=== PATIENT | female | born 2000 | race Caucasian/White ===

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

== ENCOUNTER 2020-04-06 13:59 | Emergency (ER) | payer OTHER ==
[~2020-04-06] VITALS: Ht 152.4 cm; Wt 69.4 kg
--- OUTSIDE RECORDS SUMMARY | ~2020-04-06 | XMS | Encounter Summary ---
Demographics + + + | Address | [address] | | | [place] [address] | + + + | Home Phone | | + + + | Preferred Language | Unknown | + + + | Marital Status | Single | + + + | Baptist Affiliation | Unknown | + + + | Race | Unknown | + + + | Ethnic Group | Unknown | + + + Author + + + | Author | [facility] | | | and [place] | + + + | Organization | [facility] | | | and [place] | + + + | Address | Unknown | + + + | Phone | Unavailable | + + + Support + + +---------+ + | Name | Relationship | Address | Phone | + + +---------+ + | Giles Gross | ECON | Unknown | | + + +---------+ + Care Team Providers + +------+ + | Care Hyperion Analyst Name | Role | Phone | + +------+ + PCP | Unavailable | + +------+ + Encounter Details +--------+ + + + + | Date | Type | Department | Care Team | Description | +--------+ + + + + | 03/21/ | Hospital | [place] [facility] | [facility] | | | 2013 | Encounter | [facility] [address] | | | | | [facility] [place] | [address] | | | | | [place], [place] | [place], [place] | | | | | [address] | [address] | | | | | [phone] | [phone] | | | | | | | | +--------+ + + + + Social History + +-------+ +--------+------+ | Tobacco Use | Types | Packs/Day | Years | Date | | | | | Used | | + +-------+ +--------+------+ | Never Assessed | | | | | + +-------+ +--------+------+ + + + | Sex Assigned at | Date Recorded | | | | + + + | Not on file | | + + + documented as of this encounter Plan of Treatment Not on filedocumented as of this encounter Visit Diagnoses Not on filedocumented in this encounter"
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
--- OUTSIDE RECORDS SUMMARY | ~2020-04-06 | XMS | Encounter Summary ---
Demographics + + + | Address | [address] | | | [place] [address] | + + + | Home Phone | | + + + | Preferred Language | Unknown | + + + | Marital Status | Single | + + + | Confucianism Affiliation | Unknown | + + + | Race | Unknown | + + + | Ethnic Group | Unknown | + + + Author + + + | Author | [facility] | | | and [place] | + + + | Organization | [facility] | | | and [place] [...] Team Providers + +------+ + | Care Drupal Programmer Name | Role | Phone | + +------+ + PCP | Unavailable | + +------+ + Encounter Details +--------+ + + + + | Date | Type | Department | Care Team | Description | +--------+ + + + + | 08/10/ | Hospital | [place] | Yair Gastelum | | | 2013 | Encounter | HOSPITAL EMERGENCY | [address] | | | | | CENTER [address] [place], [place] | | | | | [place] | [address] | | | | | [address] | | | | | | [phone] | | | +--------+ + + + [...]
--- OUTSIDE RECORDS SUMMARY | ~2020-04-06 | XMS | Encounter Summary ---
Demographics + + + | Address | [address] | | | [place] [address] | + + + | Home Phone | | + + + | Preferred Language | Unknown | + + + | Marital Status | Single | + + + | Jainism Affiliation | Unknown | + + + | Race | Unknown | + + + | Ethnic Group | Unknown | + + + Author + + + | Author | [facility] | | | and [place] | + + + | Organization | [facility] | | | and [place] | [...] Team Providers + +------+ + | Care Farmworker Chicken [employer] Name | Role | Phone | + +------+ + PCP | Unavailable | + +------+ + Encounter Details +--------+ + + + + | Date | Type | Department | Care Team | Description | +--------+ + + + + | 11/03/ | Hospital | [facility] | de Ernie Kelley | | | 2010 | Encounter | CONVERSION | MD [address] | | | | | DEPARTMENT [address] | [address] | | [address] | [place], [place] | | | | | [place], [place] | [address] | | | | | [address] | [phone] | | | | | [phone] | | | +--------+ + + + [...]
--- OUTSIDE RECORDS SUMMARY | ~2020-04-06 | XMS | Encounter Summary ---
Demographics + + + | Address | [address] | | | [place] [address] | + + + | Home Phone | | + + + | Preferred Language | Unknown | + + + | Marital Status | Single | + + + | Bahai Affiliation | Unknown | + + + | Race | Unknown | + + + | Ethnic Group | Unknown | + + + Author + + + | Author | [facility] | | | and [place] | + + + | Organization | [facility] | | | and [place] [...] Team Providers + +------+ + | Care Hazardous Material Specialist Name | Role | Phone | + +------+ + PCP | Unavailable | + +------+ + Encounter Details +--------+ + + + + | Date | Type | Department | Care Team | Description | +--------+ + + + + | 11/24/ | Hospital | [facility] | Lexi Jeffers, | | | 2009 | Encounter | HOSPITAL EMERGENCY | [address] | | | | | [address] | [place], [place] | | | | | [address] [place], [place] | [address] | | | | | [address] | [phone] | | | | | [phone] | | | +--------+ + + + [...]
--- OUTSIDE RECORDS SUMMARY | ~2020-04-06 | XMS | Encounter Summary ---
Demographics + + + | Address | [address] | | | [place] [address] | + + + | Home Phone | | + + + | Preferred Language | Unknown | + + + | Marital Status | Single | + + + | Jain Affiliation | Unknown | + + + | Race | Unknown | + + + | Ethnic Group | Unknown | + + + Author + + + | Author | [facility] | | | and [place] | + + + | Organization | [facility] | | | and [...] Team Providers + +------+ + | Care Mail Weigher Name | Role | Phone | + +------+ + PCP | Unavailable | + +------+ + Encounter Details +--------+ + + + + | Date | Type | Department | Care Team | Description | +--------+ + + + + | 01/04/ | Hospital | [facility] | Dieudonne Montemayor | | | 2016 | Encounter | HOSPITAL EMERGENCY | [address] | | | | | [address] | [facility] | | | | | [address] [place], [place] | [facility] [address] | | | | | [address] | [phone] | | | | | [phone] | | | +--------+ + + + [...] | + +--------+ + + + | DRUGS OF ABUSE, | STAT | 01/05/2016 | | Results for this | | SCREEN, URINE | | 9:16 AM | | procedure are in the | | | | PDT | | results section. | + +--------+ + + + | CBC W/AUTO | STAT | 01/05/2016 | | Results for this | | DIFFERENTIAL | | 8:52 AM | | procedure are in the | | | | PDT | | results section. | + +--------+ + + + | , SERUM, | STAT | 01/05/2016 | | Results for this | | QUAL | | 8:52 AM | | procedure are in the | | | | PDT | | results section. | + +--------+ + + + | TSH | STAT | 01/05/2016 | | Results for this | | | | 8:52 AM | | procedure are in the | | | | PDT | | results section. | + +--------+ + + + | ALCOHOL | STAT | 01/05/2016 | | Results for this | | | | 8:52 AM | | procedure are in the | | | | PDT | | results section. | + +--------+ + + + | ACETAMINOPHEN LEVEL | STAT | 01/05/2016 | | Results for this | | | | 8:52 AM | | procedure are in the | | | | PDT | | results section. | + +--------+ + + + | SALICYLATE LEVEL | STAT | 01/05/2016 | | Results for this | | | | 8:52 AM | | procedure are in the | | | | PDT | | results section. | + +--------+ + + + | COMPREHENSIVE | STAT | 01/05/2016 | | Results for this | | METABOLIC PANEL | | 8:52 AM | | procedure are in the | | | | PDT | | results section. | + +--------+ + + + | URINALYSIS WITH | STAT | 01/05/2016 | | Results for this | | MICROSCOPIC WITH | | 8:51 AM | | procedure are in the | | CULTURE IF INDICATED | | PDT | | results section. | + +--------+ + + + documented in this encounter Results Drugs of Abuse, Screen, Urine (01/05/2016 9:16 AM PDT) + +-------+ + + + | Component | Value | Ref Range | Performed | Pathologist | | | | | At | Signature | + +-------+ + + + | THC RESULT | NEG | NEG ng/mL | EXTERNAL | | | | | | LAB | | + +-------+ + + + | Phencyclidi | NEG | NEG ng/mL | EXTERNAL | | | ne | | | LAB | | + +-------+ + + + | Cocaine | NEG | NEG ng/mL | EXTERNAL | | | | | | LAB | | + +-------+ + + + | Methampheta | NEG | NEG ng/mL | EXTERNAL | | | mine | | | LAB | | + +-------+ + + + | Opiates | NEG | NEG ng/mL | EXTERNAL | | | | | | LAB | | + +-------+ + + + | Amphetamine | NEG | NEG ng/mL | EXTERNAL | | | s | | | LAB | | + +-------+ + + + | Benzodiazep | NEG | NEG ng/mL | EXTERNAL | | | osiel | | | LAB | | | Screen, | | | | | | Urine | | | | | + +-------+ + + + | TCA Scrn | NEG | NEG ng/mL | EXTERNAL | | | | | | LAB | | + +-------+ + + + | Methadone | NEG | NEG ng/mL | EXTERNAL | | | Screen, | | | LAB | | | Urine | | | | | + +-------+ + + + | Barbiturate | NEG | NEG ng/mL | EXTERNAL | | | s | | | LAB | | + +-------+ + + + | Oxycodone | NEG | NEG ng/mL | EXTERNAL | | | | | | LAB | | + +-------+ + + + | Propoxyphen | NEG | NEG ng/mL | EXTERNAL | | | e | | | LAB | | + +-------+ + + + | Buprenorphi | NEG | NEG ng/mL | EXTERNAL | | | ne | | | LAB | | + +-------+ + + + + + | Specimen | + + | | + + + +---------+ + + | Performing | Address | City/State/Zipcode | Phone Number | | Organization | | | | + +---------+ + + | EXTERNAL LAB | | | | + +---------+ + + CBC w/ Auto Differential (01/05/2016 8:52 AM PDT) + +-------+ + + + | Component | Value | Ref Range | Performed | Pathologist | | | | | At | Signature | + +-------+ + + + | WBC | 6.2 | 4.5 - 13.5 | EXTERNAL | | | | | 1000/mm3 | LAB | | + +-------+ + + + | RBC | 4.78 | 3.90 - 5.10 | EXTERNAL | | | | | mil/mm3 | LAB | | + +-------+ + + + | HGB, | 13.9 | 11.7 - 15.3 | EXTERNAL | | | External | | g/dL | LAB | | + +-------+ + + + | HCT, | 41 | 37.7 - 47.0 % | EXTERNAL | | | External | | | LAB | | + +-------+ + + + | MCV | 86 | 78 - 98 fl | EXTERNAL | | | | | | LAB | | + +-------+ + + + | MCH | 29.1 | 26.0 - 34.0 pg | EXTERNAL | | | | | | LAB | | + +-------+ + + + | MCHC | 33.9 | 32.0 - 36.0 | EXTERNAL | | | | | g/dL | LAB | | + +-------+ + + + | RDW-CV | 13.3 | <=17.0 % | EXTERNAL | | | | | | LAB | | + +-------+ + + + | RDW-SD | 40.9 | 34.0 - 57.0 fL | EXTERNAL | | | | | | LAB | | + +-------+ + + + | Platelet | 296 | 150 - 450 | EXTERNAL | | | Count | | 1000/mm3 | LAB | | | Plasma | | | | | + +-------+ + + + | MPV | 9.8 | 9.4 - 12.3 FL | EXTERNAL | | | | | | LAB | | + +-------+ + + + | % Segmented | 65.8 | 39.0 - 73.0 % | EXTERNAL | | | | | | LAB | | | Neutrophils | | | | | + +-------+ + + + | % | 22.7 | 23.0 - 53.0 % | EXTERNAL | | | Lymphocytes | | | LAB | | + +-------+ + + + | % Monocytes | 8.9 | 3.0 - 13.0 % | EXTERNAL | | | | | | LAB | | + +-------+ + + + | % | 2.1 | 0.0 - 7.0 % | EXTERNAL | | | Eosinophils | | | LAB | | + +-------+ + + + | % Basophils | 0.5 | 0.0 - 2.0 % | EXTERNAL | | | | | | LAB | | + +-------+ + + + | Absolute | 4.05 | 2.50 - 8.50 | EXTERNAL | | | Neutrophils | | 1000/mm3 | LAB | | + +-------+ + + + | Absolute | 1.4 | 1.50 - 6.50 | EXTERNAL | | | Lymphocytes | | 1000/mm3 | LAB | | + +-------+ + + + | Absolute | 0.55 | 0.00 - 0.80 | EXTERNAL | | | Monocytes | | 1000/mm3 | LAB | | + +-------+ + + + | Absolute | 0.13 | 0.00 - 0.70 | EXTERNAL | | | Eosinophils | | 1000/mm3 | LAB | | + +-------+ + + + | Absolute | 0.03 | 0.00 - 0.20 | EXTERNAL | | | Basophils | | 1000/mm3 | LAB | | + +-------+ + + + | SLIDE | NO | | EXTERNAL | | | REVIEWED | | | LAB | | + +-------+ + + + + + | Specimen | + + | | + + + +---------+ + + | Performing | Address | City/State/Zipcode | Phone Number | | Organization | | | | + +---------+ + + | EXTERNAL LAB | | | | + +---------+ + + , Serum, Qual (01/05/2016 8:52 AM PDT) + + + + + + | Component | Value | Ref Range | Performed | Pathologist | | | | | At | Signature | + + + + + + | HCG | NEGATIVE | NEGATIVE | EXTERNAL | | | QUALITATIVE | | | LAB | | + + + + + + | Internal QC | POSITIVE | POSITIVE | EXTERNAL | | | | | | LAB | | + + + + + + + + | Specimen | + + | | + + + +---------+ + + | Performing | Address | City/State/Zipcode | Phone Number | | Organization | | | | + +---------+ + + | EXTERNAL LAB | | | | + +---------+ + + TSH (01/05/2016 8:52 AM PDT) + +-------+ + + + | Component | Value | Ref Range | Performed | Pathologist | | | | | At | Signature | + +-------+ + + + | TSH | 1.86 | 0.40 - 4.68 | EXTERNAL | | | | | mIU/L | LAB | | + +-------+ + + + + + | Specimen | + + | | + + + +---------+ + + | Performing | Address | City/State/Zipcode | Phone Number | | Organization | | | | + +---------+ + + | EXTERNAL LAB | | | | + +---------+ + + Salicylate Level (01/05/2016 8:52 AM PDT) + +-------+ + + + | Component | Value | Ref Range | Performed | Pathologist | | | | | At | Signature | + +-------+ + + + | Salicylate | 3 | 3 - 20 mg/dL | EXTERNAL | | | Level | | | LAB | | + +-------+ + + + + + | Specimen | + + | | + + + +---------+ + + | Performing | Address | City/State/Zipcode | Phone Number | | Organization | | | | + +---------+ + + | EXTERNAL LAB | | | | + +---------+ + + Acetaminophen Level (01/05/2016 8:52 AM PDT) + +-------+ + + + | Component | Value | Ref Range | Performed | Pathologist | | | | | At | Signature | + +-------+ + + + | Acetaminoph | 2 | 10.0 - 20.0 | EXTERNAL | | | en, S | | ug/mL | LAB | | + +-------+ + + + + + | Specimen | + + | | + + + +---------+ + + | Performing | Address | City/State/Zipcode | Phone Number | | Organization | | | | + +---------+ + + | EXTERNAL LAB | | | | + +---------+ + + Comprehensive Metabolic Panel (01/05/2016 8:52 AM PDT) + +-------+ + + + | Component | Value | Ref Range | Performed | Pathologist | | | | | At | Signature | + +-------+ + + + | Sodium | 139 | 132 - 143 | EXTERNAL | | | | | mmol/L | LAB | | + +-------+ + + + | Potassium | 4.1 | 3.3 - 4.9 | EXTERNAL | | | | | mmol/L | LAB | | + +-------+ + + + | Cl | 105 | 95 - 108 mmol/L | EXTERNAL | | | | | | LAB | | + +-------+ + + + | CO2 | 27 | 23 - 34 mmol/L | EXTERNAL | | | | | | LAB | | + +-------+ + + + | Anion Gap | 7 | 7 - 16 | EXTERNAL | | | | | | LAB | | + +-------+ + + + | Calcium | 9.1 | 8.3 - 10.0 | EXTERNAL | | | | | mg/dL | LAB | | + +-------+ + + + | Glucose | 93 | 70 - 110 mg/dL | EXTERNAL | | | | | | LAB | | + +-------+ + + + | BUN, Bld | 11 | 5 - 26 mg/dL | EXTERNAL | | | | | | LAB | | + +-------+ + + + | Creatinine | 0.7 | 0.60 - 1.30 | EXTERNAL | | | | | mg/dL | LAB | | + +-------+ + + + | BUN/Creatin | 15.7 | 7.0 - 24.0 | EXTERNAL | | | ine Ratio | | RATIO | LAB | | + +-------+ + + + | Bilirubin, | 0.4 | <=1.2 mg/dL | EXTERNAL | | | Total | | | LAB | | + +-------+ + + + | Protein, | 7 | 6.6 - 8.5 g/dL | EXTERNAL | | | Total | | | LAB | | + +-------+ + + + | Albumin | 3.3 | 3.0 - 4.5 g/dL | EXTERNAL | | | | | | LAB | | + +-------+ + + + | Alkaline | 105 | 60 - 270 U/L | EXTERNAL | | | Phosphatase | | | LAB | | + +-------+ + + + | ALT, | 35 | 14 - 59 U/L | EXTERNAL | | | External | | | LAB | | + +-------+ + + + | AST, | 29 | <=38 U/L | EXTERNAL | | | External | | | LAB | | + +-------+ + + + + + | Specimen | + + | | + + + +---------+ + + | Performing | Address | City/State/Zipcode | Phone Number | | Organization | | | | + +---------+ + + | EXTERNAL LAB | | | | + +---------+ + + Ethanol (01/05/2016 8:52 AM PDT) + +-------+ + + + | Component | Value | Ref Range | Performed | Pathologist | | | | | At | Signature | + +-------+ + + + | Alcohol, | 10 | <=10 mg/dL | EXTERNAL | | | Ethyl (B) | | | LAB | | + +-------+ + + + + + | Specimen | + + | | + + + +---------+ + + | Performing | Address | City/State/Zipcode | Phone Number | | Organization | | | | + +---------+ + + | EXTERNAL LAB | | | | + +---------+ + + Urinalysis with Microscopic with Culture if Indicated (01/05/2016 8:51 AM PDT) + + + + + + | Component | Value | Ref Range | Performed | Pathologist | | | | | At | Signature | + + + + + + | Source | Clean Catch / VOID | | EXTERNAL | | | | | | LAB | | + + + + + + | Clarity, | CLEAR | CLEAR | EXTERNAL | | | Urine | | | LAB | | + + + + + + | Color, | YELLOW | YELLOW | EXTERNAL | | | Urine | | | LAB | | + + + + + + | Specific | 1.015 | 1.005 - 1.030 | EXTERNAL | | | [place], | | | LAB | | | Urine | | | | | + + + + + + | pH, Urine | 7 | 5.0 - 7.0 pH | EXTERNAL | | | | | | LAB | | + + + + + + | Leukocyte | NEGATIVE | NEGATIVE /uL | EXTERNAL | | | Esterase, | | | LAB | | | Urine | | | | | + + + + + + | Nitrite, | NEGATIVE | NEGATIVE | EXTERNAL | | | Urine | | | LAB | | + + + + + + | Protein, | NEGATIVE | NEGATIVE mg/dL | EXTERNAL | | | Urine | | | LAB | | + + + + + + | Glucose, | NORMAL | NORMAL mg/dL | EXTERNAL | | | Urine | | | LAB | | + + + + + + | Reducing | NOT REQUIRED | NEGATIVE | EXTERNAL | | | Substance, | | | LAB | | | UA, POC | | | | | + + + + + + | Ketones, | NEGATIVE | NEGATIVE mg/dL | EXTERNAL | | | Urine | | | LAB | | + + + + + + | Urobilinoge | NORMAL | NORMAL mg/dL | EXTERNAL | | | n, Urine | | | LAB | | + + + + + + | Bilirubin, | NEGATIVE | NEGATIVE mg/dL | EXTERNAL | | | Urine | | | LAB | | + + + + + + | Blood, | NEGATIVE | NEGATIVE /uL | EXTERNAL | | | Urine | | | LAB | | + + + + + + | White Blood | NONE SEEN | </= 5 /HPF | EXTERNAL | | | Cells, | | | LAB | | | Urine | | | | | + + + + + + | RBC | NONE SEEN | </= 5 PER HPF | EXTERNAL | | | | | | LAB | | + + + + + + | Bacteria, | RARE | NONE SEEN /HPF | EXTERNAL | | | UA | | | LAB | | + + + + + + | Culture | NO | | EXTERNAL | | | Indicated | | | LAB | | + + + + + + | Squamous | FEW | FEW /LPF | EXTERNAL | | | Epithelial | | | LAB | | | Cells, | | | | | | Urine | | | | | + + + + + + + + | Specimen | + + | | + + + +---------+ + + | Performing | Address | City/State/Zipcode | Phone Number | | Organization | | | | + +---------+ + + | EXTERNAL LAB | | | | + +---------+ + + documented in this encounter Visit Diagnoses Not on filedocumented in this encounter"
--- OUTSIDE RECORDS SUMMARY | ~2020-04-06 | XMS | Encounter Summary ---
Demographics + + + | Address | [address] | | | [place] [address] | + + + | Home Phone | | + + + | Preferred Language | Unknown | + + + | Marital Status | Single | + + + | Alevism Affiliation | Unknown | + + + | Race | Unknown | + + + | Ethnic Group | Unknown | + + + Author + + + | Author | [facility] | | | and [place] | + + + | Organization | [facility] | | | and [place] [...] Team Providers + +------+ + | Care Laser Set Up Operator Name | Role | Phone | + +------+ + PCP | Unavailable | + +------+ + Encounter Details +--------+ + + + + | Date | Type | Department | Care Team | Description | +--------+ + + + + | 03/19/ | Hospital | [place] [facility] | Shelley Clifton | | | 2013 | Encounter | HOSPITAL OBSTETRICS | DO [address] | | | | | [address] [place] | [address] | | | | | [place], [place] | [place], [place] | | | | | [address] | [address] | | | | | [phone] | [phone] | | | | | | | [...]
--- OUTSIDE RECORDS SUMMARY | ~2020-04-06 | XMS | Encounter Summary ---
Demographics + + + | Address | [address] | | | [place] [address] | + + + | Home Phone [...] + | Author | [facility] | | | and [place] | + + + | Organization | [facility] | | | and [place] [...] Team Providers + +------+ + | Care Radiotelephone Operator Name | Role | Phone | + +------+ + PCP | Unavailable | + +------+ + Encounter Details +--------+ + + + + | Date | Type | Department | Care Team | Description | +--------+ + + + + | 03/08/ | Hospital | [facility] | Lauro Fajardo | | | 2014 | Encounter | HOSPITAL EMERGENCY | DO [address] | | | | | CENTER [address] | [address] [place] | | | | | DR [place], [place] | [place] [address] | | | | | [address] | [phone] | | | | | [phone] | | | +--------+ + + + [...] + +--------+ + + + | XR CHEST 2 VIEWS | Routin | 03/08/2015 | | Results for this | | | e | 9:33 AM | | procedure are in the | | | | PDT | | results section. | + +--------+ + + + documented in this encounter Results XR Chest 2 VW (03/08/2015 9:33 AM PDT) + + | Specimen | + + | | + + + + + | Narrative | Performed At | + + + | ORIGINAL PA AND LATERAL CHEST: HISTORY: | | | Cough, shortness of breath. FINDINGS: The lungs are clear. No | | | pleural effusion. No pneumothorax. The cardiomediastinal | | | silhouette is within normal limits. IMPRESSION: No evidence of an | | | acute cardiopulmonary process. JOB #: [id number] | | | Read By: BEBETO KLEIN MD Released By: BEBETO KLEIN | | | Date: 03/13/2015 12:02 | | + + + + + | Procedure Note | + + | Tunde, Rad Results In - 08/02/2017 7:34 PM PST ORIGINAL PA AND LATERAL CHEST: | | HISTORY:Cough, shortness of breath. FINDINGS:The lungs are clear. No pleural effusion. | | No pneumothorax. The cardiomediastinal silhouette is within normal limits. | | IMPRESSION:No evidence of an acute cardiopulmonary process. JOB #: | | [id number] Read By: BEBETO KLEIN MD Released By: YFN ZAVALAate: | | 03/13/2015 12:02 | | | |HISTORY: | |Cough, shortness of breath. | | | |FINDINGS: | |The lungs are clear. No pleural effusion. No pneumothorax. The cardiomediastinal silhoue tte is within normal limits. | | | |IMPRESSION: | |No evidence of an acute cardiopulmonary process. | | | | | |JOB #: [id number] | | | |Read By: BEBETO KLEIN MD | | | |Released By: BEBETO KLEIN MD | |Date: 03/13/2015 12:02 | | | | | + + documented in this encounter Visit Diagnoses Not on filedocumented in this encounter"
--- OUTSIDE RECORDS SUMMARY | ~2020-04-06 | XMS | Clinical Summary ---
Demographics + + + | Address | [address] | | | [place] [address] | + + + | Home Phone | | + + + | Preferred Language | Unknown | + + + | Marital Status | Single | + + + | Episcopal Affiliation | Unknown | + + + [...] Team Providers + +------+ + | Care Pot Maker Name | Role | Phone | + +------+ + PCP | Unavailable | + +------+ + Source Comments EDUARDO is fully live on both [facility] Ambulatory and [facility] InPatient.[facility] Allergies Not on File Medications Not on file Active Problems Not [...] recent travel history available. | + + Last Filed Vital Signs Not on file Plan of Treatment + + + + + | Health Maintenance | Due Date | Last Done | Comments | + + + + + | Influenza (Flu) | | | | | vaccination (#1) | 9 | | | + + + + + | Pneumococcal | Aged Out | | No longer eligible | | vaccination | | | based on patient's | | | | | age to complete this | | | | | topic | + + + + + Results Not on filefrom Last 3 Months"
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
--- OUTSIDE RECORDS SUMMARY | ~2020-04-06 | XMS | Encounter Summary ---
Demographics + + + | Address | [address] | | | [place] [address] | + + + | Home Phone | | + + + | Preferred Language | Unknown | + + + | Marital Status | Single | + + + | Anabaptist Affiliation | Unknown | + + + | Race | Unknown | + + + | Ethnic Group | Unknown | + + + Author + + + | Author | [facility] | | | and [place] | + + + | Organization | [facility] | | | and [place] [...] Team Providers + +------+ + | Care Database Operator Name | Role | Phone | [...] | | | | [place], [place] | [address] | | | | | [address] | [phone] | | | | | [phone] | | | +--------+ + + + [...]
--- OUTSIDE RECORDS SUMMARY | ~2020-04-06 | XMS | Encounter Summary ---
Demographics + + + | Address | [address] | | | [place] [address] | + + + | Home Phone | | + + + | Preferred Language | Unknown | + + + | Marital Status | Single | + + + | Hoahaoism Affiliation | Unknown | + + + | Race | Unknown | + + + | Ethnic Group | Unknown | + + + Author + + + | Author | [facility] | | | and [place] | + + + | Organization | [facility] | | | and [...] Team Providers + +------+ + | Care Monitoring Analyst Name | Role | Phone | + +------+ + PCP | Unavailable | + +------+ + Encounter Details +--------+ + + + + | Date | Type | Department | Care Team | Description | +--------+ + + + + | 11/23/ | Hospital | [facility] | [facility] | | | 2016 | Encounter | [facility] | [address] | | | | | [address] | [address] [place] | | | | | DR [place], [place] | [place], [place] [address] | | | | | [address] | [phone] | | | | | [phone] | | | +--------+ + + + [...] | + +--------+ + + + | MAGNESIUM | Routin | 11/24/2015 | | Results for this | | | e | 9:35 PM | | procedure are in the | | | | PST | | results section. | + +--------+ + + + | HCG, SERUM, QUAL | FARZANA | 11/24/2015 | | Results for this | | (NON-ORD) | | 9:34 PM | | procedure are in the | | | | PST | | results section. | + +--------+ + + + | DRUGS OF ABUSE, | STAT | 11/24/2015 | | Results for this | | SCREEN, URINE | | 7:57 PM | | procedure are in the | | | | PST | | results section. | + +--------+ + + + | URINALYSIS WITH | STAT | 11/24/2015 | | Results for this | | MICROSCOPIC WITH | | 7:22 PM | | procedure are in the | | CULTURE IF INDICATED | | PST | | results section. | + +--------+ + + + | CBC W/AUTO | STAT | 11/24/2015 | | Results for this | | DIFFERENTIAL | | 7:22 PM | | procedure are in the | | | | PST | | results section. | + +--------+ + + + | TSH | STAT | 11/24/2015 | | Results for this | | | | 7:22 PM | | procedure are in the | | | | PST | | results section. | + +--------+ + + + | ALCOHOL | STAT | 11/24/2015 | | Results for this | | | | 7:22 PM | | procedure are in the | | | | PST | | results section. | + +--------+ + + + | ACETAMINOPHEN LEVEL | STAT | 11/24/2015 | | Results for this | | | | 7:22 PM | | procedure are in the | | | | PST | | results section. | + +--------+ + + + | SALICYLATE LEVEL | STAT | 11/24/2015 | | Results for this | | | | 7:22 PM | | procedure are in the | | | | PST | | results section. | + +--------+ + + + | COMPREHENSIVE | STAT | 11/24/2015 | | Results for this | | METABOLIC PANEL | | 7:22 PM | | procedure are in the | | | | PST | | results section. | + +--------+ + + + documented in this encounter Results Magnesium (11/24/2015 9:35 PM PST) + +-------+ + + + | Component | Value | Ref Range | Performed | Pathologist | | | | | At | Signature | + +-------+ + + + | Magnesium | 2 | 1.8 - 2.4 mg/dL | EXTERNAL | | | | [...] + +---------+ + + Hcg, Serum, Qual (11/24/2015 9:34 PM PST) + + + + + + [...] + + Drugs of Abuse, Screen, Urine (11/24/2015 7:57 PM PST) + +-------+ + + + | [...] Urinalysis with Microscopic with Culture if Indicated (11/24/2015 7:22 PM PST) + + + + + + [...] + + + + | Specific | 1.025 | 1.005 - 1.030 | EXTERNAL | | | [place], | | | LAB | | | Urine | | | | | + + + + + + | pH, Urine | 6 | 5.0 - 7.0 pH | EXTERNAL [...] + + + + | Protein, | 30 | NEGATIVE mg/dL | EXTERNAL | | [...] + + + + | Blood, | 10 | NEGATIVE /uL | EXTERNAL | | | Urine | | | LAB | | + + + + + + | White Blood | 0-2 | </= 5 /HPF | EXTERNAL | | | Cells, | | | LAB | | | Urine | | | | | + + + + + + | RBC | 0-2 | </= 5 PER HPF | EXTERNAL | | | | | | LAB | | + + + + + + | Bacteria, | FEW | NONE SEEN /HPF | EXTERNAL | | | UA | | | LAB | | + + + + + + | Culture | NO | | EXTERNAL | | | Indicated | | | LAB | | + + + + + + | Squamous | MANY | FEW /LPF | EXTERNAL | | | Epithelial | | | LAB | | | Cells, | | | | | | Urine | | | | | + + + + + + | Calcium | FEW | NONE SEEN /HPF | EXTERNAL | | | Oxalate | | | LAB | | | Crystals, | | | | | | Urine [...] +---------+ + + CBC w/ Auto Differential (11/24/2015 7:22 PM PST) + +-------+ + + + | Component | Value | Ref Range | Performed | Pathologist | | | | | At | Signature | + +-------+ + + + | WBC | 8.6 | 4.5 - 13.5 | EXTERNAL | | | | | 1000/mm3 | LAB | | + +-------+ + + + | RBC | 4.71 | 3.90 - 5.10 | EXTERNAL | | | | | mil/mm3 | LAB | | + +-------+ + + + | HGB, | 13.6 | 11.7 - 15.3 | EXTERNAL | | | External | | g/dL | LAB | | + +-------+ + + + | HCT, | 39.3 | 37.7 - 47.0 % | EXTERNAL | | | External | | | LAB | | + +-------+ + + + | MCV | 83 | 78 - 98 fl | EXTERNAL | | | | | | LAB | | + +-------+ + + + | MCH | 28.9 | 26.0 - 34.0 pg | EXTERNAL | | | | | | LAB | | + +-------+ + + + | MCHC | 34.6 | 32.0 - 36.0 | EXTERNAL | | | | | g/dL | LAB | | + +-------+ + + + | RDW-CV | 13.7 | <=17.0 % | EXTERNAL | | | | | | LAB | | + +-------+ + + + | RDW-SD | 40.8 | 34.0 - 57.0 fL | EXTERNAL | | | | | | LAB | | + +-------+ + + + | Platelet | 328 | 150 - 450 | EXTERNAL | | | Count | | 1000/mm3 | LAB | | | Plasma | | | | | + +-------+ + + + | MPV | 10 | 9.4 - 12.3 FL | EXTERNAL | | | | | | LAB | | + +-------+ + + + | % Segmented | 68.2 | 39.0 - 73.0 % | EXTERNAL | | | | | | LAB | | | Neutrophils | | | | | + +-------+ + + + | % | 22.2 | 23.0 - 53.0 % | EXTERNAL | | | Lymphocytes | | | LAB | | + +-------+ + + + | % Monocytes | 5.6 | 3.0 - 13.0 % | EXTERNAL | | | | | | LAB | | + +-------+ + + + | % | 3.7 | 0.0 - 7.0 % | EXTERNAL | | | Eosinophils | | | LAB | | + +-------+ + + + | % Basophils | 0.3 | 0.0 - 2.0 % | EXTERNAL | | | | | | LAB | | + +-------+ + + + | Absolute | 5.86 | 2.50 - 8.50 | EXTERNAL | | | Neutrophils | | 1000/mm3 | LAB | | + +-------+ + + + | Absolute | 1.91 | 1.50 - 6.50 | EXTERNAL | | | Lymphocytes | | 1000/mm3 | LAB | | + +-------+ + + + | Absolute | 0.48 | 0.00 - 0.80 | EXTERNAL | | | Monocytes | | 1000/mm3 | LAB | | + +-------+ + + + | Absolute | 0.32 | 0.00 - 0.70 | EXTERNAL | [...] | | + +---------+ + + TSH (11/24/2015 7:22 PM PST) + +-------+ + + + | Component | Value | Ref Range | Performed | Pathologist | | | | | At | Signature | + +-------+ + + + | TSH | 1.29 | 0.40 - 4.68 | EXTERNAL | [...] | + +---------+ + + Salicylate Level (11/24/2015 7:22 PM PST) + +-------+ + + + | [...] | + +---------+ + + Acetaminophen Level (11/24/2015 7:22 PM PST) + +-------+ + + + | [...] + +---------+ + + Comprehensive Metabolic Panel (11/24/2015 7:22 PM PST) + +-------+ + + + | Component | Value | Ref Range | Performed | Pathologist | | | | | At | Signature | + +-------+ + + + | Sodium | 139 | 132 - 143 | EXTERNAL | | | | | mmol/L | LAB | | + +-------+ + + + | Potassium | 3.5 | 3.3 - 4.9 | EXTERNAL | | | | | mmol/L | LAB | | + +-------+ + + + | Cl | 105 | 95 - 108 mmol/L | EXTERNAL | | | | | | LAB | | + +-------+ + + + | CO2 | 23 | 23 - 34 mmol/L | EXTERNAL | | | | | | LAB | | + +-------+ + + + | Anion Gap | 11 | 7 - 16 | EXTERNAL | | | | | | LAB | | + +-------+ + + + | Calcium | 8.5 | 8.3 - 10.0 | EXTERNAL | | | | | mg/dL | LAB | | + +-------+ + + + | Glucose | 100 | 70 - 110 mg/dL | EXTERNAL | | | | | | LAB | | + +-------+ + + + | BUN, Bld | 10 | 5 - 26 mg/dL | EXTERNAL | | | | | | LAB | | + +-------+ + + + | Creatinine | 0.65 | 0.60 - 1.30 | EXTERNAL | | | | | mg/dL | LAB | | + +-------+ + + + | BUN/Creatin | 15.4 | 7.0 - 24.0 | EXTERNAL | | | ine Ratio | | RATIO | LAB | | + +-------+ + + + | Bilirubin, | 0.3 | <=1.2 mg/dL | EXTERNAL | | | Total | | | LAB | | + +-------+ + + + | Protein, | 7.1 | 6.6 - 8.5 g/dL | EXTERNAL | | | Total | | | LAB | | + +-------+ + + + | Albumin | 3.3 | 3.0 - 4.5 g/dL | EXTERNAL | | | | | | LAB | | + +-------+ + + + | Alkaline | 93 | 60 - 270 U/L | EXTERNAL | | | Phosphatase | | | LAB | | + +-------+ + + + | ALT, | 28 | 14 - 59 U/L | EXTERNAL | | | External | | | LAB | | + +-------+ + + + | AST, | 21 | <=38 U/L | EXTERNAL | | [...] | | + +---------+ + + Ethanol (11/24/2015 7:22 PM PST) + +-------+ + + + | [...]
--- OUTSIDE RECORDS SUMMARY | ~2020-04-06 | XMS | Encounter Summary ---
Demographics + + + | Address | [address] | | | [place] [address] | + + + | Home Phone | | + + + | Preferred Language | Unknown | + + + | Marital Status | Single | + + + | Protestant Affiliation [...] Team Providers + +------+ + | Care Cma Name | Role | Phone | + [...] | Transcriptions | + + | Interface, Botany Laboratory Assistant In - 07/01/2006 3:01 AM PDT | | [facility]o | | [place], [place] [address] | | [facility] | | [id number] Date: 06/28/2001Name: Sumeet Caty SURGEON: | | Danica Batista M.D.MEDICAL NURSE(S): Edgard Camilo | | KarinaPREOPERATIVE DIAGNOSIS(ES):Esotropia.POSTOPERATIVE | [...] | | muscle hook followed by a Mobile hook. Conjunctivawas reflected over the tip of [...] office. Danica Batista M.D.AUS:x70D: 06/29/2001T: | | 06/30/[id number]: | |None. | | | |INDICATIONS FOR [...] a small muscle hook followed by a Mobile hook. Conjunctiva | |was reflected over the [...] | | | | | | | |[id number] | | | |CC: | + + documented in this encounter Visit Diagnoses Not on filedocumented in this encounter"
--- OUTSIDE RECORDS SUMMARY | ~2020-04-06 | XMS | Encounter Summary ---
Demographics + + + | Address | [address] | | | [place] [address] | + + + | Home Phone | | + + + | Preferred Language | Unknown | + + + | Marital Status | Single | + + + | Confucianist Affiliation | Unknown | + + + | Race | Unknown | + + + | Ethnic Group | Unknown | + + + Author + + + | Author | [facility] | | | and [place] | + + + | Organization | [facility] | | | and [place] | [...] Team Providers + +------+ + | Care Burlapper Name | Role | Phone | + +------+ + PCP | Unavailable | + +------+ + Encounter Details +--------+ + + + + | Date | Type | Department | Care Team | Description | +--------+ + + + + | 01/10/ | Hospital | [facility] | Jeanette Monzon, | | | 2016 | Encounter | HOSPITAL EMERGENCY | SERVICE TECHNICIAN [facility] [address] | | | | | CENTER [address] | [place] | | | | | [place] | [address] | | | | | [address] | | | | | | [phone] | | | +--------+ + + + [...]
--- OUTSIDE RECORDS SUMMARY | ~2020-04-06 | XMS | Clinical Summary ---
Demographics + + + | Address | [address] | | | [place] [address] | + + + | Home Phone | | + + + | Preferred Language | Unknown | + + + | Marital Status | Single | + + + | Adventism Affiliation | Unknown | + + + [...] Team Providers + +------+ + | Care Steel Manager Name | Role | Phone | + +------+ + PCP | Unavailable | + +------+ + Source Comments EDUARDO is fully live on both [facility] Ambulatory and [facility] InPatient.[facility] Allergies Not on File Medications Not [...]
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
--- OUTSIDE RECORDS SUMMARY | ~2020-04-06 | XMS | Encounter Summary ---
Demographics + + + | Address | [address] | | | [place] [address] | + + + | Home Phone | | + + + | Preferred Language | Unknown | + + + | Marital Status | Single | + + + | Samaritan Affiliation | Unknown | + + + [...] Team Providers + +------+ + | Care Director Perioperative Name | Role | Phone | + [...] | Transcriptions | + + | Interface, Outbound Sales Consultant In - 07/01/2006 3:01 AM PDT | | [facility] John Pelayo | | [place], [place] [address] | | [facility]Med Rec No.: | | [id number] Date: 06/28/2001Name: Sumeet Caty SURGEON: | | Danica Batista M.D.MOTORCYCLE SUBASSEMBLY REPAIRER(S): Edgard Camilo | | KarinaPREOPERATIVE DIAGNOSIS(ES):Esotropia.POSTOPERATIVE | [...] | | muscle hook followed by a [place] hook. Conjunctivawas reflected over the tip of [...] office. Danica Batista M.D.AUS:x70D: 06/29/2001T: | | 06/30/[id number]: | |None. | | | |INDICATIONS FOR [...] a small muscle hook followed by a [place] hook. Conjunctiva | |was reflected over the [...] | | | | | | | |[id number] | | | |CC: | + + documented in this encounter Visit Diagnoses Not on filedocumented in this encounter"
--- OUTSIDE RECORDS SUMMARY | ~2020-04-06 | XMS | Encounter Summary ---
Demographics + + + | Address | [address] | | | [place] [address] | + + + | Home Phone | | + + + | Preferred Language | Unknown | + + + | Marital Status | Single | + + + | Rastafari Affiliation | Unknown | + + + | Race | Unknown | + + + | Ethnic Group | Unknown | + + + Author + + + | Author | [facility] | | | and [place] | + + + | Organization | [facility] | | | and [place] [...] Team Providers + +------+ + | Care Block Setter Gypsum Name | Role | Phone | + [...] | | | [place], [place] | [place] [address] | | | | | [address] | [phone] | | | | | [phone] | | | +--------+ + + + [...] - 1.030 | EXTERNAL | | | [place], | | | LAB | | | [...]
--- OUTSIDE RECORDS SUMMARY | 2020-04-06 14:02 | XMS ---
PreManage Notification: SEAN KHALIL Security Credit Control Officer Events No recent Security Events currently on file CRITERIA MET - [facility] - 2 Visits in 30 Days CARE PROVIDERS CARE, URGENT Sandstone Splitter/Discotheque Dancer Current PHONE: [phone] EVERARDO SINHA Physician 12/17/2018-Current PHONE: [phone] Ludivina has no Care Guidelines for this patient. E.Leandra [facility] MO[facility] TOTAL 4 NOTE: Visits indicate total known visits. ED/UCC VISIT TRACKING (12 MO.) 04/06/2020 14:00 [facility] [place] TYPE: Emergency COMPLAINT: - BODY ACHES, HEADACHE, SOB, COUGH 03/26/2020 17:05 [facility] Mike JANI TYPE: Emergency DIAGNOSES: - Arm Pain - Unspecified sprain of right wrist, initial encounter - Right hand Injury 03/08/2020 21:34 [facility] Bobbi [place] TYPE: Emergency DIAGNOSES: - Unspecified injury of head, initial encounter - Head Injury - poss concussion - Strain of muscle, fascia and tendon at neck level, initial en 12/22/2019 08:36 [facility] [place] TYPE: Emergency DIAGNOSES: - Unspecified sprain of right wrist, initial encounter - Wrist pain INPATIENT VISIT TRACKING (12 MO.) No inpatient visits to display in this time frame [email or web address]
== END 2020-04-06 14:26 | disposition home or self-care (01) ==
LOC: ED 13:59
DX: R11.0 Nausea (principal); R68.83 Chills (without fever)

== ENCOUNTER 2020-04-06 22:11 | Emergency (ER) | payer OTHER ==
[~2020-04-06] VITALS: Ht 152.4 cm; Wt 68.0 kg
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
--- OUTSIDE RECORDS SUMMARY | ~2020-04-06 | XMS | Encounter Summary ---
Demographics + + + | Address | [address] | | | [place] [address] | + + + | Home Phone | | + + + | Preferred Language | Unknown | + + + | Marital Status | Single | + + + | Pentecostalism Affiliation | Unknown | + + + | Race | Unknown | + + + | Ethnic Group | Unknown | + + + Author + + + | Author | [facility] | | | and [place] | + + + | Organization | [facility] | | | and [...] Team Providers + +------+ + | Care Income Tax Preparer Name | Role | Phone | + +------+ + PCP | Unavailable | + +------+ + Encounter Details +--------+ + + + + | Date | Type | Department | Care Team | Description | +--------+ + + + + | 10/01/ | Hospital | [place] [facility] | Gordon Carballo | | | 2015 | Encounter | HOSPITAL NURSERY | MD Marisa [address] | | | | | [address] [place] | [place] | | | | | [place], [place] | [address] | | | | | [address] | [phone] | | | | | [phone] | | | +--------+ + + + [...]
--- OUTSIDE RECORDS SUMMARY | ~2020-04-06 | XMS | Encounter Summary ---
Demographics + + + | Address | [address] | | | [place] [address] | + + + | Home Phone | | + + + | Preferred Language | Unknown | + + + | Marital Status | Single | + + + | Advent Affiliation | Unknown | + + + | Race | White | + + + | Ethnic Group | Not or | + + + Author + + + | Organization | Unknown | + + + | Address | Unknown | + + + | Phone | Unavailable | + + + Support + + +---------+ + | Name | Relationship | Address | Phone | + + +---------+ + | Renetta Gross | ECON | Unknown | | + + +---------+ + Care Team Providers + +------+ + | Care Gas Distribution Plant Operator Name | Role | Phone | + +------+ + PCP | Unavailable | + +------+ + Encounter Details +--------+ + + + + | Date | Type | Department | Care Team | Description | +--------+ + + + + | 06/28/ | Procedure - | | Record, Operation | Operative Report | | 2000 | | | | | | | Transcribed | | | | +--------+ + + [...] on file | | + + + + + + + | Job Start Date | Occupation | Industry | + + + + | Not on file | Not on file | Not on file | + + + + + + + + | Travel History | Travel Start | Travel End | + + + + + + | No recent travel history available. | + + documented as of this encounter Plan of Treatment Not on filedocumented as of this encounter Procedures + +--------+ + + + | Procedure Name | Priori | Date/Time | Associated Diagnosis | Comments | | | ty | | | | + +--------+ + + + | OPERATION RECORD | | 06/28/2001 | | Results for this | | | | | | procedure are in the | | | | | | results section. | + +--------+ + + + documented in this encounter Results OPERATION RECORD (06/28/2001) + + | Transcriptions | + + | Interface, Core Drill Operator Helper In - 07/01/2006 3:01 AM PDT | | [facility] John Pelayo | | [place], [place] [address] | | [facility]ORDMed Rec No.: | | [id number] Date: 06/28/2001Name: Sumeet Caty SURGEON: | | Danica Batista M.D.BRUSH WORKER(S): Edgard Camilo | | KarinaPREOPERATIVE DIAGNOSIS(ES):Esotropia.POSTOPERATIVE | | DIAGNOSIS(ES):Esotropia.PROCEDURE(S) PERFORMED:1. Right medial rectus recession 6.5 | | mm.2. Left medial rectus recession 6.5 | | mm.ANESTHESIA:General.COMPLICATIONS:None.INDICATIONS FOR SURGERY:Patient with | | large-angle esotropia that requires surgical repair to aligneyes and establish | | fusion.PROCEDURE:After information informed consent, the patient was taken to the | | OperatingRoom and placed under laryngeal mask anesthesia. She was prepped and drapedin a | | routine fashion for strabismus surgery. The eyes were dilated withCyclogyl 1% prior | | to dilation and refraction was carried out which measured+1 sphere in each eye.A lid | | speculum was placed in the right eye, and an inferior nasal fornicealconjunctival | | incision was fashioned down to bare sclera. The medial rectuswas isolated on a small | | muscle hook followed by a [employer] hook. Conjunctivawas reflected over the tip of the | | hook, and sharp dissection was used toclean the muscle insertion and cleaned | | posteriorly for approximately 6mm. Adouble-arm 6-0 Vicryl suture on an S-29 needle was | | then placed through themuscle belly 1-mm posterior to the insertion with locking | | bites at eachedge. The muscle was dissected free of sclera, and locking forceps | | wereused to susan the insertion. Calipers were used to measure a distance 6.5-mmposterior | | to the original insertion, and the muscle was sutured withsuperficial scleral | | passes. It was tied securely in this position, and thesutures were cut. Conjunctiva | | was closed with interrupted 6-0 plainsutures.After this, attention was directed to | | the left eye where the identicalprocedure was performed. At the end of the | | procedure, Dexacidin drops wereplaced in both eyes. The patient was awakened from | | anesthesia and taken toRecovery in good condition. She will be seen tomorrow in the | | office. Danica Batista M.D.AUS:x70D: 06/29/2001T: | | 06/30/[id number]: | |None. | | | |INDICATIONS FOR SURGERY: | |Patient with large-angle esotropia that requires surgical repair to align | |eyes and establish fusion. | | | |PROCEDURE: | |After information informed consent, the patient was taken to the Operating | |Room and placed under laryngeal mask anesthesia. She was prepped and draped | |in a routine fashion for strabismus surgery. The eyes were dilated with | |Cyclogyl 1% prior to dilation and refraction was carried out which measured | |+1 sphere in each eye. | | | |A lid speculum was placed in the right eye, and an inferior nasal forniceal | |conjunctival incision was fashioned down to bare sclera. The medial rectus | |was isolated on a small muscle hook followed by a [employer] hook. Conjunctiva | |was reflected over the tip of the hook, and sharp dissection was used to | |clean the muscle insertion and cleaned posteriorly for approximately 6mm. A | |double-arm 6-0 Vicryl suture on an S-29 needle was then placed through the | |muscle belly 1-mm posterior to the insertion with locking bites at each | |edge. The muscle was dissected free of sclera, and locking forceps were | |used to susan the insertion. Calipers were used to measure a distance 6.5-mm | |posterior to the original insertion, and the muscle was sutured with | |superficial scleral passes. It was tied securely in this position, and the | |sutures were cut. Conjunctiva was closed with interrupted 6-0 plain | |sutures. | | | | | |After this, attention was directed to the left eye where the identical | |procedure was performed. At the end of the procedure, Dexacidin drops were | |placed in both eyes. The patient was awakened from anesthesia and taken to | |Recovery in good condition. She will be seen tomorrow in the office. | | | | | | | | Danica Batista M.D. | | | |AUS:[id number] | | | | | | | |[id number] | | | |CC: | + + documented in this encounter Visit Diagnoses Not on filedocumented in this encounter"
--- OUTSIDE RECORDS SUMMARY | ~2020-04-06 | XMS | Encounter Summary ---
Demographics + + + | Address | [address] | | | [place] [address] | + + + | Home Phone | | + + + | Preferred Language | Unknown | + + + | Marital Status | Single | + + + | Mu-Ism Affiliation | Unknown | + + + | Race | Unknown | + + + | Ethnic Group | Unknown | + + + Author + + + | Author | [facility] | | | and [place] | + + + | Organization | [facility] | | | and [place] | [...] Team Providers + +------+ + | Care Manager Staffing Name | Role | Phone | + +------+ + PCP | Unavailable | + +------+ + Encounter Details +--------+ + + + + | Date | Type | Department | Care Team | Description | +--------+ + + + + | 11/24/ | Hospital | [facility] | Lexi Jeffers, | | | 2009 | Encounter | HOSPITAL EMERGENCY | [address] | | | | | [address] | [place], [place] | | | | | [address] [place], [place] | [address] | | | | | [address] | [phone] | | | | | [phone] | | | +--------+ + + + [...]
--- OUTSIDE RECORDS SUMMARY | ~2020-04-06 | XMS | Encounter Summary ---
Demographics + + + | Address | [address] | | | [place] [address] | + + + | Home Phone | | + + + | Preferred Language | Unknown | + + + | Marital Status | Single | + + + | Mormon Affiliation | Unknown | + + + | Race | Unknown | + + + | Ethnic Group | Unknown | + + + Author + + + | Author | [facility] | | | and [place] | + + + | Organization | [facility] | | | and [place] [...] Team Providers + +------+ + | Care Sales Enablement Specialist Name | Role | Phone | [...] | CENTER [address] [place], [place] | | | | | [place] | [address] | | | | | [address] | | | | | | [phone] | | | +--------+ + + + [...]
--- OUTSIDE RECORDS SUMMARY | ~2020-04-06 | XMS | Clinical Summary ---
Demographics + + + | Address | [address] | | | [place] [address] | + + + | Home Phone | | + + + | Preferred Language | Unknown | + + + | Marital Status | Single | + + + | Zoroastrianism Affiliation | Unknown | + + + | Race | Unknown | + + + | Ethnic Group | Unknown | + + + Author + + + | Author | [facility] | | | and [place] | + + + | Organization | [facility] | | | and [place] [...] Team Providers + +------+ + | Care Reheater Helper Name | Role | Phone | [...] Procedure Note | + + | Tun[place], [id number] - 03/27/2020 12:30 PM PDT XR FOREARM [...] | [employer] | [employer] | [id number] | 03/26/20 | [phone] | | Medica | | MEDICAID HMO | HEALTH | | 20-Pre | 1 | | id | | | MDCD | | sent | | | | | | [place] | | | | | | + +--------+ +--------+ +---------+--------+ | WORKERS COMPENSATION | WORKME | [id number] | | | | Indemn | | [...] | 2000 | [phone] | [place] [address] | | | castillo | | | 3 (Home) | | + +--------+ +--------+ + + | Marlene Fay | Worker | Self | 04/20/ | | [address] | | | s Comp | | 1999 | [id number] | [place] [address] | | | | | | 3 (Home) | | + +--------+ +--------+ + + | Marlene Fay | Worker | Self | 04/20/ | | [address] | | | s Comp | | 1999 | [phone] | [place] [address] | | | | | | 3 (Home) | | + +--------+ +--------+ + + Advance Directives + + + + + | Type | Date Recorded | Patient | Explanation | | | | Application Integration Engineer | | + + + + + | Power of | | | | | Natural Resources Extension Educator | | | | + + + + + | Advance | 03/08/2020 9:50 | | | | Directive | PM | | | + + + + +"
--- OUTSIDE RECORDS SUMMARY | ~2020-04-06 | XMS | Encounter Summary ---
Demographics + + + | Address | [address] | | | [place] [address] | + + + | Home Phone | | + + + | Preferred Language | Unknown | + + + | Marital Status | Single | + + + | Jain Affiliation | Unknown | + + + | Race | Unknown | + + + | Ethnic Group | Unknown | + + + Author + + + | Author | [facility] | | | and [place] | + + + | Organization | [facility] | | | and [place] [...] Team Providers + +------+ + | Care Digital Forensic Analyst Name | Role | Phone | [...] [place], [place] | | | | | [address] | [address] | | | | | [phone] | [phone] | | | | | | | [...]
--- OUTSIDE RECORDS SUMMARY | ~2020-04-06 | XMS | Encounter Summary ---
Demographics + + + | Address | [address] | | | [place] [address] | + + + | Home Phone | | + + + | Preferred Language | Unknown | + + + | Marital Status | Single | + + + | Cheondoism Affiliation | Unknown | + + + | Race | Unknown | + + + | Ethnic Group | Unknown | + + + Author + + + | Author | [facility] | | | and [place] | + + + | Organization | [facility] | | | and [place] [...] Team Providers + +------+ + | Care Senior Underwriting Assistant Name | Role | Phone | + +------+ + PCP | Unavailable | + +------+ + Encounter Details +--------+ + + + + | Date | Type | Department | Care Team | Description | +--------+ + + + + | 01/10/ | Hospital | [place] [facility] | Jeanette Monzon, | | | 2016 | Encounter | HOSPITAL EMERGENCY | 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
--- OUTSIDE RECORDS SUMMARY | ~2020-04-06 | XMS | Clinical Summary ---
Demographics + + + | Address | [address] | | | [place] [address] | + + + | Home Phone | | + + + | Preferred Language | Unknown | + + + | Marital Status | Single | + + + | Church Affiliation | Unknown | + + + [...] Team Providers + +------+ + | Care Produce Manager Name | Role | Phone | + +------+ + PCP | Unavailable | + +------+ + Source Comments EDUARDO is fully live on both [facility] Ambulatory and [facility] InPatient.[facility] Allergies Not on File Medications Not on [...]
--- OUTSIDE RECORDS SUMMARY | ~2020-04-06 | XMS | Encounter Summary ---
Demographics + + + | Address | [address] | | | [place] [address] | + + + | Home Phone | | + + + | Preferred Language | Unknown | + + + | Marital Status | Single | + + + | Mandaen Affiliation | Unknown | + + + | Race | Unknown | + + + | Ethnic Group | Unknown | + + + Author + + + | Author | [facility] | | | and [place] | + + + | Organization | [facility] | | [...] Team Providers + +------+ + | Care Licensed Electrician Name | Role | Phone | + +------+ + PCP | Unavailable | + +------+ + Encounter Details +--------+ + + + + | Date | Type | Department | Care Team | Description | +--------+ + + + + | 11/23/ | Hospital | [place] | Justin Cotter, | | | 2015 | Encounter | HOSPITAL ICU [address] | MD [address] | | | | | [address] [place] | [place], | | | | | [place], [place] | [place] [address] | | | | | [address] | [phone] | | | | | [phone] | | | +--------+ + + + [...] | + +--------+ + + + | URINALYSIS, DIPSTICK | Routin | 11/28/2015 | | Results for this | | ONLY | e | 10:44 AM | | procedure are in the | | | | PST | | results section. | + +--------+ + + + | DRUGS OF ABUSE, | [facility] | 11/28/2015 | | Results for this | | SCREEN, URINE | | 10:43 AM | | procedure are in the | | | | PST | | results section. | + +--------+ + + + | HCG, SERUM, QUAL | [facility] | 11/28/2015 | | Results for this | | (NON-ORD) | | 10:42 AM | | procedure are in the | | | | PST | | results section. | + +--------+ + + + | ALCOHOL | [facility] | 11/28/2015 | | Results for this | | | | 10:42 AM | | procedure are in the | | | | PST | | results section. | + +--------+ + + + | ACETAMINOPHEN LEVEL | [facility] | 11/28/2015 | | Results for this | | | | 10:41 AM | | procedure are in the | | | | PST | | results section. | + +--------+ + + + | SALICYLATE LEVEL | [facility] | 11/28/2015 | | Results for this | | | | 10:41 AM | | procedure are in the | | | | PST | | results section. | + +--------+ + + + | TSH | [facility] | 11/28/2015 | | Results for this | | | | 10:38 AM | | procedure are in the | | | | PST | | results section. | + +--------+ + + + | CBC W/AUTO | [facility] | 11/28/2015 | | Results for this | | DIFFERENTIAL | | 10:37 AM | | procedure are in the | | | | PST | | results section. | + +--------+ + + + | COMPREHENSIVE | [facility] | 11/28/2015 | | Results for this | | METABOLIC PANEL | | 10:37 AM | | procedure are in the | | | | PST | | results section. | + +--------+ + + + documented in this encounter Results Urinalysis, Dipstick Only (11/28/2015 10:44 AM PST) + + + + + + | [...] - 1.030 | EXTERNAL | | | [place], | | | LAB | | | Urine | | | | | + + + + + + | pH, Urine | 7 | 5.0 - 7.0 pH | EXTERNAL | | | | | | LAB | | + + + + + + | Leukocyte | 25 | NEGATIVE /uL | EXTERNAL | | [...] + + + + | Blood, | 250 | NEGATIVE /uL | EXTERNAL | | [...] | | | + +---------+ + + Drugs of Abuse, Screen, Urine (11/28/2015 10:43 AM PST) + +-------+ + + + | Component [...] +-------+ + + + | Benzodiazep | POS | NEG ng/mL | EXTERNAL | | [...] | | | + +---------+ + + Hcg, Serum, Qual (11/28/2015 10:42 AM PST) + + + + + + | Component | Value | Ref Range | Performed | Pathologist | | | | | At | Signature | + + + + + + | HCG | NEGATIVE | NEGATIVE | EXTERNAL | | | Qualitative | | | LAB | | | , Urine | | | | | + [...] | | + +---------+ + + Ethanol (11/28/2015 10:42 AM PST) + +-------+ + + + | Component [...] | + +---------+ + + Salicylate Level (11/28/2015 10:41 AM PST) + +-------+ + + + | Component [...] | + +---------+ + + Acetaminophen Level (11/28/2015 10:41 AM PST) + +-------+ + + + | Component [...] | | + +---------+ + + TSH (11/28/2015 10:38 AM PST) + +-------+ + + + | Component | Value | Ref Range | Performed | Pathologist | | | | | At | Signature | + +-------+ + + + | TSH | 0.64 | 0.40 - 4.68 | EXTERNAL | [...] +---------+ + + CBC w/ Auto Differential (11/28/2015 10:37 AM PST) + +-------+ + + + | Component | Value | Ref Range | Performed | Pathologist | | | | | At | Signature | + +-------+ + + + | WBC | 7.3 | 4.5 - 13.5 | EXTERNAL | | | | | 1000/mm3 | LAB | | + +-------+ + + + | RBC | 5.08 | 3.90 - 5.10 | EXTERNAL | | | | | mil/mm3 | LAB | | + +-------+ + + + | HGB, | 14.6 | 11.7 - 15.3 | EXTERNAL | | | External | | g/dL | LAB | | + +-------+ + + + | HCT, | 42.6 | 37.7 - 47.0 % | EXTERNAL | | | External | | | LAB | | + +-------+ + + + | MCV | 84 | 78 - 98 fl | EXTERNAL | | | | | | LAB | | + +-------+ + + + | MCH | 28.7 | 26.0 - 34.0 pg | EXTERNAL | | | | | | LAB | | + +-------+ + + + | MCHC | 34.3 | 32.0 - 36.0 | EXTERNAL | | | | | g/dL | LAB | | + +-------+ + + + | RDW-CV | 14.3 | <=17.0 % | EXTERNAL | | | | | | LAB | | + +-------+ + + + | RDW-SD | 42.7 | 34.0 - 57.0 fL | EXTERNAL | | | | | | LAB | | + +-------+ + + + | Platelet | 340 | 150 - 450 | EXTERNAL | | | Count | | 1000/mm3 | LAB | | | Plasma | | | | | + +-------+ + + + | MPV | 10.1 | 9.4 - 12.3 FL | EXTERNAL | | | | | | LAB | | + +-------+ + + + | % Segmented | 63.1 | 39.0 - 73.0 % | EXTERNAL | | | | | | LAB | | | Neutrophils | | | | | + +-------+ + + + | % | 25.8 | 23.0 - 53.0 % | EXTERNAL | | | Lymphocytes | | | LAB | | + +-------+ + + + | % Monocytes | 7.3 | 3.0 - 13.0 % | EXTERNAL | | | | | | LAB | | + +-------+ + + + | % | 3 | 0.0 - 7.0 % | EXTERNAL | | | Eosinophils | | | LAB | | + +-------+ + + + | % Basophils | 0.8 | 0.0 - 2.0 % | EXTERNAL | | | | | | LAB | | + +-------+ + + + | Absolute | 4.58 | 2.50 - 8.50 | EXTERNAL | | | Neutrophils | | 1000/mm3 | LAB | | + +-------+ + + + | Absolute | 1.87 | 1.50 - 6.50 | EXTERNAL | | | Lymphocytes | | 1000/mm3 | LAB | | + +-------+ + + + | Absolute | 0.53 | 0.00 - 0.80 | EXTERNAL | | | Monocytes | | 1000/mm3 | LAB | | + +-------+ + + + | Absolute | 0.22 | 0.00 - 0.70 | EXTERNAL | | | Eosinophils | | 1000/mm3 | LAB | | + +-------+ + + + | Absolute | 0.06 | 0.00 - 0.20 | EXTERNAL | [...] + +---------+ + + Comprehensive Metabolic Panel (11/28/2015 10:37 AM PST) + +-------+ + + + | Component | Value | Ref Range | Performed | Pathologist | | | | | At | Signature | + +-------+ + + + | Sodium | 135 | 132 - 143 | EXTERNAL | | | | | mmol/L | LAB | | + +-------+ + + + | Potassium | 4.3 | 3.3 - 4.9 | EXTERNAL | | | | | mmol/L | LAB | | + +-------+ + + + | Cl | 102 | 95 - 108 mmol/L | EXTERNAL | | | | | | LAB | | + +-------+ + + + | CO2 | 24 | 23 - 34 mmol/L | EXTERNAL | | | | | | LAB | | + +-------+ + + + | Anion Gap | 9 | 7 - 16 | EXTERNAL | | | | | | LAB | | + +-------+ + + + | Calcium | 8.5 | 8.3 - 10.0 | EXTERNAL | | | | | mg/dL | LAB | | + +-------+ + + + | Glucose | 85 | 70 - 110 mg/dL | EXTERNAL | | | | | | LAB | | + +-------+ + + + | BUN, Bld | 11 | 5 - 26 mg/dL | EXTERNAL | | | | | | LAB | | + +-------+ + + + | Creatinine | 0.75 | 0.60 - 1.30 | EXTERNAL | | | | | mg/dL | LAB | | + +-------+ + + + | BUN/Creatin | 14.7 | 7.0 - 24.0 | EXTERNAL | | | ine Ratio | | RATIO | LAB | | + +-------+ + + + | Bilirubin, | 0.4 | <=1.2 mg/dL | EXTERNAL | | | Total | | | LAB | | + +-------+ + + + | Protein, | 6.9 | 6.6 - 8.5 g/dL | EXTERNAL | | | Total | | | LAB | | + +-------+ + + + | Albumin | 3.3 | 3.0 - 4.5 g/dL | EXTERNAL | | | | | | LAB | | + +-------+ + + + | Alkaline | 96 | 60 - 270 U/L | EXTERNAL | | | Phosphatase | | | LAB | | + +-------+ + + + | ALT, | 24 | 14 - 59 U/L | EXTERNAL | | | External | | | LAB | | + +-------+ + + + | AST, | 19 | <=38 U/L | EXTERNAL | | [...]
--- OUTSIDE RECORDS SUMMARY | ~2020-04-06 | XMS | Encounter Summary ---
Demographics + + + | Address | [address] | | | [place] [address] | + + + | Home Phone | | + + + | Preferred Language | Unknown | + + + | Marital Status | Single | + + + | Yazidism Affiliation | Unknown | + + + | Race | Unknown | + + + | Ethnic Group | Unknown | + + + Author + + + | Author | [facility] | | | and [place] | + + + | Organization | [facility] | | | and [...] Team Providers + +------+ + | Care Employee Communications Coordinator Name | Role | Phone | + [...] [place] | | | | | DR [place], [place] | [place], [place] [address] | | | | | [address] | [phone] | | | | | [phone] | | | +--------+ + + + [...] - 1.030 | EXTERNAL | | | [place], | | | LAB | | | [...]
--- OUTSIDE RECORDS SUMMARY | ~2020-04-06 | XMS | Encounter Summary ---
Demographics + + + | Address | [address] | | | [place] [address] | + + + | Home Phone [...] Team Providers + +------+ + | Care Grain Weigher Name | Role | Phone | [...] | Transcriptions | + + | Interface, Journalism Intern In - 07/01/2006 3:01 AM PDT | | [facility] John [facility]o | | [place], [place] [address] | | [facility] Rec No[facility] | | [id number] Date: 06/28/2001Name: Sumeet Caty SURGEON: | | Danica Batista M.D.DIRECTOR SUPPLY CHAIN(S): Edgard Camilo | | KarinaPREOPERATIVE DIAGNOSIS(ES):Esotropia.POSTOPERATIVE | [...] | | muscle hook followed by a [place] hook. Conjunctivawas reflected over the tip of [...] office. Danica Batista M.D.AUS:x70D: 06/29/2001T: | | 06/30/[id number]: | |None. | | | |INDICATIONS FOR [...] a small muscle hook followed by a [place] hook. Conjunctiva | |was reflected over the [...] | | | | | | | |[id number] | | | |CC: | + + documented in this encounter Visit Diagnoses Not on filedocumented in this encounter"
--- OUTSIDE RECORDS SUMMARY | ~2020-04-06 | XMS | Encounter Summary ---
Demographics + + + | Address | [address] | | | [place] [address] | + + + | Home Phone | | + + + | Preferred Language | Unknown | + + + | Marital Status | Single | + + + | Moravian Affiliation | Unknown | + + + | Race | Unknown | + + + | Ethnic Group | Unknown | + + + Author + + + | Author | [facility] | | | and [place] | + + + | Organization | [facility] | | | and [...] Team Providers + +------+ + | Care Oil Rigger Name | Role | Phone | + [...] [place], [place] | | | | | [address] | [address] | | | | | [phone] | [phone] | | | | | | | [...]
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
--- OUTSIDE RECORDS SUMMARY | ~2020-04-06 | XMS | Encounter Summary ---
Demographics + + + | Address | [address] | | | [place] [address] | + + + | Home Phone [...] | Author | [facility] | | | and Stanleyana | + + + | Organization | [facility] | | | and [...] Team Providers + +------+ + | Care Sociology Faculty Member Name | Role | Phone | + [...] | | | CENTER [address] | [facility] | | | | | [address] [place], [place] | [place] [address] | | | | | [address] | [phone] | | | | | [phone] | | | +--------+ + + + [...] - 1.030 | EXTERNAL | | | [place], | | | LAB | | | [...]
--- OUTSIDE RECORDS SUMMARY | ~2020-04-06 | XMS | Clinical Summary ---
Demographics + + + | Address | [address] | | | [place] [address] | + + + | Home Phone | | + + + | Preferred Language | Unknown | + + + | Marital Status | Single | + + + | Adventist Affiliation | Unknown | + + + [...] Team Providers + +------+ + | Care Manufacturing Plant Manager Name | Role | Phone | + +------+ + PCP | Unavailable | + +------+ + Source Comments EDUARDO is fully live on both [facility] and [facility] In[facility] Allergies Not on File Medications Not [...]
--- OUTSIDE RECORDS SUMMARY | ~2020-04-06 | XMS | Encounter Summary ---
Demographics + + + | Address | [address] | | | [place] [address] | + + + | Home Phone | | + + + | Preferred Language | Unknown | + + + | Marital Status | Single | + + + | Denominational Affiliation | Unknown | + + + | Race | Unknown | + + + | Ethnic Group | Unknown | + + + Author + + + | Author | [facility] | | | and [place] | + + + | Organization | [facility] | | | and [place] [...] Team Providers + +------+ + | Care Bar Helper Name | Role | Phone | [...] | | | [address] | [place], [place] | | | | | [place], [place] | [address] | | | | | [address] | [phone] | | | | | [phone] | | | +--------+ + + + [...]
--- OUTSIDE RECORDS SUMMARY | ~2020-04-06 | XMS | Encounter Summary ---
Demographics + + + | Address | [address] | | | [place] [address] | + + + | Home Phone | | + + + | Preferred Language | Unknown | + + + | Marital Status | Single | + + + | Episcopal Affiliation | Unknown | + + + | Race | Unknown | + + + | Ethnic Group | Unknown | + + + Author + + + | Author | [facility] | | | and [place] | + + + | Organization | [facility] | | | and [...] Team Providers + +------+ + | Care Spray Ii Painter Name | Role | Phone | + [...] | [address] [place], [place] | [place] [address] | | | | | [address] | [phone] | | | | | [phone] | | | +--------+ + + + [...] | | acute cardiopulmonary process. JOB #: [id number] | | | Read By: BEBETO KLEIN [...] acute cardiopulmonary process. JOB #: | | [id number] Read By: BEBETO KLEIN MD Released By: YFN ZAVALAate: | | 03/13/2015 12:02 | | | |HISTORY: | |Cough, shortness of breath. | | | |FINDINGS: | |The lungs are clear. No pleural effusion. No pneumothorax. The cardiomediastinal silhoue tte is within normal limits. | | | |IMPRESSION: | |No evidence of an acute cardiopulmonary process. | | | | | |JOB #: [id number] | | | |Read By: BEBETO KLEIN MD | | | |Released By: BEBETO KLEIN MD | |Date: 03/13/2015 12:02 | | | | | + + documented in this encounter Visit Diagnoses Not on filedocumented in this encounter"
--- OUTSIDE RECORDS SUMMARY | 2020-04-06 22:14 | XMS ---
PreManage Notification: SEAN KHALIL Security Quality Lab Technician Events No recent Security Events currently on file CRITERIA MET - [facility] - 2 Visits in 30 Days CARE PROVIDERS CARE, URGENT Surgical Services Manager/Saw Offbearer Current PHONE: [phone] EVERARDO SINHA Physician 12/17/2018-Current PHONE: [phone] Ludivina has no Care Guidelines for this patient. ETee VISIT COUNT (12 MO.) 2 [facility] Bobbi Wells[address] TOTAL 5 NOTE: Visits indicate total known visits. ED/UCC VISIT TRACKING (12 MO.) 04/06/2020 22:[address] [facility] [address] [place] TYPE: Emergency COMPLAINT: - HEADACHE/NAUSEA/BLOOD IN STOOL 04/06/2020 14:[address] [facility] [address] [facility] [place] TYPE: Emergency COMPLAINT: - BODY ACHES, HEADACHE, SOB, COUGH 03/26/2020 17:05 [facility] [place] TYPE: Emergency DIAGNOSES: - Arm Pain - Unspecified sprain of right wrist, initial encounter - Right hand Injury 03/08/2020 21:34 [facility] [place] TYPE: Emergency DIAGNOSES: - Unspecified injury of head, initial encounter - Head Injury - poss concussion - Strain of muscle, fascia and tendon at neck level, initial en 12/22/2019 08:36 [facility] [place] TYPE: Emergency DIAGNOSES: - Unspecified sprain of right wrist, initial encounter - Wrist pain INPATIENT VISIT TRACKING (12 MO.) No inpatient visits to display in this time frame [id number]
--- NOTE | 2020-04-09 12:11 | PATH ---
[facility] [address] [facility] [place], [place] [address] Signed ORDERING PHYSICIAN: Felicitas Busch MD PATIENT NAME: SEAN KHALIL GENDER: F : 2000 SPECIMEN(S): No Source Given MOLECULAR PATHOLOGY RESULTS: SARS-CoV-2 Not Detected ADDITIONAL NOTES.: The [place] Fusion SARS-CoV-2 Assay is a multiplex real-time PCR (RT-PCR) in vitro diagnostic test intended for the qualitative detection of RNA from SARS-CoV-2 from individuals who meet COVID-19 clinical and/or epidemiological criteria. In general, SARS-CoV-2 RNA can be detected during the acute phase of infection. Positive results indicate the presence of SARS-CoV-2 RNA. Clinical correlation with patient history and other diagnostic information is necessary to determine patient infection status. Positive results do not rule out bacterial infection or co-infection with other viruses. Negative results do not preclude SARS-CoV-2 infection and should not be used as the sole basis for patient management decisions. Negative results must be combined with other clinical observations, patient history, and epidemiological information. The [place] Fusion SARS-CoV-2 Assay is not yet approved or cleared by the [place] FDA. When there are no FDA-approved or cleared tests available, and other criteria are met, FDA can make tests available under an emergency access mechanism called an Emergency Use Authorization (EUA). The EUA for this test is supported by the [place] of Health and Human Service's (HHS's) declaration that circumstances exist to justify the emergency use of in vitro diagnostics for the detection and/or diagnosis of the virus that causes COVID-19. This EUA will remain in effect for the duration of the COVID-19 declaration justifying emergency of IVDs, unless it is terminated or revoked by FDA, after which the test may no longer be used. The [place] Fusion SARS-CoV-2 Assay is for use only under EUA in US laboratories certified under the Clinical Laboratory Improvement Amendments of 1988 (CLIA) to perform high complexity tests. [facility] is certified under CLIA to perform high complexity PATIENT NAME: SEAN KHALIL PATHOLOGY DATE OF : [birth year] REPORT #: [id number] PHYSICIAN: LUZ ELENA BALDERAS PCP: JUN GLOVER REPORT IS CONFIDENTIAL AND NOT TO BE RELEASED WITHOUT AUTHORIZATION [address] [address] Signed clinical laboratory testing. PERFORMING LABORATORY.: Molecular testing was performed by [facility] [address] [place], [place] [address] [address] (Formula Weigher: Aden Herman D.O.; CLIA#: [id number]) Diagnostician: System Interface Pathologist Electronically Signed 04/09/2020 Copies: ~ PATIENT NAME: SEAN KHALIL PATHOLOGY DATE OF : 00 REPORT #: [id number] PHYSICIAN: LUZ ELENA BALDERAS PCP: JUN GLOVER REPORT IS CONFIDENTIAL AND NOT TO BE RELEASED WITHOUT AUTHORIZATION
== END 2020-04-06 23:40 | disposition home or self-care (01) ==
LOC: ED 22:11
DX: B34.9 Viral infection, unspecified (principal); Z20.828 Contact with and (suspected) exposure to other viral communicable diseases; F41.9 Anxiety disorder, unspecified; F32.9 Major depressive disorder, single episode, unspecified; F17.200 Nicotine dependence, unspecified, uncomplicated; Z88.0 Allergy status to penicillin; Z88.1 Allergy status to other antibiotic agents
CPT/HCPCS: 99283; C9803

== ENCOUNTER 2020-11-04 20:49 | Emergency (ER) | payer OTHER ==
[~2020-11-04] VITALS: Ht 152.4 cm; Wt 70.8 kg
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
[2020-11-04] MEDS ORDERED: PROMETHAZINE12.5 M1 PO (21:07)
[2020-11-05] MEDS ORDERED: REGLAN10 MG PO (00:33)
== END 2020-11-05 01:05 | disposition home or self-care (01) ==
LOC: ED 20:49
DX: O21.0 Mild hyperemesis gravidarum (principal); Z3A.01 Less than 8 weeks gestation of pregnancy; Z88.7 Allergy status to serum and vaccine; Z88.0 Allergy status to penicillin; Z88.8 Allergy status to other drugs, medicaments and biological substances; Z79.899 Other long term (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
CPT/HCPCS: 80053; 81001; 83735; 85025; 96374; 96375; 96376; 99284-25; J2405; J2550; J2765; J7030

== ENCOUNTER 2020-11-21 02:20 | Emergency (ER) | payer OTHER ==
[~2020-11-21] VITALS: Ht 152.4 cm; Wt 70.8 kg
[~2020-11-21 02:20] MED LIST changes: +OMEPRAZOLE20 MG PO; +ONDANSETRON ODT4 MG PO; +ONDANSETRON ODT4 MG SL; +PRENATAL MULTI1 EAC3 PO; +PROMETHAZINE12.5 M1 PO; +REGLAN10 MG PO
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
== END 2020-11-21 06:07 | disposition home or self-care (01) ==
LOC: ED 02:20
DX: O21.0 Mild hyperemesis gravidarum (principal); Z3A.09 9 weeks gestation of pregnancy; Z87.891 Personal history of nicotine dependence; Z88.8 Allergy status to other drugs, medicaments and biological substances; Z88.0 Allergy status to penicillin; Z88.7 Allergy status to serum and vaccine; Z79.899 Other long term (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
CPT/HCPCS: 80053; 81001; 83735; 84100; 85025; 96374; 96375; 96376; 99284-25; C9113; J2405; J2550; J7030

== ENCOUNTER 2020-11-24 10:50 | Inpatient (IN) | payer OTHER ==
[~2020-11-24] VITALS: Ht 152.4 cm; Wt 66.1 kg
--- NOTE | ~2020-11-24 | DS ---
[facility] [address] [place], [place] [address] Draft ADMISSION DATE: 11/26/2020 DISCHARGE DATE: DIAGNOSES: 1. Hyperemesis gravidarum with hypovolemia. 2. Acute cholecystitis. PROCEDURES: Laparoscopic cholecystectomy, IV hydration and medical treatment of hyperemesis. HOSPITAL COURSE: The patient is a 20-year-old approximately 11+ weeks with history of hyperemesis with outpatient IV hydration, but on 11/24/2020, even after outpatient IV hydration, was still having nausea, vomiting, and so she was admitted for evaluation and treatment of hyperemesis with hypovolemia. Lab showed a low potassium, this was corrected and the patient was besides fluids given, IV Zofran, Reglan and Phenergan. The Reglan seemed to give her headaches, so this was discontinued, but the nausea and vomiting continued and ultrasound was done which showed probable acute cholecystitis, so a surgical consult was obtained on 11/26/2020, and Dr. Ibarra proceeded with a laparoscopic cholecystectomy. The patient did quite well postoperatively, but the nausea and vomiting seemed to continue. The oral pain med seemed to be exacerbating the nausea and the pain was minimal, so these were stopped and patient did quite well with only Tylenol for pain control. By the 3rd postoperative day, patient was still having some nausea and rare vomiting and was able to keep fluids down and occasionally some solid food down and so on 11/29/2020, it was decided that she could continue recovery at home. Patient was satisfied with this plan, was anxious to leave the hospital, so on 11/29/2020, patient was discharged. DISCHARGE INSTRUCTIONS: Continue liquid diet, add solids as tolerated. The patient takes Tylenol as needed for pain. Prescription was given for Phenergan 12.5 mg p.o. q.6 hours p.r.n. nausea and vomiting #30 and Zofran ODT 4 mg dissolve under the tongue every 6 hours as needed for nausea and vomiting #30 given. The patient to call if her symptoms increase, otherwise follow up in 3-4 days in the office. We discussed that the hyperemesis may not be completely resolved and some nausea and vomiting could be expected for at least the next several weeks, but if she can keep fluids down, does not need to be hospitalized. The patient understood this and was ready to go home. PATIENT NAME: SEAN KHALIL DISCHARGE SUMMARY DATE OF : 00 REPORT #: [id number] PHYSICIAN: VINNY HIDALGO MD PCP: VINNY HIDALGO MD REPORT IS CONFIDENTIAL AND NOT TO BE RELEASED WITHOUT AUTHORIZATION [facility] [address] [place], [place] [address] Draft Vniny Hidalgo MD MJB/MODL /[id number] cc: Marilee Ibarra MD Copies: MARILEE IBARRA MD ~ PATIENT NAME: SEAN KHALIL DISCHARGE SUMMARY DATE OF : 00 REPORT #: [id number] PHYSICIAN: VINNY HIDALGO MD PCP: VINNY HIDALGO MD REPORT IS CONFIDENTIAL AND NOT TO BE RELEASED WITHOUT AUTHORIZATION
--- NOTE | 2020-11-24 13:56 | NUR ---
PATIENT IS UP TO THE BATHROOM, PUSHING HER IV POLE. PATIENT REQUESTS A BED. SHE IS MOVED TO ROOM 12. WARM BLANKETS AND PILLOWS PLACED PER PATIENT'S REQUEST. CALL LIGHT IS WITHIN REACH.
--- NOTE | 2020-11-24 14:27 | NUR ---
PATIENT MOVES TO HER LEFT LATERAL SIDE. JOSIAS HUGGER IS BACK ON WARM. ADDITIONAL PILLOW IS GIVEN. NEW HOT PACK MADE FOR HER STOMACH. CALL LIGHT IS WITHIN REACH.
--- NOTE | 2020-11-24 15:23 | NUR ---
PATIENT IS UP TO THE BATHROOM, PUSHING HER IV POLE. SHE TOLERATES THAT FAIR. SHE REPORTS "I FELL LIKE I'M GOING TO ." PATIENT HAS 50 ML BRIGHT YELLOW EMESIS IN BAG. NEW EMESIS BAG IS GIVEN. PATIENT IS BACK IN BED, LAYING ON HER RIGHT SIDE. PILLOWS PLACED WHERE PATIENT REQUESTS. WARM BLANKETS AND JOSIAS HUGGER ON WARM. MORE WATER AND ICE CHIPS GIVEN.
--- NOTE | 2020-11-24 16:04 | NUR ---
PATIENT ASSISTED OOB AND TO BATHROOM. GAIT STEADY TO BATHROOM. VOID WITHOUT DIFFICULTY. PATIENT BECAME WEAK AND LIGHTHEADED ON WAY BACK FROM BATHROOM. WHEELCHAIR OBTAINED BY SECOND NURSE. PATIENT TRANSPORTED BACK TO ROOM VIA WHEELCHAIR. PATIENT ASSISTED TO CHANGE IN TO GOWN. INFUSIONS ONGOING. CALL LIGHT WITHIN REACH.
[2020-11-24] MEDS ORDERED: METOCLOPRAMIDE H5 MG PO (16:31)
--- NOTE | 2020-11-24 16:35 | NUR ---
PT IS ASSISTED UP OOB TO WHEELCHAIR TO USE THE BATHROOM. SHE IS ASSISTED WITH TRANSFERRING FROM BED TO , THEN WC TO [facility]. SHE IS FLOPPY WITH HER MOVEMENTS. SHE IS ABLE TO VOID WITHOUT ISSUE AND HELPED BACK TO BED. SHE IS GIVEN NEW WARM BLANKETS AND RESETTLES. IS AT THE BEDSIDE.
--- NOTE | 2020-11-24 16:46 | NUR ---
INFUSION IS COMPLETE. PATIENT TOLERATES THE INFUSION WELL. SHE IS STILL REPORTING "I WANT TO !" PATIENT'S BOYFRIEND IS AT THE BEDSIDE. PATIENT AND HER PERSONAL BELONGINGS ARE TAKEN TO ROOM 125 VIA WHEELCHAIR.
--- NOTE | 2020-11-24 17:35 | NUR ---
pt IN SHOWER FOR COMFORT. pt's BOYFRIEND IN BATHROOM WITH pt. pt REPORTS NAUSEA ALTHOUGH FEELS THAT THE SHOWER WILL HELP.
--- NOTE | 2020-11-24 18:51 | NUR ---
pt BACK IN BED. pt's BOYFRIEND AT BEDSIDE. IVF INFUSING. pt TOLERATING NAUSEA AT THIS POINT WITH WARM BLANKETS AND A WARM BLANKET TO ABDOMEN. VSS. NO FURTHER NEEDS AT THIS TIME. CALL LIGHT WITHIN REACH.
--- NOTE | 2020-11-24 18:53 | NUR ---
PATIENT IN BED RESTING. VISITOR IN ROOM. FRESH ICE CHIPS GIVEN. CALL LIGHT IN REACH. NO FURTHER NEEDS AT THIS TIME.
--- NOTE | 2020-11-24 19:59 | NUR ---
PATIENT IS BEING ASSISTED INTO THE SHOWER BY DIRECTOR LEARNING AND DEVELOPMENT. RECEIVED REPORT FROM DAY SHIFT RN. PATIENT DENIES ANY NAUSEA AT THIS TIME. NO FURTHER NEEDS NOTED. CALL LIGHT IN REACH.
--- NOTE | 2020-11-24 21:30 | NUR ---
PATIENT IS NO W OUT OF SHOWER AND RESTING IN BED. PATIENT DENIES ANY NAUSEA. PATIENTS VITALS TAKEN AND RECORDED. INTAKE AND OUPUT RECORDED. ASSESMENT COMPLETED. IV INFUSING PER ORDER. WARM BLANKETS AND WARM PACK PROVIDED. BOYFRIEND IS AT THE BEDSIDE. BOYFRIEND PROVIDED WITH PILLOWS AND BLANKETS. NO FURTHER NEEDS NOTED. CALL LIGHT IN REACH.
--- NOTE | 2020-11-24 23:44 | NUR ---
PATIENT IS RESTING IN BED WITH EYES CLOSED, RR 16. CALL LIGHT IN REACH. BOYFRIEND ASLEEP IN CHAIR NEXT TO BED.
--- NOTE | 2020-11-25 01:30 | NUR ---
LAB IN ROOM. PATIENT PROVIDED WITH WARM BLANKETS. PATIENT BEGAN TO HAVE EMESIS. PATIENT PROVIDED WITH PRN NAUSEA MEDICATION PER ORDER. PATIENTS VITALS TAKEN AND RECORDED. INTAKE AND OUPUT RECORDED. PATIENT ASSISTED INTO THE SHOWER. PATIENT DENIES ANY FURTHER NEEDS. BOYFRIEND CONTINUES TO BE AT PATIENTS SIDE.
--- NOTE | 2020-11-25 02:20 | NUR ---
PATIENT IS NOW BACK IN BED RESTING. PATIENT PROVIDED WITH WARM BLANKETS, WARM PACK AND ICE CHIPS. PATIENTS BOYFRIEND REMAINS IN THE ROOM. PATIENT DENIES ANY FURTHER NEEDS. CALL LIGHT IN REACH.
--- NOTE | 2020-11-25 04:46 | NUR ---
PATIENT IS RESTING IN BED WITH EYES CLOSED, RR 18. CALL LIGHT IN REACH. BOYFRIEND ASLEEP IN RECLINER.
--- NOTE | 2020-11-25 05:06 | NUR ---
WHEN ROOM WAS ENTERED PATIENT WAS RESTING IN BED WITH EYS CLSOED. VITALS TAKEN AND RECORDED. PATIENT ASSISTED TO THE RESTROOM. PATIENT WAS MAGGIE TO VOID. PATIENT IS BACK IN BED RESTING. PATIENTS INTAKE AND OUPUT RECORDED. NO FURTHER NEEDS NOTED CALL LIGHT IN REACH.
--- NOTE | 2020-11-25 05:24 | NUR ---
CHECKED ON pt SUSAN BATRES STATED SHE WAS VOMITTING. LYING IN BED ON RIGHT SIDE WITH EYES CLOSED. LYING NEXT TO pt, DENIES ANY NEEDS.
--- NOTE | 2020-11-25 05:33 | NUR ---
PATIENT RESTED ON AND OFF THROUGHOUT THE SHIFT. PATIENT IS NPO EXCEPT ICE SHIPS FOR COMFORT. PATIENT RECEIVED PRN NAUSEA MEDICATION X1. PATIENT HAD 2 BOUTS OF EMESIS. PATIENT WAS ABLE TO SHOWER MULTIPLE TIMES TO HELP WITH THE NAUSEA. PATIENT IS INDEPENDENT IN THE ROOM. BOYFRIEND REMAINS IN THE ROOM. IV INFUSING PER ORDER. URINE OUPUT QS.
--- NOTE | 2020-11-25 06:45 | NUR ---
PATIENT IS RESTING IN BED WITH EYES CLOSED, RR 16. BOYFRIEND ASLEEP IN RECLINER. CALL LIGHT IN REACH.
--- NOTE | 2020-11-25 07:21 | NUR ---
Report from Vicente Dukes RN. Patient sitting up in bed. Emesis of 100 in emesis bag. New emesis bag provided. New bag of fluids initiated. States she would like to take a shower this AM. Ice chips provided. Denies other needs at this time. Call light in reach, significant other at bedside.
--- NOTE | 2020-11-25 08:20 | NUR ---
IN SHOWER AT THIS TIME. SIGNIFICANT OTHER AT BEDSIDE.
--- NOTE | 2020-11-25 08:57 | NUR ---
REMAINS IN SHOWER AT THIS TIME.
--- NOTE | 2020-11-25 09:28 | NUR ---
PATIENT REMAINS IN SHOWER AT THIS TIME. IV ALARMING. TUBING STRAIGHTENED OUT TO PREVENT FURTHER ALARMS. PATIENT STATES SHE HAS A HEADACHE AT THIS TIME. NOTIFIED NOTHING PRESCRIBED FOR HEADACHE, WILL NOTIFY DR. NERI WHEN AVAILABLE. DENIES OTHER NEEDS.
--- NOTE | 2020-11-25 11:23 | NUR ---
JUST NOW OUT OF SHOWER WITH STAFF ASSIST. STATES HER NAUSEA AND HEADACHE HAVE IMPROVED WITH PHENERGAN GIVEN. STILL NAUSEATED, BUT IMPROVED. IV FLUIDS CONTINUE INFUSING. ASSIST TO REMOVE ADHESIVE FROM TAPE ON ARMS. DENIES OTHER NEEDS. ASSESSMENT COMPLETED.
--- NOTE | 2020-11-25 11:30 | NUR ---
In visiting with patient today, she states that she will be able to return to her home where she lives with her boyfriend. Patient states that her boyfriend and his mother help her with the shopping, etc. as she has been too sick this to do that. Patient states that they do have the financial resources to buy food, medications, pay for heat, etc.
--- NOTE | 2020-11-25 11:40 | NUR ---
PATIENT TOOK A SHOWER AND IS CURRENTLY LAYING IN BED. CALL LIGHT IS IN REACH. NO FURTHER NEEDS AT THIS TIME.
--- NOTE | 2020-11-25 13:42 | NUR ---
Resting in bed on left side, eyes closed, respirations even and unlabored. Allowed to rest.
--- NOTE | 2020-11-25 14:41 | NUR ---
PATIENT CALLS, IV PUMP ALARMING COMPLETE. NEW BAG OF FLUIDS INITIATED. WARM BLANKETS PROVIDED PER REQUEST. DENIES OTHER NEEDS AT THIS TIME. CALL LIGHT IN REACH. BED RAILS UP X2.
--- NOTE | 2020-11-25 16:16 | NUR ---
UP TO BATHROOM, RETURNS TO BED. REQUESTING WARM BLANKETS, ICE CHIPS AND SOMETHING FOR NAUSEA. SEE EMAR. DENIES OTHER NEEDS. CALL LIGHT IN REACH, SIGNIFICANT OTHER AT BEDSIDE.
--- NOTE | 2020-11-25 17:26 | NUR ---
LYING ON RIGHT SIDE, EYES CLOSED. RESPIRATIONS EVEN AND UNLABORED. ALLOWED TO REST AT THIS TIME. SIGNIFICANT OTHER AT BEDSIDE.
--- NOTE | 2020-11-25 17:30 | NUR ---
Emesis of 200 mL of bile at this time. Patient requests to shower. Educated on importance of not having hot water for baby and to protect her skin. Patient and boyfriend listen, but do not say much after educated. Unsure if they understand. States only showers help her emesis.
--- NOTE | 2020-11-25 18:15 | NUR ---
Patient in shower agreed to 30 minute shower. BF in room
--- NOTE | 2020-11-25 18:47 | NUR ---
PATIENT TOOK 3 HOUR CONTINUOUS SHOWER THIS AM FOR NAUSEA AFTER EMESIS X1. PHENERGAN INITIATED BY DR. NERI AND ADMINISTERED. DID MAKE PATIENT SLEEPY, BUT ALSO HELPED TO CONTROL EMESIS. 2ND EMESIS THIS EVENING WITH 200 ML OUT OF BILE. PATIENT THEN SHOWERED FOR APPROXIMATELY 30 MINUTES. CONTINUE TO OBTAIN SERIAL POTASSIUM LEVELS. DR. NERI ORDERS CMP EVERY 12 HOURS WITH REPEAT MAG LEVEL IN AM. CONTINUES ON IV FLUIDS PER DR. NERI, DO NOT DC CURRENT IV FLUIDS.
--- NOTE | 2020-11-25 20:45 | NUR ---
IN PATIENT ROOM FOR VITALS AND I&O. PATIENT REQUESTED MORE WARM BLANKETS AND TWO HOT PACKS. BOYFRIENT IN ROOM AND ASSISTED PATEINT TO AND FROM BATHROOM. PATEINT BACK TO BED. SUSAN BENZ IN ROOM.
--- NOTE | 2020-11-25 20:49 | NUR ---
PT LAYING ON LEFT SIDE, C/O DRYHEAVING, NO EMESIS AT THIS TIME. MEDICTED WITH PHENERGAN 12.5MG IV. IVF INFUSING. PT ON ROOM AIR, ALERT AND ORIENTED, TALKING, WARM BLANKETS AND WARM PAD TO ABD GIVEN. MALE SIGNIFICANT OTHER IN ROOM. CALL LIGHT AT BEDSIDE, PT NPO
--- NOTE | 2020-11-26 00:21 | NUR ---
resting, eyes closed, ivf infusing, no emesis, sifnificant other in room
--- NOTE | 2020-11-26 02:36 | NUR ---
Turns self in bed, IVF infusing, no further c/o pain or n/v. call light at bedside, family at bedside
--- NOTE | 2020-11-26 03:55 | NUR ---
REPOSITIONS SELF IN BED, NO C/O N/V, IVF INFUSING.
--- NOTE | 2020-11-26 04:23 | NUR ---
PT HAD 65CC OF THIN YELLOW EMESIS, MEDICATED WITH PHENERGan 12.5mg iv, warm pads to abd and back. oral swabs given. up to br, voiding qs urine. NPO, IVF infusingfamily in room.
--- NOTE | 2020-11-26 05:08 | NUR ---
Pt has been medicated with phenergan 12.5mg IV x2 per c/o emesis, had 65cc emesis thin yellow liquids. effective, NPO x ice chips. SL patent, IVF infusing w/o problems. Voiding QS. Independent in room w family in room.
--- NOTE | 2020-11-26 06:27 | NUR ---
Pt had 200cc more emesis, green colored and thick. does own mouth care. ivf infusing. coop with lab draws. repositons self, NPO ,
--- NOTE | 2020-11-26 07:12 | NUR ---
Report from Familia Montano RN.
--- NOTE | 2020-11-26 08:28 | NUR ---
RESTING IN BED ON RIGHT SIDE WITH EYES CLOSED. RESPIRATIONS EVEN AND UNLABORED. SIGNIFICANT OTHER AT BEDSIDE. AM MEDICATION ADMINISTERED PRESCRIBED. DOES NOT WAKE WHILE THIS NURSE AT BEDSIDE. ALLOWED TO REST. CALL LIGHT IN REACH. BED RAILS UP X2.
--- NOTE | 2020-11-26 09:14 | NUR ---
Dr. Hidalgo in to assess patient. States he is going to order a gallbladder and OB ultrasound this AM.
--- NOTE | 2020-11-26 11:05 | NUR ---
Emesis X2 this AM. Once prior to Phenergan administration and once at this time. States she would like to shower. IV sites covered by this nurse and allowed to shower. Significant other assisting her in shower. Fresh towels and gown given to patient.
--- NOTE | 2020-11-26 13:45 | NUR ---
TAKEN TO SURGERY IN BED
--- NOTE | 2020-11-26 14:06 | NUR ---
STOPPED TO CHECK ON PT-IMAGING IN RM. WILL CHECK BACK
--- NOTE | 2020-11-26 15:37 | NUR ---
11/26/20 1537 Charlotte Barreto 1524 PATIENT ARRIVES TO PACU UNRESPONSIVE TO PAIN. ORAL AIRWAY IN PLACE. RESP EVEN AND UNLABORED, MASK AT 6 LITERS. 1528 PATIENT COUGHING, ORAL AIRWAY REMOVED. PATIENT DOES NOT FOLLOW COMMANDS. RESP EVEN AND UNLABORED, MASK CONTINUED AT 6 LITERS. 1530 PATIENT SHAKING, ASKED IF SHE IS COLD, NODS HEAD, BUT DOES NOT OPEN EYES OR VERBALIZE. RESP EVEN AND UNLABORED, MASK CONTINUED AT 6 LITERS. WARM BLANKETS GIVEN. 1535 PATIENT RESTING WITH EYES CLOSED. NO LONGER SHAKING. RESP EVEN AN UNLABORED, MASK OFF.
--- NOTE | 2020-11-26 16:21 | NUR ---
Patient arrives from OR in bed. Assessment completed. Vitals obtained. States she is starting to have pain and starting to get nauseated. Significant Other at bedside.
--- NOTE | 2020-11-26 17:13 | NUR ---
TO BATHROOM, CONTINENT OF URINE. VITAL SIGNS OBTAINED. DRESSINGS REMAIN INTACT.
--- NOTE | 2020-11-26 18:09 | NUR ---
Continued with emesis X2 this AM. Ultrasound completed to assess gallbladder. This afternoon had a lap cholecystectomy. Returned from surgery with orders for regular diet, started with sips of clear liquids and crackers. [place] given for pain and phenergan given twice today.
--- NOTE | 2020-11-26 18:25 | NUR ---
Pain is now 5/10. Assisted to bathroom by significant other, continent of urine. No complaints of nausea at this time. IV fluids continue infusing. shadowing to 3 superior lap sites minimal. Small amount of serosanguinous drainage to umbilical lap site noted. steri-strips remain intact. Call light in reach.
--- NOTE | 2020-11-26 19:43 | NUR ---
AWAKES EASILY, DENIES C/O PAIN, TOLERATING FLUIDS WELL, NO N/V. IVF INFUSING SL BELINDA PATENT. ABD LAP SITES INTACT/OLD DRAINAGE. SCDS IN PLACE. SIGNIFICANT OTHER IN ROOM
--- NOTE | 2020-11-26 19:50 | NUR ---
IN TO PROVIDE PT WITH CIDER, ICE WATER, AND ICE CHIPS, THEN LATER REQUESTED WARM BLANKETS, NO FURTHER NEEDS AT THE TIME, BOYFRIEND AT BEDSIDE
--- NOTE | 2020-11-26 20:20 | NUR ---
CALL LIGHT ANSWERED, pt REPORTS 04/03 PAIN R/T INCISION. DISCUSSED PAIN OPTIONS WITH pt, PRN TYLENOL GIVEN PER pt REQUEST AT THIS TIME. WARM BLANKETS ALSO PROVIDED BY CLINICAL TRAINING SPECIALIST, NO FURTHER NEEDS. CALL LIGHT IN REACH. PRIMARY RN DEMAR AWARE.
--- NOTE | 2020-11-26 22:40 | NUR ---
IN TO GET VITALS WITH RN, PT UP TO VOID, WARM BLANKETS, ICE WATER, AND WARM CIDER PROVIDED AT THIS TIME, BOYFRIEND IN RM TO ASST PT NEEDED
--- NOTE | 2020-11-26 22:53 | NUR ---
Pt up to br, voided large amounts of yellow urine, back to bed, c/o 8/10 abd pain, medicated with 1 norco, c/o feeling nauseated, medicated with Phenergan IV. coop with assessment, on room air, denies passing gas, 4 lap sites with old drainage, abd soft, harini, hypoactive bowel tones. scds in place. tolerating fluids well. no emesis at this time.. warm blankets given on request and 17 other blankets removed. pt still has 5 warm blankets and regular blanket. c/o being cold
--- NOTE | 2020-11-27 02:59 | NUR ---
2AM VITALS DONE
--- NOTE | 2020-11-27 03:04 | NUR ---
awakes easily, no further c/.o pain or n/v, ivf infusing, warm pads to abd and back
--- NOTE | 2020-11-27 05:56 | NUR ---
Pt has tolerated fluids and regular diet. was medicated x1 per c/o dry heaving X1, with phenergan, effective. Abd with scope sites with old drainage. abd tender, GHADA, denies passing gas. has been medicated with Tylenol and Queen per abd pain, effective. IVF infusing w/o problems. Up to br several times, voiding large amouns of yellow urine. male fiend in room
--- NOTE | 2020-11-27 07:30 | NUR ---
Pt up to br, voided, back to bed, c/o feeling nauseated, medicated with Phenergan 12.5mg IV
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
--- NOTE | 2020-11-27 10:45 | NUR ---
VITALS AND I&OS CHARTED. PATIENT UP TO BR AND BF HELPING WITH SPONGE BATH. LINENS CHANGED. FRESH ICE WATER PROVIDED. WILL CALL IF ASSISTANCE IS NEEDED.
--- NOTE | 2020-11-27 11:40 | NUR ---
PT. USED CALL LIGHT APPROPRIATELY TO REPORT NAUSEA AND PAIN. PT. VOMITED SMALL AMOUNT OF CLEAR FLUID. ADMIN. PHENERGAN AND NORCO. PT. ENCOURAGED TO AMBULATE AND SIT UP. LUNGS CLEAR. DRESSING AT ABD LAP SITE X4 HAVE DRIED BLOOD BUT ARE INTACT AND DRY. IV SITES WNL AND FLUSH WELL. PT. BOYFRIEND AT BEDSIDE. PT. HAS NOT WANTED TO AMBULATE SIT UP OR EAT. LEFT RESTING IN BED WITH CALL LIGHT IN REACH.
--- NOTE | 2020-11-27 11:45 | NUR ---
PT. REPORTS 6/10 ABD PAIN THAT IS ACHING AND AN HEADACHE AT THE BACK OF THE HEAD. PT REPORTS HX MIGRAINES. SHE ALSO STATES THAT SHE IS GETTING NAUSEOUS AGAIN. ADMIN. PRN PHENERGAN AND NORCO. IV SITES WNL. BOWEL TONES HYPOACTIVE. ABD LAP SITES X4 HAVE DRIED SERISANGUINOUS DRAINAGE BUT STERI-STRIPS ARE INTACT. PT. ENCOURAGED TO AMBULATE WHEN NAUSEA SUBSIDES. BOYFRIEND AT BEDSIDE. BROUGHT 2 WARM COMPRESSES.
--- NOTE | 2020-11-27 13:24 | NUR ---
PATIENT UP TO BR, BF IN ROOM. VITALS NAD I&OS CHARTED. HOT APPLE CIDER ORDERED FROM KITCHEN.
--- NOTE | 2020-11-27 13:30 | NUR ---
Pt sleeping, not awakened.
--- NOTE | 2020-11-27 14:45 | NUR ---
IN TO ASSIST PATIENT UP TO AMBULATED SOLIMAN. BF IN ROOM, PATIENT RESTING WITH EYES CLOSED, WON'T OPEN EYES. THIS ASSEMBLY DEPARTMENT SUPERVISOR WILL RETURN AND ATTEMPT TO GET PATIENT OUT OF BED. CALL LIGHT IN REACH
--- NOTE | 2020-11-27 15:50 | NUR ---
SBA- patient ambulated to end of mills and back. Patient back to bed, warm blanket and heat packs provided. Plan to ambulate at least one more time with this spanisher before end of shift. call light in reach, fresh ice water provided.
--- NOTE | 2020-11-27 16:33 | NUR ---
PATIENT'S BOYFRIEND REPORTS PT HAS NAUSEA AND VOMITED 500ML OF APPLE CIDER. ADMIN PHENERGAN. PT. ENCOURAGED TO SIT UP AND AMBULATE WHEN LESS NAUSEA. PT. IS NOT ENTHUSIASTIC ABOUT IT.
--- NOTE | 2020-11-27 17:56 | NUR ---
PATIENT AWAKE IN BED, BF IN ROOM. VITALS AND I&OS CHARTED. THIS PROJECT SCIENTIST HAS EDUCATED PATIENT SEVERAL TIMES TODAY ON THE IMPORTANCE OF AMBULATING AFTER SURGERY. PATIENT NOT INTERESTED IN MOVING AT ALL. LAB IN WITH PATIENT NOW, CALL LIGHT IN REACH
--- NOTE | 2020-11-27 19:45 | NUR ---
SHIFT REPORT RECEIVED FROM DAYSHIFT RN MARKUS AT BEDSIDE. pt RESTING QUIETLY IN BED, EYES CLOSED. RR EVEN AND UNLABORED. NO DISTRESS NOTED, BOYFRIEND IN ROOM. CALL LIGHT IN REACH.
--- NOTE | 2020-11-27 21:30 | NUR ---
ASSESSMENT COMPLETE, NO SCHEDULED MEDS. pt RECENTLY MEDICATED WITH PRN ZOFRAN. IV SITES X2 WNL, FLUSHES EASILY. FLUIDS INFUSING PER MD ORDERS. pt DROWSY, BUT AWAKENS TO VOICE. FLAT AFFECT. REPORTS TOLERABLE PAIN, BUT DID NOT RATE PAIN ON PAIN SCALE. NO ADDITIONAL NEEDS AT THIS TIME. CALL LIGHT IN REACH.
--- NOTE | 2020-11-27 21:33 | NUR ---
ADMINISTERED ZOFRAN PT HAD 400MLS EMESIS. PROVIDED MORE WARM PACKS FOR HER BACK PER HER REQUEST AND MORE WARM BLANKETS. FRESH ICEWATER AND CIDER AT BEDSIDE. VS TAKEN AND I&O;S ENTERED. PRIMARY RN SURAJ IS NOW IS THE ROOM WITH PT.
--- NOTE | 2020-11-28 00:20 | NUR ---
IN TO ASST PT UP TO THE TOILET, PT STATES SHE IS PAINFUL, RN INFORMED, GOT PT A NEW HEAT PACK, IV PUMP NOW ALARMING, IV IS COMPLETE AT THIS TIME, RN AWARE, NO FURTHER NEEDS
--- NOTE | 2020-11-28 00:56 | NUR ---
IN ROM TO ANSWER CALL LIGHT, pt AWAKE AND DRY HEAVING. 350MLS EMESIS, LIGHT YELLOW TO GREEN IN COLOR. BEFORE STARTING IV PHENERGEN, SITE FLUSHED, IV SITE TO LEFT AC AND RIGHT FOREARM BOTH LEAKING. NEW IV, 20G PLACED BY NURSING MANAGER. pt TOLERATED WELL. PREVIOUS IV SITES X2 DISCONTINUED, CATHETER INTACT. BRISK BLOOD RETURN NOTED, NO FURTHER NEEDS, CALL LIGHT IN REACH. IV NAUSEA MEDICATION INFUSING.
--- NOTE | 2020-11-28 01:08 | NUR ---
IV PHENERGEN COMPLETE, IV SITE WNL. pt DENIES PAIN OR BURNING AT IV SITE. NO FURTHER NEEDS, BOYFRIEND IN ROOM. NEW EMESIS BAG PROVIDED. CALL LIGHT IN REACH.
--- NOTE | 2020-11-28 01:48 | NUR ---
call light answered, PT requesting pain pill. pt very quiet, flat affect and difficult to hear when talking. pt's boyfriend often speaks for pt, states, "she told me it was a 7 right before you walked in". prn kemal given, see emar. no further needs, call light in reach.
--- NOTE | 2020-11-28 03:05 | NUR ---
IN TO PROVIDE PT ICE WATER AND JUICE, PROVIDED WARM PAD AND BLANKET
--- NOTE | 2020-11-28 04:54 | NUR ---
pt RESTING QUIETLY IN BED, EYES CLOSED. RR EVEN AND UNLABORED. BOYFRIEND ALSO IN ROOM, SLEEPING. IV FLUIDS REMAIN INFUSING PER MD ORDERS, SITE WNL. NO DISTRESS NOTED. pt APPEARS COMFORTABLE AT THIS TIME. CALL LIGHT IN REACH.
--- NOTE | 2020-11-28 07:30 | NUR ---
assessment complete, pt dry heaving. prn zofran given, see emar. vss, i&o's complete. lap sites x4 wnl, unchanged. call light in reach.
--- NOTE | 2020-11-28 07:43 | NUR ---
PT IN THE BATHROOM. BOYFRIEND ASSISTING HER. SHIFT REPORT RECIEVED BY RN. SANDERS BEING ADMINISTERED BY NIGHT NURSE. NO NEEDS AT THIS TIME.
--- NOTE | 2020-11-28 08:00 | NUR ---
PT LYING IN BED. ASSESSMENT COMPLETE. IV CONTINUOUS LR INFUSING 125ML/HR. PT TOLERATING APPLE JUICE AT THIS TIME. REFUSED TO EAT MORNING MEAL.
--- NOTE | 2020-11-28 08:18 | NUR ---
PT C/O PAIN 03/04. 1 NORCO GIVEN PER REQUEST. ENCOURAGED PT TO AMBULATE TODAY ONCE PAIN IS IN CONTROL. PT VERBALZIED UNDERSTANDING. IV PATENT. SCHEDULED MEDS GIVEN. BOYFRIEND IN ROOM. DENIES SOB. CALL LIGHT IN REACH.
--- NOTE | 2020-11-28 09:36 | NUR ---
PATIETN RESTING IN BED,EYES CLOSED. BOYFRIEND IN ROOM. VITALS AND I&OS CHARTED. SUGGESTED TAKING A WALK IN SOLIMAN, PATIENT REFUSED "WEAK AND DIZZY" CALL LIGHT IN REACH, NO OTHER NEEDS AT THIS TIME
--- NOTE | 2020-11-28 10:01 | NUR ---
PT LYING IN BED. EYES CLOSED. RR WNL WITH UNLABORED BREATHING. BOYFRIEND IN ROOM. CALL LIGHT IN REACH.
--- NOTE | 2020-11-28 10:47 | NUR ---
PT STATES HAVING NAUSEA. PHENERGAN 12.5MG ADMINISTERED. PT ENCOURAGED TO SIT UP IN CHAIR. PT VERBALIZED UNDERSTANDING. PT ASSISTED TO THE BATHROOM WITH BOYFRIEND. CALL LIGHT IN REACH.
--- NOTE | 2020-11-28 12:44 | NUR ---
IV SALINE LOCKED. PT WENT ON A SHORT WALK TOLERATED WELL. CALL LIGHT IN REACH
--- NOTE | 2020-11-28 13:26 | NUR ---
NEW ORDERS CONTINUOUS FLUIDS D5% 1/2 NS + 20KCL INFUSING 125ML/HR. IV PATENT AND INTACT. PT EYES CLOSED IN BED. RR WNL WITH UNLABORED BREATHING. CALL LIGHT IN REACH.
--- NOTE | 2020-11-28 15:28 | NUR ---
PT AMBULATED TO THE BATHROOM FOR SHOWER. BOYFRIEND IN ROOM TO ASSIST HER. PT C/O PAIN 03/04. TYLENOL ADMINISTERED PER REQUEST. PT STATES HAVING NAUSEA. PRN ZOFRAN ADMINISTERED. ASSESSMENT COMPLETE. PT HAD 200ML OF EMESIS MOSTLY APPLE JUICE. HAS BEEN EATING POORLY. SCHEDULED MED MAGNESIUM GIVEN. CALL LIGHT IN REACH.
--- NOTE | 2020-11-28 17:01 | NUR ---
PT WAS IN SHOWER, ENCOURAGED PT ON A WALK. PT VERBALIZED UNDERSTANDING. WENT ON WALK WITH BOYFRIEND. TOLERATED WELL. PT PAIN 6/10. TOLERABLE. HEAT PACK GIVEN WELL WARM BLANKETS. STERI STRIPS INTACT ON ALL 4 LAP SITES. NO DRAINAGE NOTED. PT STATES THAT SHE WILL TRY EATING CHICKEN NOODLE SOUP. PT NAUSEA 4/10 BUT TOLERABLE. SCHEDULED MED GIVEN. DENIES SOB. CALL LIGHT IN REACH.
--- NOTE | 2020-11-28 17:50 | NUR ---
PT STATED NOT HAVING NAUSEA BUT ASKED WHEN SHE CAN HAVE PHENERGAN AGAIN. EDUCATION GIVEN ON NOT ADMINISTERING DUE TO NOT HAVING NAUSEA AND ZOFRAN WAS GIVEN A COUPLE HOURS AGO. PT VERBALIZED UNDERSTANDING. ENCOURAGED PT TO EAT SOME CHICKEN SOUP. BOYFRIEND IN ROOM. CALL LIGHT IN REACH. PAIN IS TOLERABLE AT THIS TIME.
--- NOTE | 2020-11-28 17:59 | NUR ---
Patient c/o burning sensation with the kcl rider running. Flushed IV with ns, patent at this time. KCL rider rate decreased to 100ml/hr at this time. Education provided to patient regarding kcl infusion. Call light within reach.
--- NOTE | 2020-11-28 18:08 | NUR ---
PT STANDBY ASSIST TO THE BATHROOM. TYLENOL FOR PAIN MEDS. ZOFRAN GIVEN FOR NAUSEA. PT NOT TOLERATING FOODS. POOR DIET AT THIS TIME. CONTINUOUS IV FLUIDS INFUSING. IV PATENT. HYDRATION ENCOURAGED.
--- NOTE | 2020-11-28 19:10 | NUR ---
Phenergan 12.5mg IVP admin for reports of nausea.
--- NOTE | 2020-11-28 19:30 | NUR ---
SHIFT REPORT RECEIVED FROM DAYSCTFT SUSAN HERNANDEZ AND MASON AT BEDSIDE. pt RESTING IN BED, EYES CLOSED. IV FLUIDS INFUSING AT 100MLS/HR, POTASSIUM RIDER INFUSING AT 100MLS/HR, SITE WNL. RR EVEN AND UNLABORED, NO DISTRESS NOTED. CALL LIGHT IN REACH.
--- NOTE | 2020-11-28 22:00 | NUR ---
ASSESSMENT COMPLETE, 2 OF 2 20MEQ POTASSIUM RIDER INFUSING AT THSI TIEM, pt GRIMACING AND REPORTS DISCOMFORT AT IV SITE R/T POTASSIUM INFUSION. pt STATES, "IT'S BEEN SORE SINCE THIS AFTERNOON, CAN YOU TURN IT DOWN". MAINTANANCE FLUIDS REMAIN AT 100MLS/HR, POTASSIUM RIDER DECREASED TO 75MLS/HR, SITE WNL. WILL CONTINUE TO MONITOR. LAP SITES X4 WNL, DRY SCANT BLOOD NOTED WITH STERI STRIPS. PRN ZOFRAN ALSO GIVEN D/T NAUSEA. pt REPORTS SOME PAIN, BUT DOES NOT RATE ON PAIN SCALE. PER CLINICAL JUDGEMENT, WILL HOLD PAIN MEDS UNTIL NAUSEA RESOLVES. NO FURTHER NEEDS, CALL LIGHT IN REACH. BOYFRIEND IN ROOM.
--- NOTE | 2020-11-28 22:20 | NUR ---
IN TO GET PT VITALS, PT UP TO VOID WITH ASST FROM PARTNER, RN IN RM FOR MED, PT ASSISTED BACK TO BED, WARM BLANKETS PROVIDED, WATER REFRESHED, NO FURTHER NEEDS,
--- NOTE | 2020-11-28 23:17 | NUR ---
pt CONTINUES TO REST IN BED WITH EYES CLOSED, RR EVEN AND UNLABORED. POTASSIUM RIDER AND MAINTENANCE FLUIDS REMAISN INFUSING AT 100MLS/HR, SITE WNL. WILL ALLOW pt TO CONTINUE TO REST, CONTINUE TO MONITOR PAIN. CALL LIGHT IN REACH.
--- NOTE | 2020-11-28 23:31 | NUR ---
pt RECEIVED APPROX 40MEQ POTASSIUM, POTASSIUM RECHECK ORDER PLACED PER POLCIY. LAB AWARE.
--- NOTE | 2020-11-29 01:30 | NUR ---
ROUNDING ON pt, pt AWAKE REPORTS DISCOMFORT AT IV SITE. IV SITE WNL, NO SIGNS OF REDDNESS OR INFILTRATION NOTED. pt REPROTS SITE FELT BETTER WHEN ELEVATED, ENCOURAGED TO KEEP ELEVATED, HEAT PACK ALSO PROVIDED. BOYFRIEND REMAINS IN THE ROOM. IV POTASSIUM RIDER ATE AGAIN DECREASED TO 50MLS/HR FOR COMFORT. CALL LIGHT IN REACH.
--- NOTE | 2020-11-29 01:48 | NUR ---
PATIENT BACK IN BED AFTER GOING TO THE BATHROOM AND BOYFRIEND WALKED HER TO THE BATHROOM AND BACK. PATIENT IS NAUSEATED AND HAD 5/10 ABD PAIN. TWO 500MG TYLENOL GIVEN PO AND 12.5MG IV PHENERGAN GIVEN ON THE IV PUMP. IV SITE LOOKS NORMAL AND FLUSHES WELL BEFORE AND AFTER ADMINISTRATION. NEW ICE WATER GIVEN AND A CUP OF APPLE JUICE. PATIENT HAS NO OTHER NEEDS AT THIS TIME, CALL LIGHT IN REACH AND BOYFRIEND AT BEDSIDE.
--- NOTE | 2020-11-29 02:12 | NUR ---
ROUNDED ON pt, pt RESTING IN BED, OPENED EYES WHEN STAFF ENTERED. NO NEEDS OR CONCERNS VERBALIZED AT THIS TIME. BOYFRIEND REMAINS IN ROOM. CALL LIGHT IN REACH.
--- NOTE | 2020-11-29 06:50 | NUR ---
pt REQUESTING SOMETHING FOR NAUSEA, PRN ZOFRAN SL GIVEN, SEE EMAR. X1 EMESIS NOTED. pt REQUESTING TO SHOWER, IV SITE WRAPPED, PUMP ON STANDBY. BOYFRIEND IN ROOM, ASSESSMENT ALSO COMPLETE. LAP SITES UNCHANGED. NO FURTHER NEEDS, VSS.
--- NOTE | 2020-11-29 08:00 | NUR ---
TOLERATED SHOWER WELL, INDEP IN ROOM, DENIES WANTING TO EAT BREAKFAST, STATES SHE USUALLY EATS LATER IN THE DAY. CONT. TO C/O NAUSEA WITH ACTIVITY, DRINKING APPLE JUICE. BOYFRIEND IN ROOM AND SUPPORTIVE, SCOPE SITES INTACT WITH STERI STRIPS.
[2020-11-29] MEDS ORDERED: PROMETHAZINE12.5 M1 PO (10:02)
[2020-11-29] MEDS ORDERED: ONDANSETRON ODT4 MG PO (10:03)
--- NOTE | 2020-11-29 10:52 | NUR ---
PATIENT IN BED RESTING WITH EYES CLOSED. BOYFRIEND AT BEDSIDE. VITALS AND I&O'S CHARTED. CALL LIGHT IN REACH. NO FURTHER NEEDS AT THIS TIME.
--- NOTE | 2020-11-29 11:00 | NUR ---
DR IBARRA IN TO SEE PATIENT, DISCHARGE ORDERS NOTED.
--- NOTE | 2020-11-29 11:11 | NUR ---
IV TAKEN OUT UPON RN REQUEST. CATH INTACT AND LOOKED GOOD, RN NOTIFIED.
--- NOTE | 2020-11-29 13:00 | OR ---
[facility] [address], [place] [address] Signed DATE OF OPERATION: 11/26/2020 SURGEON: Marilee Ibarra MD PREOPERATIVE DIAGNOSES: 1. Persistent nausea and vomiting. Intrauterine gestation 11 weeks four days. 2. Acute acalculous cholecystitis. POSTOPERATIVE DIAGNOSES: 1. Persistent nausea and vomiting. Intrauterine gestation 11 weeks four days. 2. Acute acalculous cholecystitis. PROCEDURE: 1. Laparoscopic cholecystectomy with intraoperative cholangiogram. 2. Surgeon-directed fluoroscopy. ANESTHESIA: General endotracheal, Marilee Montalvo CRNA and local 20 mL of 0.25% Marcaine with epinephrine. INDICATION: This 20-year-old woman is noted to be 11 weeks and four days based on ultrasound criteria and was admitted to the hospital by Dr. Hidalgo, her digital field service technician on November 24, 2020 for persistent nausea and vomiting considered hyperemesis gravidarum. The patient is not currently using marijuana or any other substances that might account for her persistent nausea and vomiting and has been attributed to her of course. Notably, she has had variable symptoms since four weeks of gestation. She during hospitalization thus far has not had improvement of her symptoms and does have some abdominal pain including right upper abdominal pain. A gallbladder ultrasound was ordered by Dr. Hidalgo earlier today, which confirms a fair amount of debris within the gallbladder and with was considered sonographic Toledo sign on ultrasonographic evaluation. Her lab studies were reasonably normal though she does have elevated isolated liver enzyme, ALT. Bilirubin and alkaline phosphatase were normal. From the possibility and indeed probability that her current persistent nausea, vomiting, abdominal pain is related to acalculous cholecystitis, I have offered laparoscopic cholecystectomy, possible open procedure. The risks of bleeding, infection, bile duct injury, need for open procedure, and of course failure to cure her problems despite our intention to do so was reviewed and well understood by the patient Electronically Signed By: MARILEE IBARRA MD 11/29/20 1300 PATIENT NAME: SEAN KHALIL OPERATIVE REPORT DATE OF : 00 REPORT #: [id number] PHYSICIAN: MARILEE IBARRA MD PCP: VINNY HIDALGO MD REPORT IS CONFIDENTIAL AND NOT TO BE RELEASED WITHOUT AUTHORIZATION [facility] [address], [place] [address] Signed and her significant other boyfriend. They understand this and they wished to proceed. FINDINGS: The patient was not obese. A strip for laparoscopy was able to be performed. The uterus was well out of the way of the infraumbilical incision. The gallbladder itself did not appear severely inflamed. There was mild fatty infiltration of the liver. The gallbladder did have a relatively long and narrow cystic duct, which may have contributed to her problem. The common bile duct was easily visualized and avoided. Cholangiogram showed free flow of contrast in biliary tree with prompt emptying into the duodenum. There was no sign of filling defect or biliary anomaly. I did not see any right-sided hepatic lesion despite evidence of prior hemangioma noted on other imaging studies previously. The gallbladder once excised was opened and found to have thick tar like sludge as well as multiple crystals. No well-formed stones proper. There was chronic inflammation of mucosa. DESCRIPTION OF PROCEDURE: The patient was brought to the operating room, given a general endotracheal anesthetic. Preoperative antibiotic Ancef was given. Sequential compression device stockings were used. After satisfactory general endotracheal anesthesia, the abdomen was prepared with non Hibiclens type solution, which was iodine based, based on her sensitivity to Hibiclens and draped sterilely. An infraumbilical incision was made and using an open Althea type cannula technique, pneumoperitoneum was achieved to a level of 14 mmHg of carbon dioxide gas. The pneumoperitoneum was taken down to 10 mm as that was found to be adequate and would provide less intraabdominal pressure. Three additional trocars were placed in usual configuration in the subxiphoid, right mid-clavicular, and right anterior axillary line. The gallbladder was obscured from view initially. The liver had mild fatty infiltration, but not much and once the liver edge was lifted, the gallbladder was held. The elevated cephalad, which showed a slightly edematous gallbladder, but no sign of profound infection or inflammation or bile staining initially of that sort. The infundibulum was grasped and retracted laterally. The common bile duct could easily be identified and initially was rather an adjacent to the infundibulum of the gallbladder itself. With retraction laterally, the triangle of Calot was dissected free with meticulous care, identifying well a very narrow and long cystic duct. The common hepatic duct and common bile duct were all normal and left unharmed. A clip was applied across gallbladder cystic duct junction and a small transverse choledochotomy made in the cystic duct. Using an Fleming type cholangiocatheter intraoperative cholangiography was undertaken showing free flow of contrast in biliary tree with prompt emptying into the duodenum. No sign of filling defect or other problem. The catheter was removed. The cystic duct was triply clipped and divided and the gallbladder dissected free in a retrograde fashion. Near the end of the dissection, a Electronically Signed By: MARILEE IBARRA MD 11/29/20 1300 PATIENT NAME: SEAN KHALIL OPERATIVE REPORT DATE OF : 00 REPORT #: [id number] PHYSICIAN: MARILEE IBARRA MD PCP: VINNY HIDALGO MD REPORT IS CONFIDENTIAL AND NOT TO BE RELEASED WITHOUT AUTHORIZATION [facility] [address], [place] [address] Signed small rent was made in the gallbladder, draining thick green dark bile and some micro-crystals. This site was secured with clips and the gallbladder fully excised and placed in endobag and extracted through the infraumbilical port site without problem, opened on the back table and found to have chronic inflammatory changes of mucosa micro-crystals and sludge. Irrigation was undertaken in subhepatic space. Hemostasis was assured with electrocautery. There was no sign of bile leak, bleeding or other problems. Excess irrigation fluid was suctioned free and trocars removed under direct visualization showing no sign of bleeding. The infraumbilical fascial incision was reapproximated with interrupted 0 Vicryl suture and a running 0 PDS suture. Then 20 mL of 0.25% Marcaine with epinephrine injected locally. The skin closed with interrupted 3-0 Vicryl. Steri-Strips were applied. The patient was ultimately extubated and transferred to the recovery room in good condition having suffered no complications. Sponge, needle, and instrument counts reported as correct x3. MD JOI Varela/JUVENTINO /[id number] cc: Vinny Hidalgo MD Copies: VINNY HIDALGO MD ~ Electronically Signed By: MARILEE IBARRA MD 11/29/20 1300 PATIENT NAME: SEAN KHALIL OPERATIVE REPORT DATE OF : 00 REPORT #: [id number] PHYSICIAN: MARILEE IBARRA MD PCP: VINNY HIDALGO MD REPORT IS CONFIDENTIAL AND NOT TO BE RELEASED WITHOUT AUTHORIZATION
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
--- NOTE | 2020-11-30 12:59 | PATH ---
[facility] [address] [place], [place] [address] Signed SPECIMEN(S): A GALLBLADDER SPECIMEN SOURCE: A. GALLBLADDER CLINICAL HISTORY: Cholecystitis, hyperemesis, dehydration. FINAL PATHOLOGIC DIAGNOSIS: Gallbladder, cholecystectomy: - Gallbladder with minimal chronic inflammation and focal cholesterolosis. NAL:cml:C2NR MICROSCOPIC EXAMINATION: Histologic sections of all submitted blocks are examined by light microscopy. These findings, together with the gross examination, support the pathologic diagnosis. GROSS DESCRIPTION: The specimen, labeled "TH, A.," and designated on the requisition "gallbladder," is received in formalin and consists of Specimen: Previously opened gallbladder. Dimensions: 4.7 x 2.3 cm. Serosa: Green and smooth. Cystic Duct: Unobstructed. Calculi: Not grossly identified. Mucosa: Green and velvety. Wall thickness: Up to 0.3 cm. Lymph node: No pericystic lymph nodes are grossly identified. Additional: None. Buffer Chrome sections are submitted in cassette (A1). AT (under the direct supervision of a pathologist) The Gross Description was prepared using a voice recognition system. The report was reviewed for accuracy; however, sound-alike word errors, addition and/or deletions may occur. If there is any question about this report, please contact Client Services. PERFORMING LABORATORY: The technical component was performed by [employer], [address] [place] [id number] (Drawstring Knotter: Thi Nunez MD; CLIA# [id number]). Professional interpretation was performed by PATIENT NAME: SEAN KHALIL PATHOLOGY DATE OF : 00 REPORT #: [id number] PHYSICIAN: [facility] PCP: JOSÉ ANTONIO NERI MD REPORT IS CONFIDENTIAL AND NOT TO BE RELEASED WITHOUT AUTHORIZATION [facility] [address] [place], [place] [address] Signed [facility], [facility], [address] [facility], [facility] [address], [place] [address] (CLIA# [id number]). Diagnostician: Sanjuana Berry MD Pathologist Electronically Signed 11/30/2020 Copies: ~ PATIENT NAME: SEAN KHALIL PATHOLOGY DATE OF : 00 REPORT #: [id number] PHYSICIAN: [facility] PCP: JOSÉ ANTONIO NERI MD REPORT IS CONFIDENTIAL AND NOT TO BE RELEASED WITHOUT AUTHORIZATION
== END 2020-11-29 11:25 | disposition home or self-care (01) | DRG 818 ==
LOC: IVT-DS 10:50 → MS 10:51
PROVIDERS: Surgery; ADMIT General Practice; ATTEND General Practice
PROC: BF101ZZ Fluoroscopy of Bile Ducts using Low Osmolar Contrast (ICD-10-PCS; 2020-11-26)
PROC: 0FT44ZZ Resection of Gallbladder, Percutaneous Endoscopic Approach (ICD-10-PCS; principal; 2020-11-26 14:00)
DX: O21.1 Hyperemesis gravidarum with metabolic disturbance (principal); K81.0 Acute cholecystitis; E86.1 Hypovolemia; O99.611 Diseases of the digestive system complicating pregnancy, first trimester; Z3A.11 11 weeks gestation of pregnancy; K76.0 Fatty (change of) liver, not elsewhere classified; Z88.0 Allergy status to penicillin; Z88.8 Allergy status to other drugs, medicaments and biological substances; Z88.7 Allergy status to serum and vaccine
CPT/HCPCS: 00790; 36415; 74300; 76705; 76801; 80053; 81001; 83735; 84132; 85025; 96375; 96376; G0378; J0330; J0690; J1100; J1885; J2250; J2405; J2550; J2704; J2765; J3010; J3411; J3475; J3480; J7060; J7120; J7121; Q9967

== ENCOUNTER → 2020-12-02 | Emergency (ER) | payer OTHER ==
[~2020-12-02] VITALS: Ht 152.4 cm; Wt 65.8 kg
[~2020-12-02] MED LIST changes: +METOCLOPRAMIDE H5 MG PO
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
== END ==
LOC: ED 11:37
DX: O21.0 Mild hyperemesis gravidarum (principal); Z3A.11 11 weeks gestation of pregnancy; Z87.891 Personal history of nicotine dependence; Z88.8 Allergy status to other drugs, medicaments and biological substances; Z88.0 Allergy status to penicillin; Z88.7 Allergy status to serum and vaccine; Z79.899 Other long term (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
CPT/HCPCS: 80053; 81001; 83690; 85025; 96374; 99284-25; J2765; J7030; J7042

== ENCOUNTER 2020-12-10 10:49 | Inpatient (IN) | payer OTHER ==
[~2020-12-10] VITALS: Ht 152.4 cm; Wt 62.0 kg
--- NOTE | 2020-12-10 11:26 | NUR ---
DONALDID TEST IN COMPUTER, CALL TO Temo, CALL TO DR. NERI TO LET HIM KNOW THE PATIENT WAS HERE.
[2020-12-10] MEDS ORDERED: MEDROL4 M1 PO (11:27)
--- NOTE | 2020-12-10 11:32 | NUR ---
PT ARRIVED. PT DRESSES SELF WITH MINIMAL ASSISTANCE. ASSESSMENT DONE: PT REPORTS OCCATIONAL NUMBNESS AND TINGLING IN FEET "WHEN I'M SITTING LIKE THIS" LEGS NOTED TO BE CROSSED. PT REPORTS TINGLING GOES AWAY ONCE SHE GETS UP OR GETS INTO THE SHOWER. PT REPORTS 6/10 FLANK PAIN THAT RADIATES TO HER LEFT HIP. PT REPORTS PAIN IS TOLERABLE. ABDOMEN TENDER TO TOUCH. BOWEL TONES ACTIVE. PT REPORTS DIFFICULTY URINATING "LATELY." PT ABLE TO VOID 30ML YELLOW URINE. SAMPLE COLLECTED PER MD ORDER. PT REPORTS SHE HAS BEEN LOSING WEIGHT. MD AWARE, OTC CLERK CONSULTATION PLACED. CLEAR LIQUID DIET ORDER PLACED BY DR. KOHLI, ICE CHIPS PROVIDED. ABDOMINAL LAPAROSCOPIC SITES X4 NOTED FROM PREVIOUS HOSPITAL STAY EACH MEASURING 2CM. LATERAL SITE NOTED TO HAVE SMALL AMOUNT OF YELLOW DRAINAGE. REMAINING 3 INCISIONS SHOW EDGES WELL APRXIMATED WITH NO DRAINAGE. INCISIONS REDDENED AROUND EDGES. IV STARTED PER PROTOCOL. BRISK BLOOD RETURN NOTED. LABS DRAWN AND SENT. IV FLUIDS INFUSING PER MD ORDER. PT RESTING IN BED. NO ADDITIONAL REQUESTS OR COMPLAINTS. CALL LIGHT WITHIN REACH. BED RAILS UP.
--- NOTE | 2020-12-10 11:39 | NUR ---
RAPID SWAB COLLECTED
--- NOTE | 2020-12-10 12:10 | NUR ---
PT STATES "I WILL NEED TYLENOL LATER." DR. NERI CONSULTED BEFORE HE LEAVES THE FLOOR AND STATES TO ORDER 500MG PO TYLENOL Q6 PRN. ORDER ENTERED.
--- NOTE | 2020-12-10 13:22 | NUR ---
MEDICATION DUE. PT FOUND UP IN ROOM. PT REPORTS SHE WOULD LIKE TO TAKE A HOT SHOWER. MEDICATIONS STARTED/GIVEN (SEE MAR). PT REPORTS 7/10 PAIN IN BACK AND REQUESTS PAIN MEDICATION, SEE MAR FOR MEDICATION GIVEN. PTS IV COVERED. PT UP TO SHOWER, INDEPENDANT IN SHOWER AT THIS TIME. PT DEMONSTRATES USE OF CALL LIGHT. CALL LIGHT WITHIN REACH.
--- NOTE | 2020-12-10 14:13 | NUR ---
PT CALL LIGHT ON. PUMP ALARMING. "DISTAL OCCLUSION." IV INFUSION RESUMED. PT REMAINS UP TO SHOWER. PT STATES SHE WANTS TO REMAIN IN THE SHOWER UNDER THE HOT WATER. NO ADDITIONAL REQUESTS OR COMPLAINTS. CALL LIGHT WITHIN REACH.
--- NOTE | 2020-12-10 14:46 | NUR ---
THIS RN TO ROOM TO CHECK ON PT. PT REMAINS UP IN SHOWER. PT REPORTS THE HOT WATER IS HELPING HER NAUSEA AND PAIN. PT NOW REPORTS PAIN AT 5/10 AND DENIES NEED FOR ADDITIONAL MEDICATION. PT DEMONSTRATES USE OF CALL LIGHT. PT DENIES ADDITIONAL REQUESTS OR COMPLAINTS. CALL LIGHT WITHIN REACH.
--- NOTE | 2020-12-10 15:18 | NUR ---
AFTERNOON ASSESSMENT DUE. PT FINISHED WITH SHOWER. STAND BY ASSIST BACK TO BED. PT REPORTS 7/10 ABDOMINAL AND LEFT FLANK PAIN. PT ALSO REPORTS 5/10 NAUSEA. SEE MAR FOR MEDIACTION GIVEN. ASSESSMENT DONE: LUNG SOUNDS CLEAR. HEART TONES REGULAR. ABDOMEN SOFT TO TOUCH, BOWEL TONES HYPOACTIVE. PT NOTED TO HAVE BORDERLINE QUANITITY SUFFICIENT URINE OUTPUT. WILL CONTINUE TO MONITOR. IV FLUIDS INFUSING. LAPAROSCOPIC SITES UNCHANGED. ALL WOUNDS BUT FOR RIGTH LATERAL SITE SHOW EDGES WELL APROXIMATED. RIGHT LATERAL SITE OPEN BY 0.25CM. SMALL AMOUNT OF YELLOW/WHITE CAN BE SEEN ON WOUND BED. EDUCATION DONE WITH PT REGARDING HYPEREMESIS, MEDICATIONS, AND PLAN OF CARE. PT VERBALIZES UNDERSTANDING. PT DENIES ADDITIONAL REQUESTS OR COMPLAINTS. PT RESTING WITH EYES CLOSED. BED RAILS UP. CALL LIGHT WITHIN REACH.
--- NOTE | 2020-12-10 16:08 | NUR ---
PUMP ALARMING, IV BOLUS INFUSION COMPLETE. PT RESTING IN RIGHT SIDE TALKING ON PHONE. PT REPORTS NAUSEA MEDICATION HELPED "A LITTLE" AND STATES HER MAIN COMPLAINT NOW IS PAIN IN HER LEFT UPPER QUADRANT AND LEFT FLANK. PT REPORTS 6/10 PAIN IN THESE AREAS. IV MAINTANCE FLUIDS STARTED (SEE MAR). PTS MOTHER ARRIVES TO VISIT WITH PT. NO ADDITIONAL REQUESTS OR COMPLAINTS AT THIS TIME. CALL [facility] WITHIN REACH. BED RAILS UP.
--- NOTE | 2020-12-10 16:38 | NUR ---
DR. NERI CALLED WITH UPDATE ON PTS STATUS, LABS, AND HEALTH DATA ANALYST RECCOMENDATION. NO ANSWER AT THIS TIME. MESSAGE LEFT FOR CALL BACK.
--- NOTE | 2020-12-10 16:48 | NUR ---
PT DIRECTLY ADMITTED FROM DR. NERI'S OFFICE FOR HYPEREMESIS. PT UP IN ROOM THIS SHIFT AND FOR MULTIPLE LONG SHOWERS WITH STAND BY ASSIST. PT ON CLEAR LIQUID DIET, NAUSEA CONTINUES. PRN NAUSEA MEDIATIONS GIVEN. FLUID BOLUS AND BANANA BAG GIVEN. PRESS CUTTER CONSULTATION THIS SHIFT WITH FEEDING TUBE PLACEMENT RECCOMENDATIONS. FAMILY AT BEDSIDE. PT VOIDING QUANTITY SUFFICIENT. PT USES CALL LIGHT APPROPRIATLY.
--- NOTE | 2020-12-10 17:07 | HP ---
[facility] [address] [place], [place] [address] Signed ADMISSION DATE: 12/10/2020 CHIEF COMPLAINT: Hyperemesis gravidarum with hypovolemia and dehydration. HISTORY OF PRESENT ILLNESS: The patient is a 20-year-old, G1, P0, DANILO 06/20/2021 at 12+ weeks with approximately one month history of nausea and vomiting. She has had several visits to the emergency room for IV hydration and has been on several medications to attempt to relieve hyperemesis, but continues to have mostly nausea and dry heaving, also emesis usually whenever trying to eat solid foods, she has been mostly able to keep liquids down, but this has been getting worse recently. She was admitted to [facility] 11/24 to 11/29 for hyperemesis, IV fluids and electrolyte replacement, also underwent cholecystectomy during the stay for what appeared to be acute cholecystitis, but this did not seem to help the nausea and vomiting. Last week she was again seen in the ER and given IVfluid which helped only temporarily. Two days ago, she was started on oral Medrol in an attempt relief of nausea and vomiting, but was unable to keep the medication down because of emesis within 30 minutes of taking the medication. In the last couple days, seemed to be having more nausea, vomiting, and feeling very dehydrated, so patient is back to hospital for admission and IV hydration and evaluation of hypovolemia and electrolyte balance. PAST MEDICAL HISTORY: History of stress ulcers in the past and also history of depression, but no medication at present. PAST SURGICAL HISTORY: 2000, eye muscle surgery; 2019, excision of lipoma on her back. CURRENT MEDICATIONS: Zofran, Phenergan and vitamins. ALLERGIES: Amoxicillin and chlorhexidine. SOCIAL HISTORY: Nonsmoker. Denies any recreational drugs and quit alcohol for the . PHYSICAL EXAMINATION: Electronically Signed By: JOSÉ ANTONIO NERI MD 12/10/20 0508 PATIENT NAME: SEAN KHALIL HISTORY AND PHYSICAL DATE OF : 00 REPORT #: [id number] PHYSICIAN: JOSÉ ANTONIO NERI MD PCP: JOSÉ ANTONIO NERI MD REPORT IS CONFIDENTIAL AND NOT TO BE RELEASED WITHOUT AUTHORIZATION [facility] [address] [place] [id number] Signed GENERAL: Patient is in no acute distress, but mucous membranes are dry. ABDOMEN: Nondistended, soft, nontender. EXTREMITIES: Normal. No calf tenderness. IMPRESSION: Hyperemesis with dehydration and hypovolemia. PLAN: Should receive IV fluids with potassium replacement, also IV thiamine and multivitamins, Phenergan and Zofran as needed for nausea and will start methylprednisolone IV to attempt resolution of the nausea and vomiting, also obtain a nutrition consult to consider NG tube feedings if unable to keep any food down. I discussed the plan with the patient. She understands and all questions were answered. MD DENEEN Weiss/RAMONL /[id number] Copies: ~ Electronically Signed By: JOSÉ ANTONIO NERI MD 12/10/20 1707 PATIENT NAME: SEAN KHALIL HISTORY AND PHYSICAL DATE OF : 00 REPORT #: [id number] PHYSICIAN: JOSÉ ANTONIO NERI MD PCP: JOSÉ ANTONIO NERI MD REPORT IS CONFIDENTIAL AND NOT TO BE RELEASED WITHOUT AUTHORIZATION
--- NOTE | 2020-12-10 17:22 | NUR ---
DR NERI ARRIVED TO FLOOR. UPDATED ON PTS LABS, MEDICATION REQUESTS, AND MANUFACTURING TECH CONSULTATION. NEW ORDERS PLACED BY DR. NERI. PT UPDATED ON PLAN OF CARE. PT DENIES ADDITIONAL REQUESTS OR COMPLAINTS AT THIS TIME. PT TALKING WITH MOM WHILE SHE RUBS HER BACK. CALL LIGHT WITHIN REACH. BED RAILS UP.
--- NOTE | 2020-12-10 17:30 | NUR ---
Pt states she lives in a 1 story home with her boyfriend. States she has not been able to work since she became due to pain and nausea. She states money is tight, but there is a enough to pay the bill and buy food. Pt cont. to complain of severe pain, but laughs throughout visit. Boyfriend is working and able to support them. Pt states she has good support from mom and boyfriend. Dc to home when cleared by
--- NOTE | 2020-12-10 17:31 | NUR ---
NEW FLUIDS ORDERED. THIS RN TO ROOM. PT RESTING IN BED. PT REPORTS NAUSEA IS IMPROVING. STAND BY ASSIST UP TO RESTROOM. PT VOIDS ML CLEAR YELLOW URINE. STAND BY ASSIST BACK TO BED. NEW IV FLUIDS STARTED. PT UPDATED ON PLAN OF CARE. PT VERBLAIZES UNDERSTANDING. PT DENIES ADDITIONAL REQUESTS OR COMPLAINTS. CALL LIGHT WITHIN REACH.
--- NOTE | 2020-12-10 17:43 | NUR ---
DR. NERI REQUESTS ORDER FOR CONSULTATION WITH DR. IBARRA BE PLACED FOR EVALUATION FOR FEEDING TUBE PLACEMENT PER MANAGER OF FINANCE RECCOMENDATIONS. ORDER PLACED. DR. IBARRA AWARE.
--- NOTE | 2020-12-10 18:49 | NUR ---
NEW ORDERS PLACED BY DR. IBARRA. FEEDING TUBE AQUIRED AND PLACED AT NURSES STATION. MAGNESIUM STARTED. PT UP TO RESTROOM AND THEN TO SHOWER AGAIN. IV COVERED BY ASHLEY CARRENO. PTS MOTHER AT BEDSIDE. CALL LIGHT WITHIN REACH. NO ADDITIONAL REQUESTS OR COMPLAINTS.
--- NOTE | 2020-12-10 19:02 | NUR ---
TELE PHARMACY CALLED WITH QUESTIONS REGARDING PT FLUID AND POTASSIUM ORDERS. DR. IBARRA CALLED. DR. IBARRA STATES TO STOP D5 1/2 NS WITH 40 OF K INFUSION WHILE POTASSIUM RIDERS ARE GIVEN THIS EVENING. DURING POTASSIUM RIDER INFUSION LR AT A RATE OF 125ML/HR IS TO BE GIVEN. AFTER POTASSIUM RIDER INFUSIONS ARE COMPLETE, LR IS TO BE STOPPED AND D5 1/2 NS WITH 40 OF K CONTINIOUS INFUSION IS TO BE RESUMED AT A RATE OF 125ML/HR. ORDERS ENTERED. CHARGE NURSE UPDATED.
--- NOTE | 2020-12-10 19:20 | NUR ---
SHIFT REPORT RECEIVED FROM IDALIA DAVIS. PT IN SHOWER, MOTHER IN ROOM. NO NEEDS AT THIS TIME. CALL LIGHT IN REACH.
--- NOTE | 2020-12-10 20:40 | NUR ---
ASSESSMENT COMPLETED. PT GIVEN PRN NAUSEA AND PAIN MEDS, PAIN 5/10 IN BACK AND STOMACH. SCHEDULED MEDS PROVIDED. IV WNL, CDI, FLUSHED WELL. LUNGS CLEAR. ABD FIRM, TENDER, BOWEL TONES ACTIVE. FAMILY IN ROOM. NO OTHER NEEDS AT THIS TIME. CALL LIGHT IN REACH.
--- NOTE | 2020-12-10 20:51 | NUR ---
IN TO GET VITALS, MOM BACK IN RM WITH PT, RECLINER PROVIDED TO MOM, WARM BLANKETS PROVIEDED TO PT
--- NOTE | 2020-12-10 23:28 | NUR ---
IN TO GET PT UP TO VOID SBA WITH IV POLE, PT BACK IN BED, MOM AND SERVICE DOG IN ROOM
--- NOTE | 2020-12-11 01:22 | NUR ---
PT IV MED COMPLETED. PT PLACED BACK ON D5 1/2 NS. VS AND I&O COMPLETED. PT RESTING IN BED, MOM IN ROOM.
--- NOTE | 2020-12-11 01:38 | NUR ---
PT REPORTS NAUSEA, PRN NAUSEA MED PROVIDED. ICE WATER PROVIDED. NO OTHER NEEDS AT THIS TIME. CALL LIGHT IN REACH.
--- NOTE | 2020-12-11 04:21 | NUR ---
PT RESTING IN BED, EYES CLOSED. RR EVEN, UNLABORED. MOM IN ROOM. CALL LIGHT IN REACH.
--- NOTE | 2020-12-11 05:13 | NUR ---
IN TO GET VITALS, FRESH CIDER AND ICE WATER GIVEN, RN TO BE IN RM FOR PAIN MEDS, NO FURTHER NEEDS AT THIS TIME
--- NOTE | 2020-12-11 05:26 | NUR ---
PT STATES SHE HAS 5/10 BACK AND ABD PAIN, PRN PAIN MED PROVIDED. SCHEDULED MED PROVIDED. ASSESSMENT COMPLETED. IV WNL. NO OTHER NEEDS. CALL LIGHT IN REACH. MOM IN ROOM.
--- NOTE | 2020-12-11 06:45 | NUR ---
PT UP TO THE TOILET, VOID/BM, PT ASKED TO GET IN THE SHOWER, IV SITE WRAPPED, PT WILL GET IN THE SHOWER ONCE DONE WITH TOILET NEEDS, TOWELS AND ICE CHIPS/WATER PROVIDED TO PT WHILE IN SHOWER
--- NOTE | 2020-12-11 07:18 | NUR ---
REPORT RECEIVED FROM SUSAN ERICKSON. PT UP TO SHOWER. PT REPORTS MILD NAUSEA AND BACK PAIN AT 6/10. PT REPORTS THE HOT WATER FROM THE SHOWER IS HELPING BOTH. MEDIUM FORMED BOWEL MOVMENT AND 600ML CLEAR YELLOW URINE NOTED IN TOILET. PT DENIES NEED FOR PAIN OR NAUSEA MEDICATION AT THIS TIME. CALL LIGHT WITHIN REACH. ICE CHIPS REFILLED.
--- NOTE | 2020-12-11 08:40 | NUR ---
PATIENT FINISHED WITH SHOWER, NEW GOWN AND WARM BLANKETS PROVIDED. EXTRA EMESIS BAGS REQUESTED WELL. PATIENT VOMITING AFTER SIP OF CONRAD RN AWARE. MOM IN ROOM
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
--- NOTE | 2020-12-11 09:37 | NUR ---
THIS RN TO ROOM TO CHECK ON PT. PT RESTING IN BED ON LEFT SIDE WITH EYES CLOSED. RESPIRATIONS EVEN AND UNALBORED. MOTHER AT BEDSIDE. BED RAILS UP. CALL LIGHT WITHIN REACH. PT ALLOWED TO REST.
--- NOTE | 2020-12-11 10:07 | NUR ---
VITALS AND I&OS CHARTED. MOM AND SERVICE DOG IN ROOM. WARM BLANKETS PROVIDED.
--- NOTE | 2020-12-11 10:50 | NUR ---
THIS RN TO ROOM TO CHECK ON PT. PT CONTINUES RESTING ON RIGHT SIDE WITH EYES CLOSED. PTS MOTHER AT BEDSIDE, REPORTS PT APPEARS COMFORTABLE. BED RAILS UP. CALL LIGHT WITHIN REACH. PT ALLOWED TO CONTINUE RESTING.
--- NOTE | 2020-12-11 12:36 | NUR ---
PT ASSISTED UP TO RESTROOM AND THEN TO CHAIR, STAND BY ASSIST, FOR CONSULTAION WITH DR. IBARRA AND FEEDING TUBE PLACEMENT. THIS RN TO BEDSIDE WITH DR. IBARRA FOR FEEDING TUBE PLACEMENT. PT UNABLE TO TOLERATE TUBE PLACEMENT. TAKES SIPS OF WATER DURING THE PROCEEDURE TOTALLING 200ML. PT HAS EMESIS OF 200ML AFTER TUBE PLACEMENT ATTEMPT. OPTIONS DISCUSSED WITH PT AND PTS MOTHER BY DR. IBARRA. ZOFRAN GIVEN FOR NAUSEA. FLUIDS REMOVED FROM BEDSIDE PER DR. IBARRA. PT NPO AT THIS TIME AWAITING NEW ORDERS. PT UP TO CHAIR. CALL LIGHT WITHIN REACH. MOTHER AT BEDSIDE. NO ADDITIONAL REQUESTS OR COMPLAINTS AT THIS TIME.
--- NOTE | 2020-12-11 12:53 | NUR ---
PT UPDATED ON PLAN OF CARE AND PLAN FOR EGD WITH FEEDING TUBE PLACEMENT. PT VERBALIZES UNDERSTANDING, INFORMED CONSENT WITH DR. IBARRA OBTAINED. LR ON STRIGHT TUBING HUNG PER PROTOCOL FOR PROCEEDURE. PRE PROCEEDURE CHECK LIST COMPLETE. PT UP TO RESTROOM INDEPENDANTLY AND BACK TO BED. NO ADDITIONAL REQUESTS OR COMPLAINTS. CALL LIGHT WITHIN REACH.
--- NOTE | 2020-12-11 14:15 | NUR ---
AFTERNOON ASSESSMENT DUE. THIS RN TO ROOM. PT LEANING OVER EDGE OF BED. 100ML LIGHT YELLOW EMESIS NOTED. PT REPORTS ONGOING NAUSEA AND LOWER BACK, HEAD, AND RIB PAIN AT 5/10. PT DENIES NEED FOR PAIN MEDICATION AT THIS TIME. SEE MAR FOR NAUSEA MEDIACTION GIVEN. ASSESSMENT DONE: PT DENIES USE OF SCDS AT THIS TIME. ABDOMEN CONTINUES TO BE TENDER TO PALPITATION, BOWEL TONES NOTED. SKIN UNCHANGED FROM PREVIOUS ASSESSMENT. LAPAROSCOPIC ABDOMINAL INCISIONS UNCHANGED. PT RESTING IN BED. REPORTS MEDICATION IS "HELPING" HER NAUSEA. NO ADDITIONAL REQUESTS OR COMPLAINTS. CALL LIGHT WITHIN REACH. MOTHER AT BEDSIDE. BED RAILS UP.
--- NOTE | 2020-12-11 15:25 | NUR ---
PATIENT RESTING IN BED, EYES CLOSED. WOKE TO VOICE, VITALS AND I&OS CHARTED. MOM IN ROOM. CALL LIGHT IN REACH, NO OTHER NEEDS AT THIS TIME
--- NOTE | 2020-12-11 15:39 | NUR ---
No change in plan for dc to home when medically cleared by Dr. Hidalgo. Dr. Julien consulting for EGD today.
--- NOTE | 2020-12-11 15:40 | NUR ---
REPORT GIVEN TO SUSAN CARABALLO, WHO WILL BE ASSUMING CARE OF PT. SURGICAL TEAM ARRIVED TO TRANSFER PT TO [facility] FOR PROCEEDURE. PTS IV INFUSION SWITCHED TO LR PER OR PROTOCOL. PT TRANSFERES SELF TO STRETCHER. WARM BLANKETS PROVIDED. FEEDING TUBE SENT WITH PT. NO ADDITIONAL REQUESTS OR QUESTIONS. PT OFF THE MED/SURG FLOOR.
--- NOTE | 2020-12-11 16:15 | NUR ---
12/11/20 1615 [address] PT ARRIVED WITH OXYGEN MASK AND OPA, RESTING CALM WITH EYES CLOSED. BREATHS UNLABORED AND EVEN.
--- NOTE | 2020-12-11 16:40 | NUR ---
PATIENT BACK FROM PROCEDURE AT THIS TIME. pt alert and oriented x3 but groggy at this time. pt heaved/gagged twice without vomitting. pt VSS. pt denies pain and reports some nausea. pt able to transfer self onto bed from PACU bed without difficulty. pts IVF started as ordered. pts tube feeding started as ordered, pts mother educated on tube feedings. all questions answered. pt denies needs at this time. given warm blankets. table and call light within reach. mother at bedside.
--- NOTE | 2020-12-11 17:39 | NUR ---
ROUNDING pts mother leaving for a bit. taking service animal with her. pt resting in bed, eyes closed, breathing even and unlabored, table and call light within reach.
--- NOTE | 2020-12-11 18:30 | NUR ---
ROUNDING pts mother back in room at this time. pt resting in bed, eyes closed, breathing even and unlabored. table and call light within reach.
--- NOTE | 2020-12-11 19:20 | NUR ---
SHIFT REPORT FROM NURSE ILYA. PT ASLEEP AT THIS TIME. PT'S MOTHER IN ROOM. CALL LIGHT WITHIN REACH.
--- NOTE | 2020-12-11 19:22 | CONS ---
[facility] [address] [place], [place] [address] Signed DATE OF CONSULTATION: 12/10/2020 REQUESTING PHYSICIAN: Vinny Hidalgo MD PROBLEM: Electrolyte disturbance associated with hyperemesis gravidarum, recommendations for possible nasoenteric feeding tube. HISTORY: This 20-year-old white woman is nearly 13 weeks with her 1st . She has had nausea and persistent vomiting since the beginning of the . She was evaluated by me and found to have probable acalculous cholecystitis on November 26, 2020 and underwent a laparoscopic cholecystectomy on November 26, 2020. This did not durably improve her persistent nausea and vomiting. She was sought ultimately to have more typical hyperemesis gravidarum. As an outpatient, she has had difficulty maintaining oral intake very well. She notes that she has most of her nausea and vomiting problems at nighttime. Pathology report related to cholecystectomy. Specimen showed minimal chronic inflammation and focal cholesterolosis. Dr. Hidalgo requested additional consultation at this time for consideration of placement of nasoenteric feeding tube. She has had a Nutritional consult. Lab studies have been obtained at admission as well. She was noted to have a pre-albumin of 21.7, which is just barely normal (21-41 normal reference rate). Slightly elevated ALT of 92, AST of 67, bilirubin of 1.1. Her magnesium is low at 1.6 and potassium low at 2.7. No doubt related to her intractable nausea and vomiting. MEDICATIONS: Have been reviewed, which include multivitamin, potassium chloride infusion, Solu-Medrol intravenously administered. Tylenol as needed. Held Phenergan and Zofran. REVIEW OF SYSTEMS: The patient has had no blood per rectum, hematemesis. Does not have any focal abdominal pain. PHYSICAL EXAMINATION: General: She is sitting upright, which is a change for her from what I have seen in the past. She is interactive, but generally reserved as usual. HEENT: Mucous membranes are reasonably moist. Trachea is midline. CHEST: Shows normal respiratory excursion. She has no tachypnea. Electronically Signed By: MARILEE IBARRA MD 12/11/201921 PATIENT NAME: SEAN KHALIL CONSULTATION DATE OF : 00 REPORT #: [id number] PHYSICIAN: MARILEE IBARRA MD PCP: VINNY HIDALGO MD REPORT IS CONFIDENTIAL AND NOT TO BE RELEASED WITHOUT AUTHORIZATION [facility] [address] [place], [place] [address] Signed EXTREMITIES: Show no clubbing, cyanosis, or edema. LAB STUDIES: Showed a white count of 6.8, hematocrit 38.3, platelets 232,000. Chem profile, sodium 130, potassium 2.7, chloride 97, BUN 3, creatinine 0.41, magnesium 1.6. Prealbumin is 21.7. Serology test shows negative COVID. ASSESSMENT: This consultation is separate and distinct or anything related to cholecystectomy and mostly related to consideration of assistance in nasoenteric feeding tube placement. This may be a possibility for providing nutrition and electrolytes in the setting of hyperemesis gravidarum. It is noted that her mother states that she herself had hyperemesis of from the beginning to the end of the and the patient herself seems to be behaving in a similar way. A nasoenteric feeding tube can be placed; with a Flexiflo is generally well tolerated and can be helpful for infusion of nutritional supplements for electrolytes and so on if intolerance is otherwise noted with swallowing and so on. If a gastric position of the tube is not tolerated, the tube can be manipulated into the duodenum and past well beyond the duodenum itself, which may or may not be better tolerated as regards nausea and so on. Dr. Hidalgo requested that this not be passed this evening, but rather considered for tomorrow and we can certainly do that. In the meantime, I will review her potassium repletion schedule. Notably, the potassium is poorly able to be repleted unless magnesium levels have been brought to normal. We would recommend at this point magnesium sulfate 16 mEq (2 g) followed by potassium infusion. Note is made for infusion of IV fluids that has additional potassium, but her deficit is likely reasonably high. Marilee Ibarra MD /MODL /[id number] Electronically Signed By: MARILEE IBARRA MD 12/11/201921 PATIENT NAME: SEAN KHALIL CONSULTATION DATE OF : 00 REPORT #: [id number] PHYSICIAN: MARILEE IBARRA MD PCP: VINNY HIDALGO MD REPORT IS CONFIDENTIAL AND NOT TO BE RELEASED WITHOUT AUTHORIZATION [address] [address] Signed cc: Vinny Hidalgo MD Copies: VINNY HIDALGO MD ~ Electronically Signed By: MARILEE IBARRA MD 12/11/20 1922 PATIENT NAME: SEAN KHALIL CONSULTATION DATE OF : 00 REPORT #: [id number] PHYSICIAN: MARILEE IBARRA MD PCP: VINNY HIDALGO MD REPORT IS CONFIDENTIAL AND NOT TO BE RELEASED WITHOUT AUTHORIZATION
--- NOTE | 2020-12-11 22:20 | NUR ---
in to check vitals low bp reported to rn, pt pt to void earlier in shift, will be back in to check with rn
--- NOTE | 2020-12-11 22:30 | NUR ---
IN ROOM FOR ASSESSMENT AND EVENING MEDS. PREVIOUS LOW BP LIKELY D/T PT LAYING ON LEFT LATERAL AND BP TAKEN ON RIGHT ARM WHICH WAS ELEVATED. CURRENT BP WITHIN PT'S NORMAL LIMIT AT 97 SYSTOLICALLY. PT TOLERATING FEEDING TUBE WELL. FLUSHED PER ORDERS WITH 25CC WATER; FLUSHES EASILY. INCREASED FEEDING RATE FROM 20CC/HR TO 30CC/HR. PT REPORTS NO NAUSEA AT THIS TIME. IVF INFUSING PER ORDER. PT'S MOTHER IN CHAIR ASLEEP. CALL LIGHT WITHIN REACH. NO FURTHER NEEDS AT THIS TIME.
--- NOTE | 2020-12-11 22:55 | NUR ---
in to get vitals, emptied urine hat in toilet, rn in , no further needs at this time
--- NOTE | 2020-12-11 23:42 | NUR ---
in with rn to get pt ready for a shower, rn capped feeding tube, ths molded goods inspector trimmer wrapped iv site, started shower, mom is rm
--- NOTE | 2020-12-12 00:12 | NUR ---
CALL LIGHT ANSWERED. PT FINISHED WITH SHOWER. PT RETURNS TO BED WITH IVF INFUSING AND KANG[place]OO PUMP REATTACHED. FRESH WARM BLANKET PROVIDED. PT'S MOTHER IN BED WITH PT AT THIS TIME. CALL LIGHT WITHIN REACH.
--- NOTE | 2020-12-12 02:10 | NUR ---
CALL LIGHT ANSWERED. IV PUMP ALARMING. NEW BAG IV FLUIDS HUNG; FEEDING TUBE INFUSING AT 30CC/HR; PT TOLERATING WELL. PT'S MOTHER IN BED WITH PT. NO FURTHER NEEDS AT THIS TIME.
--- NOTE | 2020-12-12 06:37 | NUR ---
IN ROOM FOR MORNING ASSESSMENT AND CHEMICAL WEIGHER. PT VERY DROWSY BUT DOES UTTER SOME INAUDIBLE RESPONSES. PT'S MOTHER STILL IN BED WITH PT. BIOMEDICAL EQUIPMENT SPECIALIST ALSO IN ROOM TO DRAW LABS. PT TOLERATING 30CC/HR OF TUBE FEEDING; INCREASED AT THIS TIME TO 40CC/HR. PT REQUESTING REPEATEDLY ICE CHIPS; PT REMINDED OF NPO STATUS. PT HAS NOT COMPLAINED OF NAUSEA THIS ENTIRE SHIFT. NO FURTHER NEEDS AT THIS TIME. CALL LIGHT WITHIN REACH
--- NOTE | 2020-12-12 07:41 | NUR ---
SHIFT REPORT FROM SHWETA DAVIS INCLUDED: pt has not had any episodes of nausea or wretching/vomitting/gagging throughout the lieutenant shift supervisor. pt whas been able to sleep through most of the night, her mother and service dog present in the room as well. pt denies needs at this time. table and call light within reach.
--- NOTE | 2020-12-12 09:00 | NUR ---
ASSESSMENT + MED PASS pt assessment complete, VSS. pt reports 5/10 pain in her head. denies nausea and vomiting at this time. pt has not had emesis since last night around 1800. pt lungs dim in the bases, pt encouraged to deep breathe. pt getting Jevity 1.2 at 40mls/hr at this time. pt tolerating feeding well at this point. pt denies further needs at this time. table and call light and mother at bedisde.
--- NOTE | 2020-12-12 10:30 | NUR ---
ROUNDING + IVF CHANGE + SPOKE TO MD Hidalgo pt labs not showing potassium levels, call to lab and Angela from lab sent us a copy center operator of her bloodwork report via tube system. MD Hidalgo shown copy of labs, MD Hidalgo ordered to change pts fluids from D5W 1/2 NS +40k to D5W 1/2 NS +20k, due to a potassium of 4.4. IVF changed and started as ordered. MD Cortes shown labs, no changes currently. Linens changed. pt up to bathroom. pt able to void. pt abck to bed. table and call light within reach.
--- NOTE | 2020-12-12 11:09 | NUR ---
PATIENT AWAKE IN BED, MOTHER IN BED WITH PATIENT GIVING BACK RUB. VITALS AND I&OS CHARTED. APPLE JUICE AND CIDER PROVIDED PER PATIENT REQUEST. PATIENT IS IN GOOD SPIRITS THIS MORNING.. CONVERSING/LAUGHING, MUCH UNLIKE THE PREVIOUS DAYS. CALL LIGHT IN REACH, NOOTHER NEEDS AT THIS TIME
--- NOTE | 2020-12-12 12:00 | NUR ---
PATIENT SHOWER pt requested a shower. pt up to bathroom and settled in the shower. pt encouraged to use the call light if needed. pt in shower, mother and service dog in the room.
--- NOTE | 2020-12-12 12:12 | NUR ---
PATIENT IN SHOWER, THIS TECHNICAL SERVICES COORDINATOR ASSISTED WITH HAIR WASHING. MOM IN CHAIR.
--- NOTE | 2020-12-12 13:00 | NUR ---
FEEDING BAG & TUBING CHANGED + SETTLED AFTER SHOWER pt in bed, scrolling on her phone. pt reports some mild nausea, without wretching or vomiting. pt reports her headache is back and at about 5/10. PRN tylenol is unavailible now, lights dimmed and fresh water given. pt positioned in bed to comfort. pts IFV started. New bag of Jevity 1.2 primed and started at this time. pt requested some apple-juice and apple cider at this time, but I told her we need to wait a bit for her stomach to settle. Dr Cortes had said she may have whatever she wants to drink, unless she starts having the nausea again, then we need to pull back again. pt getting water and ice chips at this time. pt in bed, table and call light within reach.
--- NOTE | 2020-12-12 13:45 | NUR ---
ROUNDING pt denies nausea at this time, pt reports 5/10 pain in her head still, not resolved with tylenol. pt given cool cloth and lights dimmed for comfort. pt feeding still infusing at 60mls/hr , IVF still infusing. pt denies further needs at this time. table and call light within reach, mother at bedside.
--- NOTE | 2020-12-12 14:48 | NUR ---
VITALS AND I&OS CHARTED. PATIENT VERY NAUSEOUS/RETCHING AT THIS TIME, SUSAN CARABALLO AND AT BEDSIDE. MOM IN ROOM WELL
--- NOTE | 2020-12-12 14:51 | NUR ---
PATIENT HAS VOMITING AND FEEDING TUBE LINE WAS DC ACCIDENTALLY. pt reported nausea, no vomiting at this time. pt given 8mg of PRN zafran as ordered. pts feeding tube was visible from the mouth, about 6+cms exposed from her mouth at this time. pt began gagging on the tubing in her throat, and the emesis began increasing at this time. Kasey RN to assist at bedside. with the increased severity of the gagging and vomiting, along with the exposed feeding tube, the pts feeding tube was becoming more exposed with each wretch , the feeding tube was pulled at this time. the tube feedings are stopped at this time, MD Cortes will be called ronald. pt vomited about 500mls total. pt given mouth wash to clean her mouth and tissues to blow her nose. pt sitting up in bed, no longer wretching at this time. pt given PRN phenergan at this time. pt given warm blankets, table and call light within reach. mother at bedside.
--- NOTE | 2020-12-12 15:00 | NUR ---
CALLS TO UPDATE DR NERI AND DR STACEY Neri called at updated about pts vomiting and the decision to pull the feeding tube. all questions answered, no new orders at this time. Dr Cortes also called and updated about pts vomiting and the decision to pull the feeding tube. all questions answered. no new orders at this time.
--- NOTE | 2020-12-12 15:30 | NUR ---
ROUNDING + PATIENT FAMILY CONCERNS pt is still having nausea at this time. pt not wretching while I am present, but has a few moments of "feeling like it wants to puke". pt given warm blankets per request and given a cool cloth for her forehead at this time. pt repositioned to comfort, only slightly effective. pts mother expresses concerns about pts care. when asked to clarify, pts mother reports that she is "not sure why this is not over yet" and that she had the same issues during her own >20 years ago and they "had better medical cares back then than they do now apparently". pt and mother reassured and encouraged using therapeutic communication. it was explained to them that finding safe meds to treat women with can be tricky. she was assured that her medical team cares for her and wants to help her resolve these issues. pt denies further needs at this time. table and call light within reach.
--- NOTE | 2020-12-12 16:30 | NUR ---
PATIENTS MOTHER UPSET + MD NERI CALLED AT THIS TIME pts mother concerned about her daughters care and "not being resolved after this many weeks". pts mother told that the medical team here are all very invested in her care and have been working hard to help resolve the issues pts been having. therapeutic communication used. pt still having nausea with some gagging at this time. pts mother is requesting to transfer to another hospital at this time due to needing a solution to her daughters constant issue. MD Neri called at this time to update. Gwen reports he is already on his way to the hospital and will meet with the pt and family at this time.
--- NOTE | 2020-12-12 18:13 | NUR ---
PATIENT SITTING UP IN BED, LEANING OVER WITH HEAD AGAINST BED RAILING. MOTHER OF PATIENT LEFT TO TEND TO ANIMALS, REQUESTED "SOMEONE" SIT WITH PATIENT. PATIENT VERY NAUSEOUS, OB DR AND RN AWARE. VITALS AND I&OS CHARTED.
--- NOTE | 2020-12-12 18:15 | NUR ---
DISCUSSING CARE OPTIONS WITH DR NERI AND PATIENT this RN to bedside with Dr Neri at this time. pt sitting up in bed, leaning head over onto the side rail, face down. MD addresses pt and informs pt that we cannot transfer laterally to another hospital at this time, but she is always free to make any decisions for care that she needs to. MD made it clear, using simple terms and therapeutic communication, that the pt would be unsafe to leave the hospital AMA, and any decision to not address her dehydration and malnutrition would be a danger to herself and her . pt encouraged to allow us to continue to treat her and that if she feels she cannot stay, then she can leave, but that he feels she should not go without medical cares from some facility to address her needs. pts mother called on the phone at this time as well, there in the room on speaker phone, and all explanations were repeated for the mother and pt. pt reports that her decision at this time now is to stay here to continue treatments. mother verbalized understanding over the phone. MD leaves to set orders. pt up to shower at this time. pt in shower, INDUSTRIAL ANALYST present at this time. call light within reach.
--- NOTE | 2020-12-12 18:35 | NUR ---
WHILE GETING INTO SHOWER, PATIENT WAS ON PHONE WITH BF, PATIENT REPORTED TO , SHE DIDN'T UNDERSTAND THE"MEDICAL TERMS" AND "OTHER INFO" GIVEN TO HER BY DR POP- SUGGESTED HE TALK TO HER MOTHER. ( PATIENT HAD AGREED JUST MINUTES EARLIER TO - UNDERSTANDING WHAT HE DISCUSSED WITH HER REGARDING HER HEALTH AT THIS POINT AND WANTING TO TRANSFER TO TO ANOTHER HOSPITAL)
--- NOTE | 2020-12-12 18:50 | NUR ---
patient in shower.
--- NOTE | 2020-12-12 19:26 | NUR ---
VERBAL ORDER RECEIVED TO ORDER EXCEDRINE EXTRA STRENGTH FOR HEADACHE Q6P/ ORDER PLACED.
--- NOTE | 2020-12-12 19:38 | NUR ---
SHIFT REPORT RECEIVED FROM ILYA DAVIS. PT IN SHOWER.
--- NOTE | 2020-12-12 19:40 | NUR ---
OELWEIN BOARD, ICE WATER, AND ICE CHIPS PROVIDED TO PT AT THIS TIME, PT ASKED ABOUT GETTING MEDS, RN INFORMED
--- NOTE | 2020-12-12 20:10 | NUR ---
IN TO PROVIDE WARM BLANKETS, RUBBED LOTION ON PTs UPPER/LOWER BACK
--- NOTE | 2020-12-12 20:26 | NUR ---
SCHEDULED MEDS PROVIDED. PT REPORTS 04/03 [place], BACK AND ABD PAIN, PRN PAIN MED PROVIDED. ASSESSMENT COMPLETED. ABD SOFT, TENDER, BOWEL TONES ACTIVE. GCS 15, A&O X4. LUNGS CLEAR, HEART TONES REGULAR. CMS INTACT. IV WNL, CDI, FLUSHED WELL. IV FLUIDS INFUSING PER ORDER. NO OTHER NEEDS. CALL LIGHT IN REACH.
--- NOTE | 2020-12-12 20:30 | NUR ---
GOT VITALS AT THIS TIME
--- NOTE | 2020-12-12 20:30 | NUR ---
1958-SPOKE WITH DR NERI ABOUT MEDICATIONS ORDERED FOR PT. TORBC FOR NORCO 5/325 FOR 24 UNTIL WE ARE ABLE TO GET EXCEDRIN FROM PHARMACY. ALSO PLACED ORDERS FOR UA. 2007-SPOKE WITH LORENZO IN TELE PHARMACY ABOUT DOSAGE DURING . 25-50MG IV INFUSION Q4-6HR DILUTED 1MG/1ML OR MORE INFUSED OVER 25 MIN OR MORE. MAX 300MG/DAY. 2019-NOTIFIED CAR RETARDER OPERATOR THAT WE NEED DWAINEZIBROOKS MIXED, PHARMACIST IS COMING IN AND WILL MIX IT.
--- NOTE | 2020-12-12 21:46 | NUR ---
SCHEDULED MEDS PROVIDED. IV WNL, FLUSHED WELL. MOM IN ROOM. CALL LIGHT IN REACH.
--- NOTE | 2020-12-12 23:17 | NUR ---
IN ROOM TO RESTART MAINTENANCE IV FLUIDS. PT IS UP TO RESTROOM WITH HELP OF JUAN RAMIREZ.
--- NOTE | 2020-12-13 02:15 | NUR ---
PT UP TO VOID AT THIS TIME, BOYFRIEND ALSO PROVIDING ASSISTANCE TO PT, ICE CHIPS PROVIDED TO PT AT THIS TIME, NO FURTHER NEEDS
--- NOTE | 2020-12-13 03:18 | NUR ---
IV PUMP ALARMING, NEW BAG IV FLUIDS PROVIDED. PT DENIES NAUSEA, STATES PAIN IS 3/10 "TOLERABLE". IV WNL, FLUIDS INFUSING PER ORDER. ABD SOFT, TENDER, BOWEL TONES ACTIVE. FAMILY IN ROOM. NO OTHER NEEDS AT THIS TIME. CALL LIGHT IN REACH.
--- NOTE | 2020-12-13 06:17 | NUR ---
SCHEDULED MED PROVIDED. VS AND I&O COMPLETED. CALL LIGHT IN REACH.
--- NOTE | 2020-12-13 07:33 | NUR ---
PT LEFT UNDISTURBED DURING SHIFT EXCHANGE APPEARS TO BE COMFORTABLE AND RESTING EYES CLOSED, BOYFRIEND PRESENT IN ROOM
--- NOTE | 2020-12-13 09:11 | NUR ---
PATIENT RESTING IN BED, BF IN BED WELL. RN IN ROOM. FRESH ICE WATER PROVIDED.
--- NOTE | 2020-12-13 09:14 | NUR ---
PT RESTING IN BED WITH BOYFRIEND AWAKENS TO VOICE. PT C/O NAUSEA AND A HEADACHE MEDICATED PER HER REQUEST. WARM BLANKETS PROVIDED. BANANA BAG INFUSING PER ORDERS
--- NOTE | 2020-12-13 09:49 | NUR ---
PATIENT SITTING UP IN BED, BF AT BEDSIDE. VITALS AND I&OS CHARTED. SBA TO SHOWER. LINENS CHANGED, GARBAGE EMPTIED AND ROOM TIDIED
--- NOTE | 2020-12-13 10:30 | NUR ---
PATIENT FINISHED WITH SHOWER, PATIENT REPORTS SHE ACCIDENTLY BROKE SHOWER CHAIR(THE POSITION SHE SITS, PUTS PRESSURE ON THE BACK OF THE CHAIR) CHAIR REMOVED AND REPLACED WITH PA[facility]. PATIENT AGREES. THIS HEATSET WINDER OPERATOR BRAIDED PATIENT HAIR, PER PATIENT REQUEST. DR IBARRA IN TO SEE PATIENT AND DISCUSS PLAN FOR NUTRITION MOVING FORWARD, PATIENT AND BF RECEPTIVE AND UNDERSTANDS AND NPO AFTER MIDNIGHT. FRESH ICE WATER PROVIDED
--- NOTE | 2020-12-13 11:19 | NUR ---
IV SITE INFILTRATED NEW LINE ESTABLISHED. DR IBARRA IN TO SEE PT AND BOYFRIEND IS PRESENT. DISCUSSED OPTIONS AND PLAN GONG FORWARD, POSSIBLE TF PLACEMENT TOMORROW. PT DENIES QUESTIONS
--- NOTE | 2020-12-13 12:04 | OR ---
[facility] [address], [place] [address] Signed DATE OF OPERATION: 12/11/2020 SURGEON: Marilee Ibarra MD PREOPERATIVE DIAGNOSES: 1. Hyperemesis gravidarum. 2. Thirteen week intrauterine gestation. POSTOPERATIVE DIAGNOSES: 1. Hyperemesis gravidarum. 2. Thirteen week intrauterine gestation. 3. Proximal gastritis. PROCEDURE: 1. Esophagogastroduodenoscopy with placement of nasoenteric feeding tube (Flexiflo catheter into distal duodenum). 2. Gastric biopsy. ANESTHESIA: Intravenous sedation, propofol infusion, Marilee Montalvo CRNA INDICATIONS: This 20-year-old white woman is a patient of Dr. Hidalgo. He has admitted her yesterday with persistent hyperemesis gravidarum with hypovolemia and dehydration as well as electrolyte disturbance. I saw her yesterday for recommendations regarding possible feeding tube. Additionally, electrolyte correction was undertaken. The patient has persistent vomiting and nausea with any oral intake essentially at all. Various antiemetics have been used with no success. A plan of steroid administration is undertaken by Dr. Hidalgo currently for this purpose. Her electrolyte disturbance has been corrected with electrolyte administration today. Upon conferring with Dr. Hidalgo, the plan for placement of Flexiflo feeding tube has been outlined. It would likely be more beneficial to have this beyond the pylorus. An attempt earlier in the day for placement of the tube at the bedside was completely unacceptable and on that basis, I have recommended upper endoscopy and endoscopy assisted placement of the tube well beyond the pylorus. The risk of bleeding, Electronically Signed By: MARILEE IBARRA MD 12/13/20 1204 PATIENT NAME: SEAN KHALIL OPERATIVE REPORT DATE OF : 00 REPORT #: [id number] PHYSICIAN: MARILEE IBARRA MD PCP: VINNY HIDALGO MD REPORT IS CONFIDENTIAL AND NOT TO BE RELEASED WITHOUT AUTHORIZATION [facility] [address], [place] [address] Signed infection, and perforation were reviewed with the patient and her mother. They understand and wished to proceed. FINDINGS: Proximal gastritis was noted. There was no sign of ulceration. No gastric outlet obstruction or any other impediment to enteric flow. Placement of the Flexiflo catheter was undertaken and placed distally in the duodenum as far as possible. The procedure went without complication. DESCRIPTION OF PROCEDURE: The patient was brought to the endoscopy suite and placed in the semi-erect position. She was given intravenous sedation with propofol infusional technique by the supervisor green end department with full cardiopulmonary monitoring. heart tones had been monitored and remain audible pre and postoperatively. A Flexiflo catheter was manipulated and a 0 silk suture was placed through the tip and also a few cm above the tip and tied in a small loop to allow for grasping with a biopsy forcep as necessary. Once sedation was initiated in the semi-erect position, the Flexiflo catheter was passed down the right naris and went without impediment. Olympus video upper endoscope was passed in the hypopharynx and down the esophagus, but the catheter appeared to be doubled back on itself. The catheter and esophagoscope were removed and re-application of the tube was then undertaken and passed without impediment. The scope was once again reintroduced and the catheter appeared to be down the esophagus into the stomach and positioned just proximal to the duodenum via the pylorus. The wire was allowed to remain in place at this point. A biopsy forcep was used to grab the suture at the proximal site of the catheter and gently guided into the duodenum. The scope was then advanced as far as possible down the duodenum guiding the nasoenteric feeding tube the whole way. The suture was released and the scope was carefully withdrawn. Remained in good position. The catheter was then secured at the nares and the wire gently withdrawn under direct visualization of the catheter showing it to have remained in the duodenum. Additional inspection with the esophagoscope showed proximal gastric inflammation. There is no actual ulceration. Biopsies were obtained to assess for infection and to affirm gastritis, which would be reasonably expected based on her perpetual vomiting over the past few weeks. The catheter was secured to the nose with a specialized device and secured with tape. The postprocedure abdominal x-ray is anticipated. She tolerated the procedure well and Electronically Signed By: MARILEE IBARRA MD 12/13/20 1204 PATIENT NAME: SEAN KHALIL OPERATIVE REPORT DATE OF : 00 REPORT #: [id number] PHYSICIAN: MARILEE IBARRA MD PCP: VINNY HIDALGO MD REPORT IS CONFIDENTIAL AND NOT TO BE RELEASED WITHOUT AUTHORIZATION [address] [address] Signed was taken to recovery room in good condition. Marilee Ibarra MD JM/MODL /[id number] cc: Vinny Hidalgo MD Copies: VINNY HIDALGO MD ~ Electronically Signed By: MARILEE IBARRA MD 12/13/20 1204 PATIENT NAME: SEAN KHALIL OPERATIVE REPORT DATE OF : 00 REPORT #: [id number] PHYSICIAN: MARILEE IBARRA MD PCP: VINNY HIDALGO MD REPORT IS CONFIDENTIAL AND NOT TO BE RELEASED WITHOUT AUTHORIZATION
--- NOTE | 2020-12-13 12:19 | NUR ---
HOLLI SZYMANSKI AND SCDS PLACED ON PATIENTS LEGS PER DR KOHLI.
--- NOTE | 2020-12-13 12:28 | NUR ---
DR NERI IN TO SEE PT AND DISCUSS PLANS GOING FORWARD. ALL QUESTIONS ANSWERED MET WITH DR NERI TO COORDINATE CARE HE AGREES DO NOT USE THORAZINE UNLESS NAUSEA AND WRETCHING "GET BAD"
--- NOTE | 2020-12-13 12:50 | NUR ---
PT BOYFRIEND LEAVES FOR A TIME AND COMES BACK WITH TO GO FOOD. ASKED IF HE PLANS TO EAT IN FRONT OF PT HE CHUCKLES AND SAYS "YEA, I'M JUST LIKE THAT" OFFERED PT CLEAR LIQUIDS PER DOCTOR NEW ORDER SHE AGREES TO SOME CIDER.
--- NOTE | 2020-12-13 15:25 | NUR ---
ANSWERED CALL LIGHT, PATIENT C/O OF NAUSEA AND HEADACHE. RN NOTIFIED
--- NOTE | 2020-12-13 15:26 | NUR ---
pt c/o nausea and headache again, takes exedrine per her choice. pt easily distracted visits and talks laughs easily. speaking on the phone at this time. no emesis no wretching
--- NOTE | 2020-12-13 16:18 | NUR ---
PATIENT SITTING UP IN BED, WATCHING VIDEOS ON PHONE, BF IN BED WELL. HOT APPLE CIDER PROVIDED. CALL LIGHT IN REACH
--- NOTE | 2020-12-13 17:52 | NUR ---
PATIENT OUT OF SHOWER, BF AT BEDSIDE. HAIR BRAIDED PER PATIENT REQUEST. CALL LIGHT IN REACH, NO OTHER NEEDS AT THIS TIME
--- NOTE | 2020-12-13 19:02 | NUR ---
PT REQUESTING FOOD. DR NERI CALLED. OKAY TO GIVE CHICKEN NOODLE SOUP THEN NPO AT MIDNIGHT.
--- NOTE | 2020-12-13 19:24 | NUR ---
SHIFT REPORT FROM NURSE DEV. PT SITTING UP IN BED WITH BOYFRIEND IN BED WITH HER. PT REPORTS HER "HEAD IS STARTING TO HURT AGAIN". PT ENCOURAGED TO TRY ALTERNATE METHODS OF RELIEF PRN MEDS ARE NOT AVAILABLE YET. PT AGREES.
--- NOTE | 2020-12-13 21:20 | NUR ---
IN ROOM FOR EVENING MEDS AND ASSESSMENT. PRN TYLENOL ADMINISTERED FOR HEADACHE. VSS. IVF INFUSING PER ORDER. PT REPORTS SOME NAUSEA. WILL MIX NAUSEA MEDICATION PER ORDER. PT UP TO TOILET TO VOID WITH SBA FROM PT'S BOYFRIEND. PT AND HER BOYRFRIEND SEEM IN GOOD SPIRITS AND EXCITED TO TALK ABOUT THE BABY. WILL RETURN WITH NAUSEA MEDS.
--- NOTE | 2020-12-13 21:35 | NUR ---
IN ROOM TO HANG IV PRN THORAZINE. INFUSING WNL. PT TOLERATING WELL.
--- NOTE | 2020-12-13 22:59 | NUR ---
IN ROOM FOR BUILDING SUPPLIES SALESPERSON RETAIL. PT ASLEEP LAYING RIGHT LATERAL. PT'S BOYFRIEND IN BED WITH PT. IV MED ADMINISTERED THEN PT WAS UP TO TOILET TO VOID, NO NAUSEA AT THIS TIME.
--- NOTE | 2020-12-14 00:16 | NUR ---
CHECKED ON PT. PT ASLEEP; BOYRFRIEND ALSO IN BED WITH PT. URINE HAT EMPTIED; >1000ML CLEAR YELLOW URINE EMPTIED. CALL LIGHT WITHIN REACH. NO FURTHER NEEDS AT THIS TIME.
--- NOTE | 2020-12-14 02:46 | NUR ---
IV ALARMING. NEW BAG IVF HUNG. PT ASLEEP WITH BOYFRIEND IN BED. CHECKED URINE HAT, NO URINE AT THIS TIME. CALL LIGHT WITHIN REACH.
--- NOTE | 2020-12-14 05:40 | NUR ---
IN ROOM FOR MORNING VITALS AND OUTREACH SPECIALIST, ASSESSMENT. ASSESSMENT WNL. PT HAS HAD NO NAUSEA THIS ENTIRE SHIFT. URINE OUTPUT EXCELLENT. PT HAS BEEN NPO SINCE MIDNIGHT. PT WAS SLEEPING THIS NURSE ENTERED THE ROOM. PT'S BOYFRIEND IN BED WITH HER. CALL LIGHT WITHIN REACH
--- NOTE | 2020-12-14 07:20 | NUR ---
PT SLEEPING SOUNDLY AT TIME OF SHIFT EXCHANGE LEFT UNDISTURBED
--- NOTE | 2020-12-14 08:04 | NUR ---
MOTHER CALLED FOR UPDATE ON SURGERY TIME, NO SURGERY TIME SCHEDULED. DISCUSSED THAT PER REPORT NAUSEA WAS BETTER OVER NIGHT AFTER THORAZINE. MOTHER THEN STATES SHE WANTS PT TO BE TESTED FOR CELIACS AND ULCERATIVE COLITIS, AND THERE IS A FAMILY HX OF DIVERTICULITIS. MOTHER ALSO STATES SHE WILL BE CONTACTING PATIENT ADVOCATE ABOUT PTS CARE, THAT MOTHER HAS POA AND WILL BE REQUESTING TRANSFER TO DIFFERENT DOCTOR AND WILL BE FILLING A FORMAL COMPLAINT.
--- NOTE | 2020-12-14 10:06 | NUR ---
PT AWAKENS TO VOICE UP TO TOILET, RETURNS TO BED. BOYFRIEND IS PRESENT. PT C/O THIRST REVIEWED REASONS FOR NPO AND DANGERS OF INGESTING ANYTHING PRIOR TO SURGERY. PT VERBALIZES UNDERSTANDING. NO NEEDS IDENTIFIED AT THIS TIME
--- NOTE | 2020-12-14 10:19 | NUR ---
PATIENT IN BED. BOYFRIEND AT BEDSIDE. VITALS AND I&OS ARE DONE AND DOCUMENTED. CALL LIGHT IS IN REACH. NO FURTHER NEEDS AT THIS TIME.
--- NOTE | 2020-12-14 10:42 | NUR ---
PT C/O HEADACHE. UNABLE TO GIVE EXCEDRINE DUE TO NPO STATUS AND UNKNOWN TIME OF SURGERY TODAY. WARM PACK APPLIED TO BACK OF NECK FOR COMFORT. PT RESTING IN BED HEAD RESTING ON BOYFRIENDS CHEST.
--- NOTE | 2020-12-14 12:00 | NUR ---
DR NERI IN TO SEE PT DISCUSSED PT CARE AND EXPECTATIONS. MOTHER OF PT HAS BEEN CALLING AND THREATENING TO [facility] E[facility]. DR NERI TOLD THIS PT THAT IF SHE WANTED TO SEEK DIFFERENT CARE HE WOULD ASSIST HER. SHE APOLOGIZED ABOUT HER MOTHER AND TOLD HIM "NO, I WANT YOU TO BE MY DOCTOR" HE AGAIN ADVISED THAT IF SHE WANTED A DIFFERENT DOCTOR OR HOSPITAL ALL SHE NEEDS TO DO IS SAY SO, PT REITTERATED HER FEELINGS AND SAID " NO, PLEASE I WANT YOU TO BE MY DOCTOR" PLAN GOING FORWARD WAS AGAIN CLARIFIED AND PT AGREES THIS IS THE COURSE SHE PREFERS. PT TO THE SHOWER NOW, WITH BOYFRIEND. ADVISED HER TO REMOVE JEWELRY IN PREP FOR SURGERY.
--- NOTE | 2020-12-14 14:30 | NUR ---
ATTEMPTED TO SEE PT, SHE HAS GONE TO SURGERY.
--- NOTE | 2020-12-14 17:09 | NUR ---
PT RETURNS TO [facility] VIA BED ALERT AND ORIENTED BOYFRIEND WAITING. PT AMBULATES TO THE BATHROOM SBA ABLE TO VOID 500MLS. RETURNS TO BED C/O PAIN AND THIRST. FRESH H20 AT BEDSIDE, PULSE OX IN PLACE, SCD'S, MEDICATED WITH 2 MG MS.
--- NOTE | 2020-12-14 17:15 | NUR ---
12/14/20 1715 Tia Martinez 1545 PT ARRIVED IN PACU SLEEPY. FHT'S 120'S IN RLQ. 1559 C/O ABD PAIN 7/10. FENTANYL 25MCG GIVEN IVP. 1606 NO CHANGE IN PAIN LEVEL. FENTANYL 25MCG GIVEN IVP. DR AT BEDSIDE TALKING WITH PT ABOUT SURGERY. 1613 PAIN DOWN TO 5/10. FENTANYL 25MCG GIVEN IVP. NO C/O NAUSEA. 1619 PAIN DOWN TO 4/10. FENTANYL 25MCG GIVEN IVP. C/O URGE TO VOID. PT WANTING TO GO TO ROOM AND USE BATHROOM THEIR. 1630 TO ROOM 125. UP TO BATHROOM WITH 2 PERSON ASSIST. VOIDED 500ML CLEAR YELLOW URINE. JEJUNOSTOMY TUBE LEAKING. NEW PLUGGED PLACED IN END OF TUBING. BACK IN BED. BOYFRIEND AT BEDSIDE. REPORT GIVEN TO RN.
--- NOTE | 2020-12-14 17:29 | NUR ---
TF STARTED AT 15 ML/HR
--- NOTE | 2020-12-14 17:43 | NUR ---
PATIENT IS LAYING IN BED. BOYFRIEND AT BEDSIDE. VITALS AND I&OS ARE DONE AND DOCUMENTED.CALL LIGHT IS IN REACH. NO FURTHER NEEDS AT THIS TIME.
--- NOTE | 2020-12-14 18:13 | NUR ---
PT MEDICATED 2X FOR PAIN APPEARS COMFORTABLE AT THIS TIME. UP TO THE TOILET 2X WELL TOLERATED RETURNS TO RESTING IN BED, BOYFRIEND REMAINS STEADFAST
--- NOTE | 2020-12-14 19:15 | NUR ---
SHIFT REPORT FROM NURSE MÉNDEZ. PT CURRENTLY IN BATHROOM TO VOID WITH PT'S BOYFRIEND ASSISTING. WILL RETURN SOON FOR POST OP VITALS #3.
--- NOTE | 2020-12-14 19:30 | NUR ---
PER RN YAA PATIENT CALLED SAYING SHE IS READY TO GET BACK TO BED. THIS ASSOCIATE DENTIST WENT INTO THE ROOM. SEEN PATIENT SITTING BY THE BED WITH BOYFRIEND ATTENDING HER. ASSISTED HER BACK WHILE BOYFRIEND HELP HER LEGS UP TO BED. PATIENT STATED "LET MY NURSE KNOW I AM HURTING". NURSE NOTIFIED. 2 CUPS OF ICE WATER (ONE FOR PATIENT AND ONE FOR BOYFRIEND) PROVIDED REQUESTED.
--- NOTE | 2020-12-14 20:40 | NUR ---
CALL LIGHT ANSWERED. PT REPORTS PAIN 8/10 IN INCISION. 2MG IV MORPHINE ADMINISTERED AT THIS TIME. FOLLOWED BY SCHEDULED PEPCID. MIDLINE DRESSING IS CDI, CLEAR OPSITE OVER JEJUNAL SITE DOES HAVE MINIMAL SANGUINOUS DRAINAGE. NO FURTHER NEEDS AT THIS TIME.
--- NOTE | 2020-12-14 21:00 | NUR ---
IN pt ROOM TO DISCUSS IMPORTANCE OF FLUSHING J TUBE, EDUCATION PROVIDED WITH PATIENT AND BOYFRIEND. pt AGREEABLE TO FLUSH TUBE HERSELF WITH RN ASSISTANCE. THERAPEUTIC COMMUNICATION AND ENCOURAGEMENT PROVIDED REGARDING PROGRESS pt IS MAKING TOWARDS NUTRITION FOR BABY AND HERSELF WITH HAVING THE FEEDING TUBE. pt IS COOPERATIVE, SBA TO RESTROOM AT THIS TIME FOR VOID. PRIMARY RN SHWETA IN ROOM TO ASSIST pt WITH FLUSHING OF J TUBE.
--- NOTE | 2020-12-14 21:30 | NUR ---
IN ROOM TO HANG IV THORAZINE PER PT REQUEST FOR NAUSEA. ATTEMPTED TO FLUSH JEJUNAL TUBE AT THIS TIME AND ALTHOUGH THE FLUSH WAS BEING SLOWLY ADMINISTERED, PT REPORTS INTENSE "KNIFE LIKE" PAIN. PT REQUESTS THAT THIS NURSE "STOP IMMEDIATELY". PT EDUCATED THAT THIS IS IMPORTANT TO DO AND REASONS WHY. AFTER LONG DISCUSSION, PT AGREES TO ATTEMPT THE FLUSH HERSELF WITH THIS NURSE STANDING BY. PT DOES COMPLETE THE FULL 50CC FLUSH OVER APPROXIAMTELY 10MIN. THE FIRST FLUSH ATTEMPT THE THIS NURSE WAS WHEN PT WAS LAYING IN BED AND WHEN PT PERFORMED THE FLUSH, IT WAS WHEN SHE WAS SITTING UPRIGHT ON TOILET SO IT MAY BE VALUABLE TO PERFORM WHEN PT IS SITTING UP IN THE FUTURE. PT REMAINS ON TOILET WITH PT'S BOYFRIEND ATTENDING.
--- NOTE | 2020-12-14 21:45 | NUR ---
CALL LIGHT ANSWERED. SBA BACK TO BED FROM RESTROOM. SCDS ON. CPOX IN PLACE. TUBE FEEDING INFUSING. WARM BLANKETS PROVIDED REQUESTED. pt REQUESTING WARM PACK, EDUCATION PROVIDED TO pt NOT TO PLACE WARM PACK ON ABD AT INCISION OR FOR BABY. pt STATES "I WILL JUST PUT IT ON MY BACK". pt HAS NO ADDITIONAL REQUESTS AT THIS TIME. CALL LIGHT IN REACH.
--- NOTE | 2020-12-14 22:29 | NUR ---
CALL LIGHT ANSWERED. FEEDING PUMP ALARMING. RATE INCREASED TO 30ML/HR. WILL MONITOR FOR TOLERATION.
--- NOTE | 2020-12-15 00:40 | NUR ---
CALL LIGHT ANSWERED. PT REPORTS SHE HAS URINATED IN THE BED. WITH ASSISSTANCE FROM PT'S BOYFRIEND, PT TO TOILET TO VOID. THIS NURSE CHANGED LINENS ON THE BED. PT RETURNED TO BED REPORTING HEADACHE AND INCISIONAL PAIN. PER REQUEST FROM PT, 1 PRN PO EXCEDRIN PROVIDED AND 2MG IV MORPHINE. PT PROVIDED WITH 2 WARM BLANKETS. PT DENIES ANY FURTHER NEEDS AT THIS TIME. CALL LIGHT WITHIN REACH
--- NOTE | 2020-12-15 02:00 | NUR ---
THIS NURSE HAD REQUESTED THAT PT CALL NEXT TIME SHE WAS UP TO THE TOILET SO THAT THE NEW JEJUNAL TUBE COULD BE FLUSHED AGAIN. PT CALLED; PT AMBULATED TO TOILET, VOIDED AND THEN ATTEMPTED TO FLUSH THE TUBE. THIS NURSE PREPARED THE TAP WATER IN THE FLUSH SYRINGE AND EDUCATED PT AGAIN ON HOW TO PERFORM THE FLUSH. PT BEGAN FLUSHING BUT THE "FLUSH" SHE WAS PERFORMING WAS EXTREMELY SLOW AND THIS NURSE EDUCATED PT THAT THE FLUSH HAD TO HAVE MORE FORCE TO BE EFFECTIVE. PT STATED THAT SHE "CANT DO IT FASTER BECAUSE IT HURTS". PT THEN HICCUPS AND STARTS TO GET EMOTIONAL THAT SHE NEEDS TO STOP THE FLUSH BECAUSE IS CAUSING HICCUPS, REQUESTS A PILLOW TO THE ABDOMEN AND LETS GO OF THE FLUSH SYRINGE. PT HAS BEEN TOLERATING THE 30ML/HR FEEDING. THIS NURSE REMOVED THE FLUSH SYRINGE AND REATTACHED THE TUBE FEEDING AND RESTARTED THE FEEDING. THE FLUSH HAD APPROXIAMETLY 30ML OUT OF THE 50ML ORDERED.
--- NOTE | 2020-12-15 02:30 | NUR ---
V/S AND I&O'S TAKEN AND CHARTED. 2 CUPS ICE WATER REFILLED.
--- NOTE | 2020-12-15 05:45 | NUR ---
CALL LIGHT ANSWERED. PT REQUESTS "PAIN MEDS AND NAUSEA MEDICATION". PT REPORTS 8/10 PAIN IN HER "KIDNEY AREA" AND INCISION. PT IS SITTING ON TOILET WITH EMESIS BAG IN FRONT OF HER. 2MG IV MORPHINE ADMINISTERED FOLLOWED BY PRN THORAZINE. DISCUSSION WITH PT RE:NEED TO FLUSH THE FEEDING TUBE PROPERLY. PT BECOMES ANXIOUS AND BEGINS TO DRY HEAVE AND EVENTUALLY DOES WORK UP ABOUT A TABLESPOON OF YELLOW FLUID. PT REPORTS THAT THE FLUSH IS TOO PAINFUL HOWEVER APPEARS TO BE OPEN TO IT "LATER". PT WISHES TO REMAIN SITTING ON TOILET AT THIS TIME THIS POSITION "FEELS BEST". WILL CONTINUE TO MONITOR. PT'S BOYFRIEND IN BATHROOM WITH PT.
--- NOTE | 2020-12-15 07:44 | NUR ---
REPORT RECEIVED. CALL LIGHT IN REACH. BOYFRIEND AT BEDSIDE.
--- NOTE | 2020-12-15 09:43 | NUR ---
IN FOR ASSESSMENT. PT LAYING IN BED WITH BOYFRIEND, EYES CLOSED. VITAMIN BAG HUNG, PT REPORTING 6/10 PAIN. 2MG MORPHINE ADMINSTERED. PEPCID GIVEN. ATTEMPTED TO FLUSH J-TUBE WITH 50CC TAP WATER. PT REPORTS STINGING PAIN WITH FLUSH. FLUSH WATER OBSERVED COMING OUT OF THE INSERTION SITE OF J-TUBE THROUGH ABDOMEN. FLUSH STOPPED AND FEEDINGS HELD. DR IBARRA NOTIFIED. NO ORDERS. REPORTS HE WILL BE COMING TO FLOOR.
--- NOTE | 2020-12-15 09:51 | NUR ---
PATIENT IS LAYIN IN BE. BOYFRIEND IN ROOM.VITALS AND I&OS ARE DONE AND DOCUMENTED. FRESH WATER GIVEN. CALL LIGHT IN REACH. NO FURTHER NEEDS AT THIS TIME.
--- NOTE | 2020-12-15 10:09 | NUR ---
DR IBARRA TO FLOOR. ORDERS TO CONTINUE FEEDING LONG FEEDING IS NOT "WELLING OUT" OF INCISION SITE.FEEDING SET AT 60CC/HR.
--- NOTE | 2020-12-15 10:40 | NUR ---
PATIENT RECEIVING J-TUBE FEEDINGS OF VITAL 1.5 FORMULA. RATE IS NOW UP TO 60 ML/HR OF THIS MORNING. THIS IS PROVIDING 2,160 PARIS, 97 GM PROTEIN, AND 1,100 ML WATER PER 24 HRS. THIS IS PROVIDING 35 PARIS/KG CBW OF 61.8 KG AND 1.56 GM PROTEIN/KG CBW WHICH IS APPROPRIATE. PREALBUMIN ON 12/10 WAS 21.7 (SLIGHTLY LOW). NA+, K+, PHOS, AND MG+ ALL WNL TODAY. CLEAR LIQUID DIET IS ALSO ORDERED. WILL CONTINUE TO MONITOR.
--- NOTE | 2020-12-15 11:47 | NUR ---
PT SITTING UP IN BATHROOM FOR COMFORT. J-TUBE FEEDINGS INFUSING WNL. NO LEAKING FROM INSERTION SITE. PT REQUESTING SHOWER. REPORTS IT IS BECAUSE SHE FEELS DIRTY NOT FROM NAUSEA. PT DRANK 450ML WATER AND 300ML ORANGE JUICE TODAY WITHOUT EMESIS OR NAUSEA. COVER PLACED OVER IV AND J-TUBE SITE AND PT ASSISTED TO SHOWER.
--- NOTE | 2020-12-15 13:10 | NUR ---
PT REPORTING NAUSEA AFTER SHOWER. REQUESTING NAUSEA MEDICATION. THROAZINE STARTED.
--- NOTE | 2020-12-15 15:51 | NUR ---
PT WITH 300CC GREEN EMESIS. THIS NURSE VISUALIZED PT VOMIT. ABDOMEN APPEARS MORE DISTENDED THEN THIS MORNINGS ASSESSMENT. FEEDING STOPPED AND DR IBARRA CALLED AND NOTIFIED. ORDER FOR SINGLE VIEW ABDOMEN WITH GASTROGRAFIN ORDERED. IMAGING CALLED.
--- NOTE | 2020-12-15 16:33 | NUR ---
No change in plan for dc.
--- NOTE | 2020-12-15 18:00 | PATH ---
[facility] [address] [place], [place] [address] Signed SPECIMEN(S): A PROXIMAL STOMACH BIOPSY SPECIMEN SOURCE: A. PROXIMAL STOMACH BIOPSY CLINICAL HISTORY: Hyperemesis gravidarum, dehydration, hypovolemia. Post-op: Nausea gravidarum, gastritis. MICROSCOPIC DESCRIPTION: Histologic sections of all submitted blocks are examined by light microscopy. These findings, together with the gross examination, support the pathologic diagnosis. FINAL PATHOLOGIC DIAGNOSIS: Stomach, proximal, biopsy: - Oxyntic mucosa with mild mucosal capillary congestion and minimal focal chronic, inactive gastritis. - Negative for Helicobacter organisms on HE stain. - Negative for dysplasia or malignancy. NAL:cml:C2NR GROSS DESCRIPTION: The specimen, labeled "TH, 1," and designated on the requisition "proximal stomach," is received in formalin and consists of two lazcano soft tissue fragments that measure 0.2-0.3 cm in greatest dimension. The specimen is entirely submitted in cassette (A1). AT (under the direct supervision of a pathologist) The Gross Description was prepared using a voice recognition system. The report was reviewed for accuracy; however, sound-alike word errors, addition and/or deletions may occur. If there is any question about this report, please contact Client Services. PERFORMING LABORATORY: The technical component was performed by [facility], [address] [place] [id number] (Floor Assembler: Thi Nunez MD; CLIA# [id number]). [facility], [address] [address] (CLIA# [id number]). Diagnostician: Sanjuana Berry MD Pathologist PATIENT NAME: SEAN KHALIL PATHOLOGY DATE OF : 00 REPORT #: [id number] PHYSICIAN: [facility] PCP: JOSÉ ANTONIO NERI MD REPORT IS CONFIDENTIAL AND NOT TO BE RELEASED WITHOUT AUTHORIZATION [address] [place], [place] [address] Signed Electronically Signed 12/15/2020 Copies: ~ PATIENT NAME: SEAN KHALIL PATHOLOGY DATE OF : 00 REPORT #: [id number] PHYSICIAN: CHERYYTE PATHOLOG[facility] PCP: JOSÉ ANTONIO NERI MD REPORT IS CONFIDENTIAL AND NOT TO BE RELEASED WITHOUT AUTHORIZATION
--- NOTE | 2020-12-15 18:15 | NUR ---
PATIENT IS LAYING IN BED. FRESH FLUIDS GIVEN. VITALS AND I&OS ARE DONE AND DOCUMENTED. BOYFRIEND IS IN ROOM. CALL LIGHT IS IN REACH. NO FURHTER NEEDS AT THIS TIME.
--- NOTE | 2020-12-15 18:52 | NUR ---
ROUNDED WITH DR IBARRA. PLAN OF CARE DISCUSSED. ORDERS TO INFUSE NORMAL SALINE THROUGH J-TUBE.
--- NOTE | 2020-12-15 19:03 | NUR ---
ORDER CHANGED TO INFUSE FEEDING AT 30ML/HR. PT SALINE LOCKED FOR SHOWER.
--- NOTE | 2020-12-15 19:25 | NUR ---
RECEIVED REPORT, PT IS IN SHOWER AT THIS TIME. BOYFRIEND IS IN THE ROOM AND SHE WILL CALL WHEN SHE IS DONE.
--- NOTE | 2020-12-15 19:35 | NUR ---
CALL LIGHT ANSWERED. PATIENT WAS INSIDE THE BATHROOM SITTING ON THE TOILET WET FROM SHOWER AND BOYFRIEND WAS HELPING HER. MORE TOWEL PROVIDED PER REQUEST.
--- NOTE | 2020-12-15 21:26 | NUR ---
PT COMPLAINED OF NAUSEA, MED WITH ZOFRAN. STATES SHE HAS A HEADACHE AND INCISIONAL PAIN, WILL GIVE PRN AFTER ZOFRAN SETTLES HER NAUSEA.
--- NOTE | 2020-12-15 22:28 | NUR ---
PT HAD 600MLS OF EMESIS, PT WAS ADMINISTERED ZOFRAN BUT STATES SHE STILL IS NAUSEOUS. ADMINISTERED TYLENOL FOR PAIN 6/10, BY END OF ASSESSMENT PT STATES PAIN IS 7/10. PT'S BP IS ON THE SOFTER SIDE. EXPLAINED THAT SHE COULD HAVE THE MORPHINE FOR PAIN OR THORAZINE FOR NAUSEA BUT DID NOT FEEL SHE COULD DO BOTH AT ONCE WITH HER BP. SHE STATED SHE WOULD RATHER HAVE THE MORPHNE, ADV PT SHE CAN CALL FOR THE THORAZINE A BIT LATER. J TUBE FLUSHES FINE AND IS RUNNING AT 3OMLS/HR. SHE HAS CLEARS AT BEDSIDE FOR COMFORT. ADMINISTERED PT'S EVENING MEDICATIONS AND PT DENIES FURTHER NEEDS. CALL LIGHT IS CLOSE AND BOYFRIEND IS IN THE ROOM.
--- NOTE | 2020-12-15 23:10 | NUR ---
PT IS RESTING WITH EYES CLOSED, RR IS EVEN AND NONLABORED. CALL LIGHT IS CLOSE, TUBE FEEDING INFUSING AND IV INFUSING. BOYFRIEND IS IN ROOM WITH PT.
--- NOTE | 2020-12-16 01:28 | NUR ---
PT CALLED ASKING FOR SOMETHING FOR HEADACHE. UPON ENTERING ROOM PT ASKED FOR NAUSEA MEDS. ADMINISTERED THORAZINE 25MG IN 500ML OVER 1 HOUR. FLUSHED J TUBE WITH 50CC WATER, NO LEAKING NOTED AND NO DISCOMFORT FOR PT. FEEDING CONTINUES TO INFUSE WELL VIA KANGAROO PUMP. EDGE OF DRESSING COMING UP SLIGHTLY, REINFORCED WITH OPSITE.PT DENIES FURTHER NEEDS. CALL LIGHT IS CLOSE.
--- NOTE | 2020-12-16 02:05 | NUR ---
PT CALLED, SHE HAD A BM AND SHE DENIES FURTHER NEEDS. CALL LIGHT IS CLOSE.
--- NOTE | 2020-12-16 04:10 | NUR ---
PT IS RESTING WITH EYES CLOSED, RR IS EVEN AND NONLABORED. CALL LIGHT IS CLOSE.
--- NOTE | 2020-12-16 04:35 | NUR ---
ADMINISTERED ZOFRAN FOR NAUSEA AND PROVIDED FRESH ICEWATER. PT DENIES FURTHER NEEDS. CALL LIGHT IS CLOSE.
--- NOTE | 2020-12-16 06:59 | NUR ---
ADMINISTERED SOLMEDROL PER ORDERS. PT IS RESTING WITH EYES CLOSED, CALL LIGHT IS CLOSE, TUBE FEEDING IS INFUSING AND IV IS INFUSING FINE.
--- NOTE | 2020-12-16 07:30 | NUR ---
SHIFT REPORT FROM ANEL DAVIS INCLUDED: pt still experiencing nausea and headaches at this time. pt needed some PRN pain and nausea med coverage throughout the evening shift. pt now has J-tube and is getting feedings at 30mls/hr at this time. pt currently in bed, breathing even and unlabored, table and call light within reach.
--- NOTE | 2020-12-16 08:30 | NUR ---
BOARD UPDATED, PATIENT BACK FROM BATHROOM, BF ASSISTING. PATIENT C/O HEADACHE AND PAIN UIN STOMACHE. RN NOTIFIED
--- NOTE | 2020-12-16 09:45 | NUR ---
ASSESSMENT + MED PASS + PRN MED PASS + BATHROOM + AMBULATION pt assessment completed, VSS, pt reports some mild pain in her midline incision site, as "soreness". pts midline dressing is dry and intact, slight pinpoint shadowing at this time. pt J-tube site appears CDI, site normal temp to the touch. pts J-tube flushed at this time with 50mls tap water as ordered, line patent. pt reports a 6/10 headache pain, given PRN excedrin at this time. pt reports some nausea as well, PRN ODT zofran given as well. pt denies further needs at this time. pt still staying naked, per her insistance and discomfort in the gown. pt refuses up to chair at this time. pt agrees verbally to walking with us later, "once the pain settles some since I know it's gonna hurt a lot". pt up to bathroom and decides to walk with me now. pt able to walk to the CCU wall and back to room at this time. white board updated and pt encouraged to walk with us again later. pt verbally agrees at this time. pt in bed, table and call light within reach. Alicia RAMIREZ changing linens.
--- NOTE | 2020-12-16 10:00 | NUR ---
PATIENT UP TO SHOWER pt up to shower at this time. call light within reach, boyfriend in room.
--- NOTE | 2020-12-16 10:45 | NUR ---
BACK TO BED pt back to her bed at this time. OFFICE MACHINE TECHNICIAN to bedside for warm blankets, warm packs, and brushing her hair. Call light within reach. boyfriend in room.
--- NOTE | 2020-12-16 11:30 | NUR ---
RESPONDING TO CALL LIGHT pt given more blankets per request. pt denies further needs at this time. table and call light within reach.
--- NOTE | 2020-12-16 13:43 | NUR ---
PATIENT CALLED, C/O HEADACHE. RN AWARE. BOYFRIEND IN BED WITH PATIENT. ROOM IS VERY HOT AND MUGGY, THIS MARKETING CO OP SUGGESTED TURNING THE HEAT DOWN, OR COOL CLOTH ON FOREHEAD, PATIENT REFUSED. VITALS AND I&OS CHARTED. RN IN ROOM WITH WARM PACKS AND BLANKETS. BF OFTEN ANSWERS FOR PATIENT, PATIENT ENCOURAGED TO SPEAK UP.
--- NOTE | 2020-12-16 14:40 | NUR ---
ROUNDING pt in bed, eyes closed, breathing even and unlabored. table and call light within reach. boyfriend at bedside.
--- NOTE | 2020-12-16 14:59 | NUR ---
PATIENT RECEIVING VITAL 1.5 FORMULA HERE IT IS A LOW-FIBER FORMULA THAT WE HAVE ON THE SHELF. IT IS A PEPTIDE-BASED FORMULA. SINCE THIS IS WHAT SHE STARTED ON HERE, I RECOMMEND VITAL 1.5 USE FOR HOME. IF THAT IS NOT AVAILABLE, OSMOLITE 1.5 IS THE NEXT BEST FORMULA THAT HAS NO FIBER. RECOMMENDATIONS FOR HOME: VITAL 1.5 FORMULA, CONTINUOUS FEED. GOAL RATE = 60 ML/HR. IF VITAL 1.5 IS NOT AVAILABLE, USE OSMOLITE 1.5. GOAL RATE WOULD ALSO BE 60 ML/HR. SHE WILL NEED ADDITIONAL WATER FLUSHES OF 125 ML EVERY 4 HOURS TO MEET HER FLUID NEEDS (750 ML ADDITIONAL WATER + 1100 FROM FORMULA = 1850 ML).
--- NOTE | 2020-12-16 15:15 | NUR ---
ROUNDING pt able to nap at this time. pt in bed, eyes closed, breathing even and unlabored, table and call light within reach.
--- NOTE | 2020-12-16 16:00 | NUR ---
ROUNDING pt able to nap at this time. pt in bed, eyes closed, breathing even and unlabored, table and call light within reach.
--- NOTE | 2020-12-16 16:03 | NUR ---
Printed chart notes, face sheet, and note from pipe roller stating needs for J tube to send to [facility] for Pump and feeding supplies. Awaiting rx from Dr. Hidalgo for pump.
--- NOTE | 2020-12-16 17:30 | NUR ---
MED PASS pt reports 8/10 intolerable pain and some nausea at this time. pt given PRN morphine and zofran as ordered. pt given warm blankets and hot packs per request. pt in bed, table and call light within reach. boyfriend in room.
--- NOTE | 2020-12-16 18:28 | NUR ---
HEART TONES + SHOWER pts fetus' heart tones heard by doppler at this time. FHT clear and regular, at 150bpm. pt and the baby's father able to listen to heart beat at this time. pt up to shower at this time. pts IVF stopped and IV wrapped. pts j-tube feeding stopped and tube flushed at this time, and clamped for shower. pts midline dressing reinforced with clear tape. pt up to shower, boyfriend in room, call light within reach.
--- NOTE | 2020-12-16 19:30 | NUR ---
SHIFT REPORT RECEIVED FROM DAYSHIFT SUSAN CARABALLO AT BEDSIDE. pt AWAKE AND RESTING IN BED, REPORTING GENERALIZED DISCOMFORT TO ABD. BOYFRIEND STATES, "WHEN THE PAIN GETS BAD THAT'S WHEN SHE GETS NAUSEOUS". UNABLE TO GIVE NAUSEA MEDS AAT THIS TIME, WILL REVIEW ORDERS AND DISCUSS WITH pt. pt VERBALIZES UNDERSTANDING, NO FURTHER NEEDS. IV FLUIDS RESUMED BY SUSAN CARABALLO AT 50MLS/HR. FEEDING TUBE CLAMPED D/T RECENT SHOWER. WILL REVIEW ORDERS THEN RESUME FEEDINGS.
--- NOTE | 2020-12-16 20:25 | NUR ---
PT REQUESTED WARM PACKS, WELL PAIN MEDICATION. PT LAYING ON HER STOMACH, OVER A PILLOW, SAID THAT THE BABY IS "KICKING" HER IN THE AREA OF THE JTUBE. EDUCATED PT THAT SHE WILL CONTINUE TO HAVE PAIN IN THAT AREA LAYING ON HER STOMACH AND THAT HER BABY PREFERS TO HAVE MOM LAY IN HER SIDES WELL, TO AVOID THE PRESSURE ON THE ABDOMINAL AREA. SUGGESTED PT CHANGE POSITIONS, TO AVOID PAIN MEDICATION IF POSSIBLE. ALSO SUGGESTED A SMALL WALK, WILL GO BACK AND ENCOURAGE ONCE PT PRIMARY RN ASSESSES AND PROVIDES SCHEDULED, AND PRN MEDICATONS.
--- NOTE | 2020-12-16 20:45 | NUR ---
ASSESSMENT COMPLETE, SCHEDULED PEPCID GIVEN, SEE EMAR. IV SITE WNL, FLUSHES EASILY. VSS AND I&O'S COMPLETE. pt REPORTS PREVIOUS INTERVENTIONS DONE WITH THIS RN AND MANAGER SPECIALTYSUSAN INIGUEZ HELPED IMPROVE PAIN, REPORTS TOLERABLE 3-4/10 PAIN. WILL MONITOR, EDUCATION GIVEN ON PAIN/NAUSEA CONTROL AND TO AVOID MEDICATION IF POSSIBLE D/T BABY. pt VERBALIZED UNDERSTANDING. NEW KANGAROO PUMP BAG IN PLACE AND PRIMED, INFUSING AT 40MLS/HR VITAL 1.5 PARIS PER NOTE FROM AFTER SCHOOL DRIVER. PER SHIFT REPORT, DAYSHIFT SUSAN CARABALLO ATTEMPTED TO TITRATE J-TUBE NUTRITION TO 60MLS/HR, BUT pt REPORTED INCREASED NAUSEA. WILL LEAVE AT 40MLS/HR FOR NOW AND MONITOR. pt REPORTS CONTINUAL NAUSEA, BUT STATES IT'S TOLERABLE WILL MONITOR. J-TUBE FLUSHED WITH 50MLS TAP WATER PER MD ORDERS, FLUSHES EASILY. ABD DRESSING INTACT, SCANT OLD SHADOWING NOTED. PER NURSE NOTIFY, OKAY TO TITRATE IV FLUIDS TO 40MLS/HR, TITRATION DONE AT THIS TIME. APPLE JUICE PROVIDED PER pt REQUEST, EDUCATED TO TAKE SMALL SIPS. pt VERBALIZED UNDERSTANDING. BOYFRIEND IN ROOM. NO FURTHER NEEDS, MANAGER SPECIALTYSUSAN INIGUEZ PREPARING TO HELP pt AMBULATE IN HALLWAY.
--- NOTE | 2020-12-16 21:11 | OR ---
[facility] [address] [place], [place] [address] Signed DATE OF OPERATION: 12/14/2020 SURGEON: Marilee Ibarra MD DATE OF PROCEDURE: 12/14/2020 PREOPERATIVE DIAGNOSES: 1. Hyperemesis gravidarum, progressive, unrelieved. 2. Recent nutritional and electrolyte deficiency. 3. Recurrent dehydration. POSTOPERATIVE DIAGNOSES: 1. Hyperemesis gravidarum, progressive, unrelieved. 2. Recent nutritional and electrolyte deficiency. 3. Recurrent dehydration. PROCEDURE: Open feeding jejunostomy (14-Mozambican red rubber catheter with multiple holes). ANESTHESIA: General endotracheal, Kaden Blandon CRNA and Lin Humphries CRNA, and local 20 mL of 0.25% Marcaine with epinephrine. INDICATION: This 20-year-old white woman is a patient of Dr. Hidalgo, who is now 14 weeks effectively. She was admitted on December 10, 2020 with persistent hyperemesis gravidarum. Notably, she underwent laparoscopic cholecystectomy by me a few weeks ago for acalculous cholecystitis, which was thought to be the underlying source for persistent nausea and vomiting. Cholecystectomy did show chronic cholecystitis, but there was certainly no real improvement of her hyperemesis syndrome. Multiple anti-emetics and other interventions have been undertaken. On 12/11/2020, after consultation with me, she did undergo upper endoscopy with placement of a nasoenteric feeding tube. She had good tolerance of the feeding tube, but when initiating liquids even for comfort, had severe retching and regurgitation of the tube and it failed essentially. I have discussed with her as well as Dr. Hidalgo options going forward at this point. I have recommended an operative feeding jejunostomy, which will not likely be dislodged Electronically Signed By: MARILEE IBARRA MD 12/16/202110 PATIENT NAME: SEAN KHALIL OPERATIVE REPORT DATE OF : 00 REPORT #: [id number] PHYSICIAN: MARILEE IBARRA MD PCP: VINNY HIDALGO MD REPORT IS CONFIDENTIAL AND NOT TO BE RELEASED WITHOUT AUTHORIZATION [facility] [address], [place] [address] Signed by any recurrent vomiting she has. It is of special note that her mother had a very similar problem 20 years ago with two separate pregnancies. Indeed, her mother required a feeding jejunostomy and an indwelling central venous catheter for essentially all of her in the past. The patient and her boyfriend and mother understand the risks of bleeding, infection, failure of the device, and other unforeseen complications related to its placement and wished to proceed. FINDINGS: heart tones were identified preoperatively and postoperatively. The patient tolerated the procedure well physiologically. The ligament of Treitz was easily identified and placement of a feeding jejunostomy via a Witzel tunnel technique was undertaken 30 cm distal to the ligament of Treitz. A broad-based application of the bowel to the left upper abdominal wall was undertaken and unlikely to have torsion or pedicle rotation with it. DESCRIPTION OF PROCEDURE: The patient was brought to the operating room, given a general endotracheal anesthetic. Preoperative antibiotic Ancef was given. Sequential compression device stockings used. The patient was maintained in a slightly right side elevation, though she has a uterus that is only about the level of the pubis symphysis. The abdomen was prepared with a chlorhexidine solution and draped sterilely. An epigastric linear incision was made in the midline and the abdomen entered without problem. Intraabdominal inspection showed no sign of ascites or carcinomatosis or other problem. The omentum was gently swept out of the way, identifying small bowel loop. This was gently grasped and elevated and examined more proximally, ultimately identifying the ligament of Treitz. Measurement from the ligament of Treitz distalward to approximately 30 cm was undertaken. A pursestring suture was performed with 3-0 silk suture. The serosa was gently electrocauterized, mucosa elevated and cauterized, allowing for entry into the small bowel. A 14-Mozambican red rubber catheter was cut to the appropriate configuration by excising the distal tip and providing multiple holes along its course and then passed into the small bowel loop oriented distally. The pursestring suture was secured. Interrupted 3-0 silk sutures were used to provide serosal approximation over the tube in a Craig tunnel technique for about 6 cm or so. Care was taken to ascertain orientation of the tube in the appropriate direction. A left upper quadrant incision was made and the tonsil clamp was used to penetrate the abdominal wall and grasped the tube and gently through the abdominal wall. The bowel loop was then secured to the abdominal wall with interrupted 3-0 silk suture providing a broad pedicle so as to avoid torsion and obstruction. The catheter was then flushed Electronically Signed By: MARILEE IBARRA MD 12/16/202110 PATIENT NAME: SEAN KHALIL OPERATIVE REPORT DATE OF : 00 REPORT #: [id number] PHYSICIAN: MARILEE IBARRA MD PCP: VINNY HIDALGO MD REPORT IS CONFIDENTIAL AND NOT TO BE RELEASED WITHOUT AUTHORIZATION [address] [address] Signed with a catheter tip syringe with saline showing no impediment to flow. The omentum was replaced to its natural anatomic configuration and the red rubber catheter secured to the skin with a 2-0 nylon suture. The midline fascia was reapproximated with running #1 PDS suture. 20 mL of 0.25% Marcaine with epinephrine injected locally. The Ruba's layer was reapproximated with interrupted 3-0 Vicryl and the skin was closed with a running subcuticular 3-0 Vicryl. Steri-Strips were applied as was an Acticoat dressing. The catheter itself was secured to the abdominal wall with an OpSite dressing. An area at the entry site of the catheter was cut free to allow for drainage as necessary. The patient was ultimately extubated and transferred to the recovery room in good condition, having suffered no complications. Sponge, needle, and instrument counts were reported as correct x3. MD JOI Varela/JUVENTINO /[id number] cc: Vinny Hidalgo MD Copies: VINNY HIDALGO MD ~ Electronically Signed By: MARILEE IBARRA MD 12/16/20 2111 PATIENT NAME: SEAN KHALIL OPERATIVE REPORT DATE OF : 00 REPORT #: [id number] PHYSICIAN: MARILEE IBARRA MD PCP: VINNY HIDALGO MD REPORT IS CONFIDENTIAL AND NOT TO BE RELEASED WITHOUT AUTHORIZATION
--- NOTE | 2020-12-16 21:25 | NUR ---
PT UP WITH ENCOURAGEMENT WITH RN, AND BOYFRIEND TO AMBULATE. SLOWLY, AND ENCOURAGING DEEP BREATHS, PT AMBULATED AROUND END OF SOLIMAN BY ROOM 125, AND BACK TO HER ROOM. ENCOURAGED GOAL SETTING TO AMBULTE 2X MONDAY FOR HER BABY. WHILE SHE HAD PAIN, SHE TOLERATED AMBULATING. FELT LIKE BODY REJECTING BABY, ENCOURAGED PT TO DO ALL SHE CAN FOR HER BABY. SHE WAS ACCEPTING, WITH HER BOYFRIEND SAYING SAME WORDS TO HER. PT REQUESTED WARM BLANKETS, AND FRESH HOT PADS.
--- NOTE | 2020-12-16 21:50 | NUR ---
IN TO PROVIDE PT WARM BLANKETS, WARM PACKS, AND REFRESHED ICE WATER, NO FURTHER NEEDS AT THIS TIME
--- NOTE | 2020-12-16 23:30 | NUR ---
IN ROOM TO ROUND ON pt, pt REPORTING INCREASED PAIN IN ABD AND INABILITY TO SLEEP. NO INSOMNIA MEDS NOTED ON EMAR, DISCUSSED WITH pt AND OFFERED NONPHARMACOLOGICAL INTERVENTIONS. pt STATES, "THE CHLORPROMAZINE HELPS ME SLEEP". LENGTHY VERBAL EDUCATION GIVEN TO BOTH pt AND BOYFRIEND REGARDING PROPER USE OF MEDICATIONS AND THAT THAT IS A NAUSEA MEDICAITON AND IS NOT GIVEN TO HELP SOMEONE SLEEP AND THAT IS IS TO BE SAVED AND USED IF HER NAUSEA BECOMES UNCONTROLABLE. BOTH pt AND BOYFRIEND VERBALIZED UNDERSTANDING. WILL MONITOR. PRN TYLENOL GIVEN FOR INCREASING ABD PAIN, 04/03, SEE EMAR. APPLE CIDER ALSO PROVIDED PER pt REQUEST, EDUCATED TO TAKE SMALL SIPS. NO FURTHER NEEDS. CALL LIGHT IN REACH.
--- NOTE | 2020-12-17 00:30 | NUR ---
IN ROOM TO FLUSH J-TUBE WITH 50MLS TAP WATER PER MD ORDERS, TUBE FLUSHES EASILY. VITAL 1.5 PARIS REMAIN INFUSING AT 40MLS/HR, NO REPORT OF NAUSEA AT THIS TIME. pt DROWSY, BUT AWAKENS TO VOICE BRIEFLY THEN RETURNS TO SLEEP. IV SITE WNL, FLUIDS CONTINUE TO INFUSE AT 40MLS/HR. NO ADDITIOANL NEEDS VERBALIZED, BOYFRIEND IN ROOM. CALL LIGHT IN REACH.
--- NOTE | 2020-12-17 03:16 | NUR ---
INFORMED BY ASHLEY MARTINEZ, pt REPORTING NAUSEA. IN ROOM TO ASSESS, pt FOUNDING BED WITH EYES CLOSED, RR EVEN AND UNLABORED. pt DID NOT WAKE WHILE THIS RN IN ROOM, BOYFRIEND ALSO IN ROOM. NO DISTRESS NOTED. PER CLINICAL JUDGEMENT, WILL ALLOW pt TO SLEEP AT THIS TIME AND CONTINUE TO MONITOR. CALL LIGHT IN EASY REACH.
--- NOTE | 2020-12-17 03:42 | NUR ---
IN ROOM TO ANSWER CALL LIGHT, FRESH WATER GIVEN PER pt REQUEST, pt STATES, "I GET THIRSTY REALLY QUICKLY". EDUCATION GIVEN ON TAKING SMALL SIPS FOR COMFORT, WHEN ASKED IF THERE WAS ANYTHING ELSE SHE NEEDS, pt STATES, "APPLE JUICE WOULD BE NICE". JUICE PROVIDED. J-TUBE INFUSING AT 40MLS/HR, SITE WNL. IV FLUIDS ALSO INFUSING AT 40MLS.HR, SITE WNL. NO FURTHER NEEDS, CALL LIGHT IN REACH. BOYFRIEND IN ROOM.
--- NOTE | 2020-12-17 06:00 | NUR ---
ASSESSMENT COMPLETE, NO NEW CHANGES OR CONCERNS. pt REPORTS TOLERABLE NAUSEA, INCREASING PAIN. PRN PAIN MEDICATION GIVEN, SEE EMAR. J-TUBE FLUSHED WITH 50MLS TAP WATER, FLUSHES EASILY. KANGAROO PUMP REPORTING CLOG DISTAL TO PUMP, VARIOUS TACTICS TO RESOLVE ISSUE UNSUCCESSFUL SUCH FLUSHING J-TUBE, REPRIMING TUBING, AND RESETTING MACHINE. BUTCHER HELPER GEETHA IN ROOM TO ASSESS. KANGAROO PUMP OFF AT THIS TIME, CALL MADE TO KITCHEN FOR NEW TUBING, AWITING TUBING ARRIVAL. IV FLUIDS INFUSING AT 40MLS/HR, SITE WNL AND FLUSHES EASILY. VS AND I&O'S COMPLETE. CALL LIGHT IN REACH.
--- NOTE | 2020-12-17 09:30 | NUR ---
REPORT RECEIVED FROM NIGHT RN AND PT. CARE RESUMED. PT. IN THE BED WITH BOYFRIEND. SHE AMBULATED IN THE HALLWAYS THIS MORNING AND TOLERATED WELL. KANGAROO PUMP TUBING AND BAG CHANGED. PUMP RUNNING VITAL NUTRITION AT A RATE OF 40ML/HR. PT. STATED HER IV SITE HURT WITH FLUSHING AND WAS SLIGHTLY LEAKY. 2 IV ATTEMPTS STARTED BY THIS NURSE AND THEN SUSAN CARABALLO WILL ATTEMPT. LUNGS CLEAR. PT. STATES SHE HAS A MIGRAINE AND HAS ALREADY RECEIVED PRN MEDS. ASSISTED WITH REPOSITIONING AND WILL CONTINUE TO MONITOR. TOLERATING CLEAR FLUIDS AND DENIES NAUSEA AT THIS TIME. ABD INCISION SITE IS CDI. J-TUBE FLUSHES WELL. PT. LEFT RESTING IN BED WITH CALL LIGHT IN REACH.
--- NOTE | 2020-12-17 10:00 | NUR ---
Spoke with both Dr. Julien and Dr. Hidalgo as they are leaving pt room. Received rx for feeding tube. Plan at this time is for pt to possibly dc to home tomorrow. Faxed RX, orders, face sheet, and notes for feeding pump and supplies.
--- NOTE | 2020-12-17 10:30 | NUR ---
REceived return fax from [facility] care stating they received my chart and are reviewing.
--- NOTE | 2020-12-17 13:53 | NUR ---
PT. REPORTS SEVERE MIGRAINE PAIN. ADMIN PRN EXCEDRIN. IV SITE BEING REDRESSED BY SUSAN CARABALLO. PT. ENCOURAGED TO DRINK CLEAR ENSURE, BUT REFUSES. PT. LEFT RESTING WITH BOYFRIEND AT BEDSIDE.
--- NOTE | 2020-12-17 14:30 | NUR ---
Received call from Deisy at [facility]. They have reviewed chart and are preparing pump supplies and feedings. Plan to [employer] pump and supplies to pts home to arrive tomorrow. She request lates labs, printed and faxed. She faxed instructions for use of Kangaroon pump and written orders with amounts and instructions on starting feeding and how to throughout process. These were gien to charge lpn and pts nurse will provide instructions. In and spoke with pt and her boyfriend, updated [employer] will be calling them shortly for instructions and to provide overview of their contract. Encouraged to not leave the hospital until the pump has arrived as this is Marlene's only source of nutrition. Also reminded per Dr. Li to pay close attention and flush the tube as ordered. He also requested no meds through the feeding tube, only feedings. Both state understanding. Plan for dc tomorrow.
--- NOTE | 2020-12-17 16:22 | NUR ---
PT. REPORTS TOLERABLE HEADACHE AND ABD CRAMPING. BOWEL TONES HYPOACTIVE. EDUCATED PT. AND BOYFRIEND ON J-TUBE FEEDING USING TEACH BACK. HEARTTONES CHECKED AND HEART SOUNDS REGULAR. HR WAS 144-160BPM. VITAL FORMULA TITRATED UP TO 60ML/HR. IV SITE WNL AND FLUSHES WELL. PT. LEFT RESTING WITH BOYFRIEND AT BEDSIDE.
--- NOTE | 2020-12-17 17:09 | NUR ---
PT. USED CALL LIGHT APPROPRIATELY AND STATED HER IV SITE WAS HURTING. IV SITE IS RAISED AND APPEARS TO BE INFILTRATING. DR. NERI CONTACTED ABOUT WHETHER TO START ANOTHER IV. HE DOES NOT WANT ANOTHER IV PLACED, SHE SHOULD DISCHARGE TOMORROW AND LAB RESULTS ARE WNL.
--- NOTE | 2020-12-17 17:56 | NUR ---
PATIENT IS HERE FOR HYPEREMESIS AND J-TUBE PLACEMENT. NO NAUSEA REPORTED THIS SHIFT. MIGRAINE PAIN AND ABD CRAMPING AT TIMES. IV SITE INFILTRATED AND M.D. ORDERED NOT TO REPLACE SINCE PT. WILL DISCHARGE TOMORROW. J-TUBE FEEDING EDUCATION DONE WITH PT. AND BOYFRIEND. FEEDING PUMP IS RUNNING AT 60ML/HR WITH VITAL 1.5 AND PT. TOLERATING WELL. TOLERATING CLEAR FLUIDS WELL. BOWEL TONES HYPOACTIVE AND PT. HAD A BM TODAY. WAITING ON FEEDING PUMP AND SUPPLIES TO BE DELIVERED PRIOR TO DISCHARGING
--- NOTE | 2020-12-17 19:34 | NUR ---
Pt star bed, room air, no iv site, c/o h/a. Medicated with Exedrin 1 tab. Kangaroom pump infusing patent, JT patent. significatn other in room. fresh water and juice given on requests
--- NOTE | 2020-12-17 20:16 | NUR ---
HAD 300CC EMESIS, MEDICATED WITH ZOFRAN 4MG SL, PT IN BR TAKING A HOT SHOWER.
--- NOTE | 2020-12-17 21:51 | NUR ---
in bed, no further c/o emesis. Room air, 3 steri strips applied to upper abd incision area at her requets. had taken a shower and they came off, replaced. abd slightly distended GHADA, soft. has a bm today. JT patent, hooked back to pump at this time at 40cc/hr will double check orders, was flushed with 50cc water at 2000. prior to getting into shower. Coop with assessment. No IV site. tolerating liquids again
--- NOTE | 2020-12-17 22:22 | NUR ---
WARM BLANKETS TO PT PER RN
--- NOTE | 2020-12-17 22:45 | NUR ---
tf stopped at her requests. staed "I feel really full, my stomach is distended", when aspirated, no solution came back. flushed with 50cc water. staed "the nurse turned my feeding down to 40 earlier int he day as I was not tolerateing the higher feedings". FHR auscultated with droppler at 165bpm.
--- NOTE | 2020-12-18 01:47 | NUR ---
c/o abd pain, medicatede with 1 tylenol 500mg po, pt taking a shower. declines to have TF pump reattached after shower. no emesis at this time.
--- NOTE | 2020-12-18 06:11 | NUR ---
pt has slept off and on this shift. has been medicate with exedrin x1 a and w tylenol X1 per pain, effective, was medicated with zofran sl x1 per emesis, effective. Has takes a couple hot ba ths. upper abd incision w eliazar. JT patent, flushed with 50cc water, tolerated TF poorly, c/o being full, TF was stopped after midnight at her request. slept afterwards. has been tolerating clear liquid diet and ice chips. no iv site. significant other in room.
--- NOTE | 2020-12-18 06:50 | NUR ---
Pt resting, eyes closed, no distress, no vitals done at this time, significant other states "she is been calm, let her sleep, will call when awake."
[2020-12-18] MEDS ORDERED: HYDROCODON-ACE1 EA10 PO (08:11)
--- NOTE | 2020-12-18 08:30 | NUR ---
PATIENT OUT OF SHOWER, DRESSED IN PERSONAL CLOTHES, BF ASSISTING. THIS HEAD TURNING MACHINE OPERATOR BRAIDED PATIENTS HAIR PER REQUEST, PATIENT REFUSED CLEAR BREAKFAST TRAY, KEPT APPLEJUICE AND WATER. PATIENT REFUSED AMBULATION IN SOLIMAN.LINENS CHANGED
--- NOTE | 2020-12-18 10:04 | NUR ---
PATIENT KNEELING ON BED, EMESIS BAG IN FRONT, SMALL AMOUNT OF LIQUID IN BEG. BF SITTING ON BED WELL. VITALS AND I&OS CHARTED. THIS KNOT SAW OPERATOR REMINDNG BF TO TAKE CARE OF HIS OWN PERSONAL NEEDS WELL,(EATING, SHOWERING, ETC.) PATIENT REQUESTED BF STOP TEXTING AND RUB HER BACK. HEAT PACKS AND FRESH ICE WATER PROVIDED. CALL LIGHT IN REACH
--- NOTE | 2020-12-18 10:05 | NUR ---
DR IBARRA WANTS HOME HEALTH TO BE ORDERED SO PATIENT HAS SOME SUPPORT WITH FEEDING TUBE. SPOKE WITH PATIENT REGARDING THIS. EXPLAINED WHAT HOME HEALTH IS AND SHE WANTS TO GO WITH [facility] FROM [facility]. CALLED [facility], THEY DO NOT TAKE PATIENTS INSURANCE. SPOKE WITH PATIENT AGAIN. SHE STATES TO CALL [facility]. PATIENTS BOYFRIEND IN ROOM NOW. ASKED IF HE HAS ANY QUESTIONS AFTER TEACHING FOR J-TUBE CARE. HE STATES "I WON'T HAVE ANY ISSUES, I COULD PROBABLY TAKE ONE OF THESE PUMPS APART AND PUT IT BACK TOGETHER". CALLED [facility]. SPOKE WITH LARRY. THEY WILL NOT BE ABLE TO SEE PATIENT UNTIL MONDAY DUE TO STAFFING. SPOKE WITH PATIENT AND BOYFRIEND AGAIN. HE WAS TAKING BELONGINGS OUT. DISCUSSED WITH HER AND HIM THAT [facility] WILL HAVE ORDERS AND THEY WILL CALL THEM. CONFIRMED HER ADDRESS AND PHONE NUMBER ON FACESHEET. DISCUSSED THEY WON'T SEE HER UNTIL MONDAY. DISCUSSED IF SHE HAS PROBLEMS TO CALL DR IBARRA, OR THE NURSES STATION HERE OR COME TO THE ED. REMINDED THE TUBE WILL NEED FLUSHED. BOYFRIEND STATES HE UNDERSTANDS AND AGAIN STATES HE FEELS HE CAN GET THE PUMP DELIVERED HOOKED UP AND LOADED. PATIENT STATES SHE "JUST WANTS TO GET HOME". FAXED CLINICALS, COPY OF RX THAT WAS SENT TO [facility], ORDER TO [facility] WITH FAX CONFIRMATION RECEIVED 12/18/20 355PM. FACE TO FACE IS FILLED OUT AND READY FOR DR IBARRA TO SIGN AND LEFT ON CHART AT DR COMPUTER STATION. HE IS IN SURGERY. TEXTED HIM TO REMIND HIM TO SIGN THIS. SPOKE WITH CHARGE NURSE AND MANUFACTURING LAB TECHNICIAN TWICE REGARDING THIS. FILLED OUT FAX COVER SHEET FOR THEM TO FAX THIS TO [facility] WHEN SIGNED.
--- NOTE | 2020-12-18 11:20 | NUR ---
ALL DISCHARGE INSTRUCTIONS REVIEWED WITH PT. AND ALL QUESTIONS ANSWERED. PT. AND BOYFRIEND VERBALIZED UNDERSTANDING OF PUMP FEEDING INSTRUCTIONS AND DEMONSTRATED. PT. LEFT VIA WHEELCHAIR WITH ALL BELONGINGS.
--- NOTE | 2020-12-21 14:28 | NUR ---
CALLED [facility] AND SPOKE WITH LEE. THEY DID GET ALL THEY NEEDED AND HER ADMIT IS PENDING.
== END 2020-12-18 11:25 | disposition home or self-care (01) | DRG 833 ==
LOC: MS 10:49
PROVIDERS: Surgery; ADMIT General Practice; ATTEND General Practice
PROC: 0DH98UZ Insertion of Feeding Device into Duodenum, Via Natural or Artificial Opening Endoscopic (ICD-10-PCS; principal; 2020-12-11 14:30)
PROC: 0DB68ZX Excision of Stomach, Via Natural or Artificial Opening Endoscopic, Diagnostic (ICD-10-PCS; 2020-12-11 14:30)
PROC: 0DHA0UZ Insertion of Feeding Device into Jejunum, Open Approach (ICD-10-PCS; 2020-12-14)
DX: O21.1 Hyperemesis gravidarum with metabolic disturbance (principal); Z3A.12 12 weeks gestation of pregnancy; Z20.822 Contact with and (suspected) exposure to COVID-19; O99.611 Diseases of the digestive system complicating pregnancy, first trimester; K29.70 Gastritis, unspecified, without bleeding; O25.11 Malnutrition in pregnancy, first trimester; Z88.8 Allergy status to other drugs, medicaments and biological substances; Z88.0 Allergy status to penicillin; Z88.7 Allergy status to serum and vaccine
CPT/HCPCS: 00790; 36415; 74018; 76801; 80053; 81001; 82247; 82465; 83615; 83735; 84100; 84134; 84478; 84550; 85025; 88305; 96365; 96366; 96375; 96376; C9803; G0378; G0379; J0690; J1100; J1650; J2001; J2270; J2405; J2550; J2704; J2920; J3010; J3230; J3411; J3475; J3480; J7040; J7120; J7121; U0003

== ENCOUNTER 2020-12-22 12:27 | Emergency (ER) | payer OTHER ==
[~2020-12-22] VITALS: Ht 152.4 cm; Wt 61.7 kg
[~2020-12-22 12:27] MED LIST changes: +HYDROCODON-ACE1 EA10 PO; +MEDROL4 M1 PO
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
--- NOTE | 2020-12-24 11:26 | CONS ---
[facility] [address], [place] [address] Signed DATE OF CONSULTATION: 12/22/2020 TIME: 1:30 p.m. CONSULTING PHYSICIAN: Marilee Ibarra MD REQUESTING PHYSICIAN: Dr. Gates. PROBLEM: Questions regarding recently placed red rubber jejunal feeding tube. This 20-year-old woman has hyperemesis gravidarum and is managed by Dr. Hidalgo for that. About a week ago, she underwent operative placement of a feeding jejunostomy. It has been functioning well. She has Home Health assisting with her tube feedings. She tells me her tube feedings have been as high as 100 mL/h, generally well-tolerated at 60 an hour. She presented to emergency room as she was concerned that there was some redness and possibly crusting around the tube itself. Dr. Gates evaluated this and requested consultation to further evaluate. On exam, she looks well. She is accompanied by her grandmother I believe. The site of entry of the jejunal feeding tube has minimal erythema and slight amount of crusting as it is completely and totally expected. I explained this to her (again). The tube was secured to the skin with a nylon suture, which remains in place. The OpSite that was used to secure the tube has been removed apparently by the Home Health nurse. I reapplied OpSite so as to secure the tube more fully. ASSESSMENT: There is no abnormality whatsoever with the entry site of the tube. There is no infection. No other problem at all. Care must be taken to secure the tube, so it does not get accidentally dislodged. It would be a big problem if it did. She understands that. She will continue to flush the tube as usual and is encouraged to shower and will allow water to cleanse the site of entry of the feeding tube the abdominal wall. MD JOI Varela/RAMONL /[id number] Electronically Signed By: MARILEE IBARRA MD 12/24/20 1126 PATIENT NAME: SEAN KHALIL CONSULTATION DATE OF : 00 REPORT #: [id number] PHYSICIAN: MARILEE IBARRA MD PCP: VINNY HIDALGO MD REPORT IS CONFIDENTIAL AND NOT TO BE RELEASED WITHOUT AUTHORIZATION [address] [address] Signed cc: MD Vinny MANUEL MD Copies: VINNY HIDALGO MD ~ Electronically Signed By: MARILEE IBARRA MD 12/24/20 1126 PATIENT NAME: SEAN KHALIL CONSULTATION DATE OF : 00 REPORT #: [id number] PHYSICIAN: MARILEE IBARRA MD PCP: VINNY HIDALGO MD REPORT IS CONFIDENTIAL AND NOT TO BE RELEASED WITHOUT AUTHORIZATION
== END 2020-12-22 13:50 | disposition home or self-care (01) ==
LOC: ED 12:27
DX: O99.891 Other specified diseases and conditions complicating pregnancy (principal); Z48.815 Encounter for surgical aftercare following surgery on the digestive system; Z88.7 Allergy status to serum and vaccine; Z88.0 Allergy status to penicillin; Z88.8 Allergy status to other drugs, medicaments and biological substances; Z79.899 Other long term (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; Z79.52 Long term (current) use of systemic steroids; Z3A.15 15 weeks gestation of pregnancy
CPT/HCPCS: 99283

== ENCOUNTER 2021-01-13 11:03 | Inpatient (IN) | payer OTHER ==
[~2021-01-13] VITALS: Ht 152.4 cm; Wt 61.6 kg
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
[2021-01-13] MEDS ORDERED: PROMETHAZINE HC25 M1 PO (11:21)
--- NOTE | 2021-01-14 08:34 | HP ---
[facility] [address], [place] [address] Signed ADMISSION DATE: 01/13/[address] Neri CHIEF COMPLAINT: Nausea and vomiting. HISTORY: The patient is a 20-year-old G1, P0, DANILO 06/20/2021 at 17 weeks with history of severe hyperemesis with malnutrition and dehydration throughout the entire . She has had several ER visits, outpatient IV fluid administrations and two previous hospital admissions for this. She has had cholecystectomy and feeding jejunostomy placed in prior admissions and was finally improving, doing well and able to take some foods and so was not using the feeding jejunostomy the past few days until yesterday when she began having increased nausea and vomiting. She tried opening the J-tube and had yellowish foul-smelling liquid come out, so came to the emergency room. There was no evidence of infection or problems with the tube, thought to be gastric fluid, but the patient was severely dehydrated and hypokalemic, so was admitted for IV hydration and potassium repletion. PAST MEDICAL HISTORY: Positive for depression, ADHD, and history of stress ulcers. She is currently 17 weeks . PAST SURGICAL HISTORY: Eye muscle surgery in 2000, excision of lipoma on her back in 2019 and cholecystectomy in 11/2020 and J tube placement again 11/2020. CURRENT MEDICATIONS: Zofran 4 mg, Phenergan 25 mg, and omeprazole 20 mg. ALLERGIES: Penicillin and chlorhexidine. SOCIAL HISTORY: Nonsmoker and nondrinker. PHYSICAL EXAMINATION: GENERAL: The patient is pale, somewhat lethargic, but easily arousable. VITAL SIGNS: Stable. ABDOMEN: Soft, nontender. Electronically Signed By: VINNY NERI MD 01/14/21 0834 PATIENT NAME: SEAN KHALIL HISTORY AND PHYSICAL DATE OF : 00 REPORT #: [id number] PHYSICIAN: VINNY NERI MD PCP: VINNY NERI MD REPORT IS CONFIDENTIAL AND NOT TO BE RELEASED WITHOUT AUTHORIZATION [facility] [address], [place] [address] Signed EXTREMITIES: Normal. IMPRESSION: Severe hyperemesis with dehydration and hypokalemia. PLAN: IV fluid hydration, IV potassium and medication for nausea and vomiting. We will monitor progress and hope to resolve symptoms in the next day or two. Vinny Neri MD MJB/MODL /[id number] Copies: ~ Electronically Signed By: VINNY NERI MD 01/14/21 0834 PATIENT NAME: SEAN KHALIL HISTORY AND PHYSICAL DATE OF : 00 REPORT #: [id number] PHYSICIAN: VINNY NERI MD PCP: VINNY NERI MD REPORT IS CONFIDENTIAL AND NOT TO BE RELEASED WITHOUT AUTHORIZATION
--- NOTE | 2021-01-14 14:23 | EKG ---
[facility] [address] [facility] [place], [place] [address] Signed Sinus tachycardia Nonspecific ST abnormality Abnormal ECG No previous ECGs available Confirmed by AVIS ART DO ([id number]) on 01/14/2021 2:22:56 PM Electronically Signed By: AVIS ART DO 01/14/21 1423 PATIENT NAME: SEAN KHALIL Electrocardiogram DATE OF : 00 PHYSICIAN: AVIS ART DO REPORT #: [id number] REPORT IS CONFIDENTIAL AND NOT TO BE RELEASED WITHOUT AUTHORIZATION
--- NOTE | 2021-01-16 15:13 | EKG ---
[facility] [address] [facility] [place], [place] [address] Signed Sinus tachycardia Otherwise normal ECG No previous ECGs available Confirmed by AVIS ART DO ([id number]) on 01/16/2021 3:12:58 PM Electronically Signed By: AVIS ART DO 01/16/21 1513 PATIENT NAME: SEAN KHALIL Electrocardiogram DATE OF : 00 PHYSICIAN: AVIS ART DO REPORT #: [id number] REPORT IS CONFIDENTIAL AND NOT TO BE RELEASED WITHOUT AUTHORIZATION
--- NOTE | 2021-01-17 12:21 | CONS ---
[facility] [address] [place], [place] [address] Signed DATE OF CONSULTATION: 01/14/2021 REQUESTING PHYSICIAN: Vinny Hidalgo MD. REASON FOR CONSULTATION: Questionable need for IV access for persistent hyperemesis gravidarum. HISTORY: This 20-year-old white woman is and well known to me from the past. She is diagnosed with hyperemesis gravidarum. She was thought to have acalculous cholecystitis and underwent cholecystectomy in early November of this year and underwent laparoscopic cholecystectomy for that purpose, which did not really settle down her persistent vomiting. Upper endoscopy with placement of a nasoenteric feeding tube was undertaken which she promptly regurgitated back up and she ultimately on December 14, 2020, underwent open feeding jejunostomy with a 14-Latvian red rubber catheter with multiple holes. This was beneficial to her for initiation of jejunal tube feeds. She was able to be discharged from the hospital. She was recently seen in the emergency room by Dr. Dominguez on January 13, 2021 and [address] by Dr[address] Hidalgo, having previously been tolerating oral intake to some degree, but ultimately needing resumption of jejunal tube feeding which she had discontinued. She opened the jejunostomy tube and it drained bilious fluid, which would be expected. She was concerned about this and about the tube itself regarding erythema at the entry site and was ultimately admitted by Dr. Hidalgo. She was found to have no adverse findings in the jejunal feeding tube. No sign of erythema or infection or other issues related to it. Dr. Hidalgo was consulted with Maternal Medicine elsewhere, who recommended she may require a "PICC catheter." On that basis, I was consulted once again. The patient tells me that she is only tolerating a small amount of regular food, but she does not tolerate the jejunal tube feedings much either because it causes "nausea." Notably, she has had no vomiting of any enteric feeding tube material as the catheter is well downstream, which would preclude into the stomach to allow regurgitation of it. Today, she had an episode of tachycardia which was unexplained to as high as 160 beats per minute and subsequent attack 240 beats per minute with some evidence of poor perfusion. On that basis, she has been placed on a low-dose beta-opal, metoprolol 12.5 mg p.o. b.i.d. As she has had recurrent bouts of the tachycardia, a chest CT scan has been performed at 06:11 p.m., which showed no evidence of pulmonary embolism or other acute problem. Electronically Signed By: MARILEE IBARRA MD 01/17/21 1221 PATIENT NAME: SEAN KHALIL CONSULTATION DATE OF : 00 REPORT #: [id number] PHYSICIAN: MARILEE IBARRA MD PCP: VINNY HIDALGO MD REPORT IS CONFIDENTIAL AND NOT TO BE RELEASED WITHOUT AUTHORIZATION [address] [address] Signed At the time of admission, patient had issues of hypomagnesemia and hypochloremia and repletion has been undertaken on that basis with the assistance of Dr. Guadarrama, the hospitalist. LABORATORY DATA: At admission included a white count of 8.0, hematocrit of 36.1, platelets 258,000. Chem profile which showed a potassium of 2.9. Urinalysis which was reasonably normal though there were 5 red cells per high-power field and 2 white cells. COVID serology was negative. PHYSICAL EXAMINATION: GENERAL: She is accompanied by her mother at this time. She is missing her front upper middle teeth. HEENT: Her mucous membranes are reasonably moist. She has a peripheral IV running. CHEST: Shows normal respiratory excursion. ABDOMEN: Nondistended. The feeding tube has the opening occluded by clear OpSite. There is no erythema around the entry site of the feeding tube. EXTREMITIES: Show no clubbing, cyanosis, or edema. ASSESSMENT: Jejunal feeding tube in my opinion should be employed essentially 24 hours a day in her case. This would allow nutrient support for her ongoing as well as hydration as needed. It seems there are some impediments to her accepting this concept at this time. In any case, if she is not going to be using the jejunal tube for feeding at this point, it should at least be flushed to preserve the option if she should change her mind in the near future. As regards to the peripheral IV, a PICC tube is of course a peripherally inserted central catheter. This is done by nursing personnel. An option different from that might be a tunneled Groshong catheter, which would provide IV access to the central system if she is intending to get IV fluids on a more routine basis. The advantage to this catheter would be less infectious risk than a peripherally inserted catheter in the upper extremity. I will review this further with Dr. Hidalgo. I will write orders for flushing of the feeding tube if they have not already been written but strong consideration should be given for essentially 24-hour infusion of jejunal feeding as a baseline issue and perhaps occasional IV fluids if she is unable to tolerate a rate that is acceptable for infusion of fluids and enteral tube feeds. Marilee Ibarra MD Electronically Signed By: MARILEE IBARRA MD 01/17/21 1221 PATIENT NAME: SEAN KHALIL CONSULTATION DATE OF : 00 REPORT #: [id number] PHYSICIAN: MARILEE IBARRA MD PCP: VINNY HIDALGO MD REPORT IS CONFIDENTIAL AND NOT TO BE RELEASED WITHOUT AUTHORIZATION [facility] [address] [facility] [place], [place] [address] Signed /[facility] /[id number] cc: MD Pillo Weiss MD Copies: VINNY HIDALGO MD, BRIAN DO ~ Electronically Signed By: MARILEE IBARRA MD 01/17/21 1221 PATIENT NAME: SEAN KHALIL CONSULTATION DATE OF : 00 REPORT #: [id number] PHYSICIAN: MARILEE IBARRA MD PCP: VINNY HIDALGO MD REPORT IS CONFIDENTIAL AND NOT TO BE RELEASED WITHOUT AUTHORIZATION
[2021-01-19] MEDS ORDERED: CHLORPROMAZINE25 MG PO (11:33)
[2021-01-19] MEDS ORDERED: METOPROLOL TART50 MG PO (11:34)
[2021-01-19] MEDS ORDERED: OMEPRAZOLE20 MG PO (11:37)
[2021-01-19] MEDS ORDERED: VERAPAMIL ER120 M1 PO (11:37)
[2021-01-19] MEDS ORDERED: POTASSIUM CHLO20 ME2 PO (11:40)
[2021-01-19] MEDS ORDERED: MAGNESIUM OXID400 M2 PO (11:44)
== END 2021-01-19 13:30 | disposition home or self-care (01) | DRG 832 ==
LOC: ED 11:03 → MS 11:06
PROVIDERS: ADMIT General Practice; ATTEND General Practice
DX: O21.1 Hyperemesis gravidarum with metabolic disturbance (principal); O99.412 Diseases of the circulatory system complicating pregnancy, second trimester; I47.1 Supraventricular tachycardia; Z20.822 Contact with and (suspected) exposure to COVID-19; Z3A.17 17 weeks gestation of pregnancy; O25.12 Malnutrition in pregnancy, second trimester; O99.342 Other mental disorders complicating pregnancy, second trimester; F41.9 Anxiety disorder, unspecified; F32.9 Major depressive disorder, single episode, unspecified; F90.9 Attention-deficit hyperactivity disorder, unspecified type; O99.891 Other specified diseases and conditions complicating pregnancy; R07.9 Chest pain, unspecified; Z79.899 Other long term (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; Z88.0 Allergy status to penicillin; Z88.8 Allergy status to other drugs, medicaments and biological substances; Z88.7 Allergy status to serum and vaccine; Z93.4 Other artificial openings of gastrointestinal tract status
CPT/HCPCS: 36415; 71260; 80048; 80053; 81001; 83690; 83735; 84100; 84132; 84443; 84484; 85025; 87493; 93005; 93010; 93306; 96366; 96367; 96374; 96375; 96376; 99285-25; 99406; C9113; G0378; J1790; J2405; J2550; J3230; J3411; J3415; J3475; J3480; J7040; J7042; J7060; J7121; Q9967; U0003

== ENCOUNTER 2021-02-11 06:23 | Emergency (ER) | payer OTHER ==
[~2021-02-11] VITALS: Ht 152.4 cm; Wt 64.0 kg
[~2021-02-11 06:23] MED LIST changes: +MAGNESIUM OXID400 M2 PO; +METOPROLOL TART50 MG PO; +POTASSIUM CHLO20 ME2 PO; +PROMETHAZINE HC25 M1 PO; +VERAPAMIL ER120 M1 PO
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
[2021-02-11] MEDS ORDERED: PROMETHAZINE HC25 M1 PO (06:44)
[2021-02-11] MEDS ORDERED: ZOFRAN4 MG PO (06:45)
== END 2021-02-11 08:36 | disposition home or self-care (01) ==
LOC: ED 06:23
DX: O99.891 Other specified diseases and conditions complicating pregnancy (principal); K94.23 Gastrostomy malfunction; Z3A.21 21 weeks gestation of pregnancy; Z88.0 Allergy status to penicillin; Z88.7 Allergy status to serum and vaccine; Z88.8 Allergy status to other drugs, medicaments and biological substances; Z79.899 Other long term (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
CPT/HCPCS: 99282

== ENCOUNTER 2021-03-25 20:59 | Observation (INO) | payer OTHER ==
[~2021-03-25] VITALS: Ht 152.4 cm; Wt 64.1 kg
[~2021-03-25 20:59] MED LIST changes: +ZOFRAN4 MG PO
--- NOTE | 2021-03-26 08:24 | NUR ---
PT BATHING IN TUB THIS AM. PROVIDED COOL WASHCLOTH AND ICE WATER PER REQUEST. BACK TO BED. VSS. IV LR INFUSING @ 150 MLS/HR. LEFT HAND 20 G IV REMAINS PATENT. THORAZINE INFUSION STARTED PER NEW ORDERS. PT RESTING IN BED. HAS HAD 2 EPISODES OF BILE COLORED EMESIS SINCE BACK TO BED, HAS SUBSIDED FOR NOW. CALL LIGHT IN REACH.
[2021-03-26] MEDS ORDERED: ONDANSETRON ODT4 MG PO (10:22)
--- NOTE | 2021-03-26 10:39 | NUR ---
REPORT RECEIVED FROM C NURSE AND PT. CARE RESUMED. PT. IS VERY DROWSY BUT FOLLOWS COMMANDS WITH EYES CLOSED. LUNGS CLEAR. BOWEL TONES ACTIVE. IV SITE WNL. PT. REPORTS BACK PAIN BUT DOES NOT SEEM TO BE IN DISTRESS. J-TUBE INTACT AND NOT IN USE. DISCUSSED SAFETY. PT. LEFT RESTING WITH CALL LIGHT IN REACH.
--- NOTE | 2021-03-26 11:16 | NUR ---
PT. HR WAS SUSTAINED IN THE 120'S. MD NOTIFIED. TELEPHONE ORDERS GIVEN FOR METOPROLOL, VERAPAMIL, THORAZINE, AND NPO DIET.
--- NOTE | 2021-03-26 11:33 | NUR ---
PT. VOMITED 100ML CLEAR YELLOW EMESIS. ZOFRAN IVP ADMIN.
--- NOTE | 2021-03-26 16:10 | NUR ---
MD NOTIFIED ABOUT PT. REQUEST TO GO HOME. MD WILL DISCHARGE WITH PRESCRIPTION FOR PO POTASSIUM.
[2021-03-26] MEDS ORDERED: TYLENOL EXTRA500 MG PO (16:27)
--- NOTE | 2021-03-26 16:34 | NUR ---
MED REC COMPLETE
--- NOTE | 2021-03-26 17:06 | NUR ---
ALL DISCHARGE INSTRUCTIONS REVIEWED WITH PATIENT. VITALS STABLE AND DENIES NAUSEA, PAIN. PT. LEFT WITH FAMILY MEMBER, INSURANCE ASSOCIATE BY WHEELCHAIR TO VEHICLE WITH ALL BELONGINGS
== END 2021-03-26 17:00 | disposition home or self-care (01) ==
LOC: FBC 20:59 → FBCO 20:59 → FBC 03-26 07:40 → MS 03-26 07:49 → FBC 03-26 09:30 → MS 03-26 09:30 → FBCO 03-26 09:31 → MS 03-26 09:31
PROVIDERS: ADMIT General Practice; ATTEND General Practice
DX: O21.0 Mild hyperemesis gravidarum (principal); O99.282 Endocrine, nutritional and metabolic diseases complicating pregnancy, second trimester; E87.6 Hypokalemia; Z3A.27 27 weeks gestation of pregnancy
CPT/HCPCS: 80048; 80053; G0378; G0463; J2405; J2550; J3230; J3480; J7060; J7121

== ENCOUNTER 2021-05-05 20:18 | Observation (INO) | payer OTHER ==
[~2021-05-05] VITALS: Ht 152.4 cm; Wt 66.2 kg
[~2021-05-05 20:18] MED LIST changes: +TYLENOL EXTRA500 MG PO
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
[2021-05-05] MEDS ORDERED: PROMETHAZINE HC25 M1 PO (20:37)
--- NOTE | 2021-05-06 00:45 | NUR ---
PATIENT ARRIVED FROM OB VIA W/C. PATIENT STILL HAVING N/V. PATIENT INTO BED AND CHARGE NURSE GEETHA AND ASHLEY MARTINEZ ASSISTING IN GETTING PATIENT SETTLED IN. GOING TO LOOK AT ORDERS FOR NAUSEA MEDS.
--- NOTE | 2021-05-06 01:05 | NUR ---
PATIENT CONTINUES HAVING N/V AND IS NOT DUE FOR MORE ZOFRAN YET. WAS CALLED AND ZOFRAN ORDER WAS INCREASED TO 4-8MG IV Q4 HOURS PRN N/V 1ST CHOICE AND THEN PROMETHAZINE 25MG IV WAS ORDERED TO BE GIVEN Q4 HOURS PRN N/V 2ND CHOICE. THIS RN READ THESE ORDERS BACK AND CONFIRMED THEM DR. NERI SAID TO GET PATIENT'S RECORDS FROM THE LAST VISIT AND MAKE SURE PATIENT HAD HER OTHER MEDICATIONS ORDERED WELL. GEETHA MARSH RN IS WORKING ON THIS.
--- NOTE | 2021-05-06 01:40 | NUR ---
PATIENT SETTLED INTO BED AND 8MG IV ZOFRAN HAS BEEN GIVEN. PATIENT HAD VOMITED 200MLS OF GREENISH BILE LIKE FLUID. PATIENT GIVEN ICE CHIPS AND WARM PACKS IN A PILLOW CASE FOR HER BACK. LOW BACK PAIN IS 4/10. PATIENT IS READY TO TRY AND GET SOME SLEEP. PATIENT'S GRANDMOTHER IS GOING TO BE SLEEPING ON THE SOFA. PILLOWS AND BLANKETSHAVE BEEN SUPPLIED TO HER. CALL LIGHT IS IN REACH AND LIGHTS HAVE BEEN TURNED DOWN.
--- NOTE | 2021-05-06 03:50 | NUR ---
PT IS HAVING N/V, 200mls EMESIS COLLECTED, PROVIDED PT NEW EMESIS BAG, PT ASKED ABOUT GETTING NAUSA MEDS, INFOMED SUPERVISOR FURNACE ROOM, PROVIDED PT DAMP WASHCLOTH, NO FURTHER NEEDS AT THIS TIME
--- NOTE | 2021-05-06 04:20 | NUR ---
PATIENT STARTED VOMIMITING AGAIN AFTER GETTING UP TO THE BATHROOM INDEPENDENTLY AND COMING BACK TO BED. 25MG IV PHENERGAN IN 20MLS NS GIVEN OVER 10MINUTES VIA IV PUMP AND NAUSEA IS EASING UP. ASHLEY MARTINEZ GETTING NEW WARM PACKS FOR PATIENT'S BACK. PATIENT HAS NO OTHER NEEDS AT THIS TIME. CALL LIGHT IS IN REACH.
--- NOTE | 2021-05-06 05:44 | NUR ---
PATIENT'S NAUSEA HAS SUBSIDED FROM THIS LAST DOSE OF IV NAUSEA MEDICATION AND SHE IS ABLE TO REST. PATIENT'S GRANDMOTHER HAS GONE HOME. PATIENT'S CALL LIGHT IS IN REACH AND SHE HAS NO CARE NEEDS AT THIS TIME.
--- NOTE | 2021-05-06 07:44 | NUR ---
PATIENT CALLED AT 0715 AND WAS VOMITING. SHE REQUESTED A SHOWER AND I TOLD HER AFTER REPORT I WOULD GET THE SHOWER SET UP. PATIENT IS NOW SLEEPING IN BED. WILL CHECK BACK SOON. CALL LIGHT IN REACH.
--- NOTE | 2021-05-06 08:04 | NUR ---
Patient in bed resting, eyes closed, respirations even and non labored. Patient has no notable distress. Personal supplies and call light within reach.
--- NOTE | 2021-05-06 09:20 | NUR ---
Zofran 4mg IVP admin for reports of nausea.
--- NOTE | 2021-05-06 09:35 | NUR ---
Dr. Hidalgo updated with ultrasound results.
[2021-05-06] MEDS ORDERED: POTASSIUM CHLO20 MEQ PO (09:40)
[2021-05-06] MEDS ORDERED: PROMETHAZINE12.5 M1 PO (09:42)
--- NOTE | 2021-05-06 09:43 | NUR ---
MED REC COMPLETE
--- NOTE | 2021-05-06 10:09 | NUR ---
Patient in shower at this time.
--- NOTE | 2021-05-06 10:22 | NUR ---
VERBAL ORDER DR. NERI/ Cecy GREENFIELD, RN, FOR 1 VIAL OF MULTIVITAMINS AND 100 MG THIAMINE IV TO BE ADDED TO 1 LITER OF LR DAILY AND SCD'S TO BE WORN WHILE IN BED.
--- NOTE | 2021-05-06 11:00 | NUR ---
Phenergan 25mg IVP admin per pump for N/V. Patient showered, back to bed at this time. SCD's placed. Patient reapplied her home tens unit for her reported chronic back pain. Family member at bedside. No reported needs. IV fluids changed per provider order. Education provided to patient regarding plan of care.
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
--- NOTE | 2021-05-06 12:37 | NUR ---
Patient's mother left room and reports she will return in approximately 15-20 minutes. Patient resting in bed, eyes closed, respirations even and non labored. IV patent, fluids infusing per provider order. Patient has no distress. Personal supplies and call light within reach.
--- NOTE | 2021-05-06 13:39 | NUR ---
Zofran 4mg ivp admin for n/v.
--- NOTE | 2021-05-06 13:45 | NUR ---
PTS MOTHER CAME OUT TO THE DESK AND ASKED FOR A GRIEVANCE FORM. I LET HER KNOW THAT I DID NOT HAVE ONE. I LET HER KNOW THAT WHEN MARIA ELENA WAS AVAILABLE SHE WOULD TALK WITH HER. THAT DID NOT MAKE HER HAPPY, SHE WENT BACK TO THE PATIENTS ROOM. ABOUT FIVE MINUTES LATER SHE STORMED OUT TO THE NURSES STATION AGAIN AND WAS LEAVING AND INFORMED US THAT SHE WAS GETTING AHOLD OF KELSEA OR ABHI WHO IS A DISABILITIES VPK TEACHER. I TOLD HER OKAY. DID NOT ASK HER WHY SHE WASNT WEARING HER MASK BECAUSE I HAD HEARD ABOUT HER PRIOR INCIDENT. AT THAT POINT I CALLED ASSISTED LIVING EXECUTIVE DIRECTOR AND SHE SAID TO CALL SÓCAR AND MARIA ELENA. MARIA ELENA WAS IN A MEETING SO I CALLED ÓSCAR AND LET HIM KNOW. I WALKED UP TO THE BOARDROOM AND INTERRUPTED THEIR MEETING SO MARIA ELENA WOULD BE AWARE OF THE SITUATION. WAS DIRECTED TO SHAY, SHAY WENT TO THE FRONT TO MEET WITH SECURITY. JUST NOW THE PATIENT CALLED THE NURSES STATION ASKING FOR HER MOM TO COME BACK. I CALLED MARIA ELENA AND DISCUSSED IT A BIT MORE. AT THIS POINT THE PATIENT HAS ALREADY HAD HER GRANDMOTHER HERE OVER NIGHT AND THIS MORNING, WHICH OUR HOSPITAL POLICY IS ONE VISITOR PER DAY. I LET THE PATIENT KNOW.
--- NOTE | 2021-05-06 14:08 | NUR ---
Spoke with Marlene who remains face down during our conversation. She states no change. Cont. to live with Jones and he is her emergency contact. Pt has a feeding tube and states the tube is no longer stitched in place and she taped it. She cont. to use with syringes and not bag feedings. Lab arrives and ask pt to sit up and pt is naked on the top and depends on the bottom. Lab asks her if she is comfort able this way and she states, "yes". Pt denies needs and plans on return home when discharged.
--- NOTE | 2021-05-06 15:27 | OBS ---
[facility] [address], [place] [address] Signed DATE OF SERVICE: 05/05/2021 CHIEF COMPLAINT: Nausea and vomiting at 33 weeks with history of severe hyperemesis with hypovolemia throughout the entire . HISTORY OF PRESENT ILLNESS: The patient is 21-year-old, G1, P0, DANILO 06/20/2021, approximately 33 weeks gestation with long history of hyperemesis gravidarum requiring multiple hospitalizations for nausea, vomiting, hypokalemia and hypovolemia. She also had multiple outpatient IV hydration treatments. The patient continued this with nausea off and on throughout the day with several episodes of emesis and has had multiple treatments, but yesterday afternoon, the nausea and vomiting became much worse, so she went to the emergency room last night where she was found to be dehydrated with nausea and vomiting, also noted to have elevated liver enzymes and so was admitted for observation and IV hydration and treatment of nausea and vomiting. Patient denies excessive Tylenol use or illegal/IV drug use. Patient denies any increasing abdominal pain and has previously had gall bladder removed. Patient has been getting ENsure through J-tube to help with nutrition and hydration. PAST MEDICAL HISTORY: Current again complicated by severe hyperemesis. Medical history of stress ulcers, history of depression and anxiety and no current medications at the beginning of the . SURGERY: 2000 eye muscle surgery; 2019, excision of lipoma from her back. During this , she had cholecystectomy and J tube placement both for severe hyperemesis. ALLERGIES: Penicillin and chlorhexidine. CURRENT MEDICATIONS: vitamin 1 a day, Zofran ODT 4 mg sublingual as needed every 6 hours, omeprazole 20 mg daily, magnesium oxide 400 mg two tablets twice a day, metoprolol 50 mg twice a day, verapamil 120 mg once a day, promethazine 12.5 mg every 12 hours as needed for nausea and vomiting, chlorpromazine 25 mg as needed for nausea and vomiting twice a day. SOCIAL HISTORY: Nonsmoker. No alcohol. No illicit or recreational drugs. PHYSICAL EXAMINATION: Electronically Signed By: JOSÉ ANTONIO NERI MD 05/06/21 1527 PATIENT NAME: SEAN KHALIL OBSERVATION NOTE DATE OF : 00 REPORT #: [id number] PHYSICIAN: JOSÉ ANTONIO NERI MD PCP: NO PRIMARY CARE PHYSICIAN REPORT IS CONFIDENTIAL AND NOT TO BE RELEASED WITHOUT AUTHORIZATION [facility] [address], [place] [address] Signed VITAL SIGNS: The patient is afebrile. Vital signs are stable. GENERAL: The patient is in mild distress again with frequent nausea and vomiting. Good range of motion in extremities. ABDOMEN: Shows gravid uterus consistent with 33 weeks gestation. Good heart tones noted. Abdomen is just diffusely and mildly tender. There is no significant right upper quadrant tenderness. IMPRESSION: Severe hyperemesis with nausea and vomiting, dehydration. The patient had CBC, CMP, and UA and COVID test in ER last night. The main abnormality was elevated liver enzymes. PLAN: The patient is started on IV hydration. We will add thiamine and multivitamins daily. Check acute hepatitis panel and repeat CBC, CMP and magnesium in the a.m. and we will attempt restarting her medications for nausea and vomiting. Discussed plan with the patient. Patient has been here multiple times and understands plan and is willing to try this to feel better. MD DENEEN Weiss/MODL /[id number] Copies: ~ Electronically Signed By: JOSÉ ANTONIO NERI MD 05/06/21 1527 PATIENT NAME: SIMRANSEAN PANCHAL OBSERVATION NOTE DATE OF : 00 REPORT #: [id number] PHYSICIAN: JOSÉ ANTONIO NERI MD PCP: NO PRIMARY CARE PHYSICIAN REPORT IS CONFIDENTIAL AND NOT TO BE RELEASED WITHOUT AUTHORIZATION
--- NOTE | 2021-05-06 15:59 | NUR ---
Phenergan 25mg IVP admin via pump per protocol for reports of nausea.
--- NOTE | 2021-05-06 17:23 | NUR ---
Patient resting in bed, eyes closed, respirations even and non labored. IV fluids infusing per provider order. SCD's on. No distress. Call light within reach.
--- NOTE | 2021-05-06 18:22 | NUR ---
Zofran 4mg ivp admin for reports of nausea.
--- NOTE | 2021-05-06 19:25 | NUR ---
Resting, room air, IVF infusing, turns self in bed, no n/v s/sx at this time,
--- NOTE | 2021-05-06 20:15 | NUR ---
PT CALLED REQUESTED AND RECEIVED A WARM BLANKET. MULT BLANKETS OVER PT, INCLUDING HER HOME BLANKET. WATCHING PROGRAM ON HER PHONE, ALONE IN THE ROOM.
--- NOTE | 2021-05-06 20:58 | NUR ---
In bed, opens eyes well, no c/o pain. turns and repositions self in bed. IVF infusing . On room air, lungs clear bilat, alow abd feeding tube. abd, GHADA, FHR at 130, had 25cc green thin colored emesis when I was there. Medicated with Phenergan IV 25mg. cooperative with assessment
--- NOTE | 2021-05-06 23:23 | NUR ---
had 200cc thin green colored emesis, medicated with Zofran 4mg IV, IVF infusing, pt turns self in bed, voiding dark yellow urine
--- NOTE | 2021-05-07 03:44 | NUR ---
pt had 400cc green thin colored emesis, medicated with Phenergan 25mg IV. repositions self in bed, coop with assessment, ivf infusing,
--- NOTE | 2021-05-07 06:12 | NUR ---
Has slept off an don, on room air, turns and epositions self, has had multiple bouts of emesis green colore, thin- to - medium sputum consistency. On clears, liquid diet. fair tolerance, Has been medicated with Phenergan 25mg IV X2 and Zofran x1. Abd TF not being used. 33 weeks , FHR was 130 at begining of shift. no c/o abd problems r/t movement. IVF infusing voiding QS. Independent in room. uses call light
--- NOTE | 2021-05-07 07:41 | NUR ---
RECEIVED REPORT FROM DAY SHIFT RN. PATIENT IS RESTING IN BED WITH EYES CLOSED, RR 17. CALL LIGHT IN REACH.
--- NOTE | 2021-05-07 08:00 | NUR ---
patient resting in the bed, room organized. board updated. call lig within reach.
--- NOTE | 2021-05-07 09:13 | NUR ---
PATIENT ASSESMENT COMPLETED. PATIENT DENIES ANY PAIN. PATIENT GIVEN PRN ZOFRAN PER ORDER. PATIENTS VITALS TAKEN AND RECORDED. INTAKE AND OUPUT RECORDED. MORNING MEDS GIVEN PER ORDER. IV INFUSING PER ORDER. PATIENT DENIES ANY FURTHER NEEDS. CALL LIGHT IN REACH.
--- NOTE | 2021-05-07 09:34 | NUR ---
Patient's mother called this morning to ask how patient is doing. States she would like to have patient's portal login information and to speak with Maira Snow. Maira notified by Jas Rangel RN/ Nurse gambling floor supervisor. Discussed patient portal access with patient. States she does not want her mother to have her portal information. Informed her it will not be provided.
--- NOTE | 2021-05-07 10:20 | NUR ---
PATIENT SLEEPING. NO CHANGES IN DISCHARGE AT THIS TIME.
--- NOTE | 2021-05-07 11:15 | NUR ---
SRI CALLED AND REPORTS NAUSEA. PRN NAUSEA MEDICATION GIVEN PER ORDER. ULTRASOUND IS IN THE ROOM AT THIS TIME.
--- NOTE | 2021-05-07 12:31 | NUR ---
PATIENT IS BACK IN BED RESTING AFTER A SHOWER. PATIENTS EYES ARE CLOSED, RR 17. CALL LIGHT IN REACH. IV INFUSING PER ORDER.
--- NOTE | 2021-05-07 15:18 | NUR ---
[facility] RN IN PATIENTS ROOM TO COMPLETED NST.
--- NOTE | 2021-05-07 16:53 | NUR ---
THIS NEEDLE PUNCH MACHINE OPERATOR HELPER IN ROOM TO ASSIST PATIENT WITH DRESSING IN HOSPITAL GOWN AND PANTS FOR D/C. PATIENT HAS NO PERSONAL CLOTHING HERE. PATIENT VOMITED 200 IN EMESIS BAG. NEW BAG PROVIDED. CALL LIGHT AND PERSONAL ITEMS WITHIN EASY REACH
--- NOTE | 2021-05-07 17:19 | NUR ---
PATIENT ASSISTED TO GET DRESSED. PATIENT IS NOW SL. DISCHARGE VITALS COMPLETED. PATIENT IS ATTMEPTING TO CALL RIDE. NO FURTHER NEEDS NOTED. CALL LIGHT IN REACH.
[2021-05-07] MEDS ORDERED: CHLORPROMAZINE25 MG PO (17:31)
--- NOTE | 2021-05-07 17:38 | NUR ---
PATIENTS DICHARGE INSTRUCTIONS PROVIDED ALL QUESTIONS ANSWERED. IV OUT. LISBETH RAMIREZ ASSISTED PATIENT TO WHEELCHAIR TO PATIENTS TRANSPORTATION IN A PROVATE AUTO TO HOME. MOTHER IN LAW WILL BE TRANSPORTING PATIENT.
== END 2021-05-07 17:40 | disposition home or self-care (01) ==
LOC: ED 20:18 → MS 20:20
PROVIDERS: ADMIT General Practice; ATTEND General Practice
DX: O21.1 Hyperemesis gravidarum with metabolic disturbance (principal); O26.893 Other specified pregnancy related conditions, third trimester; R79.89 Other specified abnormal findings of blood chemistry; Z3A.33 33 weeks gestation of pregnancy; Z88.0 Allergy status to penicillin; Z88.8 Allergy status to other drugs, medicaments and biological substances; Z88.7 Allergy status to serum and vaccine; Z20.822 Contact with and (suspected) exposure to COVID-19
CPT/HCPCS: 59025; 76818; 76819; 80053; 81001; 83690; 83735; 85025; 96365; 96366; 96374; 96375; 96376; 99284-25; C9113; C9803; G0378; J2405; J2550; J3230; J3411; J7030; J7120; J7121; U0003

== ENCOUNTER 2021-06-01 13:58 | Inpatient (IN) | payer OTHER ==
[~2021-06-01] VITALS: Ht 152.4 cm; Wt 65.3 kg
[~2021-06-01 13:58] MED LIST changes: +CHLORPROMAZINE25 MG PO; +POTASSIUM CHLO20 MEQ PO
--- NOTE | 2021-06-01 16:26 | NUR ---
06/01/21 1626 Tia Martinez 1516 PT ARRIVED IN PACU SLEEPY. DURING FUNDAL CHECK, PT SCREAMING AT RN TO STOP. REMINDED PT WHY FUNDAL CHECKS ARE IMPORTANT. 1523 ANESTHESIA GIVING PT IV MEDICATION FOR PAIN CONTROL. 1537 C/O ABD PAIN 9/10. FENTANYL 50MCG GIVEN IVP. 1548 PAIN DOWN TO 7/10. FENTANYL 50MCG GIVEN IVP. 1600 PAIN DOWN TO 5/10. REQUESTING TO RETURN TO [facility] TO SEE BABY AND . 1606 TO [facility]. PT TRANSFERED FROM CURRENT BED TO NEW BED IN ROOM 108 WITH 3 PERSON ASSIST. SPOUSE AT BEDSIDE.
--- NOTE | 2021-06-01 17:59 | PR ---
[facility] [address] [facility] [place] [address] Signed PP Progress Notes Datetime Report Generated by CPN: 06/01/2021 17:59 SUBJECTIVE: [id number] Pain: Within Normal Limits Nausea/Vomiting: Denies Vital Signs: [id number] Vital Signs: Reviewed; Within Normal Limits IMPRESSION/PLAN/PROCEDURES: [id number] Impression: Normal Progression Plan: Continue Present Management Procedures: None Progress Notes: Stable post-op. Discussed procedure, reasons for emergency C/S, post-op plans. Will wait on heart meds and additionsl nausea meds until needed. Questions answered. Signing Physician: José Antonio Neri MD Copies: ~ *Electronically Signed* 06/01/21 1759 JOSÉ ANTONIO NERI MD PATIENT NAME: SEAN KHALIL PROGRESS NOTE DATE OF : 00 PHYSICIAN: JOSÉ ANTONIO NERI MD RPT #: [id number] REPORT IS CONFIDENTIAL AND NOT TO BE RELEASED WITHOUT AUTHORIZATION
--- NOTE | 2021-06-02 10:29 | PR ---
[facility] [address] [facility] [place] [address] Signed PP Progress Notes Datetime Report Generated by CPN: 06/02/2021 10:29 SUBJECTIVE: [id number] Pain: Within Normal Limits Nausea/Vomiting: Present Vital Signs: [id number] Vital Signs: Reviewed; Within Normal Limits Abdomen/Uterus: Normal Lochia: Normal Extremities: Normal Incision: Normal IMPRESSION/PLAN/PROCEDURES: [id number] Impression: Normal Progression Plan: Continue Present Management Procedures: None Progress Notes: Doing well, normal post-op pain, some nausea; has medication ordered. Encouraged to increase activity as tolerated. Signing Physician: José Antonio Neri MD Copies: ~ *Electronically Signed* 06/02/21 1029 JOSÉ ANTONIO NERI MD PATIENT NAME: SEAN KHALIL PROGRESS NOTE DATE OF : 00 PHYSICIAN: JOSÉ ANTONIO NERI MD RPT #: [id number] REPORT IS CONFIDENTIAL AND NOT TO BE RELEASED WITHOUT AUTHORIZATION
--- NOTE | 2021-06-02 18:27 | PR ---
[facility] [address] [facility] [place], [place] [address] Signed PP Progress Notes Datetime Report Generated by CPN: 06/02/2021 18:27 SUBJECTIVE: [id number] Pain: Within Normal Limits Nausea/Vomiting: Present Nausea/Vomiting Comments: Eating dinner without problem Vital Signs: [id number] Vital Signs: Reviewed; Within Normal Limits Abdomen/Uterus: Normal Lochia: Normal Extremities: Normal Incision: Normal IMPRESSION/PLAN/PROCEDURES: [id number] Impression: Normal Progression Plan: Continue Present Management Procedures: None Progress Notes: J-tube fell out, even with Opsite over entire opening. Disccussed with Dr. Cortes - no treatment needed, just cover with gauze, can call him if any signs of infection or excessive drainage. Should heal spontaneously in 7-10 days. Discussed with patient. Signing Physician: José Antonio Neri MD Copies: ~ *Electronically Signed* 06/02/21 182 JOSÉ ANTONIO NERI MD PATIENT NAME: SEAN KHALIL PROGRESS NOTE DATE OF : 00 PHYSICIAN: JOSÉ ANTONIO NERI MD RPT #: [id number] REPORT IS CONFIDENTIAL AND NOT TO BE RELEASED WITHOUT AUTHORIZATION
--- NOTE | 2021-06-03 11:54 | OR ---
[facility] [place] [facility] [address] [place], [place] [address] Signed DATE OF OPERATION: 06/01/2021 SURGEON: Vinny Hidalgo MD The patient of Dr. Hidalgo PREOPERATIVE DIAGNOSES: 1. bradycardia and prolonged decelerations on admission. 2. Severe hyperemesis throughout . POSTOPERATIVE DIAGNOSES: 1. bradycardia and prolonged decelerations on admission. 2. Severe hyperemesis throughout . PROCEDURE: Emergency low transverse segment section, delivery of live female . CARDIAC CATH LAB TECHNOLOGIST: Lo Oneill MD. ANESTHESIA: General. ESTIMATED BLOOD LOSS: 650 mL. COMPLICATIONS: None. DRAINS: Sesay to bladder. FINDINGS: Live female infant. The Apgars 6 and 8. Weight 5 pounds 0 ounces. Normal uterus, normal tubes and ovaries bilateral. There was moderate meconium present, also a nuchal cord and occult cord prolapse. Normal tubes and ovaries bilateral. DESCRIPTION OF PROCEDURE: The patient was brought to the operating room from triage because of bradycardia and was immediately prepped and draped in usual sterile fashion. Sesay catheter was Electronically Signed By: VINNY HIDALGO MD 06/03/21 1154 PATIENT NAME: SEAN KHALIL OPERATIVE REPORT DATE OF : 00 REPORT #: [id number] PHYSICIAN: VINNY HIDALGO MD PCP: NO PRIMARY CARE PHYSICIAN REPORT IS CONFIDENTIAL AND NOT TO BE RELEASED WITHOUT AUTHORIZATION [facility] [place] [facility] [address] [place], [place] [address] Signed placed in the bladder. As soon as the general anesthesia was obtained, a Pfannenstiel skin incision was made with a scalpel, dissecting through the skin, the subcutaneous tissue nicking the fascia. The fascia was extended in transverse fashion using curved scissors. The underlying abdominal musculature was bluntly and sharply from the fascia above and below the incision. The abdominal musculature was bluntly along the midline. The peritoneum opened with blunt dissection and the peritoneum opened with blunt dissection. The Steven self-retaining retractor was inserted into the incision and tightened in place. The lower uterine segment identified carefully nicked with scalpel. Finger dissection was used to extend the incision in transverse fashion. The infant was noted to be in vertex MARY presentation. The infant's head was easily delivered from the incision. The nuchal cord was removed from arond the 's head and the rest of the was easily delivered from the incision and the cord doubly clamped and cut and the infant passed off the table in stable condition. Cord gases were obtained and then the placenta manually removed. There was a large amount of meconium. Also a large amount of loose vernix throughout the uterine cavity and in the amniotic fluid that was released on admission on delivery. The uterine cavity was explored with a lap pad and an angle stitch of 0 Monocryl placed at one end of the incision and a running locking stitch of 0-Monocryl starting at the other end used to close the incision. A second running stitch of 0 Monocryl was used to imbricate the first layer. Good hemostasis was noted. There was a small amount of bleeding on the serosa at the left angle. This was controlled with the Bovie. The entire pelvis was copiously irrigated, suctioned, examined. All of the meconium and vernix that could be found were removed. Blood clots were also removed and this was again reirrigated to clean out the pelvis. Once this was done and good hemostasis was obtained, the Steven self-retaining retractor was removed. A sheet of ACell was placed over lower uterine segment to help with healing. The anterior wall peritoneum was then closed using running stitch of 2-0 Vicryl suture. The abdominal musculature was reapproximated using interrupted stitches of 0 Vicryl suture. The abdominal wall incision was then irrigated, suctioned, examined and any bleeding spots cauterized with the Bovie and good hemostasis was obtained. The abdominal musculature was sprinkled with powdered ACell and then the fascia closed using two running stitch of 0 Vicryl suture meeting in the midline. Subcutaneous tissue was irrigated, suctioned, and examined, and any bleeding spots cauterized with the Bovie. Subcutaneous tissue was then closed using interrupted stitches of 3-0 Vicryl suture and the skin reapproximated using skin clips. The patient tolerated the procedure well, went to recovery room in good condition. Because of the emergency , the original count was not complete and so x-ray of the abdomen and pelvis were done to confirm the correct account. No instruments, laps, or any foreign objects were seen on the x-ray. The patient tolerated the procedure well, went to recovery room in good condition. Electronically Signed By: VINNY HIDALGO MD 06/03/21 1154 PATIENT NAME: SEAN KHALIL OPERATIVE REPORT DATE OF : 00 REPORT #: [id number] PHYSICIAN: VINNY HIDALGO MD PCP: NO PRIMARY CARE PHYSICIAN REPORT IS CONFIDENTIAL AND NOT TO BE RELEASED WITHOUT AUTHORIZATION [address] [address] Signed MD DENEEN Weiss/MODL /[id number] Copies: ~ Electronically Signed By: VINNY HIDALGO MD 06/03/21 1154 PATIENT NAME: KHALILSEAN OPERATIVE REPORT DATE OF : 00 REPORT #: [id number] PHYSICIAN: VINNY HIDALGO MD PCP: NO PRIMARY CARE PHYSICIAN REPORT IS CONFIDENTIAL AND NOT TO BE RELEASED WITHOUT AUTHORIZATION
--- NOTE | 2021-06-03 12:00 | PR ---
[facility] [address] [place] [address] Signed PP Progress Notes Datetime Report Generated by CPN: 06/03/2021 12:00 SUBJECTIVE: [id number] Pain: Within Normal Limits Nausea/Vomiting: Denies Nausea/Vomiting Comments: Eating dinner without problem Vital Signs: [id number] Vital Signs: Reviewed; Within Normal Limits Abdomen/Uterus: Normal Lochia: Normal Extremities: Normal Incision: Normal IMPRESSION/PLAN/PROCEDURES: [id number] Impression: Normal Progression Plan: Discharge Procedures: None Progress Notes: Doing well, without complaint, tolerating food much better, no N/V. Patint ready to go home. Signing Physician: José Antonio Neri MD Copies: ~ *Electronically Signed* 06/03/21 [facility] JOSÉ ANTONIO NERI MD PATIENT NAME: SEAN KHALIL PROGRESS NOTE DATE OF : 00 PHYSICIAN: JOSÉ ANTONIO NERI MD RPT #: [id number] REPORT IS CONFIDENTIAL AND NOT TO BE RELEASED WITHOUT AUTHORIZATION
--- NOTE | 2021-06-04 13:18 | PATH ---
[facility] [address] [place], [place] [address] Signed SPECIMEN(S): A PLACENTA SPECIMEN SOURCE: A. PLACENTA CLINICAL HISTORY: Occult cord prolapse, meconium, bradycardia, . FINAL PATHOLOGIC DIAGNOSIS: Placenta (328 grams), umbilical cords and membranes: - Chorionic villi with appropriate maturation for gestational age. - Scattered calcifications identified. - Villous infarction comprising less than 5% of total placental volume. - Unremarkable three-vessel umbilical cord. - membranes with minimal acute chorioamnionitis and meconium staining (see comment). COMMENT: membranes show incorporation of meconium into macrophages, indicating that at least some degree of meconium staining had been present for a period of time. This does not exclude chronic acute meconium staining. Please correlate clinically. DDF:mfr:C2NR MICROSCOPIC EXAMINATION: Histologic sections of all submitted blocks are examined by light microscopy. These findings, together with the gross examination, support the pathologic diagnosis. GROSS DESCRIPTION: The specimen, labeled "TH, placenta," is received fresh and placed in formalin and consists of gaston discoid placenta with the following parameters: Umbilical cord: Insertion eccentric-2.0 cm from the margin, measurement 4.2 x 1.0 cm; trivascular. Cord coiling index (per 10 cm): Grossly indeterminate. Lesions: Not grossly identified. Membranes: Insertion site: Marginal, lazcano, translucent with a markedly green hue, rupture site grossly indeterminate. Intact. Other: Not grossly identified. Chorionic Plate: Normal radiating vascular pattern, blue-purple, shiny with a markedly green hue. Lesions: 2 lazcano-white areas of discoloration that are 1.0 and 1.1 cm in greatest dimension. Other: PATIENT NAME: SEAN KHALIL PATHOLOGY DATE OF : 00 REPORT #: [id number] PHYSICIAN: LUZ ELENA PATHOLOGY PCP: NO PRIMARY CARE PHYSICIAN REPORT IS CONFIDENTIAL AND NOT TO BE RELEASED WITHOUT AUTHORIZATION [facility] [address] [place], [place] [address] Signed Not grossly identified. Maternal Surface: Normal cotyledons, intact. Lesions: Multiple focal areas of adherent blood clot from less than 0.1 up to 2.2 cm in greatest dimension and comprising less than 5% surface. Measurement: 15.8 x 14.9 x 2.7 cm. Weight (trimmed): 328 g Cut Surface: Maroon and spongy. Lesions: One lazcano-white, 1.3 cm in greatest dimension area of consolidation associated with the chorionic plate discoloration. Basal plate fibrin 0.1 cm in thickness. Other Findings: Not grossly identified. Cassette Summary: (A1) membranes and umbilical cord (A2) central section of placenta (A3) eccentric section of placenta (A4) eccentric section of placenta including area of consolidation AI(under the direct supervision of a pathologist) The Gross Description was prepared using a voice recognition system. The report was reviewed for accuracy; however, sound-alike word errors, addition and/or deletions may occur. If there is any question about this report, please contact Client Services. PERFORMING LABORATORY: The technical component was performed by [facility], [address] [place] [id number] (Ambulance Driver Paramedic: Thi Nunez MD; CLIA# [id number]). The professional interpretation [facility], [address] [place] [address]. Diagnostician: Ray Sandoval DO Pathologist Electronically Signed 06/04/2021 Copies: ~ PATIENT NAME: SEAN KHALIL PATHOLOGY DATE OF : 00 REPORT #: [id number] PHYSICIAN: LUZ ELENA BALDERAS PCP: NO PRIMARY CARE PHYSICIAN REPORT IS CONFIDENTIAL AND NOT TO BE RELEASED WITHOUT AUTHORIZATION
== END 2021-06-03 12:45 | disposition home or self-care (01) | DRG 788 ==
LOC: FBC 13:58
PROVIDERS: ADMIT General Practice; ATTEND General Practice
PROC: 10D00Z1 Extraction of Products of Conception, Low, Open Approach (ICD-10-PCS; principal; 2021-06-01 13:55)
DX: O76 Abnormality in fetal heart rate and rhythm complicating labor and delivery (principal); Z37.0 Single live birth; O69.81X0 Labor and delivery complicated by cord around neck, without compression, not applicable or unspecified; O77.0 Labor and delivery complicated by meconium in amniotic fluid; Z3A.37 37 weeks gestation of pregnancy; Z88.0 Allergy status to penicillin; Z88.7 Allergy status to serum and vaccine; Z90.49 Acquired absence of other specified parts of digestive tract; Z98.890 Other specified postprocedural states
CPT/HCPCS: 01961; 64488; 74019; 76818; 76942; 82803; 85027; A9270; C9803; J2405; J2590; J2765; J3010; J7121; U0003

== ENCOUNTER 2022-07-20 07:40 | Day surgery (SDC) | payer OTHER ==
[~2022-07-20] VITALS: Ht 152.4 cm; Wt 75.0 kg
[~2022-07-20 07:40] MED LIST changes: +TOPIRAMATE25 MG
--- NOTE | 2022-07-20 10:50 | NUR ---
07/20/22 1050 Andria Ballard PT TO PACU SLEEPING, O2 VIA MASK FOGGING NOTED IN MASK. WARM BLANKETS PLACED ON PT.
--- NOTE | 2022-07-20 12:30 | NUR ---
PATIENT LAYING IN BED WITH FAMILY PRESENT. RESP EVEN AND UNLABORED. RATES PAIN 7/10 AND DENIES NAUSEA. DRESSING IS CLEAN, DRY, AND INTACT. ICE PACK IN PLACE. CALL LIGHT WITHIN REACH.
--- NOTE | 2022-07-20 12:42 | NUR ---
STEADY ON FEET WITH ONE PERSON STAND BY ASSIST FOR AMBULATION TO BR. DENIES NAUSEA. REPORTS DECREASING PAIN AFTER MEDICATION AND NOW RATES THE PAIN 7/10 WITH AMBULATION.
--- NOTE | 2022-07-20 12:42 | NUR ---
REVIEWED DISCHARGE INSTRUCTIONS WITH PT AND FAMILY AT BEDSIDE.
--- NOTE | 2022-07-21 06:31 | OR ---
[facility] [address], [place] [address] Signed DATE OF OPERATION: 07/20/2022 SURGEON: Bernadine Noland MD PREOPERATIVE DIAGNOSIS: Two right inferior lumbar paraspinal subcu masses. POSTOPERATIVE DIAGNOSES: 1. Two right inferior lumbar paraspinal subcu masses (fat). 2. 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 PROCEDURE: Excision of lipoma x2. ESTIMATED BLOOD LOSS: None. INDICATIONS: Sean is a 22-year-old female, who came to us in 2019 with four paraspinal lipomas inferiorly in the lumbar areas on both sides. 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 She has been caring the babies on her right hip. She now feels two new lumps in the right inferior paraspinal lumbar area. They are quite painful and they rub over the top of the pelvic bone. She says it causes pain on a daily basis. She wanted to come and see if I would remove those for her once again. In the office, we could feel these two areas on the medial side of her previous transverse incision just over the top of the iliac crest. Once again, we entertained the idea of a right inferior lumbar triangle of Petit. Of course, this would require an MRI to more definitively diagnose. That hernia requires mesh and a fairly substantial incision as usually done at large referral centers. She wanted me to go ahead and use that same incision to remove those two areas. I explained to her if this happens the third time, she is going to follow the above recommendations. She understands the nature of surgery, having gone through it two years ago. It is a day surgery. There is risk including, but not limited to bleeding, infection, scarring, change in contour of the skin as well as recurrent lipomas and/or hernia of the inferior lumbar triangle of Petit. She had expressed understanding and wished to proceed. DESCRIPTION OF PROCEDURE: I met with Sean and her mom in our preop area. She was able to easily palpate the two Electronically Signed By: BERNADINE NOLAND MD 07/21/22 0631 PATIENT NAME: SEAN KHALIL OPERATIVE REPORT DATE OF : 00 REPORT #: [id number] PHYSICIAN: BERNADINE NOLAND MD PCP: GO SOUSA PA-C REPORT IS CONFIDENTIAL AND NOT TO BE RELEASED WITHOUT AUTHORIZATION [facility] [address], [place] [address] Signed hernias and we marked those appropriately. After this, she was taken to the operating room and placed in the prone position under general endotracheal tube anesthesia with appropriate padding and monitoring. She was given preoperative antibiotics along with subcutaneous heparin. SCDs were utilized. She was prepped and draped in the usual sterile fashion. We injected local anesthetic underneath her previous incision and extended that medially. We opened that with a 15 blade knife and carried that down through the tissue bluntly and with the cautery. We found our previous single Prolene suture. That was removed. We then removed what appears to be somewhat superior and somewhat inferior next to each other. We followed that down right over top of the iliac crest. In all likelihood, this probably represents an inferior lumbar triangle of Petit hernia. After this, we placed a single #1 scazxi-of-sfnso Prolene suture to close that area. We also marked that location just over the top of the iliac crest. We closed the subcutaneous tissues with multiple interrupted 2-0 PDS sutures. The dermis was reapproximated with interrupted 3-0 subcuticular Monocryl sutures. The skin edges were reapproximated with a running 5-0 fast absorbing plain gut suture. Dry gauze and tape were then applied. Sean was then rotated into the supine position, weaned from anesthesia, extubated in the OR, and taken to the recovery room in stable condition. Bernadine Noland MD ALB/MODL /[id number] cc: ADOLFO Jerome MD Copies: MICHAEL SINHA ANDREW L MD ~ Electronically Signed By: BERNADINE NOLAND MD 07/21/22 0631 PATIENT NAME: SEAN KHALIL OPERATIVE REPORT DATE OF : 00 REPORT #: [id number] PHYSICIAN: BERNADINE NOLAND MD PCP: GO SOUSA PA-C REPORT IS CONFIDENTIAL AND NOT TO BE RELEASED WITHOUT AUTHORIZATION
--- NOTE | 2022-07-21 08:19 | NUR ---
DISCHARGE INSTRUCTIONS REVIEWED WITH BOTH MOM AND STEP MOM. DRESSING CDI ON DISCHARGE. STEADY ON FEET FOR AMBULATION TO BR FOR LARGE UNMEASURED URINE VOID.
--- NOTE | 2022-07-22 18:40 | PATH ---
[facility] [place] [facility] [address] [place], [place] [address] Signed SPECIMEN(S): A SUPERIOR RIGHT LUMBAR SPECIMEN(S): B INFERIOR RIGHT LUMBAR SPECIMEN SOURCE: A. SUPERIOR RIGHT LUMBAR B. INFERIOR RIGHT LUMBAR CLINICAL HISTORY: Two lipomas; excision of two right lumbar paraspinal subcutaneous masses. FINAL PATHOLOGIC DIAGNOSIS: A. Soft tissue, superior right lumbar, excision: - Mature adipose tissue, clinically lipoma. B. Soft tissue, inferior right lumbar, excision: - Mature adipose tissue, clinically lipoma. BRP:caw:C2NR MICROSCOPIC EXAMINATION: Histologic sections of all submitted blocks are examined by light microscopy. These findings, together with the gross examination, support the pathologic diagnosis. GROSS DESCRIPTION: Two specimens are received in two containers, labeled "TH." A. The specimen, labeled "TH, A," and designated on the requisition "lumbar, subcutaneous mass, superior, right," is received in formalin and consists of a portion of yellow-lazcano, lobulated fatty tissue (5.0 x 3.5 x 2.7 cm). The specimen is inked blue and serially sectioned to reveal yellow-lazcano, lobulated fatty cut surfaces. Window Glass Installer sections are submitted in cassettes (A1-A2). B. The specimen, labeled "TH, B," and designated on the requisition "right lumbar subcutaneous mass, inferior," is received in formalin and consists of a portion of yellow to pink-lazcano, soft, lobulated tissue (4.7 x 3.2 x 2.0 cm). The specimen is inked blue and serially sectioned to reveal a yellow-lazcano, lobulated fatty cut surface. Window Glass Installer sections are submitted in cassettes (B1-B2). AC (under the direct supervision of a pathologist) The Gross Description was prepared using a voice recognition system. The report was reviewed for accuracy; however, sound-alike word errors, addition and/or PATIENT NAME: SEAN KHALIL PATHOLOGY DATE OF : 00 REPORT #: [id number] PHYSICIAN: LUZ ELENA PATHOLOGY PCP: GO SOUSA PA-C REPORT IS CONFIDENTIAL AND NOT TO BE RELEASED WITHOUT AUTHORIZATION [facility] [place] [facility] [address] [place] [id number] Signed deletions may occur. If there is any question about this report, please contact Client Services. PERFORMING LABORATORY: The technical component was performed by [email or web address], [address] [place] [address] (CLIA# [id number]). Professional interpretation was performed by [facility], [address] [place] [address] (CLIA# [id number]). Diagnostician: Tejinder Esquivel MD Pathologist Electronically Signed 07/22/2022 Copies: ~ PATIENT NAME: SEAN KHALIL PATHOLOGY DATE OF : 00 REPORT #: [id number] PHYSICIAN: LUZ ELENA BALDERAS PCP: GO SOUSA PA-C REPORT IS CONFIDENTIAL AND NOT TO BE RELEASED WITHOUT AUTHORIZATION
== END 2022-07-20 13:00 | disposition home or self-care (01) ==
LOC: DS 07:40
PROVIDERS: ATTEND Colon & Rectal Surgery
PROC: 0JB70ZZ Excision of Back Subcutaneous Tissue and Fascia, Open Approach (ICD-10-PCS; principal; 2022-07-20 09:00)
DX: D17.1 Benign lipomatous neoplasm of skin and subcutaneous tissue of trunk (principal); Z87.891 Personal history of nicotine dependence; Z88.0 Allergy status to penicillin; Z88.8 Allergy status to other drugs, medicaments and biological substances
CPT/HCPCS: 00300; 88304; J1100; J1644; J1885; J2704; J3010; J7121

== ENCOUNTER 2022-12-13 19:51 | Emergency (ER) | payer OTHER ==
[~2022-12-13] VITALS: Ht 152.4 cm; Wt 74.9 kg
[2022-12-13] MEDS ORDERED: ZOLMITRIPTAN5 MG PO (20:43)
[2022-12-13] MEDS ORDERED: AJOVY AUTO225 MG/1.5 SUB-Q (20:44)
== END 2022-12-13 21:00 | disposition home or self-care (01) ==
LOC: ED 19:51
DX: S61.211A Laceration without foreign body of left index finger without damage to nail, initial encounter (principal); Z23 Encounter for immunization; Z88.7 Allergy status to serum and vaccine; Z88.0 Allergy status to penicillin; Z88.8 Allergy status to other drugs, medicaments and biological substances; Z79.899 Other long term (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; W26.8XXA Contact with other sharp object(s), not elsewhere classified, initial encounter
CPT/HCPCS: 90471; 90715; 99282-25

== ENCOUNTER 2023-07-29 09:33 | Emergency (ER) | payer OTHER ==
[~2023-07-29] VITALS: Ht 152.4 cm; Wt 74.8 kg
[~2023-07-29 09:33] MED LIST changes: +AJOVY AUTO225 MG/1.5 SUB-Q; +ZOLMITRIPTAN5 MG PO
[2023-07-29] MEDS ORDERED: ESCITALOPRAM OXA5 MG PO (10:03)
[2023-07-29] MEDS ORDERED: TRAZODONE HCL100 MG PO (10:04)
[2023-07-29 10:27] VITALS: BP 105/67
== END 2023-07-29 10:28 | disposition home or self-care (01) ==
LOC: ED 09:33
DX: T19.2XXA Foreign body in vulva and vagina, initial encounter (principal); Z88.0 Allergy status to penicillin; Z88.8 Allergy status to other drugs, medicaments and biological substances; Z88.7 Allergy status to serum and vaccine
CPT/HCPCS: 99283

== ENCOUNTER 2024-03-27 11:03 | Emergency (ER) | payer OTHER ==
[~2024-03-27] VITALS: Ht 152.4 cm; Wt 78.7 kg
[~2024-03-27 11:03] MED LIST changes: +DULOXETINE HCL40 MG PO; +ESCITALOPRAM OXA5 MG PO; +METHOCARBAMOL500 MG PO; +PREDNISONE20 MG PO; +TRAZODONE HCL100 MG PO; +VENTOLIN HFA18 GM INH
--- OUTSIDE RECORDS SUMMARY | 2024-03-27 11:10 | XMS ---
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 Events No recent Security Events currently on file CRITERIA MET - [facility] - 2 Visits in 30 Days CARE PROVIDERS Marge Woods Community Health Worker 01/07/2021-Current PHONE: [phone] JOSÉ ANTONIO NERI Aircraft Time Clerk 11/05/2020-Current PHONE: Unknown EVERARDO SINHA Physician 12/17/2018-Current PHONE: [phone] -[facility] Dentist: Aircraft Time Clerk Dionna Schmidt PHONE: [phone] -, Shilo- Dentist: Aircraft Time Clerk Current [facility] PHONE: [phone] -, Brayan- Dentist: Aircraft Time Clerk Current [facility] PHONE: [phone] GRECIA CASTRO Client Support Analyst Current PHONE: Unknown DENYS HOUSE [facility] Current PHONE: Unknown BRAYAN PRIMARY Clinic/Center: Primary Care [facility] CARE CLINIC PHONE: [phone] Ludivina has no Care Guidelines for this patient. Care History Medical/Surgical 12/23/2020 [facility] \R\- PATIENT CURRENTLY - RECEIVING SERVICES FROM [facility] -FEED[facility] TU[facility]. 11/16/2020 [facility] \R\- PATIENT HAS AN APT WITH DR DARON VYAS 11/25/2020 FOR ER FOLLOW UP. Theodore VISIT COUNT (12 MO.) 3 [facility] H. TOTAL 3 NOTE: Visits indicate total known visits. ED/UCC VISIT TRACKING (12 MO.) 03/27/2024 11:04 [facility] TYPE: Emergency COMPLAINT: - DIZZINESS 03/04/2024 19:50 [facility] TYPE: Emergency COMPLAINT: - SOB, BREATHING PAIN DIAGNOSES: - Allergy status to other drugs, medicaments and biological substances - Allergy status to penicillin - Allergy status to serum and vaccine - Bronchitis, not specified as acute or chronic - Encounter for screening for COVID-19 - jail (current) use of systemic steroids - Shortness of breath 07/29/2023 09:34 [facility] TYPE: Emergency COMPLAINT: - VAGINAL ISSUSE DIAGNOSES: - Allergy status to other drugs, medicaments and biological substances - Allergy status to penicillin - Allergy status to serum and vaccine - Foreign body in vulva and vagina, initial encounter INPATIENT VISIT TRACKING (12 MO.) No inpatient visits to display in this time frame [id number]
[2024-03-27] MEDS ORDERED: SODIUM CHLORIDE 0.9% 1,000 ML IV ONE (11:30)
[2024-03-27] MEDS ORDERED: KETOROLAC TROMETHAMINE 15 MG/ML VIAL IV ONE (11:30)
[2024-03-27] MEDS ORDERED: METOCLOPRAMIDE HCL 10 MG/2 ML SDV IV ONE (11:45)
[2024-03-27] MEDS ORDERED: DEXAMETHASONE SOD PHOS 10 MG/ML VIAL IV ONE (11:45)
[2024-03-27] MEDS ORDERED: diphenhydrAMINE HCL 50 MG/ML VIAL IV ONE (11:45)
[2024-03-27 12:06] LABS: BASOPHILS 1.3 % (0-2); EOSINOPHILS 3.9 % (0-6); HEMATOCRIT 41.2 % (35.0-50.0); LYMPHOCYTES 8.2 % (24-44); MCH 29.1 (27-36); MCHC 33.9 g/dl (30-36); MCV 85.9 fl (81-99); MONOCYTES 5.2 % (0-12); NEUTROPHILS 81.4 % (39-80); PLATELET COUNT 209 K/uL (140-440); RDW 13.4 (10.5-15.0)
[2024-03-27 12:14] LABS: ALBUMIN 3.6 g/dL (3.4-5.0); ALBUMIN/GLOBULIN RATIO 1.16 (1.1-2.4); ANION GAP 13.3 (7-21); BILIRUBIN, TOTAL 1.1 ng/dL (0.2-1.0); BUN/CREATININE RATIO 14.6 (6.0-28.6); CALCIUM 8.4 mg/dL (8.5-10.1); CREATININE, SERUM 0.89 mg/dL (0.55-1.02); POTASSIUM 3.3 mmol/L (3.5-5.1); PROTEIN, TOTAL 6.7 g/dL (6.4-8.2)
[2024-03-27] MEDS ORDERED: REGLAN10 MG PO (13:37)
[2024-03-27 13:50] VITALS: BP 115/61
== END 2024-03-27 13:50 | disposition home or self-care (01) ==
LOC: ED 11:03
PROVIDERS: Emergency Medicine
DX: G43.909 Migraine, unspecified, not intractable, without status migrainosus (principal); G47.00 Insomnia, unspecified; Z79.899 Other long term (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; Z88.0 Allergy status to penicillin; Z88.8 Allergy status to other drugs, medicaments and biological substances; Z88.7 Allergy status to serum and vaccine
CPT/HCPCS: 36415; 80053; 84703; 85025; 96361; 96374; 96375; 99284; J1100; J1200; J1885; J2765; J7030

== ENCOUNTER 2024-10-16 19:00 | Emergency (ER) | payer OTHER ==
[~2024-10-16] VITALS: Ht 152.4 cm; Wt 81.6 kg
[2024-10-16] MEDS ORDERED: HYDROXYZINE HCL25 MG PO (19:52)
[2024-10-16] MEDS ORDERED: DULOXETINE HCL60 MG PO (19:52)
[2024-10-16] MEDS ORDERED: KETOROLAC TROMETHAMINE 30 MG/ML VIAL IM ONE (20:15)
[2024-10-16] MEDS ORDERED: diazePAM 10 MG/2 ML SYR IV ONE (20:15)
[2024-10-16] MEDS ORDERED: methylPREDNISolone 4 MG HOME.PACK PO ONE (22:00)
[2024-10-16] MEDS ORDERED: CYCLOBENZAPRINE10 MG PO (22:02)
[2024-10-16] MEDS ORDERED: CYCLOBENZAPRINE HCL 10 MG HOME.PACK PO ONE (22:15)
[2024-10-16 22:22] VITALS: BP 107/71
== END 2024-10-16 22:24 | disposition home or self-care (01) ==
LOC: ED 19:00
DX: S39.012A Strain of muscle, fascia and tendon of lower back, initial encounter (principal); V00.311A Fall from snowboard, initial encounter; Z88.8 Allergy status to other drugs, medicaments and biological substances; Z88.7 Allergy status to serum and vaccine; Z88.0 Allergy status to penicillin; Z79.899 Other long term (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
CPT/HCPCS: 36415; 72131; 84703; 96374; 99284-25; J1885; J3360

== ENCOUNTER 2024-11-02 02:01 | Emergency (ER) | payer OTHER ==
[~2024-11-02] VITALS: Ht 152.4 cm; Wt 79.8 kg
[~2024-11-02 02:01] MED LIST changes: +CYCLOBENZAPRINE10 MG PO; +DULOXETINE HCL60 MG PO; +HYDROXYZINE HCL25 MG PO
--- OUTSIDE RECORDS SUMMARY | 2024-11-02 02:03 | XMS ---
PreManage Notification: SEAN KHALIL Security Tile Layer Events No recent Security Events currently on file CRITERIA MET - [facility] - 2 Visits in 30 Days CARE PROVIDERS Marge Woods Community Health Worker 01/07/2021-Current PHONE: [phone] JOSÉ ANTONIO NERI Fun House Attendant 11/05/2020-Current PHONE: Unknown EVERARDO SINHA Physician 12/17/2018-Current PHONE: [phone] -[facility] Dentist: Fun House Attendant Dionna Schmidt PHONE: [phone] -, Shilo- Dentist: Fun House Attendant Current [facility] PHONE: [phone] -, Brayan- Dentist: Fun House Attendant Current [facility] PHONE: [phone] GRECIA CASTRO Academic Program Specialist Current PHONE: Unknown DENYS HOUSE [facility] Current PHONE: Unknown BRAYAN PRIMARY Clinic/Center: Primary Care [facility] CARE CLINIC PHONE: [phone] Ludivina has no Care Guidelines for this patient. Care History Medical/Surgical 12/23/2020 [facility] \R\- PATIENT CURRENTLY - RECEIVING SERVICES FROM [facility] -FEEDING TU[facility]. 11/16/2020 [facility] \R\- PATIENT HAS AN APT WITH DR DARON VYAS 11/25/2020 FOR ER FOLLOW UP. Theodore VISIT COUNT (12 MO.) 4 [facility] H. TOTAL 4 NOTE: Visits indicate total known visits. ED/UCC VISIT TRACKING (12 MO.) 11/02/2024 02:01 [facility] TYPE: Emergency COMPLAINT: - ANKLE INJURY 10/16/2024 19:00 [facility] TYPE: Emergency COMPLAINT: - LOWER BACK PAIN/FEET NUMBNESS DIAGNOSES: - Allergy status to other drugs, medicaments and biological substances - Allergy status to penicillin - Allergy status to serum and vaccine - Fall from snowboard, initial encounter - Low back pain, unspecified - Other terminal carman (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 - Strain of muscle, fascia and tendon of lower back, initial encounter 03/27/2024 11:04 [facility] TYPE: Emergency COMPLAINT: - DIZZINESS DIAGNOSES: - Allergy status to other drugs, medicaments and biological substances - Allergy status to penicillin - Allergy status to serum and vaccine - Insomnia, unspecified - Migraine, unspecified, not intractable, without status migrainosus - Other correction (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 - Unspecified visual disturbance 03/04/2024 19:[address] [facility] [place] TYPE: Emergency COMPLAINT: - SOB, BREATHING PAIN DIAGNOSES: - Allergy status to other drugs, medicaments and biological substances - Allergy status to penicillin - Allergy status to serum and vaccine - Bronchitis, not specified as acute or chronic - Encounter for screening for COVID-19 - termite treater helper (current) use of systemic steroids - Shortness of breath INPATIENT VISIT TRACKING (12 MO.) No inpatient visits to display in this time frame [id number]
[2024-11-02] MEDS ORDERED: KETOROLAC TROMETHAMINE 60 MG/2 ML VIAL IM ONE (02:15)
[2024-11-02] MEDS ORDERED: HYDROCODON-ACE1 EA10 PO (02:52)
[2024-11-02] MEDS ORDERED: HYDROCODONE BIT/ACETAMINOPHEN 5/325 MG 1 TAB HOME.PACK PO ONE (03:00)
[2024-11-02 03:10] VITALS: BP 137/81
== END 2024-11-02 03:10 | disposition home or self-care (01) ==
LOC: ED 02:01
DX: S82.61XA Displaced fracture of lateral malleolus of right fibula, initial encounter for closed fracture (principal); W00.0XXA Fall on same level due to ice and snow, initial encounter; Z79.899 Other long term (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; Z88.7 Allergy status to serum and vaccine; Z88.0 Allergy status to penicillin; Z88.8 Allergy status to other drugs, medicaments and biological substances
CPT/HCPCS: 73610; 96372; 99283; A9270; J1885

== ENCOUNTER 2024-11-08 06:45 | Day surgery (SDC) | payer OTHER ==
[~2024-11-08] VITALS: Ht 152.4 cm; Wt 82.3 kg
[~2024-11-08 06:45] MED LIST changes: +LACTATED RINGER'S 1,000 ML IV SCH
[2024-11-08 06:56] VITALS: BP 104/58
[2024-11-08] MEDS ORDERED: AJOVY225 MG/1.5 SQ (06:59)
[2024-11-08] MEDS ORDERED: CEFAZOLIN SODIUM 2 GM/20 ML SYR IV SCH (07:00)
[2024-11-08] MEDS ORDERED: LIDOCAINE HCL 1% 5 ML SDV INJ ONE (07:00)
[2024-11-08] MEDS ORDERED: IBLOOD GLUCOSE TEST STRIP 1 EA TEST VI PRN ×2 (07:00→09:45)
[2024-11-08 07:23] LABS: BASOPHILS 0.9 % (0-2); EOSINOPHILS 4.2 % (0-6); HEMATOCRIT 37.2 % (35.0-50.0); HEMOGLOBIN 12.8 g/dL (12.0-18.0); LYMPHOCYTES 20.5 % (24-44); MCH 29.7 (27-36); MCHC 34.4 g/dl (30-36); MCV 86.3 fl (81-99); MONOCYTES 7.1 % (0-12); NEUTROPHILS 67.3 % (39-80); PLATELET COUNT 245 K/uL (140-440); RBC 4.31 M/ul (4.3-5.7); RDW 13.4 (10.5-15.0)
[2024-11-08 07:33] LABS: ANION GAP 12.9 (7-21); BUN/CREATININE RATIO 13.41 (6.0-28.6); CALCIUM 9.3 mg/dL (8.5-10.1); CREATININE, SERUM 0.82 mg/dL (0.55-1.02); POTASSIUM 3.9 mmol/L (3.5-5.1)
[2024-11-08] MEDS ORDERED: fentaNYL citrate 100 MCG/2 ML VIAL ONE (08:32)
[2024-11-08] MEDS ORDERED: MIDAZOLAM HCL 2 MG/2 ML VIAL ONE (08:32)
[2024-11-08] MEDS ORDERED: propofoL 200 MG/20 ML VIAL ONE (08:32)
[2024-11-08] MEDS ORDERED: DEXAMETHASONE SOD PHOS 4 MG/ML VIAL ONE ×2 (08:32→09:13)
[2024-11-08] MEDS ORDERED: dexmedeTOMIDine HCl 200 MCG/2 ML VIAL ONE (08:32)
[2024-11-08] MEDS ORDERED: Ropivacaine HCl 0.5% 30 ML VIAL ONE (08:32)
[2024-11-08] MEDS ORDERED: SODIUM CHLORIDE 0.9% 20 ML IV ONE (08:32)
[2024-11-08] MEDS ORDERED: LIDOCAINE HCL 2% 5 ML SDV ONE ×2 (08:32→09:13)
[2024-11-08] MEDS ORDERED: ondansetron HCL 4 MG/2 ML VIAL ONE (09:13)
[2024-11-08] MEDS ORDERED: HYDROCODONE/ACETA 7.5/325 TAB PO PRN (09:15)
[2024-11-08] MEDS ORDERED: ACETAMINOPHEN 1,000 MG/100 ML VIAL ONE (09:18)
[2024-11-08] MEDS ORDERED: droPERidol 5 MG/2 ML VIAL IV PRN (09:45)
[2024-11-08] MEDS ORDERED: KETOROLAC TROMETHAMINE 30 MG/ML VIAL IV PRN (09:45)
[2024-11-08] MEDS ORDERED: fentaNYL citrate 50 MCG/ML SDV IV PRN (09:45)
[2024-11-08] MEDS ORDERED: NALOXONE HCL 0.4 MG SYR IV PRN (09:45)
[2024-11-08] MEDS ORDERED: ondansetron HCL 4 MG/2 ML VIAL IV PRN (09:45)
[2024-11-08] MEDS ORDERED: CELECOXIB200 MG PO (09:55)
[2024-11-08] MEDS ORDERED: HYDROCODON-ACE1 EA11 PO (09:56)
--- NOTE | 2024-11-08 10:05 | NUR ---
11/08/24 1005 Nevaeh Ferrara [id number]-PT ARRIVES TO PACU VIA STRETCHER, PT RESPONSICE TO TACTILE STIMULI BUT CONTINUES TO REST W/ EYES CLOSED. VSS ON RA, RR EVEN AND UNLABORED.
[2024-11-08 10:41] VITALS: BP 98/56
--- NOTE | 2024-11-08 11:00 | NUR ---
Patient returns to room 3 from PACU via stretcher. Report taken from SUSAN Herring. Patient is drowsy and resting with eyes closed, but wakes easily with light verbal stimulation. Patient has dressing and boot to right lower leg. She denies pain at this time. capillary refill less than 3 seconds. She denies any nausea. water and jell-o provided to patient, but patient falls back asleep quickly after speaking with her. Patient's mother is present during the entire encounter and she expressed understanding of discharge criteria. Patietn allowed to sleep at this time. No other needs expressed at this time. call light within reach. bed in lowest position
[2024-11-08 11:28] VITALS: BP 100/59
--- NOTE | 2024-11-08 11:45 | NUR ---
Patient up to use the restroom with the assistance of her knee scooter. Patient able to void 550mL. Patient allowed to get dressed after this, but patient still needs to eat and drink. Patient expressed understanding that this is required for her to go home. she will work on drinking/eating. She still reports no pain, but is having numbness to her lower leg from the block. No nausea currently. vital signs obtained. She denies any needs at this time. Call light within reach, bed in lowest position.
--- NOTE | 2024-11-08 11:55 | NUR ---
Patient at this time has met all discharge requirements including eating/drinking without nausea, pain is under control, and she has voided. She states that she is ready to go home, although she is requesting a work note. I will request this when Dr. Ballard gets out of surgery. Discharge instrctions were reviewed in detail with the patient and her mother. She denies having any questions.
--- NOTE | 2024-11-08 12:24 | OR ---
[facility] [address] [facility] [place], [place] [address] Signed DATE OF OPERATION: 11/08/2024 SURGEON: Rosita Ballard MD PREOPERATIVE DIAGNOSIS: Displaced right lateral malleolus fracture. POSTOPERATIVE DIAGNOSIS: Displaced right lateral malleolus fracture. PROCEDURE PERFORMED: Open reduction and internal fixation, right lateral malleolus. TABLE ASSEMBLER METAL: Mary Jo Guzmán PA-C. Mary Jo was present and critical for all portions of procedure. ANESTHESIA: General. BLOOD LOSS: Minimal. TOURNIQUET TIME: Zero. IMPLANTS: 3 x 130 FibuLock with two screws. BRIEF HISTORY: Marlene is a 24-year-old female who suffered a ground level fall on the ice fracturing her ankle. She does work a full-time job and take care of her baby as well as her . She wishes to proceed with open reduction and internal fixation, so she can walk on sooner. Risks, benefits, and alternatives were discussed with her at length and she understands, wishes to proceed. DESCRIPTION OF PROCEDURE: Once consent was obtained, she was taken to the operating room. After adequate anesthesia, she was placed on operating table with a hip bump. The leg was then prepped and draped in a standard sterile fashion. The fibula was then outlined using the image Electronically Signed By: ROSITA BALLARD MD 11/08/24 1224 PATIENT NAME: MARLENE KHALIL OPERATIVE REPORT DATE OF : 00 REPORT #: [id number] PHYSICIAN: ROSITA BALLARD MD PCP: OTHER PCP REPORT IS CONFIDENTIAL AND NOT TO BE RELEASED WITHOUT AUTHORIZATION [facility] [address] [place], [place] [address] Signed intensifier and 1.5 cm incision was made distal to the fibula and blunt dissection was taken down to the tip. The guide pin was then advanced from the tip of the fibula proximally in a center-center position across the fracture. It was then overdrilled using the large drill. The guide pin was then removed and the long guide kirk was advanced up the fibula to the proximal end. This was then over-reamed using a 3.1 reamer. The 3.0 FibuLock was then placed on the insertion guide and inserted from the tip of the fibula. Prior to this, we did reduce the fracture manually and cross clamped with a pointed tenaculum. This was done prior to the drilling. The FibuLock was then advanced proximally across the fracture engaging the body of the fibula proximally. It was then impacted until it was well seated and flushed with the inferior pole of the patella. The proximal fins were then engaged and two percutaneous screws were placed distally. Excellent reduction and pin fixation was obtained. We then moved to the ankle under fluoroscopy. There was no instability of the fibula laterally. The wounds were then copiously irrigated and closed with eliazar and dressed with Allevyn and an King wrap. She was placed back into a fracture boot. She tolerated the procedure well. All sponge, needle, and instrument counts correct. Rosita Ballard MD BA/RAMONL /[id number] Copies: ~ Electronically Signed By: ROSITA BALLARD MD 11/08/24 1224 PATIENT NAME: MARLENE KHALIL OPERATIVE REPORT DATE OF : 00 REPORT #: [id number] PHYSICIAN: ROSITA BALLARD MD PCP: OTHER PCP REPORT IS CONFIDENTIAL AND NOT TO BE RELEASED WITHOUT AUTHORIZATION
--- NOTE | 2024-11-08 12:35 | NUR ---
Work note obtained. Patient departs from unit at this time where her mom is to take her home
[2024-11-08] MEDS ORDERED: SEVOFLURANE 250 ML BTL INH ONE (14:08)
[2024-11-08] MEDS ORDERED: CELECOXIB 200 MG CAP PO SCH (17:00)
== END 2024-11-08 12:05 | disposition home or self-care (01) ==
LOC: DS 06:45
PROVIDERS: Nurse Anesthetist, Certified Registered; ATTEND Specialist
PROC: 0QSJ04Z Reposition Right Fibula with Internal Fixation Device, Open Approach (ICD-10-PCS; principal; 2024-11-08 10:30)
DX: S82.61XA Displaced fracture of lateral malleolus of right fibula, initial encounter for closed fracture (principal); W00.0XXA Fall on same level due to ice and snow, initial encounter; Z88.0 Allergy status to penicillin; Z88.8 Allergy status to other drugs, medicaments and biological substances
CPT/HCPCS: 01480; 36415; 64445; 64447; 73600; 80048; 84703; 85025; C1713; C1769; J0131; J0690; J1100; J2003; J2250; J2405; J2704; J2795; J3010; J7121

== ENCOUNTER 2024-12-18 11:33 | Emergency (ER) | payer OTHER ==
[~2024-12-18] VITALS: Ht 152.4 cm; Wt 75.0 kg
[~2024-12-18 11:33] MED LIST changes: +AJOVY225 MG/1.5 SQ; +CELECOXIB200 MG PO; +HYDROCODON-ACE1 EA11 PO; -LACTATED RINGER'S 1,000 ML IV SCH
[2024-12-18] MEDS ORDERED: GABAPENTIN 300 MG CAP PO ONE (12:15)
[2024-12-18] MEDS ORDERED: KETOROLAC TROMETHAMINE 60 MG/2 ML VIAL IM ONE (12:15)
[2024-12-18] MEDS ORDERED: NEURONTIN300 MG PO (12:35)
[2024-12-18 12:55] VITALS: BP 116/65
== END 2024-12-18 13:00 | disposition home or self-care (01) ==
LOC: ED 11:33
DX: G62.9 Polyneuropathy, unspecified (principal); Z79.899 Other long term (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; Z88.0 Allergy status to penicillin; Z88.7 Allergy status to serum and vaccine
CPT/HCPCS: 96372; 99283; A9270; J1885

== ENCOUNTER 2025-03-11 11:37 | Emergency (ER) | payer OTHER ==
[~2025-03-11] VITALS: Ht 152.4 cm; Wt 89.0 kg
[~2025-03-11 11:37] MED LIST changes: +NEURONTIN300 MG PO
[2025-03-11] MEDS ORDERED: ondansetron HCL 4 MG/2 ML VIAL IV ONE ×2 (11:45→12:00)
[2025-03-11 11:50] LABS: BASOPHILS 0.5 % (0.1-1.2); HEMATOCRIT 43.1 % (34.1-44.9); HEMOGLOBIN 14.5 g/dL (11.2-15.7); LYMPHOCYTES 15.3 % (19.3-51.7); MCH 29.1 PG (25.6-32.2); MCHC 33.6 g/dL (32.2-35.5); MCV 86.4 fL (79.4-94.8); MONOCYTES 4.4 % (4.7-12.5); NEUTROPHILS 77.4 % (34.0-71.1); PLATELET COUNT 356 K/uL (182-369); RBC 4.99 M/uL (3.93-5.22)
[2025-03-11] MEDS ORDERED: diphenhydrAMINE HCL 50 MG/ML VIAL IV ONE (12:00)
[2025-03-11] MEDS ORDERED: SODIUM CHLORIDE 0.9% 1,000 ML IV ONE (12:00)
[2025-03-11] MEDS ORDERED: LORazepam 2 MG/ML VIAL IV ONE (12:00)
[2025-03-11 12:08] LABS: ALBUMIN 3.8 g/dL (3.4-5.0); ALBUMIN/GLOBULIN RATIO 1.15 (1.1-2.4); ANION GAP 22.2 (7-21); BILIRUBIN, TOTAL 0.7 mg/dL (0.2-1.0); BUN/CREATININE RATIO 9.61 (6.0-28.6); CALCIUM 8.9 mg/dL (8.5-10.1); CREATININE, SERUM 1.04 mg/dL (0.55-1.02); MAGNESIUM 1.8 mg/dL (1.8-2.4); POTASSIUM 3.2 mmol/L (3.5-5.1); PROTEIN, TOTAL 7.1 g/dL (6.4-8.2)
[2025-03-11 13:10] LABS: BILIRUBIN, URINE NEGATIVE (negative); BLOOD/HGB, URINE TRACE-I (Negative); KETONE, URINE SMALL (Negative); LEUK ESTERASE, URINE NEGATIVE (negative); NITRITE, URINE NEGATIVE (negative)
[2025-03-11 13:21] LABS: BACTERIA, URINE RARE /hpf (negative); CASTS, URINE NONE SEEN \\lpf; COLLECTION TYPE, URINE CLEAN CATCH; CRYSTALS, URINE NONE SEEN (0-1+); EPITHELIAL CELLS, URINE SQUAMOUS 1+ /lpf (0-1+); REFLEX CULTURE, URINE No (No)
[2025-03-11] MEDS ORDERED: POTASSIUM CHLORIDE 10 MEQ/100 ML BAG IV ONE (13:30)
[2025-03-11] MEDS ORDERED: droPERidol 5 MG/2 ML VIAL IV ONE (13:30)
[2025-03-11] MEDS ORDERED: ONDANSETRON ODT8 MG PO (14:38)
[2025-03-11 14:50] VITALS: BP 119/80
== END 2025-03-11 14:50 | disposition home or self-care (01) ==
LOC: ED 11:37
PROVIDERS: Emergency Medicine
DX: R11.15 Cyclical vomiting syndrome unrelated to migraine (principal); Z88.1 Allergy status to other antibiotic agents; Z88.7 Allergy status to serum and vaccine; Z88.0 Allergy status to penicillin; Z79.2 Long term (current) use of antibiotics
CPT/HCPCS: 36415; 80053; 81001; 83690; 83735; 84703; 85025; 96361; 96374; 96375; 99284-25; J1200; J1790; J2060; J2405; J3480; J7030

== ENCOUNTER 2025-03-14 09:07 | Emergency (ER) | payer OTHER ==
[~2025-03-14] VITALS: Ht 152.4 cm; Wt 89.0 kg
[~2025-03-14 09:07] MED LIST changes: +ONDANSETRON ODT8 MG PO
--- OUTSIDE RECORDS SUMMARY | 2025-03-14 09:10 | XMS ---
PreManage Notification: SEAN KHALIL Security Senior Power Plant Operator Events No recent Security Events currently on file CRITERIA MET - [facility] - 2 Visits in 30 Days CARE PROVIDERS Marge Woods Community Health Worker 01/07/2021-Current PHONE: [phone] JOSÉ ANTONIO NERI Route Driver [employer] 11/05/2020-Current PHONE: Unknown EVERARDO SINHA Physician 12/17/2018-Current PHONE: [phone] -[facility] Dentist: Route Driver [employer] Dionna Schmidt PHONE: [phone] -, Shilo- Dentist: Route Driver [employer] Mach[employer] [facility] PHONE: [phone] -, Brayan- Dentist: Route Driver [employer] Mach[employer] [facility] PHONE: [phone] DENYS HOUSE [facility] Current PHONE: Unknown BRAYAN PRIMARY Clinic/Center: [facility] PHONE: [phone] Ludivina has no Care Guidelines for this patient. Care History Medical/Surgical 12/23/2020 [facility] \R\- PATIENT CURRENTLY - RECEIVING SERVICES FROM [facility]. 11/16/2020 [facility] \R\- PATIENT HAS AN APT WITH DR DARON VYAS 11/25/2020 FOR ER FOLLOW UP. [facility] NOTE: Visits indicate total known visits. ED/UCC VISIT TRACKING (12 MO.) [facility] COMPLAINT: - VOMITING 03/11/2025 11:38 [facility] TYPE: Emergency COMPLAINT: - VOMITING DIAGNOSES: - Allergy status to other antibiotic agents - Allergy status to penicillin - Allergy status to serum and vaccine - Cyclical vomiting syndrome unrelated to migraine - alf (current) use of antibiotics - Nausea with vomiting, unspecified 12/18/2024 11:33 [facility] [place] TYPE: Emergency COMPLAINT: - RT LEG PAIN DIAGNOSES: - Allergy status to penicillin - Allergy status to serum and vaccine - Other watermaster (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 - Pain in right ankle and joints of right foot - Polyneuropathy, unspecified 11/02/2024 02:01 [facility] [place] TYPE: Emergency COMPLAINT: - ANKLE INJURY DIAGNOSES: - Allergy status to other drugs, medicaments and biological substances - Allergy status to penicillin - Allergy status to serum and vaccine - Displaced fracture of lateral malleolus of right fibula, initial encounter for closed fracture - Fall on same level due to ice and snow, initial encounter - Other watermaster (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 - Pain in right ankle and joints of right foot 10/16/2024 19:00 [facility] [place] TYPE: Emergency COMPLAINT: - LOWER BACK PAIN/FEET NUMBNESS DIAGNOSES: - Allergy status to other drugs, medicaments and biological substances - Allergy status to penicillin - Allergy status to serum and vaccine - Fall from snowboard, initial encounter - Low back pain, unspecified - Other watermaster (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 - Strain of muscle, fascia and tendon of lower back, initial encounter 03/27/2024 11:04 [facility] [place] TYPE: Emergency COMPLAINT: - DIZZINESS DIAGNOSES: - Allergy status to other drugs, medicaments and biological substances - Allergy status to penicillin - Allergy status to serum and vaccine - Insomnia, unspecified - Migraine, unspecified, not intractable, without status migrainosus - Other detention (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 - Unspecified visual disturbance INPATIENT VISIT TRACKING (12 MO.) No inpatient visits to display in this time frame [email or web address]
[2025-03-14 09:26] LABS: BASOPHILS 0.4 % (0.1-1.2); HEMATOCRIT 42.1 % (34.1-44.9); HEMOGLOBIN 14.7 g/dL (11.2-15.7); LYMPHOCYTES 6.9 % (19.3-51.7); MCH 28.9 PG (25.6-32.2); MCHC 34.9 g/dL (32.2-35.5); MCV 82.7 fL (79.4-94.8); MONOCYTES 7.3 % (4.7-12.5); PLATELET COUNT 312 K/uL (182-369); RBC 5.09 M/uL (3.93-5.22)
[2025-03-14] MEDS ORDERED: HALOPERIDOL LACTATE 5 MG/ML VIAL IV ONE (09:30)
[2025-03-14] MEDS ORDERED: SODIUM CHLORIDE 0.9% 1,000 ML IV ONE (09:30)
[2025-03-14] MEDS ORDERED: diphenhydrAMINE HCL 50 MG/ML VIAL IV ONE (09:30)
[2025-03-14 09:43] LABS: ALBUMIN 4.3 g/dL (3.4-5.0); ALBUMIN/GLOBULIN RATIO 1.19 (1.1-2.4); BUN/CREATININE RATIO 9.75 (6.0-28.6); CALCIUM 10.1 mg/dL (8.5-10.1); CREATININE, SERUM 1.23 mg/dL (0.55-1.02); PROTEIN, TOTAL 7.9 g/dL (6.4-8.2)
[2025-03-14] MEDS ORDERED: POTASSIUM CHLORIDE 10 MEQ/100 ML BAG IV SCH (10:15)
[2025-03-14] MEDS ORDERED: SODIUM CHLORIDE 0.9% 1,000 ML IV PRN (10:15)
[2025-03-14 11:04] LABS: BILIRUBIN, URINE NEGATIVE (negative); BLOOD/HGB, URINE TRACE-I (Negative); KETONE, URINE TRACE (Negative); LEUK ESTERASE, URINE NEGATIVE (negative); NITRITE, URINE NEGATIVE (negative); PH, URINE 6.5 (5-7)
[2025-03-14 11:10] LABS: BACTERIA, URINE NONE SEEN /hpf (negative); CASTS, URINE NONE SEEN \\lpf; COLLECTION TYPE, URINE CLEAN CATCH; CRYSTALS, URINE NONE SEEN (0-1+); EPITHELIAL CELLS, URINE SQUAMOUS 1+ /lpf (0-1+); RED BLOOD CELLS, URINE 0-1 /hpf (0-5); REFLEX CULTURE, URINE No (No); WHITE BLOOD CELLS, URINE 0-1 /HPF (0-5)
[2025-03-14] MEDS ORDERED: COMPAZINE25 MG PR (14:03)
[2025-03-14 14:16] VITALS: BP 100/65
== END 2025-03-14 14:16 | disposition home or self-care (01) ==
LOC: ED 09:07
PROVIDERS: Emergency Medicine
DX: R11.2 Nausea with vomiting, unspecified (principal); E87.6 Hypokalemia; Z88.0 Allergy status to penicillin; Z88.1 Allergy status to other antibiotic agents; Z88.7 Allergy status to serum and vaccine; Z79.2 Long term (current) use of antibiotics; Z79.899 Other long term (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
CPT/HCPCS: 36415; 80053; 81001; 83690; 84703; 85025; 96361; 96365; 96366; 96375; 99284-25; J1200; J1630; J3480; J7030

== ENCOUNTER 2025-03-15 00:13 | Emergency (ER) | payer OTHER ==
[~2025-03-15] VITALS: Ht 152.4 cm; Wt 89.0 kg
[~2025-03-15 00:13] MED LIST changes: +COMPAZINE25 MG PR
--- OUTSIDE RECORDS SUMMARY | 2025-03-15 00:20 | XMS ---
PreManage Notification: SEAN KHALIL Security Traveling Passenger Agent Events No recent Security Events currently on file CRITERIA MET - 6 ED Visits in 6 Months - [facility] - 2 Visits in 30 Days CARE PROVIDERS Marge Woods Community Health Worker 01/07/2021-Current PHONE: [phone] JOSÉ ANTONIO NERI Street Light Servicer 11/05/2020-Current PHONE: Unknown EVERARDO SINHA Physician Zoning Administrator 12/17/2018-Current PHONE: [phone] -[facility] Dentist: Street Light Servicer Dionna Schmidt PHONE: [phone] -, Shilo- Dentist: Street Light Servicer [facility] PHONE: [phone] -, Brayan- Dentist: Street Light Servicer [facility] PHONE: [phone] [facility] Current PHONE: Unknown BRAYAN PRIMARY Clinic/Center: Primary Care [facility] PHONE: [phone] Ludivina has no Care Guidelines for this patient. Care History Medical/Surgical 12/23/2020 [facility] \R\- PATIENT CURRENTLY - RECEIVING SERVICES FROM [facility] -FEEDING TUBE. 11/16/2020 [facility] \R\- PATIENT HAS AN APT WITH DR DARON VYAS 11/25/2020 FOR ER FOLLOW UP. [place] VISIT COUNT (12 MO.) 7 [facility] TOTAL 7 NOTE: Visits indicate total known visits. ED/UCC VISIT TRACKING (12 MO.) 03/15/2025 00:14 [facility] [place] TYPE: Emergency COMPLAINT: - VOMITING 03/14/2025 09:07 [facility] [place] TYPE: Emergency COMPLAINT: - VOMITING 03/11/2025 11:38 [facility] [place] TYPE: Emergency COMPLAINT: - VOMITING DIAGNOSES: - Allergy status to other antibiotic agents - Allergy status to penicillin - Allergy status to serum and vaccine - Cyclical vomiting syndrome unrelated to migraine - roasterman (current) use of antibiotics - Nausea with vomiting, unspecified 12/18/2024 11:33 [facility] [place] TYPE: Emergency COMPLAINT: - RT LEG PAIN DIAGNOSES: - Allergy status to penicillin - Allergy status to serum and vaccine - Other medical terminologist (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 - Pain in right [...] ice and snow, initial encounter - Other medical terminologist (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 - Pain in right ankle and joints of right foot 10/16/2024 19:00 [facility] [place] TYPE: Emergency COMPLAINT: - LOWER BACK PAIN/FEET NUMBNESS DIAGNOSES: - Allergy status to other drugs, medicaments and biological substances - Allergy status to penicillin - Allergy status to serum and vaccine - Fall from snowboard, initial encounter - Low back pain, unspecified - Other medical terminologist (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 - Strain of muscle, fascia and tendon of lower back, initial encounter 03/27/2024 11:04 [facility] [place] TYPE: Emergency COMPLAINT: - DIZZINESS DIAGNOSES: - Allergy status to other drugs, medicaments and biological substances - Allergy status to penicillin - Allergy status to serum and vaccine - Insomnia, unspecified - Migraine, unspecified, not intractable, without status migrainosus - Other group home (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 - Unspecified visual disturbance INPATIENT VISIT TRACKING (12 MO.) No inpatient visits to display in this time frame [id number]
[2025-03-15] MEDS ORDERED: LACTATED RINGER'S 1,000 ML IV ONE (00:45)
[2025-03-15] MEDS ORDERED: droPERidol 5 MG/2 ML VIAL IV ONE (00:45)
[2025-03-15] MEDS ORDERED: diphenhydrAMINE HCL 50 MG/ML VIAL IV ONE (00:45)
[2025-03-15] MEDS ORDERED: FAMOTIDINE 20 MG/ 2 ML VIAL IV ONE (00:45)
[2025-03-15 00:54] LABS: BASOPHILS 0.6 % (0.1-1.2); HEMOGLOBIN 13.2 g/dL (11.2-15.7); LYMPHOCYTES 13.6 % (19.3-51.7); MCH 29.1 PG (25.6-32.2); MCHC 34.7 g/dL (32.2-35.5); MCV 83.7 fL (79.4-94.8); MONOCYTES 7.8 % (4.7-12.5); NEUTROPHILS 73.7 % (34.0-71.1); PLATELET COUNT 252 K/uL (182-369); RBC 4.54 M/uL (3.93-5.22)
[2025-03-15 01:14] LABS: ALBUMIN 3.6 g/dL (3.4-5.0); ALBUMIN/GLOBULIN RATIO 1.16 (1.1-2.4); ANION GAP 16.2 (7-21); BILIRUBIN, TOTAL 1.5 mg/dL (0.2-1.0); BUN/CREATININE RATIO 6.81 (6.0-28.6); CALCIUM 8.9 mg/dL (8.5-10.1); CREATININE, SERUM 0.88 mg/dL (0.55-1.02); MAGNESIUM 1.9 mg/dL (1.8-2.4); POTASSIUM 3.2 mmol/L (3.5-5.1); PROTEIN, TOTAL 6.7 g/dL (6.4-8.2)
[2025-03-15] MEDS ORDERED: KETOROLAC TROMETHAMINE 30 MG/ML VIAL IV ONE (01:15)
[2025-03-15 01:21] LABS: BILIRUBIN, URINE NEGATIVE (negative); BLOOD/HGB, URINE MODERATE (Negative); KETONE, URINE SMALL (Negative); LEUK ESTERASE, URINE NEGATIVE (negative); NITRITE, URINE NEGATIVE (negative)
[2025-03-15 01:35] LABS: AMPHETAMINES, URINE NEGATIVE (NEGATIVE); BARBITURATES, URINE NEGATIVE (NEGATIVE); BENZODIAZEPINE, URINE NEGATIVE (NEGATIVE); BUPRENORPHINE, URINE NEGATIVE (NEGATIVE); CANNABINOID, URINE POSITIVE (NEGATIVE); COCAINE, URINE NEGATIVE (NEGATIVE); ECSTASY, URINE NEGATIVE (NEGATIVE); FENTANYL, URINE NEGATIVE (NEGATIVE); METHADONE, URINE NEGATIVE (NEGATIVE); OPIATES, URINE NEGATIVE (NEGATIVE); OXYCODONE, URINE NEGATIVE (NEGATIVE); PHENCYCLIDINE, URINE NEGATIVE (NEGATIVE)
[2025-03-15 01:44] LABS: BACTERIA, URINE 2+ /hpf (negative); CASTS, URINE NONE SEEN \\lpf; CRYSTALS, URINE NONE SEEN (0-1+); EPITHELIAL CELLS, URINE SQUAMOUS 3+ /lpf (0-1+)
[2025-03-15 01:45] LABS: COLLECTION TYPE, URINE CLEAN CATCH; REFLEX CULTURE, URINE No (No)
[2025-03-15] MEDS ORDERED: POTASSIUM CHLORIDE 10 MEQ/100 ML BAG IV SCH (02:00)
[2025-03-15] MEDS ORDERED: SODIUM CHLORIDE 0.9% 1,000 ML IV PRN (02:00)
[2025-03-15] MEDS ORDERED: METOCLOPRAMIDE HCL 10 MG/2 ML SDV IV ONE (03:00)
[2025-03-15 03:30] VITALS: BP 130/87
== END 2025-03-15 03:30 | disposition home or self-care (01) ==
LOC: ED 00:13
PROVIDERS: Internal Medicine
DX: G43.A0 Cyclical vomiting, in migraine, not intractable (principal); Z88.8 Allergy status to other drugs, medicaments and biological substances; Z88.0 Allergy status to penicillin; Z88.7 Allergy status to serum and vaccine; Z79.899 Other long term (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
CPT/HCPCS: 36415; 80053; 80307; 81001; 83690; 83735; 84703; 85025; 96361; 96365; 96375; 99284-25; J1200; J1790; J1885; J2765; J3480; J7030; J7121

== ENCOUNTER 2025-03-16 08:16 | Emergency (ER) | payer OTHER ==
[~2025-03-16] VITALS: Ht 152.4 cm; Wt 77.4 kg
--- OUTSIDE RECORDS SUMMARY | 2025-03-16 08:23 | XMS ---
PreManage Notification: SEAN KHALIL Security Supervisor Cook House Events No recent Security Events currently on file CRITERIA MET - 6 ED Visits in 6 Months - [facility] - 2 Visits in 30 Days CARE PROVIDERS Marge Woods Community Health Worker 01/07/2021-Current PHONE: [phone] JOSÉ ANTONIO NERI Rn Endocrinology 11/05/2020-Current PHONE: Unknown EVERARDO SINHA Physician Pit Recorder 12/17/2018-Current PHONE: [phone] -[facility] Dentist: Rn Endocrinology Dionna Schmidt PHONE: [phone] -, Shilo- Dentist: Rn Endocrinology [facility] PHONE: [phone] -, Brayan- Dentist: Rn Endocrinology [facility] PHONE: [phone] DEN[facility]SE [facility] Current PHONE: Unknown BRAYAN PRIMARY Clinic/Center: Primary Care [facility] PHONE: [phone] Ludivina has no Care Guidelines for this patient. Care History Medical/Surgical 12/23/2020 [facility] \R\- PATIENT CURRENTLY - RECEIVING SERVICES FROM [facility] -FEEDING TUBE. 11/16/2020 [facility] \R\- PATIENT HAS AN APT WITH DR DARON VYAS 11/25/2020 FOR ER FOLLOW UP. [place] VISIT COUNT (12 MO.) 8 [facility] TOTAL 8 NOTE: Visits indicate total known visits. ED/UCC VISIT TRACKING (12 MO.) 03/16/2025 08:17 [facility] [place] [facility]: Emergency COMPLAINT: - VOMITING 03/15/2025 00:14 [facility] Schmidt [place] TYPE: Emergency COMPLAINT: - VOMITING 03/14/2025 09:[address] [place] [facility] [place] TYPE: Emergency COMPLAINT: - VOMITING 03/11/2025 11:38 [facility] [place] [place] TYPE: Emergency COMPLAINT: - VOMITING DIAGNOSES: - Allergy status to other antibiotic agents - Allergy status to penicillin - Allergy status to serum and vaccine - Cyclical vomiting syndrome unrelated to migraine - 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 - Nausea with vomiting, unspecified 12/18/2024 11:33 [facility] [place] TYPE: Emergency COMPLAINT: - RT LEG PAIN DIAGNOSES: - Allergy status to penicillin - Allergy status to serum and vaccine - Other long goods drier (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 - Pain in right [...] ice and snow, initial encounter - Other chcf (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 - Pain in right ankle and joints of right foot 10/16/2024 19:00 [facility] [place] TYPE: Emergency COMPLAINT: - LOWER BACK PAIN/FEET NUMBNESS DIAGNOSES: - Allergy status to other drugs, medicaments and biological substances - Allergy status to penicillin - Allergy status to serum and vaccine - Fall from snowboard, initial encounter - Low back pain, unspecified - Other chcf (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 - Strain of muscle, fascia and tendon of lower back, initial encounter 03/27/2024 11:04 [facility] [place] TYPE: Emergency COMPLAINT: - DIZZINESS DIAGNOSES: - Allergy status to other drugs, medicaments and biological substances - Allergy status to penicillin - Allergy status to serum and vaccine - Insomnia, unspecified - Migraine, unspecified, not intractable, without status migrainosus - Other long goods drier (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 - Unspecified visual disturbance INPATIENT VISIT TRACKING (12 MO.) No inpatient visits to display in this time frame [id number]
[2025-03-16] MEDS ORDERED: SODIUM CHLORIDE 0.9% 1,000 ML IV ONE (08:45)
[2025-03-16] MEDS ORDERED: diphenhydrAMINE HCL 50 MG/ML VIAL IV ONE (08:45)
[2025-03-16] MEDS ORDERED: HALOPERIDOL LACTATE 5 MG/ML VIAL IV ONE (08:45)
[2025-03-16 08:47] LABS: BASOPHILS 0.7 % (0.1-1.2); EOSINOPHILS 2.9 % (0.7-5.8); HEMATOCRIT 39.7 % (34.1-44.9); HEMOGLOBIN 14.2 g/dL (11.2-15.7); LYMPHOCYTES 17.5 % (19.3-51.7); MCH 29.3 PG (25.6-32.2); MCHC 35.8 g/dL (32.2-35.5); MCV 81.9 fL (79.4-94.8); MONOCYTES 9.4 % (4.7-12.5); NEUTROPHILS 69.2 % (34.0-71.1); PLATELET COUNT 274 K/uL (182-369); RBC 4.85 M/uL (3.93-5.22)
[2025-03-16 09:03] LABS: ALBUMIN 3.9 g/dL (3.4-5.0); ALBUMIN/GLOBULIN RATIO 1.05 (1.1-2.4); ANION GAP 13.9 (7-21); BILIRUBIN, TOTAL 1.5 mg/dL (0.2-1.0); BUN/CREATININE RATIO 7.29 (6.0-28.6); CALCIUM 9.4 mg/dL (8.5-10.1); CREATININE, SERUM 0.96 mg/dL (0.55-1.02); POTASSIUM 3.9 mmol/L (3.5-5.1); PROTEIN, TOTAL 7.6 g/dL (6.4-8.2)
[2025-03-16 09:31] LABS: BILIRUBIN, URINE NEGATIVE (negative); BLOOD/HGB, URINE SMALL (Negative); KETONE, URINE SMALL (Negative); LEUK ESTERASE, URINE NEGATIVE (negative); NITRITE, URINE NEGATIVE (negative); PH, URINE 6.5 (5-7)
[2025-03-16 09:36] LABS: EPITHELIAL CELLS, URINE SQUAMOUS 4+ /lpf (0-1+)
[2025-03-16 09:37] LABS: BACTERIA, URINE 1+ /hpf (negative); CASTS, URINE NONE SEEN \\lpf; COLLECTION TYPE, URINE CLEAN CATCH; CRYSTALS, URINE NONE SEEN (0-1+); REFLEX CULTURE, URINE No (No)
[2025-03-16] MEDS ORDERED: ondansetron HCL 4 MG/2 ML VIAL IV ONE (10:45)
[2025-03-16 11:30] VITALS: BP 97/63
[2025-03-17] MEDS ORDERED: PROMETHAZINE HC25 M1 PO (18:58)
[2025-03-17] MEDS ORDERED: PROMETHEGAN25 MG PR (21:04)
[2025-03-17] MEDS ORDERED: COMPAZINE25 MG PR (21:04)
[2025-03-17] MEDS ORDERED: ONDANSETRON ODT8 MG PO (21:05)
== END 2025-03-16 11:30 | disposition home or self-care (01) ==
LOC: ED 08:16
PROVIDERS: Emergency Medicine
DX: R11.2 Nausea with vomiting, unspecified (principal); Z88.1 Allergy status to other antibiotic agents; Z88.7 Allergy status to serum and vaccine; Z88.0 Allergy status to penicillin; Z79.899 Other long term (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
CPT/HCPCS: 36415; 80053; 81001; 83605; 83690; 84703; 85025; 96361; 96374; 96375; 99284-25; J1200; J1630; J2405; J7030

== ENCOUNTER 2025-03-17 18:30 | Emergency (ER) | payer OTHER ==
[~2025-03-17] VITALS: Ht 152.4 cm; Wt 77.4 kg
--- OUTSIDE RECORDS SUMMARY | 2025-03-17 18:35 | XMS ---
PreManage Notification: SEAN KHALIL Security Wood Heel Finisher Events No recent Security Events currently on file CRITERIA MET - 6 ED Visits in 6 Months - [facility] - 2 Visits in 30 Days CARE PROVIDERS Marge Woods Community Health Worker 01/07/2021-Current PHONE: [phone] JOSÉ ANTONIO NERI Rice Field Worker 11/05/2020-Current PHONE: Unknown EVERARDO SINHA Physician Call Person 12/17/2018-Current PHONE: [phone] -[facility] Dentist: Rice Field Worker Dionna Schmidt PHONE: [phone] -, Shilo- Dentist: Rice Field Worker [facility] PHONE: [phone] -, Brayan- Dentist: Rice Field Worker [facility] PHONE: [phone] DEN[facility]SE [facility] Current PHONE: Unknown BRAYAN PRIMARY Clinic/Center: Primary Care [facility] PHONE: [phone] Ludivina has no Care Guidelines for this patient. Care History Medical/Surgical 12/23/2020 [facility] \R\- PATIENT CURRENTLY - RECEIVING SERVICES FROM [facility] -FEEDING TUBE. 11/16/2020 [facility] \R\- PATIENT HAS AN APT WITH DR DARON VYAS 11/25/2020 FOR ER FOLLOW UP. Theodore VISIT COUNT (12 MO.) 9 [facility] Jas [address] [place] [address] Bobbi Mckeon (Manav Em) TOTAL 10 NOTE: Visits indicate total known visits. ED/UCC VISIT TRACKING (12 MO.) 03/17/2025 18:31 [facility] Jas [place] TYPE: Emergency COMPLAINT: - VOMITING 03/16/2025 14:08 [facility] Emergency DIAGNOSES: - Noninfective gastroenteritis and colitis, unspecified - Abdominal Pain - Emesis - vomiting,poss dehydration 03/16/2025 08:17 [facility] [place] TYPE: Emergency COMPLAINT: - VOMITING 03/15/2025 00:14 [facility] [place] TYPE: Emergency COMPLAINT: - VOMITING 03/14/2025 09:07 [facility] [place] TYPE: Emergency COMPLAINT: - VOMITING 03/11/2025 11:38 [facility] [place] TYPE: Emergency COMPLAINT: - VOMITING DIAGNOSES: - Allergy status to other antibiotic agents - Allergy status to penicillin - Allergy status to serum and vaccine - Cyclical vomiting syndrome unrelated to migraine - exterminator termite (current) use of antibiotics - Nausea with vomiting, unspecified 12/18/2024 11:33 [facility] [place] TYPE: Emergency COMPLAINT: - RT LEG PAIN DIAGNOSES: - Allergy status to penicillin - Allergy status to serum and vaccine - Other regional intermodal truck driver (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 - Pain in right [...] ice and snow, initial encounter - Other regional intermodal truck driver (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 - Pain in right ankle and joints of right foot 10/16/2024 19:00 [facility] [place] [place] TYPE: Emergency COMPLAINT: - LOWER BACK PAIN/FEET NUMBNESS DIAGNOSES: - Allergy status to other drugs, medicaments and biological substances - Allergy status to penicillin - Allergy status to serum and vaccine - Fall from snowboard, initial encounter - Low back pain, unspecified - Other penitentiary (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 - Strain of muscle, fascia and tendon of lower back, initial encounter 03/27/2024 11:04 [facility] [place] TYPE: Emergency COMPLAINT: - DIZZINESS DIAGNOSES: - Allergy status to other drugs, medicaments and biological substances - Allergy status to penicillin - Allergy status to serum and vaccine - Insomnia, unspecified - Migraine, unspecified, not intractable, without status migrainosus - Other regional intermodal truck driver (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 - Unspecified visual disturbance INPATIENT VISIT TRACKING (12 MO.) No inpatient visits to display in this time frame [id number]
[2025-03-17] MEDS ORDERED: ondansetron HCL 4 MG/2 ML VIAL IV ONE (18:45)
[2025-03-17 18:52] LABS: BASOPHILS 0.7 % (0.1-1.2); EOSINOPHILS 0.3 % (0.7-5.8); HEMATOCRIT 38.6 % (34.1-44.9); HEMOGLOBIN 13.4 g/dL (11.2-15.7); MCH 28.9 PG (25.6-32.2); MCHC 34.7 g/dL (32.2-35.5); MCV 83.2 fL (79.4-94.8); MONOCYTES 7.5 % (4.7-12.5); NEUTROPHILS 75.1 % (34.0-71.1); PLATELET COUNT 273 K/uL (182-369); RBC 4.64 M/uL (3.93-5.22)
[2025-03-17] MEDS ORDERED: PROMETHAZINE HC25 M1 PO (18:58)
[2025-03-17 19:08] LABS: ALBUMIN 3.6 g/dL (3.4-5.0); ALBUMIN/GLOBULIN RATIO 1.16 (1.1-2.4); BILIRUBIN, TOTAL 0.9 mg/dL (0.2-1.0); BUN/CREATININE RATIO 6.18 (6.0-28.6); CALCIUM 9.3 mg/dL (8.5-10.1); CREATININE, SERUM 0.97 mg/dL (0.55-1.02); MAGNESIUM 1.9 mg/dL (1.8-2.4); PROTEIN, TOTAL 6.7 g/dL (6.4-8.2)
[2025-03-17] MEDS ORDERED: LACTATED RINGER'S 1,000 ML IV ONE (20:00)
[2025-03-17] MEDS ORDERED: droPERidol 5 MG/2 ML VIAL IV ONE (20:00)
[2025-03-17 20:42] LABS: BILIRUBIN, URINE NEGATIVE (negative); BLOOD/HGB, URINE TRACE-I (Negative); KETONE, URINE >=80 (Negative); LEUK ESTERASE, URINE NEGATIVE (negative); NITRITE, URINE NEGATIVE (negative)
[2025-03-17 20:48] LABS: CRYSTALS, URINE NONE SEEN (0-1+); EPITHELIAL CELLS, URINE SQUAMOUS 2+ /lpf (0-1+); RED BLOOD CELLS, URINE 0-1 /hpf (0-5)
[2025-03-17 20:49] LABS: BACTERIA, URINE RARE /hpf (negative); CASTS, URINE NONE SEEN \\lpf; COLLECTION TYPE, URINE CLEAN CATCH; REFLEX CULTURE, URINE No (No)
[2025-03-17] MEDS ORDERED: COMPAZINE25 MG PR (21:04)
[2025-03-17] MEDS ORDERED: PROMETHEGAN25 MG PR (21:04)
[2025-03-17] MEDS ORDERED: ONDANSETRON ODT8 MG PO (21:05)
[2025-03-17] MEDS ORDERED: ONDANSETRON 4 MG HOME.PACK SL ONE (21:15)
[2025-03-17] MEDS ORDERED: PROMETHAZINE HCL 25 MG SUPP. HOME.PACK PR ONE (21:15)
[2025-03-17] MEDS ORDERED: POTASSIUM CHLORIDE 10 MEQ TABCR PO ONE (21:15)
[2025-03-17 21:31] VITALS: BP 136/96
== END 2025-03-17 21:31 | disposition home or self-care (01) ==
LOC: ED 18:30
PROVIDERS: Emergency Medicine
DX: K52.9 Noninfective gastroenteritis and colitis, unspecified (principal); Z79.899 Other long term (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; Z88.0 Allergy status to penicillin; Z88.7 Allergy status to serum and vaccine; Z88.8 Allergy status to other drugs, medicaments and biological substances
CPT/HCPCS: 36415; 80053; 81001; 83735; 84703; 85025; 96361; 96374; 96375; 99284-25; A9270; J1790; J2405; J7121

== ENCOUNTER 2025-04-12 20:30 | Emergency (ER) | payer OTHER ==
[~2025-04-12] VITALS: Ht 152.4 cm; Wt 73.1 kg
[~2025-04-12 20:30] MED LIST changes: +PROMETHAZINE HC50 M1 PR; +PROMETHEGAN25 MG PR
--- OUTSIDE RECORDS SUMMARY | 2025-04-12 20:38 | XMS ---
PreManage Notification: SEAN KHALIL Security Macaroni Press Operator Events No recent Security Events currently on file CRITERIA MET - 6 ED Visits in 6 Months - [facility] - 2 Visits in 30 Days - [facility] - 3 Facilities in 90 Days CARE PROVIDERS Marge Woods Community Health Worker 01/07/2021-Current PHONE: [phone] JOSÉ ANTONIO NERI Malt Liquors Sales Supervisor 11/05/2020-Current PHONE: Unknown EVERARDO SINHA Physician 12/17/2018-Current PHONE: [phone] -[facility]+ Dentist: [employer] Liqu[employer] Sales Supervisor Dionna Schmidt PHONE: [phone] -, Shilo- Dentist: [employer] Sales Supervisor Current [facility] PHONE: [phone] -Brayan- Dentist: M[employer] Liqu[employer] Sales Supervisor Current [facility] PHONE: [phone] DEN[facility]SE [facility] Current PHONE: Unknown BRAYAN PRIMARY Clinic/Center: Primary Care [facility] PHONE: [phone] Ludivina has no Care Guidelines for this patient. Care History Medical/Surgical 12/23/2020 [facility] \R\- PATIENT CURRENTLY - RECEIVING SERVICES FROM [facility] -FEEDING TUBE. 11/16/2020 [facility] \R\- PATIENT HAS AN APT WITH DR DARON VYAS 11/25/2020 FOR ER FOLLOW UP. Theodore VISIT COUNT (12 MO.) [address] (Manav Em) TOTAL 11 NOTE: Visits indicate total known visits. ED/UCC VISIT TRACKING (12 MO.) 04/12/2025 20:[address] [facility] [address] [facility] [place] TYPE: Emergency COMPLAINT: - VOMITING 03/18/2025 12:11 [facility] TYPE: Emergency DIAGNOSES: - Acidosis, unspecified - Cannabis use, unspecified, uncomplicated - Hypokalemia - Nausea with vomiting, unspecified - Other acidosis - Other disorders of phosphorus metabolism - Other specified health status - Unspecified abdominal pain - Emesis - Nausea 03/17/2025 18:[address] [facility] [place] TYPE: Emergency COMPLAINT: - VOMITING DIAGNOSES: - Allergy status to other drugs, medicaments and biological substances - Allergy status to penicillin - Allergy status to serum and vaccine - Nausea with vomiting, unspecified - Noninfective gastroenteritis and colitis, unspecified - Other parts counterman (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 03/16/2025 14:08 [facility] Manav Em ID (Manav Em) TYPE: Emergency DIAGNOSES: - Noninfective gastroenteritis and colitis, unspecified - Abdominal Pain - Emesis - vomiting,poss dehydration 03/16/2025 08:17 [facility]itchie HJose Schmidt [place] TYPE: Emergency COMPLAINT: - VOMITING DIAGNOSES: - Allergy status to other antibiotic agents - Allergy status to penicillin - Allergy status to serum and vaccine - Nausea with vomiting, unspecified - Other assisted (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 03/15/2025 00:14 [facility] [place] TYPE: Emergency COMPLAINT: - VOMITING DIAGNOSES: - Allergy status to other drugs, medicaments and biological substances - Allergy status to penicillin - Allergy status to serum and vaccine - Cyclical vomiting, in migraine, not intractable - Nausea with vomiting, unspecified - Other assisted (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 03/14/2025 09:07 [facility] [place] TYPE: Emergency COMPLAINT: - VOMITING DIAGNOSES: - Allergy status to other antibiotic agents - Allergy status to penicillin - Allergy status to serum and vaccine - Hypokalemia - longterm (current) use of antibiotics - Nausea with vomiting, unspecified - Other assisted (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 03/11/2025 11:38 [facility] [place] TYPE: Emergency COMPLAINT: - VOMITING DIAGNOSES: - Allergy status to other antibiotic agents - Allergy status to penicillin - Allergy status to serum and vaccine - Cyclical vomiting syndrome unrelated to migraine - parts counterman (current) use of antibiotics - Nausea with vomiting, unspecified 12/18/2024 11:33 [facility] [place] TYPE: Emergency COMPLAINT: - RT LEG PAIN DIAGNOSES: - Allergy status to penicillin - Allergy status to serum and vaccine - Other parts counterman (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 - Pain in right [...] ice and snow, initial encounter - Other assisted (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 - Pain in right ankle and joints of right foot 10/16/2024 19:00 [facility] [place] TYPE: Emergency COMPLAINT: - LOWER BACK PAIN/FEET NUMBNESS DIAGNOSES: - Allergy status to other drugs, medicaments and biological substances - Allergy status to penicillin - Allergy status to serum and vaccine - Fall from snowboard, initial encounter - Low back pain, unspecified - Other assisted (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 - Strain of muscle, fascia and tendon of lower back, initial encounter INPATIENT VISIT TRACKING (12 MO.) No inpatient visits to display in this time frame [id number]
[2025-04-12] MEDS ORDERED: SODIUM CHLORIDE 0.9% 2,000 ML IV SCH (21:30)
[2025-04-12 21:34] LABS: MCH 29.2 PG (25.6-32.2); MCHC 35.7 g/dL (32.2-35.5); MCV 81.9 fL (79.4-94.8); RBC 5.13 M/uL (3.93-5.22)
[2025-04-12 21:52] LABS: ALT (SGPT) 76.0 U/L (14-59); AST (SGOT) 36.0 U/L (15-37); GLOMERULAR FILTRATION RATE,EST 74.0 mL/min (>60); PROTEIN, TOTAL 7.7 g/dL (6.4-8.2); UREA NITROGEN 11.0 mg/dL (7-18)
[2025-04-12 21:59] LABS: BASOPHILS, MANUAL DIFF 1; LYMPHOCYTES, MANUAL DIFF 10; MONOCYTES, MANUAL DIFF 8; NEUTROPHILS, MANUAL DIFF 81
[2025-04-12] MEDS ORDERED: METOCLOPRAMIDE HCL 10 MG/2 ML SDV IV ONE (22:00)
[2025-04-12 22:52] LABS: BLOOD/HGB, URINE MODERATE (Negative); KETONE, URINE >=80 (Negative); LEUK ESTERASE, URINE NEGATIVE (negative); NITRITE, URINE NEGATIVE (negative)
[2025-04-12 23:08] LABS: AMPHETAMINES, URINE NEGATIVE (NEGATIVE); BARBITURATES, URINE NEGATIVE (NEGATIVE); BENZODIAZEPINE, URINE NEGATIVE (NEGATIVE); CANNABINOID, URINE POSITIVE (NEGATIVE); COCAINE, URINE NEGATIVE (NEGATIVE); ECSTASY, URINE NEGATIVE (NEGATIVE); FENTANYL, URINE NEGATIVE (NEGATIVE); METHADONE, URINE NEGATIVE (NEGATIVE); OPIATES, URINE NEGATIVE (NEGATIVE); OXYCODONE, URINE NEGATIVE (NEGATIVE); PHENCYCLIDINE, URINE NEGATIVE (NEGATIVE)
[2025-04-12 23:13] LABS: BACTERIA, URINE 1+ /hpf (negative); CASTS, URINE NONE SEEN \\lpf; CRYSTALS, URINE NONE SEEN (0-1+); EPITHELIAL CELLS, URINE SQUAMOUS 2+ /lpf (0-1+)
[2025-04-12 23:14] LABS: REFLEX CULTURE, URINE No (No)
[2025-04-12] MEDS ORDERED: PANTOPRAZOLE SODIUM 40 MG/10 ML VIAL IV ONE (23:15)
[2025-04-12] MEDS ORDERED: PROMETHAZINE HCL 25 MG SUPP. HOME.PACK PR ONE (23:45)
[2025-04-12] MEDS ORDERED: PROMETHAZINE HCL 25 MG HOME.PACK PO ONE (23:45)
[2025-04-12] MEDS ORDERED: ONDANSETRON 4 MG HOME.PACK SL ONE (23:45)
[2025-04-13 00:14] VITALS: BP 145/92
== END 2025-04-13 00:11 | disposition home or self-care (01) ==
LOC: ED 20:30
PROVIDERS: Emergency Medicine
DX: R11.15 Cyclical vomiting syndrome unrelated to migraine (principal); Z88.1 Allergy status to other antibiotic agents; Z88.7 Allergy status to serum and vaccine; Z88.8 Allergy status to other drugs, medicaments and biological substances; Z79.899 Other long term (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
CPT/HCPCS: 36415; 80053; 80307; 81001; 83690; 83735; 84703; 85025; 96361; 96374; 96375; 99284-25; A9270; J1790; J2405; J2470; J2765; J7030

== ENCOUNTER 2025-06-04 07:50 | Day surgery (SDC) | payer OTHER ==
[~2025-06-04] VITALS: Ht 152.4 cm; Wt 73.0 kg
[~2025-06-04 07:50] MED LIST changes: +AMITRIPTYLINE H25 MG PO; +IBLOOD GLUCOSE TEST STRIP 1 EA TEST VI PRN; +LACTATED RINGER'S 1,000 ML IV SCH; +LATUDA20 MG PO; +LIDOCAINE HCL 1% 5 ML SDV INJ ONE; +LUNESTA3 MG PO
[2025-06-04 08:09] VITALS: BP 104/60
[2025-06-04 08:39] LABS: ALT (SGPT) 16.0 U/L (14-59); AST (SGOT) 21.0 U/L (15-37); GLOMERULAR FILTRATION RATE,EST 119.0 mL/min (>60); PROTEIN, TOTAL 6.2 g/dL (6.4-8.2); UREA NITROGEN 9.0 mg/dL (7-18)
[2025-06-04] MEDS ORDERED: LIDOCAINE HCL 2% 5 ML SDV ONE (10:19)
--- NOTE | 2025-06-04 11:10 | NUR ---
06/04/25 1110 Xiao Dugan 1100: PT ARRIVES TO PACU NON AROUSAL OR REACTIVE. REPORT RECEIVED FROM PBX TECHNICIAN AND CLEANER ASSISTANT.
[2025-06-04 11:54] VITALS: BP 85/69
--- NOTE | 2025-06-06 08:49 | OR ---
[facility] [address] [facility] [place], [place] [address] Signed DATE OF OPERATION: 06/04/2025 SURGEON: Samantha Mcintosh DO POSTOPERATIVE DIAGNOSES: 1. Gastroesophageal reflux symptoms. 2. Colon cancer screening for rectal bleeding. POSTOPERATIVE DIAGNOSES: 1. Gastroesophageal reflux symptoms. 2. Colon cancer screening for rectal bleeding. 3. LA grade D esophagitis. 4. Gastritis. 5. Incomplete bowel prep with inadequate visualization. PROCEDURES: 1. Esophagogastroduodenoscopy with biopsy of the GE junction and stomach. 2. Incomplete colonoscopy due to inadequate prep. ANESTHESIA: IV sedation. ESTIMATED BLOOD LOSS: None. DRAINS: None. COMPLICATIONS: None. DESCRIPTION OF PROCEDURE: Patient brought to the GI lab, placed supine position. After induction of IV sedation through preanesthetized oropharynx and a bite block, the Olympus video endoscope was then introduced into the mouth, directed through the length of the esophagus into the distal esophagus, at which time, LA grade B esophagitis was noted. No ulceration was noted. Again, biopsy of the GE junction was performed, passed off the field for pathologic review most inflammation. Scope was advanced into the stomach and general exploration was carried out. Some punctate gastritis was noted. Random gastric biopsy was taken from the antrum. Otherwise, no intrinsic or extrinsic masses were Electronically Signed By: SAMANTHA MCINTOSH DO 06/06/25 0849 PATIENT NAME: SEAN KHALIL OPERATIVE REPORT DATE OF : 00 REPORT #: [id number] PHYSICIAN: SAMANTHA MCINTOSH DO PCP: KARUNA DE LOS SANTOS PA-C REPORT IS CONFIDENTIAL AND NOT TO BE RELEASED WITHOUT AUTHORIZATION [facility] [address] [place], [place] [address] Signed noted in the stomach body, fundus, or antrum. The scope was then brought, put through the pylorus. First and second portions of the duodenum were evaluated, essentially unremarkable. The scope was brought back into the stomach. Stomach was decompressed. Scope was withdrawn. Patient tolerated the procedure well. She was then placed in left lateral position and padded to the satisfaction of anesthesia. The Olympus video colonoscope was then pre-lubricated, introduced into the anus, into the rectal vault. Upon encountering the rectal vault some large quantities of formed stool was noted, was consistent with inadequate bowel prep. Multiple attempts were made to pass by the stone irrigation and brush technique, but it could not be completed and the colonoscopy could not be completed as well, so decision to terminate the colonoscopy based on inadequate bowel prep was then made. The scope was withdrawn. Patient tolerated the procedure well and to recovery room in satisfactory condition. DO KENAN Rehman/JUVENTINO /[id number] Copies: ~ Electronically Signed By: SAMANTHA MCINTOSH DO 06/06/25 0849 PATIENT NAME: SEAN KHALIL OPERATIVE REPORT DATE OF : 00 REPORT #: [id number] PHYSICIAN: SAMANTHA MCINTOSH DO PCP: KARUNA DE LOS SANTOS PA-C REPORT IS CONFIDENTIAL AND NOT TO BE RELEASED WITHOUT AUTHORIZATION
--- NOTE | 2025-06-06 16:04 | PATH ---
[facility] [address] [facility] [place], [place] [address] Signed SPECIMEN(S): A GE JUNCTION BIOPSY SPECIMEN(S): B RANDOM STOMACH SPECIMEN SOURCE: A. GE JUNCTION BIOPSY B. RANDOM STOMACH CLINICAL HISTORY: GERD, epigastric pain, rectal bleeding, LA grade B esophagitis, gastritis FINAL PATHOLOGIC DIAGNOSIS: A. GE junction biopsy: - Esophageal and gastric mucosa with reactive features and mild chronic inflammation. - Negative for specialized intestinal metaplasia or dysplasia. B. Random stomach biopsy: - Benign gastric mucosa with focal slight chronic inflammation. - Negative for evidence of Helicobacter organisms on routine HE-stained sections. JVR:smn MICROSCOPIC EXAMINATION: Histologic sections of all submitted blocks are examined by light microscopy. These findings, together with the gross examination, support the pathologic diagnosis. GROSS DESCRIPTION: A. The specimen, labeled and designated "Sumeet, GE junction biopsy," is received in formalin and consists of one lazcano soft tissue fragment, 0.4 cm. Entirely submitted in (A1). B. The specimen, labeled and designated "Sumeet, random stomach," is received in formalin and consists of one lazcano soft tissue fragment, 0.6 cm. Entirely submitted in (B1). VB (under the direct supervision of a pathologist) The Gross Description was prepared using a voice recognition system. The report was reviewed for accuracy; however, sound-alike word errors, addition and/or deletions may occur. If there is any question about this report, please contact Client Services. PERFORMING LABORATORY: Technical component was performed by Sprooki, Lori Samayoa, PATIENT NAME: SEAN KHALIL PATHOLOGY DATE OF : 00 REPORT #: [id number] PHYSICIAN: JESSICA BALDERAS PCP: KARUNA DE LOS SANTOS PA-C REPORT IS CONFIDENTIAL AND NOT TO BE RELEASED WITHOUT AUTHORIZATION [place] [address] [facility] [place], [place] [address] [place] [address] (CLIA# [id number]). Professional interpretation was performed by [facility], [address] [place] [id number] (CLIA#: [id number]). Diagnostician: Bull Jaime MD Pathologist Electronically Signed 06/06/2025 Copies: ~ PATIENT NAME: SEAN KHALIL PATHOLOGY DATE OF : 00 REPORT #: [id number] PHYSICIAN: JESSICA BALDERAS PCP: KARUNA DE LOS SANTOS PA-C REPORT IS CONFIDENTIAL AND NOT TO BE RELEASED WITHOUT AUTHORIZATION
== END 2025-06-04 12:02 | disposition home or self-care (01) ==
LOC: OPS 07:50 → DS 07:50 → OPS 09:25 → DS 09:30 → OPS 09:35 → DS 10:05 → OPS 12:02 → DS 13:40
PROVIDERS: Nurse Anesthetist, Certified Registered; ATTEND Surgery
PROC: 0DJD8ZZ Inspection of Lower Intestinal Tract, Via Natural or Artificial Opening Endoscopic (ICD-10-PCS; 2025-06-04)
PROC: 0DB48ZX Excision of Esophagogastric Junction, Via Natural or Artificial Opening Endoscopic, Diagnostic (ICD-10-PCS; principal; 2025-06-04 09:45)
PROC: 0DB68ZX Excision of Stomach, Via Natural or Artificial Opening Endoscopic, Diagnostic (ICD-10-PCS; 2025-06-04 09:45)
DX: K62.5 Hemorrhage of anus and rectum (principal); K21.00 Gastro-esophageal reflux disease with esophagitis, without bleeding; K29.50 Unspecified chronic gastritis without bleeding; F17.210 Nicotine dependence, cigarettes, uncomplicated; F17.290 Nicotine dependence, other tobacco product, uncomplicated; Z88.0 Allergy status to penicillin; Z88.8 Allergy status to other drugs, medicaments and biological substances; Z90.49 Acquired absence of other specified parts of digestive tract
CPT/HCPCS: 00813; 36415; 80053; 84703; 88305; J2003; J2704; J7121

== ENCOUNTER 2025-07-22 12:57 | Emergency (ER) | payer OTHER ==
[~2025-07-22] VITALS: Ht 152.4 cm; Wt 71.0 kg
--- OUTSIDE RECORDS SUMMARY | ~2025-07-22 | XMS | Continuity of Care Document ---
Demographics + + + | Address | [address] | | | [place] [address] | + + + | Preferred Language | Unknown | + + + | Marital Status | Domestic partner | + + + | Mandaen Affiliation | Unknown | + + + | Race | White | + + + | Ethnic Group | Not or | + + + Author + + + | Author | [facility] | + + + | Organization | [facility] | + + + | Address | [address] | | | [place] [address] | + + + | Phone | | + + + Care Team Providers + + + + | Care Sales Operations Associate Name | Role | Phone | + + + + Unavailable | Unavailable | + + + + Unavailable | Unavailable | + + + + Allergies No information. Encounters No information. Functional Status No information. Immunizations No information. Medications + + + + | date | description | facility | + + + + | (no date) | [facility] | | | [facility] | + + + + | (no date) | LURASIDONE HCL | [facility] | | | | [facility] | + + + + | (no date) | [facility]EN [facility] | | | | [facility] | + + + + | (no date) | ACETAMINOPHEN | [facility] | | | | [facility] | + + + + | (no date) | TOPIRAMATE | [facility] | | | [facility] | + + + + | (no date) | Elainegeojane-Vfrm | [facility] | | | [facility] | + + + + | (no date) | FLUOXETINE HCL | [facility] | | | [facility] | + + + + | (no date) | ESZOPICLONE | [facility] | | | [facility] | + + + + | (no date) | DULOXETINE HCL | [facility] | | | [facility] | + + + + | (no date) | NAPROXEN SODIUM | [facility] | | | [facility] | + + + + | (no date) | AMITRIPTYLINE HCL | [facility] | | | [facility] | + + + + | (no date) | PROMETHAZINE HCL | [facility] | | | | [facility] | + + + + | (no date) | hydrOXYzine HCL | [facility] | | | | [facility] | + + + + [...] 67 | (missing) | (missing) | | [facility] | 08:20:07 | [facility] | | | [...] units | + + + +---------+ | 2025-05-27 00:00 | BMI | 31.4 | kg/m2 | + + + +---------+ | 2025-05-27 00:00 | height_metric | 152.4 | cm | + + + +---------+ | 2025-05-27 00:00 | height_standard | 60 | in | + + + +---------+ | 2025-05-27 00:00 | weight_metric | 73 | kg | + + + +---------+ | 2025-05-27 00:00 | weight_standard | 160.937 | lb | + + + +---------+ | 2025-06-04 00:00 | BP_diastolic | 69 | mmHg | + + + +---------+ | 2025-06-04 00:00 | BP_systolic | 85 | mmHg | + + + +---------+ | 2025-06-04 00:00 | heart_rate | 68 | /min | + + + +---------+ | 2025-06-04 00:00 | o2_saturation | 100 | % | + + + +---------+ | 2025-06-04 00:00 | respiration_rate | 12 | /min | + + + +---------+ | 2025-06-04 00:00 | | 97.1 | F | | | temperature_standar | | | | | d | | | + + + +---------+"
[~2025-07-22 12:57] MED LIST changes: -IBLOOD GLUCOSE TEST STRIP 1 EA TEST VI PRN; -LACTATED RINGER'S 1,000 ML IV SCH; -LIDOCAINE HCL 1% 5 ML SDV INJ ONE
--- OUTSIDE RECORDS SUMMARY | 2025-07-22 13:03 | XMS ---
PreManage Notification: SEAN KHALIL Security Order Tracer Events No recent Security Events currently on file CRITERIA MET - 6 ED Visits in 6 Months CARE PROVIDERS Marge Woods Community Health Worker 01/07/2021-Current PHONE: [phone] JOSÉ ANTONIO NERI Underground Mine Superintendent 11/05/2020-Current PHONE: Unknown EVERARDO SINHA Physician 12/17/2018-Current PHONE: [phone] -[facility]+ Dentist: Underground Mine Superintendent Dionna Schmidt PHONE: [phone] -, Shilo- Dentist: Underground Mine Superintendent [facility] PHONE: [phone] -, Brayan- Dentist: Underground Mine Superintendent [facility] PHONE: [phone] [facility] Current PHONE: Unknown BRAYAN PRIMARY Clinic/Center: [facility] PHONE: [phone] Ludivina has no Care Guidelines for this patient. Care History Medical/Surgical 12/23/2020 [facility] \R\- PATIENT CURRENTLY - [facility]CE[facility] 11/16/2020 [facility] \R\- PATIENT HAS AN APT WITH DR DARON VYAS 11/25/2020 FOR ER FOLLOW UP. Theodore VISIT COUNT (12 MO.) [facility] [address] [place] [address] 1 [facility] ([facility]) TOTAL 12 NOTE: Visits indicate total known visits. ED/UCC VISIT TRACKING (12 MO.) 07/22/2025 12[facility] COMPLAINT: - ABDOMINAL PAIN 04/12/2025 20:32 [facility] [place] TYPE: Emergency COMPLAINT: - VOMITING DIAGNOSES: - Allergy status to other antibiotic agents - Allergy status to other drugs, medicaments and biological substances - Allergy status to serum and vaccine - Cyclical vomiting syndrome unrelated to migraine - Nausea with vomiting, unspecified - Other prison (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 03/18/2025 12:11 [facility] TYPE: Emergency DIAGNOSES: - Acidosis, unspecified - Cannabis use, unspecified, uncomplicated - Hypokalemia - Nausea with vomiting, unspecified - Other acidosis - Other disorders of phosphorus metabolism - Other specified health status - Unspecified abdominal pain - Emesis - Nausea 03/17/2025 18:31 [facility] [place] TYPE: Emergency COMPLAINT: - VOMITING DIAGNOSES: - Allergy status to other drugs, medicaments and biological substances - Allergy status to penicillin - Allergy status to serum and vaccine - Nausea with vomiting, unspecified - Noninfective gastroenteritis and colitis, unspecified - Other prison (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 [facility] DIAGNOSES: - Noninfective gastroenteritis and colitis, unspecified - Abdominal Pain - Emesis - vomiting,poss dehydration 03/16/2025 08:17 [facility] [place] TYPE: Emergency COMPLAINT: - VOMITING DIAGNOSES: - Allergy status to other antibiotic agents - Allergy status to penicillin - Allergy status to serum and vaccine - Nausea with vomiting, unspecified - Other long term care social worker (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 03/15/2025 00:14 [facility] [place] TYPE: Emergency COMPLAINT: - VOMITING DIAGNOSES: - Allergy status to other drugs, medicaments and biological substances - Allergy status to penicillin - Allergy status to serum and vaccine - Cyclical vomiting, in migraine, not intractable - Nausea with vomiting, unspecified - Other prison (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 03/14/2025 09:07 [facility] TYPE: Emergency COMPLAINT: - VOMITING DIAGNOSES: - Allergy status to other antibiotic agents - Allergy status to penicillin - Allergy status to serum and vaccine - Hypokalemia - alf (current) use of antibiotics - Nausea with vomiting, unspecified - Other prison (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 03/11/2025 11:38 [facility] [...] to serum and vaccine - Other long term care social worker (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 - Pain in right [...] ice and snow, initial encounter - Other long term care social worker (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 - Pain in right ankle and joints of right foot 10/16/2024 19:00 [facility] [place] TYPE: Emergency COMPLAINT: - LOWER BACK PAIN/FEET NUMBNESS DIAGNOSES: - Allergy status to other drugs, medicaments and biological substances - Allergy status to penicillin - Allergy status to serum and vaccine - Fall from snowboard, initial encounter - Low back pain, unspecified - Other long term care social worker (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 - Strain of muscle, fascia and tendon of lower back, initial encounter INPATIENT VISIT TRACKING (12 MO.) No inpatient visits to display in this time frame [id number]
[2025-07-22] MEDS ORDERED: IMITREX25 MG PO (13:16)
[2025-07-22 13:43] LABS: BLOOD/HGB, URINE TRACE-I (Negative); KETONE, URINE >=80 (Negative); LEUK ESTERASE, URINE NEGATIVE (negative); NITRITE, URINE NEGATIVE (negative)
[2025-07-22 13:44] LABS: BASOPHILS 0.7 % (0.1-1.2); EOSINOPHILS 0.7 % (0.7-5.8); LYMPHOCYTES 14.5 % (19.3-51.7); MCH 30.4 PG (25.6-32.2); MCHC 37.5 g/dL (32.2-35.5); MCV 81.1 fL (79.4-94.8); MONOCYTES 8.0 % (4.7-12.5); NEUTROPHILS 75.7 % (34.0-71.1); RBC 5.66 M/uL (3.93-5.22)
[2025-07-22 13:52] LABS: BACTERIA, URINE NONE SEEN /hpf (negative); CASTS, URINE NONE SEEN \\lpf; CRYSTALS, URINE NONE SEEN (0-1+); EPITHELIAL CELLS, URINE SQUAMOUS 2+ /lpf (0-1+); REFLEX CULTURE, URINE No (No)
[2025-07-22 14:03] LABS: ALT (SGPT) 72.0 U/L (14-59); AST (SGOT) 73.0 U/L (15-37); GLOMERULAR FILTRATION RATE,EST 76.0 mL/min (>60); PROTEIN, TOTAL 7.5 g/dL (6.4-8.2); UREA NITROGEN 17.0 mg/dL (7-18)
[2025-07-22] MEDS ORDERED: METOCLOPRAMIDE HCL 10 MG/2 ML SDV IV ONE (14:30)
[2025-07-22] MEDS ORDERED: POTASSIUM CHLORIDE 10 MEQ/100 ML BAG IV SCH (14:30)
[2025-07-22] MEDS ORDERED: SODIUM CHLORIDE 0.9% 1,000 ML IV PRN (14:45)
[2025-07-22] MEDS ORDERED: POTASSIUM BICARBONATE/CIT AC 20 MEQ TABEF PO ONE (16:30)
[2025-07-22] MEDS ORDERED: CAPSAICIN 0.1% 56.6 GM TUBE TOP ONE (16:30)
[2025-07-22] MEDS ORDERED: POTASSIUM CHLORIDE 10 MEQ TABCR PO ONE (16:30)
[2025-07-22] MEDS ORDERED: POTASSIUM CHLORIDE 10 MEQ TABCR ONE (17:20)
[2025-07-22 19:00] LABS: GLOMERULAR FILTRATION RATE,EST 113.0 mL/min (>60); UREA NITROGEN 13.0 mg/dL (7-18)
[2025-07-22] MEDS ORDERED: ONDANSETRON HCL4 MG PO (19:16)
[2025-07-22 19:18] VITALS: BP 122/84
== END 2025-07-22 19:23 | disposition home or self-care (01) ==
LOC: ED 12:57
PROVIDERS: Emergency Medicine
DX: R11.15 Cyclical vomiting syndrome unrelated to migraine (principal); Z88.0 Allergy status to penicillin; Z88.7 Allergy status to serum and vaccine; Z79.899 Other long term (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
CPT/HCPCS: 36415; 74177; 80048; 80053; 81001; 83690; 83735; 84703; 85025; 96365; 96375; 99284-25; A9270; J1200; J1790; J2405; J2765; J3480; J7030; Q9967

== ENCOUNTER 2025-08-29 13:42 | Emergency (ER) | payer OTHER ==
[~2025-08-29] VITALS: Ht 152.4 cm; Wt 68.2 kg
--- OUTSIDE RECORDS SUMMARY | ~2025-08-29 | XMS | Continuity of Care Document ---
Demographics + + + | Address | [address] | | | [place] [address] | + + + | Preferred Language | Unknown | + + + | Marital Status | Domestic partner | + + + | Episcopalian Affiliation | Unknown | + + + | Race | White | + + + | Ethnic Group | Not or | + + + Author + + + | Author | [facility] | + + + | Organization | [facility] | + + + | Address | [address] | | | [place] [address] | + + + | Phone | | + + + Care Team Providers + + + + | Care Wafer Polisher Name | Role | Phone | + + + + Unavailable | Unavailable | + + + + Unavailable | Unavailable | + + + + Allergies No information. Encounters No information. Functional Status No information. Immunizations No information. Medications + + + + | date | description | facility | + + + + | (no date) | [facility] | | | | [facility] | + + + + | (no date) | LURASIDONE HCL | [facility] | | | | [facility] | + + + + | (no date) | NAPROXEN | [facility] | | | | [facility] | + + + + | (no date) | ACETAMINOPHEN | [facility] | | | | [facility] | + + + + | (no date) | TOPIRAMATE | [facility] | | | | [facility] | + + + + | (no date) | Elainegeojane-Vfrm | [facility] | | | | [facility] | + + + + | (no date) | FLUOXETINE HCL | [facility] | | | | [facility] | + + + + | (no date) | ESZOPICLONE | [facility] | | | | [facility] | + + + + | (no date) | DULOXETINE HCL | [facility] | | | | [facility] | + + + + | (no date) | NAPROXEN SODIUM | [facility] | | | | [facility] | + + + + | (no date) | AMITRIPTYLINE HCL | [facility] | | | | [facility] | + + + + | (no date) | PROMETHAZINE HCL | [facility] | | | | [facility] | + + + + | (no date) | hydrOXYzine HCL | [facility] | | | | [facility] | + + + + Problems No information. Procedures No information. Results/Labs +--------+--------+ +---------+--------+---------+ | test | date | facility | value | unit | notes | +--------+--------+ +---------+--------+---------+ + + | Result panel 1 | + + + + + +-------+---------+ + | Glucose | 2025-06-04 | | 101 | mg/dL | (missing) | | [facility]nc | 08:20:07 | [facility] | | | | | [facility] | | | | + + + +-------+---------+ + + + | Result panel 2 | + + + + + +-------+ + + | Anion Gap | 2025-06-04 | | 7.8 | (missing) | (missing) | | Ser[facility] | 08:20:07 | [facility] | | | | | Calculated.4 | | [facility] | [facility] | | [facility] | [facility] | | | | + + + +-------+ + + + + | Result panel 3 | + + + + + +-------+---------+ + | Calcium | 2025-06-04 | | 9.0 | mg/dL | (missing) | | [facility] | 08:20:07 | [facility] | | | | | | [facility] | [facility] | | | | + + + +-------+---------+ + + + | Result panel 4 | + + + + + +-------+ + + | Prot | 2025-06-04 | | 6.2 | (missing) | (missing) | | [facility] | 08:20:07 | [facility] | | | | | [facility] | | | | + + + +-------+ + + + + | Result panel 5 | + + + + + +-------+ + + | Albumin | 2025-06-04 | | 3.2 | (missing) | (missing) | | [facility] | 08:20:07 | [facility] | | | | | | | - | | | | | | | [facility] | [facility] | [facility] | | | | + + + +-------+ + + + + | Result panel 6 | + + + + + +-------+ + + | Globulin | 2025-06-04 | | 3.0 | (missing) | (missing) | | Ser-mCnc | 08:20:07 | [facility] | | | | | | [facility] | | | | + + + +-------+ + + + + | Result panel 7 | + + + + + +--------+ + + | | 2025-06-04 | | 1.07 | (missing) | (missing) | | Albumin/Glob | 08:20:07 | [facility] | | | | | [facility] | [facility] | | | | + + + +--------+ + + + + | Result panel 8 | + + + + + +-------+---------+ + | Bilirub | 2025-06-04 | | 0.6 | mg/dL | (missing) | | [facility]nc | 08:20:07 | [facility] | | | | | [facility] | | | | + + + +-------+---------+ + + + | Result panel 9 | + + + + + +------+ + + | AST | 2025-06-04 | | 21 | (missing) | (missing) | | [facility]nc | 08:20:07 | [facility] | | | | | [facility] | | | | + + + +------+ + + + + | Result panel 10 | + + + + + +------+ + + | ALT | 2025-06-04 | | 16 | (missing) | (missing) | | [facility] | 08:20:07 | [facility] | | | [facility] | | | | + + + +------+ + + + + | Result panel 11 | + + + + + +------+ + + | ALP | 2025-06-04 | | 67 | (missing) | (missing) | | [facility] | 08:20:07 | [facility] | | | | | [facility] | | | | + + + +------+ + + + + | Result panel 12 | + + + + + +-----+---------+ + | BUN | 2025-06-04 | | 9 | mg/dL | (missing) | | Ser[facility]-m[facility]nc | 08:20:07 | [facility] | | | | | [facility] | | | | + + + +-----+---------+ + + + | Result panel 13 | + + + + + + + + + | HCG SerPl | 2025-06-04 | | NEGATIVE | (missing) | (missing) | | Ql | 08:20:07 | [facility] | | | | [facility] | | | | + + + + + + + + + | Result panel 14 | + + + + + +--------+---------+ + | Creat | 2025-06-04 | | 0.72 | mg/dL | (missing) | | Ser[facility]-mCraul | 08:20:07 | [facility] | | | | | | | - | | | | | | | [facility] | | | | + + + +--------+---------+ + + + | Result panel 15 | + + + + + +-------+ + + | eGFRcr | 2025-06-04 | | 119 | (missing) | (missing) | | SerPlBld | 08:20:07 | [facility] | | | | | CKD-EPI 2020 | [facility] | | | | + + + +-------+ + + + + | Result panel 16 | + + + + + +---------+ + + | BUN/Creat | 2025-06-04 | | 12.50 | (missing) | (missing) | | SerPl | 08:20:07 | [facility] | | | | | [facility] | | | | + + + +---------+ + + + + | Result panel 17 | + + + + + +-------+ + + | Sodium | 2025-06-04 | | 138 | (missing) | (missing) | | SerPl-sCnc | 08:20:07 | [facility] | | | | | | [facility] | | | | + + + +-------+ + + + + | Result panel 18 | + + + + + +-------+ + + | Potassium | 2025-06-04 | | 3.8 | (missing) | (missing) | | SerPl-sCnc | 08:20:07 | [facility] | | | | + + + +-------+ + + + + | Result panel 19 | + + + + + +-------+ + + | Chloride | 2025-06-04 | | 106 | (missing) | (missing) | | SerPl-sCnc | 08:20:07 | [facility] | | | | | [facility] | | | | + + + +-------+ + + + + | Result panel 20 | + + + + + +------+ + + | CO2 | 2025-06-04 | | 28 | (missing) | (missing) | | SerPl-sCn | 08:20:07 | [facility] | [facility] | | | | + + + +------+ + + Social History +--------+ + + | date | description | facility | +--------+ + + Vital Signs + + +---------+---------+ | date | measurement | value | units | + + +---------+---------+ | 2025-06-04 00:00 | BP_diastolic | 69 | mmHg | + + +---------+---------+ | 2025-06-04 00:00 | BP_systolic | 85 | mmHg | + + +---------+---------+ | 2025-06-04 00:00 | heart_rate | 68 | /min | + + +---------+---------+ | 2025-06-04 00:00 | o2_saturation | 100 | % | + + +---------+---------+ | 2025-06-04 00:00 | respiration_rate | 12 | /min | + + +---------+---------+ | 2025-06-04 00:00 | | 97.1 | F | | | temperature_standar | | | | | d | | | + + +---------+---------+"
[~2025-08-29 13:42] MED LIST changes: +IMITREX25 MG PO; +ONDANSETRON HCL4 MG PO
--- OUTSIDE RECORDS SUMMARY | 2025-08-29 13:49 | XMS ---
PreManage Notification: SEAN KHALIL Security Government Affairs Director Events No recent Security Events currently on file CRITERIA MET - 6 ED Visits in 6 Months - [facility] - 2 Visits in 30 Days CARE PROVIDERS Marge Woods Community Health Worker 01/07/2021-Current PHONE: [phone] JOSÉ ANTONIO NERI Liaison Officer 11/05/2020-Current PHONE: Unknown EVERARDO SINHA Physician Clothespin Machine Operator 12/17/2018-Current PHONE: [phone] -[facility]+ Dentist: Liaison Officer Dionna Schmidt PHONE: [phone] -Shilo- Dentist: Liaison Officer [facility] PHONE: [phone] -Brayan- Dentist: Liaison Officer [facility] PHONE: [phone] BRAYAN PRIMARY Clinic/Center: [facility] PHONE: [phone] Ludivina has no Care Guidelines for this patient. Care History Medical/Surgical 12/23/2020 [facility] \R\- PATIENT CURRENTLY - RECEIVING SERVICES FROM [facility]. 11/16/2020 [facility] \R\- PATIENT HAS AN APT WITH DR DARON VYAS 11/25/2020 FOR ER FOLLOW UP. E.D. VISIT COUNT (12 MO.) [facility] 1 [facility] TOTAL 14 NOTE: Visits indicate total known visits. ED/UCC VISIT TRACKING (12 MO.) 08/29/2025 13:42 [facility] [place] TYPE: Emergency COMPLAINT: - VOMITING 07/31/2025 03:58 [facility] TYPE: Emergency DIAGNOSES: - Cannabis hyperemesis syndrome - amr 348 07/22/2025 12:57 [facility] [place] TYPE: Emergency COMPLAINT: - ABDOMINAL PAIN DIAGNOSES: - Allergy status to penicillin - Allergy status to serum and vaccine - Cyclical vomiting syndrome unrelated to migraine - Other half-way (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 04/12/2025 20:32 [facility] TYPE: Emergency COMPLAINT: - VOMITING DIAGNOSES: - Allergy status to other antibiotic agents - Allergy status to other drugs, medicaments and biological substances - Allergy status to serum and vaccine - Cyclical vomiting syndrome unrelated to migraine - Nausea with vomiting, unspecified - Other marine oil terminal superintendent (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 03/18/2025 12:11 [facility] TYPE: Emergency DIAGNOSES: - Acidosis, unspecified - [...] Noninfective gastroenteritis and colitis, unspecified - Other half-way (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 03/16/2025 14:08 [facility]: Emergency DIAGNOSES: - Noninfective gastroenteritis and colitis, unspecified - Abdominal Pain - Emesis - vomiting,poss dehydration 03/16/2025 08:17 [facility] TYPE: Emergency COMPLAINT: - VOMITING DIAGNOSES: - Allergy status to other antibiotic agents - Allergy status to penicillin - Allergy status to serum and vaccine - Nausea with vomiting, unspecified - Other half-way (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 03/15/2025 00:14 [facility] TYPE: Emergency COMPLAINT: - VOMITING DIAGNOSES: - Allergy status to other drugs, medicaments and biological substances - Allergy status to penicillin - Allergy status to serum and vaccine - Cyclical vomiting, in migraine, not intractable - Nausea with vomiting, unspecified - Other half-way (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 03/14/2025 09:07 [facility] TYPE: Emergency COMPLAINT: - VOMITING DIAGNOSES: - Allergy status to other antibiotic agents - Allergy status to penicillin - Allergy status to serum and vaccine - Hypokalemia - long term acute care registered nurse (current) use of antibiotics - Nausea with vomiting, unspecified - Other marine oil terminal superintendent (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 03/11/2025 11:38 [facility] TYPE: Emergency COMPLAINT: - VOMITING DIAGNOSES: - Allergy status to other antibiotic agents - Allergy status to penicillin - Allergy status to serum and vaccine - Cyclical vomiting syndrome unrelated to migraine - care home (current) use of antibiotics - Nausea with vomiting, unspecified 12/18/2024 11:33 [facility] TYPE: Emergency COMPLAINT: - RT LEG PAIN DIAGNOSES: - Allergy status to penicillin - Allergy status to serum and vaccine - Other half-way (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 - Pain in right [...] ice and snow, initial encounter - Other half-way (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 - Pain in right ankle and joints of right foot 10/16/2024 19:00 [facility] TYPE: Emergency COMPLAINT: - LOWER BACK PAIN/FEET NUMBNESS DIAGNOSES: - Allergy status to other drugs, medicaments and biological substances - Allergy status to penicillin - Allergy status to serum and vaccine - Fall from snowboard, initial encounter - Low back pain, unspecified - Other marine oil terminal superintendent (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 - Strain of muscle, fascia and tendon of lower back, initial encounter INPATIENT VISIT TRACKING (12 MO.) No inpatient visits to display in this time frame [id number]
[2025-08-29 15:23] LABS: BASOPHILS 0.2 % (0.1-1.2); EOSINOPHILS 0.3 % (0.7-5.8); LYMPHOCYTES 8.6 % (19.3-51.7); MCH 30.2 PG (25.6-32.2); MCHC 35.7 g/dL (32.2-35.5); MCV 84.6 fL (79.4-94.8); MONOCYTES 6.7 % (4.7-12.5); NEUTROPHILS 83.8 % (34.0-71.1); RBC 4.74 M/uL (3.93-5.22)
[2025-08-29] MEDS ORDERED: SODIUM CHLORIDE 0.9% 500 ML IV ONE (15:30)
[2025-08-29 15:44] LABS: ALT (SGPT) 35.0 U/L (14-59); AST (SGOT) 20.0 U/L (15-37); GLOMERULAR FILTRATION RATE,EST 119.0 mL/min (>60); PROTEIN, TOTAL 7.4 g/dL (6.4-8.2); UREA NITROGEN 9.0 mg/dL (7-18)
[2025-08-29] MEDS ORDERED: SODIUM CHLORIDE 0.9% 1,000 ML IV PRN (16:00)
[2025-08-29] MEDS ORDERED: HALOPERIDOL LACTATE 5 MG/ML VIAL IV ONE (16:00)
[2025-08-29] MEDS ORDERED: LIDOCAINE & ANTACID 35 ML BTL PO ONE (16:30)
[2025-08-29] MEDS ORDERED: REGLAN10 MG PO (18:00)
[2025-08-29] MEDS ORDERED: ONDANSETRON 4 MG HOME.PACK SL ONE (18:00)
[2025-08-29 18:16] LABS: BLOOD/HGB, URINE SMALL (Negative); KETONE, URINE SMALL (Negative); LEUK ESTERASE, URINE NEGATIVE (negative); NITRITE, URINE NEGATIVE (negative)
[2025-08-29 18:24] LABS: BACTERIA, URINE 2+ /hpf (negative); CASTS, URINE NONE SEEN \\lpf; CRYSTALS, URINE NONE SEEN (0-1+); EPITHELIAL CELLS, URINE SQUAMOUS 3+ /lpf (0-1+); REFLEX CULTURE, URINE No (No)
[2025-08-29] MEDS ORDERED: METOCLOPRAMIDE HCL 10 MG/2 ML SDV IV ONE (18:45)
[2025-08-29 19:20] VITALS: BP 131/91
== END 2025-08-29 19:20 | disposition home or self-care (01) ==
LOC: ED 13:42
PROVIDERS: Emergency Medicine
DX: R11.15 Cyclical vomiting syndrome unrelated to migraine (principal); G47.00 Insomnia, unspecified; Z79.899 Other long term (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; Z88.0 Allergy status to penicillin; Z88.1 Allergy status to other antibiotic agents; Z88.7 Allergy status to serum and vaccine; Z88.8 Allergy status to other drugs, medicaments and biological substances
CPT/HCPCS: 36415; 80053; 81001; 83735; 84703; 85025; 96361; 96374; 96375; 96376; 99284-25; A9270; J1200; J1630; J2405; J2765; J7030; J7040

== ENCOUNTER 2025-09-24 08:44 | Emergency (ER) | payer OTHER ==
[~2025-09-24] VITALS: Ht 152.4 cm; Wt 68.2 kg
--- OUTSIDE RECORDS SUMMARY | ~2025-09-24 | XMS | Continuity of Care Document ---
Demographics + + + | Address | [address] | | | [place] [address] | + + + | Preferred Language | Unknown | + + + | Marital Status | Domestic partner | + + + | Evangelical Affiliation | Unknown | + + + | Race | White | + + + | Ethnic Group | Not or | + + + Author + + + | Author | [facility] | + + + | Organization | [facility] | + + + | Address | [address] | | | [place] [address] | + + + | Phone | | + + + Care Team Providers + + + + | Care Heel Attacher Name | Role | Phone | + + + + Unavailable | Unavailable | + + + + Unavailable | Unavailable | + + + + Allergies and Intolerances + + + + + + | date | description | facility | reaction | severity | + + + + + + | 2025-08-29 | | [facility] - | Anaphylaxis | Severe | | 00:00 | Methylphenidate | [facility] | | | + + + + + + | 2025-08-29 | | [facility] - | Anaphylaxis | Severe | | 00:00 | Methylphenidate | [facility] | | | + + + + + + | 2025-08-29 | Chlorhexidine | [facility] - | Urticaria | Moderate | | 00:00 | | [facility] | | | + + + + + + | 2025-08-29 | Amoxicillin | [facility] - | Urticaria | Moderate | | 00:00 | | [facility] | | | + + + + + + | 2025-08-29 | Chlorhexidine | [facility] - | Urticaria | Moderate | | 00:00 | | [facility] | | | + + + + + + | 2025-08-29 | | [facility] - | Anaphylaxis | Severe | | 00:00 | Methylphenidate | [facility] | | | + + + + + + | 2025-08-29 | Amoxicillin | [facility] - | Urticaria | Moderate | | 00:00 | | [facility] | | | + + + + + + | 2025-08-29 | Amoxicillin | [facility] - | Urticaria | Moderate | | 00:00 | | [facility] | | | + + + + + + | 2025-08-29 | Penicillin | [facility] - | Nausea alone | Mild | | 00:00 | | [facility] | | | + + + + + + | 2025-08-29 | UNK | [facility] - | (no reaction) | Mild | | 00:00 | | [facility] | | | + + + + + + | 2025-08-29 | Penicillin | [facility] - | Nausea alone | Mild | | 00:00 | | [facility] | | | + + + + + + | 2025-08-29 | Penicillin | [facility] - | Nausea alone | Mild | | 00:00 | | [facility] | | | + + + + + + | 2025-08-29 | Chlorhexidine | [facility] - | Urticaria | Moderate | | 00:00 | | [facility] | | | + + + + + + Encounters No information. Functional Status No information. Immunizations No information. Medications + + + + | date | description | facility | + + + + | (no date) | ONDANSETRON | [facility] | | | | [facility] | + + + + | (no date) | LURASIDONE HCL | [facility] | | | | [facility] | + + + + | (no date) | NAPROXEN | [facility] | | | | [facility] | + + + + | 2025-07-22 00:00 | ONDANSETRON HCL | [facility] | | | | [facility] | + + + + | (no date) | ACETAMINOPHEN | [facility] | | | | [facility] | + + + + | (no date) | TOPIRAMATE | [facility] | | | | [facility] | + + + + | (no date) | Frefelyalex-Vfrm | [facility] | | | | [facility] | + + + + | 2025-08-29 00:00 | METOCLOPRAMIDE HCL | [facility] | | | | [facility] | + + + + | (no date) | SUMATRIPTAN SUCCINATE | [facility] | | | | [facility] | + + + + | (no date) | FLUOXETINE HCL | [facility] | | | | [facility] | + + + + | (no date) | ESZOPICLONE | [facility] | | | | [facility] | + + + + | (no date) | DULOXETINE HCL | [facility] | | | | [facility] | + + + + | (no date) | NAPROXEN SODIUM | [facility] | | | | [facility] | + + + + | (no date) | AMITRIPTYLINE HCL | [facility] | | | | [facility] | + + + + | (no date) | PROMETHAZINE HCL | [facility] | | | | [facility] | + + + + | (no date) | hydrOXYzine HCL | [facility] | | | | [facility] | + + + + Problems No information. Procedures No information. Results/Labs +--------+--------+ +---------+--------+---------+ | test | date | facility | value | unit | notes | +--------+--------+ +---------+--------+---------+ + + | Result panel 1 | + + + + + +---------+ + + | WBC # Bld | 2025-08-29 | | 14.24 | (missing) | (missing) | | Auto | 15:15:08 | [facility] | | | | + + + +---------+ + + + + | Result panel 2 | + + + + + +-------+ + + | Lymphocytes | 2025-08-29 | | 8.6 | (missing) | (missing) | | NFr Bld | 15:15:08 | [facility] | | | | | Auto | [facility] | | | | + + + +-------+ + + + + | Result panel 3 | + + + + + +-------+ + + | Monocytes | 2025-08-29 | | 6.7 | (missing) | (missing) | | NFr Bld Auto | 15:15:08 | [facility] | | | | + + + +-------+ + + + + | Result panel 4 | + + + + + +-------+ + + | Eosinophil | 2025-08-29 | | 0.3 | (missing) | (missing) | | NFr Bld Auto | 15:15:08 | [facility] | | | | | | | - | | | | | | | [facility] | | | | + + + +-------+ + + + + | Result panel 5 | + + + + + +-------+ + + | Basophils | 2025-08-29 | | 0.2 | (missing) | (missing) | | NFr Bld Auto | 15:15:08 | [facility] | | | | + + + +-------+ + + + + | Result panel 6 | + + + + + +--------+ + + | RBC # Bld | 2025-08-29 | | 4.74 | (missing) | (missing) | | Auto | 15:15:08 | [facility] | | | | + + + +--------+ + + + + | Result panel 7 | + + + + + +--------+ + + | Hgb | 2025-08-29 | | 14.3 | (missing) | (missing) | | Bld-mCnc | 15:15:08 | [facility] | | | | + + + +--------+ + + + + | Result panel 8 | + + + + + +-------+---------+ + | Glucose | 2025-08-29 | | 105 | mg/dL | (missing) | | [facility] | 15:15:08 | [facility] | | | | + + + +-------+---------+ + + + | Result panel 9 | + + + + + +-----+---------+ + | BUN | 2025-08-29 | | 9 | mg/dL | (missing) | | SerPl-mCnc | 15:15:08 | [facility] | | | | + + + +-----+---------+ + + + | Result panel 10 | + + + + + +--------+---------+ + | Creat | 2025-08-29 | | 0.72 | mg/dL | (missing) | | SerPl-[facility] | 15:15:08 | [facility] | [facility] | | | | + + + +--------+---------+ + + + | Result panel 11 | + + + + + +-------+ + + | eGFRcr | 2025-08-29 | | 119 | (missing) | (missing) | | SerPlBld | 15:15:08 | [facility] | | | | | CKD-EPI 2020 | | - | | | | | | | [facility] | | | | + + + +-------+ + + + + | Result panel 12 | + + + + + +---------+ + + | BUN/Creat | 2025-08-29 | | 12.50 | (missing) | (missing) | | SerPl | 15:15:08 | [facility] | | | | + + + +---------+ + + + + | Result panel 13 | + + + + + +-------+ + + | Sodium | 2025-08-29 | | 136 | (missing) | (missing) | | SerPl-sCnc | 15::08 | [facility] | | | | + + + +-------+ + + + + | Result panel 14 | + + + + + +--------+ + + | Hct VFr.DF | 2025-08-29 | | 40.1 | (missing) | (missing) | | Bld Auto | 15:15:08 | [facility] | | | | + + + +--------+ + + + + | Result panel 15 | + + + + + +-------+ + + | Potassium | 2025-08-29 | | 3.1 | (missing) | (missing) | | SerPl-sCnc | 15:15:08 | [facility] | | | | + + + +-------+ + + + + | Result panel 16 | + + + + + +------+ + + | Chloride | 2025-08-29 | | 97 | (missing) | (missing) | | SerPl-sCnc | 15:15:08 | [facility] | | | | + + + +------+ + + + + | Result panel 17 | + + + + + +------+ + + | CO2 | 2025-08-29 | | 27 | (missing) | (missing) | | SerPl-sCnc | 15:15:08 | [facility] | | | | + + + +------+ + + + + | Result panel 18 | + + + + + +--------+ + + | Anion Gap | 2025-08-29 | | 15.1 | (missing) | (missing) | | SerPl | 15:15:08 | [facility] | | | | | Calculated.4 | [facility] | [facility] | [facility] | | [facility] | | | | + + + +--------+ + + + + | Result panel 19 | + + + + + +-------+---------+ + | Calcium | 2025-08-29 | | 9.5 | mg/dL | (missing) | | SerPl-mCnc | 15:15:08 | [facility] | | | [facility] | | | | + + + +-------+---------+ + + + | Result panel 20 | + + + + + +-------+---------+ + | Magnesium | 2025-08-29 | | 2.0 | mg/dL | (missing) | | SerPl-mCnc | 15:15:08 | [facility] | | | | + + + +-------+---------+ + + + | Result panel 21 | + + + + + +-------+ + + | Prot | 2025-08-29 | | 7.4 | (missing) | (missing) | | SerPl-mCnc | 15:15:08 | [facility] | | | | + + + +-------+ + + + + | Result panel 22 | + + + + + +-------+ + + | Albumin | 2025-08-29 | | 4.2 | (missing) | (missing) | | SerPl-mCnc | 15:15:08 | [facility] | [facility] | | | | + + + +-------+ + + + + | Result panel 23 | + + + + + +-------+ + + | Globulin | 2025-08-29 | | 3.2 | (missing) | (missing) | | Ser-mCnc | 15:15:08 | [facility] | | | | + + + +-------+ + + + + | Result panel 24 | + + + + + +--------+ + + | | 2025-08-29 | | 1.31 | (missing) | (missing) | | Albumin/Glob | 15:15:08 | [facility] | | | | | SerPl | [facility] | | | | + + + +--------+ + + + + | Result panel 25 | + + + + + +--------+ + + | RBC Auto | 2025-08-29 | | 84.6 | (missing) | (missing) | | | 15:15:08 | [facility] | | | | + + + +--------+ + + + + | Result panel 26 | + + + + + +-------+---------+ + | Bilirub | 2025-08-29 | | 1.6 | mg/dL | (missing) | | SerPl-mCnc | 15:15:08 | [facility] | | | | + + + +-------+---------+ + + + | Result panel 27 | + + + + + +------+ + + | AST | 2025-08-29 | | 20 | (missing) | (missing) | | SerPl-cCnc | 15:15:08 | [facility] | | | | + + + +------+ + + + + | Result panel 28 | + + + + + +------+ + + | ALT | 2025-08-29 | | 35 | (missing) | (missing) | | [facility] | 15:15:08 | [facility] | | | | + + + +------+ + + + + | Result panel 29 | + + + + + +------+ + + | ALP | 2025-08-29 | | 60 | (missing) | (missing) | | SerPl-cCnc | ::08 | [facility] | | | | + + + +------+ + + + + | Result panel 30 | + + + + + + + + + | HCG SerPl | 2025-08-29 | | NEGATIVE | (missing) | (missing) | | Ql | ::08 | [facility] | | | | + + + + + + + + + | Result panel 31 | + + + + + +--------+ + + | MCH RBC Qn | 2025-08-29 | | 30.2 | (missing) | (missing) | | Auto | 15:15:08 | [facility] | | | | + + + +--------+ + + + + | Result panel 32 | + + + + + +--------+ + + | MCHC RBC | 2025-08-29 | | 35.7 | (missing) | (missing) | | Auto-EntMCnc | 15:15:08 | [facility] | | | | + + + +--------+ + + + + | Result panel 33 | + + + + + +-------+ + + | Platelet # | 2025-08-29 | | 296 | (missing) | (missing) | | Bld Auto | 15:15:08 | [facility] | | | | + + + +-------+ + + + + | Result panel 34 | + + + + + +--------+ + + | Neutrophils | 2025-08-29 | | 83.8 | (missing) | (missing) | | NFr Bld | 15:15:08 | [facility] | | | | | Auto | [facility] | | | | + + + +--------+ + + + + | Result panel 35 | + + + + + + + + + | Color Ur | 2025-08-29 | | YELLOW | (missing) | (missing) | | Auto | 18:11:08 | [facility] | | | | + + + + + + + + + | Result panel 36 | + + + + + +---------+ + + | Character | 2025-08-29 | | CLEAR | (missing) | (missing) | | Ur | 18:11:08 | [facility] | | | | + + + +---------+ + + + + | Result panel 37 | + + + + + + + + + | Glucose Ur | 2025-08-29 | | NEGATIVE | (missing) | (missing) | | Ql Strip | 18:11:08 | [facility] | | | | + + + + + + + + + | Result panel 38 | + + + + + + + + + | Mairanela Salazar | 2025-08-29 | | POSITIVE | (missing) | (missing) | | Ql Strip | 18:11:08 | [facility] | | | | + + + + + + + + + | Result panel 39 | + + + + + +---------+ + + | Ketonecristofer Salazar | 2025-08-29 | | SMALL | (missing) | (missing) | | Ql Strip | 18:11:08 | [facility] | | | | + + + +---------+ + + + + | Result panel 40 | + + + + + + + + + | Sp Gr Ur | 2025-08-29 | | >=1.030 | (missing) | (missing) | | Strip | 18:11:08 | [facility] | | | | + + + + + + + + + | Result panel 41 | + + + + + +---------+ + + | Hgb Ur Ql | 2025-08-29 | | SMALL | (missing) | (missing) | | Strip | 18:11:08 | [facility] | | | | + + + +---------+ + + + + | Result panel 42 | + + + + + +-------+ + + | pH Ur Strip | 2025-08-29 | | 6.0 | (missing) | (missing) | | | 18:11:08 | [facility] | | | | + + + +-------+ + + + + | Result panel 43 | + + + + + +------+ + + | Prot Ur | 2025-08-29 | | 30 | (missing) | (missing) | | Strip-mCnc | 18:11:08 | [facility] | | | | [facility] | | | | + + + +------+ + + + + | Result panel 44 | + + + + + +-------+ + + | | 2025-08-29 | | 1.0 | (missing) | (missing) | | Urobilinogen | 18:11:08 | [facility] | | | | | Ur | [facility] | | [facility] | | | | + + + +-------+ + + + + | Result panel 45 | + + + + + + + + + | Nitrite Ur | 2025-08-29 | | NEGATIVE | (missing) | (missing) | | Ql Strip | 18:11:08 | [facility] | | | | | [facility] | | | | + + + + + + + + + | Result panel 46 | + + + + + + + + + | Leukocyte | 2025-08-29 | | NEGATIVE | (missing) | (missing) | | esterase Ur | 18:11:08 | [facility] | | | | | Ql Strip | [facility] | | | | + + + + + + + + + | Result panel 47 | + + + + + +-------+ + + | RBC #/area | 2025-08-29 | | 0-1 | (missing) | (missing) | | UrnS HPF | 18:11:08 | [facility] | | | | [facility] | | | | + + + +-------+ + + + + | Result panel 48 | + + + + + +-------+ + + | WBC #/area | 2025-08-29 | | 4-6 | (missing) | (missing) | | UrnS HPF | 18:11:08 | [facility] | | | | [facility] | | | | + + + +-------+ + + + + | Result panel 49 | + + + + + + + + + | Epi Cells | 2025-08-29 | | SQUAMOUS 3+ | (missing) | (missing) | | #/area UrnS | 18:11:08 | [facility] | | | | | HPF | [facility] | | | | + + + + + + + + + | Result panel 50 | + + + + + + + + + | Crystals | 2025-08-29 | | NONE SEEN | (missing) | (missing) | | UrnS Micro | 18:11:08 | [facility] | | | | | | [facility] | | | | + + + + + + + + + | Result panel 51 | + + + + + +------+ + + | Bacteria | 2025-08-29 | | 2+ | (missing) | (missing) | | #/area UrnS | 18:11:08 | [facility] | | | | | HPF | [facility] | | | | + + + +------+ + + + + | Result panel 52 | + + + + + + + + + | Casts | 2025-08-29 | | NONE SEEN | (missing) | (missing) | | #/area UrnS | 18:11:08 | [facility] | | | | | LPF | [facility] | | | | + + + + + + + + + | Result panel 53 | + + + + + +------+ + + | Bacteria Ur | 2025-08-29 | | No | (missing) | (missing) | | Cult | 18:11:08 | [facility] | | | | | | [facility] | | | | + + + +------+ + + + + | Result panel 54 | + + + + + + + + + | Urn Spec | 2025-08-29 | | CLEAN CATCH | (missing) | (missing) | | Collect Meth | 18:11:08 | [facility] | | | | | Ur | [facility] | | | | + + + + + + + Social History +--------+ + + | date | description | facility | +--------+ + + Vital Signs + + + +---------+ | date | measurement | value | units | + + + +---------+ | 2025-08-29 00:00 | BMI | 29.4 | kg/m2 | + + + +---------+ | 2025-08-29 00:00 | BP_diastolic | 91 | mmHg | + + + +---------+ | 2025-08-29 00:00 | BP_systolic | 131 | mmHg | + + + +---------+ | 2025-08-29 00:00 | heart_rate | 88 | /min | + + + +---------+ | 2025-08-29 00:00 | height_metric | 152.4 | cm | + + + +---------+ | 2025-08-29 00:00 | height_standard | 60 | in | + + + +---------+ | 2025-08-29 00:00 | o2_saturation | 98 | % | + + + +---------+ | 2025-08-29 00:00 | respiration_rate | 26 | /min | + + + +---------+ | 2025-08-29 00:00 | | 98.3 | F | | | temperature_standar | | | | | d | | | + + + +---------+ | 2025-08-29 00:00 | weight_metric | 68.2 | kg | + + + +---------+ | 2025-08-29 00:00 | weight_standard | 150.356 | lb | + + + +---------+"
--- OUTSIDE RECORDS SUMMARY | 2025-09-24 08:45 | XMS ---
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 PHONE: [phone] Ludivina has no Care Guidelines for this patient. Care History Medical/Surgical 12/23/2020 [facility] \R\- PATIENT CURRENTLY - RECEIVING SERVICES FROM [facility]. 11/16/2020 [facility] \R\- PATIENT HAS AN APT WITH DR DARON VYAS 11/25/2020 FOR ER FOLLOW UP. E.D. VISIT COUNT (12 MO.) [facility] 1 [facility] TOTAL 15 NOTE: Visits indicate total known visits. ED/UCC VISIT TRACKING (12 MO.) 09/24/2025 08:44 [facility] TYPE: Emergency COMPLAINT: - VOMITING 08/29/2025 13:42 [facility] [place] TYPE: Emergency COMPLAINT: - VOMITING DIAGNOSES: - Allergy status to other antibiotic agents - Allergy status to other drugs, medicaments and biological substances - Allergy status to penicillin - Allergy status to serum and vaccine - Cyclical vomiting syndrome unrelated to migraine - Insomnia, unspecified - Nausea with vomiting, unspecified - Other intermediate (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 07/31/2025 03:58 [facility] TYPE: Emergency DIAGNOSES: - Cannabis hyperemesis syndrome - amr 348 07/22/2025 12:57 [facility] TYPE: Emergency COMPLAINT: - ABDOMINAL PAIN DIAGNOSES: - Allergy status to penicillin - Allergy status to serum and vaccine - Cyclical vomiting syndrome unrelated to migraine - 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 (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 04/12/2025 20:32 [facility] TYPE: Emergency COMPLAINT: - VOMITING DIAGNOSES: - Allergy status to other antibiotic agents - Allergy status to other drugs, medicaments and biological substances - Allergy status to serum and vaccine - Cyclical vomiting syndrome unrelated to migraine - Nausea with vomiting, unspecified - 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 (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 03/18/2025 12:11 [facility] TYPE: Emergency DIAGNOSES: - Acidosis, unspecified - Cannabis use, unspecified, uncomplicated - Hypokalemia - Nausea with vomiting, unspecified - Other acidosis - Other disorders of phosphorus metabolism - Other specified health status - Unspecified abdominal pain - Emesis - Nausea 03/17/2025 18:31 [facility] TYPE: Emergency COMPLAINT: - VOMITING DIAGNOSES: - Allergy status to other drugs, medicaments and biological substances - Allergy status to penicillin - Allergy status to serum and vaccine - Nausea with vomiting, unspecified - Noninfective gastroenteritis and colitis, unspecified - Other intermediate (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 03/16/2025 14:08 [facility] ([facility]) TYPE: Emergency DIAGNOSES: - Noninfective gastroenteritis and colitis, unspecified - Abdominal Pain - Emesis - vomiting,poss dehydration 03/16/2025 08:17 [facility] TYPE: Emergency COMPLAINT: - VOMITING DIAGNOSES: - Allergy status to other antibiotic agents - Allergy status to penicillin - Allergy status to serum and vaccine - Nausea with vomiting, unspecified - Other intermediate (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 03/15/2025 00:14 [facility] TYPE: Emergency COMPLAINT: - VOMITING DIAGNOSES: - Allergy status to other drugs, medicaments and biological substances - Allergy status to penicillin - Allergy status to serum and vaccine - Cyclical vomiting, in migraine, not intractable - Nausea with vomiting, unspecified - 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 (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 03/14/2025 09:07 [facility] TYPE: Emergency COMPLAINT: - VOMITING DIAGNOSES: - Allergy status to other antibiotic agents - Allergy status to penicillin - Allergy status to serum and vaccine - Hypokalemia - 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 - Nausea with vomiting, unspecified - 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 (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 03/11/2025 11:38 [facility] [...] to serum and vaccine - 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 (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 - Pain in right ankle and joints of right foot - Polyneuropathy, unspecified 11/02/2024 02:01 [facility] TYPE: Emergency COMPLAINT: - ANKLE INJURY DIAGNOSES: - Allergy status to other drugs, medicaments and biological substances - Allergy status to penicillin - Allergy status to serum and vaccine - Displaced fracture of lateral malleolus of right fibula, initial encounter for closed fracture - Fall on same level due to ice and snow, initial encounter - 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 (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 - Pain in right ankle and joints of right foot 10/16/2024 19:00 [facility] TYPE: Emergency COMPLAINT: - LOWER BACK PAIN/FEET NUMBNESS DIAGNOSES: - Allergy status to other drugs, medicaments and biological substances - Allergy status to penicillin - Allergy status to serum and vaccine - Fall from snowboard, initial encounter - Low back pain, unspecified - Other intermediate (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 - Strain of muscle, fascia and tendon of lower back, initial encounter INPATIENT VISIT TRACKING (12 MO.) No inpatient visits to display in this time frame [id number]
[2025-09-24] MEDS ORDERED: SODIUM CHLORIDE 0.9% 500 ML IV ONE (09:00)
[2025-09-24 09:13] LABS: BASOPHILS 0.2 % (0.1-1.2); EOSINOPHILS 0.3 % (0.7-5.8); LYMPHOCYTES 5.5 % (19.3-51.7); MCH 31.0 PG (25.6-32.2); MCHC 36.4 g/dL (32.2-35.5); MCV 85.3 fL (79.4-94.8); MONOCYTES 3.2 % (4.7-12.5); NEUTROPHILS 90.5 % (34.0-71.1); RBC 4.64 M/uL (3.93-5.22)
[2025-09-24] MEDS ORDERED: SODIUM CHLORIDE 0.9% 1,000 ML IV PRN (09:15)
[2025-09-24] MEDS ORDERED: CAPSAICIN 0.1% 56.6 GM TUBE TOP ONE (09:30)
[2025-09-24 09:39] LABS: ALT (SGPT) 25.0 U/L (14-59); AST (SGOT) 23.0 U/L (15-37); GLOMERULAR FILTRATION RATE,EST 95.0 mL/min (>60); PROTEIN, TOTAL 7.9 g/dL (6.4-8.2); UREA NITROGEN 10.0 mg/dL (7-18)
[2025-09-24] MEDS ORDERED: CAPSAICIN42.5 GM TOP (11:26)
[2025-09-24 11:36] VITALS: BP 97/74
== END 2025-09-24 11:36 | disposition home or self-care (01) ==
LOC: ED 08:44
PROVIDERS: Emergency Medicine
DX: R11.16 Cannabis hyperemesis syndrome (principal); F12.90 Cannabis use, unspecified, uncomplicated; Z88.8 Allergy status to other drugs, medicaments and biological substances; Z88.1 Allergy status to other antibiotic agents; Z88.0 Allergy status to penicillin
CPT/HCPCS: 36415; 80053; 83735; 84703; 85025; 85060; 96361; 96374; 96375; 99284-25; J1790; J2405; J7030